=== PATIENT | female | born 1950 | race Caucasian/White ===

== ENCOUNTER 2020-10-05 08:29 | Outpatient (REF) | payer MEDICARE, SELFPAY ==
--- NOTE | 2020-10-05 13:26 | MHC.AU.P13 ---
Adult Audiological Evaluation Date of Visit: 10/05/20 Machinery Rigger Used: Not Applicable Reason for Appointment: Audiologic re-evaluation due to question of change in hearing ability. Is at high risk for increased hearing loss due to her history of Kidney Disease with transplant in 2008. Also needs new hearing aids as her current aids are over 10 years old. Medical History: Medical History: High Blood Pressure Medical History: Kidney disease with transplant in 2008 Bipolar Disorder Medication List: Not available for review today. Teetee reports no change since last tested in 2019. Hearing Instrument History- Right Ear: Community Health Consultant: Phonak Model: Smart III ARUN Serial Number: [id number] Battery Size: 312 Warranty: 2011 Dispensed By: [facility] Date of Fittin07/29/2010 Hearing Instrument History- Left Ear: Community Health Consultant: Phonak Model: Smart III ARUN Serial Number: [id number] Battery Size: 312 Warranty: 2011 Dispensed By: [facility] Date of Fittin07/29/2010 Otoscopy: Right Ear: Unremarkable Left Ear: Unremarkable Tympanometry: Right Ear: Normal Middle Ear System (Type A) Left Ear: Normal Middle Ear System (Type A) Hearing Evaluation: Transducer(s) Used: Insert Earphones Bone Conduction Method: Conventional Audiometry Stimuli Used: Pure Tones Right Ear: Description of Hearing: Mild dropping to moderately-severe sensorineural hearing loss. Left Ear: Description of Hearing: Mild dropping to moderately-severe sensorineural hearing loss. Thresholds at 500-2000 Hz are 10-15 dB poorer compared to the right ear. Speech Recognition Threshold (SRT): Method Used: Monitored Live Voice Stimuli Used: Spondee Words Right Ear: 35 dB HL Left Ear: 40 dB HL Word Discrimination: Method: Recorded Lists Word Lists Used: NU-6 Right Ear: 92% at 75 dB HL Left Ear: 88% at 80 dB HL Comparison: Compared to the most recent evaluation: Hearing is stable. Recommendations: Recommendations: Audiological re-evaluation in one year. Trial with amplification is recommended. Medical clearance from a physician is required before fitting. Hearing Aid Fitting will be scheduled when all materials arrive. See Hearing Aid Evaluation report for more information. Diagnosis: Primary Diagnosis: H90.3 Bilateral Sensorineural Hearing Loss Services Performed: Services Performed: Comprehensive Audiological Evaluation (CPT 41863) Tympanometry (CPT 51996) Signature: Provider: Karon Zaidi, [facility]
--- NOTE | 2020-10-05 13:41 | MHC.AU.P13 ---
Hearing Aid Evaluation- Binaural Date of Visit: 10/05/20 Operational Risk Manager Used: Not Applicable Description of Hearing: Mild sloping to moderately-severe sensorineural hearing loss with the left ear being 10-15 dB poorer than the right at 500-2000 Hz Summary: Patient feels she is not hearing well with the current aids. Her mother passed and her old Oticon Leroy SP 7 aids were fit with new earmolds on 10/29/2019. However, Teetee reports the Oticon aids have not worked well for her as they are uncomfortable and feed back. New binaural hearing aids are advised to improve her hearing ability. Hearing Instrument Selection: Right Ear: Hydraulics Teacher: Phonak Model: Audeo P 50-13T Battery Size: 13 Color: Beige Falafel Cart Cook: #2 medium Type of Mold: Phonak Skeleton Left Ear: Hydraulics Teacher: Phonak Model: Audeo P 50-13T Battery Size: 312 Color: Beige Falafel Cart Cook: #2 Type of Mold: Phonak Skeleton Medical clearance sent to PCP Will schedule HAF when all materials are received. Diagnosis Code(s): Primary Diagnosis: H90.3 Bilateral Sensorineural Hearing Loss Services Performed: Hearing Aid Evaluation and Earmold Impressions Signature: Provider: Karon Zaidi, [facility]
--- NOTE | 2020-10-05 13:46 | MHC.AU.MED ---
Medical Clearance for Hearing Instrumentation Date: 10/05/20 Patient Name: Teetee Katz Date of : 1950 Primary Care Provider: Referring Provider: Alexandru Laguna MD We have seen your patient on 10/05/20 and have determined that they are a candidate for amplification (See accompanying report). Specifically, they would benefit from: Hearing aid use in both ears There is a statute that addresses Medical Evaluation Requirements prior to fitting a patient with a hearing aid. According to [place] statute 265 CMR:6.03(1), (a) General. Except as provided in 265 CMR 6.03(1)(b), a photoengraving helper shall not sell a hearing aid unless the prospective user has presented to the photoengraving helper a written statement signed by a licensed physician that states that the patient's hearing loss has been medically evaluated and the patient may be considered a candidate for a hearing aid. The medical evaluation must have taken place within the preceding six months. Please note: Due to the [place] Statute referenced above, we cannot accept a signature other than that of a licensed physician. HAND CANDY DIPPER and PA signatures cannot be accepted. I am in agreement with the above recommendation. There is no medical contraindication for hearing instrumentation. Physician Signature Date Physician Name (Printed)
== END 2020-10-05 08:30 | disposition home or self-care (01) ==
LOC: HO.SH 08:29
PROVIDERS: Visit Provider Hospitalist
DX: H90.3 Sensorineural hearing loss, bilateral (principal)
CPT/HCPCS: 92557; 92567

== ENCOUNTER 2020-10-23 11:10 | Outpatient (REF) | payer SELFPAY | END 2020-10-23 11:11 | disposition home or self-care (01) | LOC: HO.HAP 11:10 | PROVIDERS: Visit Provider Hospitalist | DX: Z46.1 Encounter for fitting and adjustment of hearing aid (principal); H90.3 Sensorineural hearing loss, bilateral | CPT/HCPCS: V5261 ==

== ENCOUNTER 2020-11-03 09:28 | Outpatient (REF) | payer SELFPAY | END 2020-11-03 09:29 | disposition home or self-care (01) | LOC: HO.HAP 09:28 | PROVIDERS: Visit Provider Hospitalist | DX: Z13.89 Encounter for screening for other disorder (principal) ==

== ENCOUNTER 2021-03-31 09:49 | Outpatient (REF) | payer MEDICARE, SELFPAY | END 2021-03-31 09:50 | disposition home or self-care (01) | LOC: HO.LAB 09:49 | PROVIDERS: PCP Hospitalist; Visit Provider Internal Medicine | DX: Z20.822 Contact with and (suspected) exposure to COVID-19 (principal) | CPT/HCPCS: C9803; U0003; U0005 ==

== ENCOUNTER 2021-08-10 11:20 | Outpatient (REF) | payer SELFPAY ==
--- NOTE | 2021-08-10 11:40 | MHC.AU.P13 ---
Hearing Instrument Maintenance Date of Visit: 08/10/21 Right Ear: Teacher Resource: Phonak Model: Audeo P 50-13T Serial Number: [id number] Repair Warranty: 01/09/2024 Loss and Damage Warranty: 01/09/2024 Battery Size: 13 Color: Beige Shovel Mechanic: #2 medium Type of Mold: Phonak Skeleton [id number] warranty 02/08/2021 Type of Wax Guard: CeruStop Dispensed By: [facility] Date of Fittin07/29/2010 Left Ear: Teacher Resource: Phonak Model: Audei P 50-13T Serial Number: [id number] Repair Warranty: 01/09/2024 Loss and Damage Warranty: 01/09/2024 Battery Size: 13 Color: Beige Shovel Mechanic: #2 medium Type of Mold: Phonak Skeleton [id number] warranty 02/08/2021 Type of Wax Guard: CeruStop Dispensed By: [facility] Date of Fittin07/29/2010 Follow-Up Summary: Hearing aids brought in for cleaning. Hearing aids and slim tips cleaned and wax guards replaced - both amplifying clearly. Recommendations: Recommendations: Hearing instrument follow-up or maintenance as needed. Diagnosis Code(s): Primary Diagnosis: H90.3 Bilateral Sensorineural Hearing Loss Signature: Provider: LEXI Grimaldo-HIS
== END 2021-08-10 11:21 | disposition home or self-care (01) ==
LOC: HO.HAP 11:20
PROVIDERS: Visit Provider Hospitalist
DX: Z13.89 Encounter for screening for other disorder (principal)

== ENCOUNTER → 2021-10-05 14:32 | Outpatient (REF) | payer MEDICARE, SELFPAY ==
--- NOTE | 2021-10-05 14:46 | ECG_ITS ---
Test Reason : MED CHECK Blood Pressure : / mmHG Vent. Rate : 080 BPM Atrial Rate : 080 BPM P-R Int : 158 ms QRS Dur : 076 ms QT Int : 354 ms P-R-T Axes : 047 -57 066 degrees QTc Int : 408 ms Normal sinus rhythm Left axis deviation Abnormal ECG When compared with ECG of 18-JUN-2015 10:58, QRS axis Shifted left Referred By: Serafin Martines Electronically Signed By:MARTINA BILL MD
[2021-10-05 14:52] LABS: MANUAL DIFF FLAG NO
[2021-10-05 15:04] LABS: Basophils Percent Auto 0.8 % (0-2); Eosinophils Absolute Auto 0.2 X10*3/uL (0.0-0.4); Eosinophils Percent Auto 3.1 % (0-4); Hematocrit 28.4 % (37.0-47.0); Hemoglobin 9.3 g/dl (12.0-16.0); Imm Gran Abs Auto 0.03 X10*3/uL (0.00-0.03); Imm Gran Pct Auto 0.6 % (0.0-0.4); Lymphocytes Absolute Auto 0.5 X10*3/uL (1.2-4.9); Lymphocytes Percent Auto 11.3 % (20-40); Mean Corpuscular HGB Conc 32.7 g/dl (31.0-35.0); Mean Corpuscular Hemoglobin 30.8 pg (27.0-33.0); Mean Platelet Volume 9.8 fL (9.4-12.3); Monocytes Absolute Auto 0.5 X10*3/uL (0.1-1.2); Monocytes Percent Auto 10.9 % (2-11); Neutrophils Absolute Auto 3.5 x10*3/uL (2.0-8.3); Neutrophils Percent Auto 73.3 % (45-73); Platelet Count 150 X10*3/uL (160-400); Red Blood Count 3.02 X10*6/uL (4.20-5.50); Red Cell Distribution Width 13.9 % (11.0-16.0); White Blood Count 4.8 X10*3/uL (4.8-10.8)
[2021-10-05 15:11] LABS: Estimated Average Glucose 111 mg/dL; Hemoglobin A1c % 5.5 %
[2021-10-05 15:29] LABS: Alanine Aminotransferase 22 U/L (0-31); Albumin Level 3.6 g/dL (3.5-5.0); Alkaline Phosphatase 44 U/L (39-117); Anion Gap 12 (12-20); Aspartate Amino Transferase 17 U/L (5-31); Bilirubin Total 0.3 mg/dL (0.0-1.0); Blood Urea Nitrogen 43 mg/dL (9-16); Calcium 8.8 mg/dL (8.4-10.2); Carbon Dioxide 20 mmol/L (22-29); Chloride 110 mmol/L (96-108); Estimated Glomerular Filt Rate 29; Glucose Random 144 mg/dL (60-115); Potassium 5.6 mmol/L (3.3-5.1); Sodium 136 mmol/L (135-145); Total Protein 5.8 g/dL (6.5-8.0)
[2021-10-05 15:53] LABS: Thyroid Stimulating Hormone 1.27 uIU/mL (0.32-4.0)
== END ==
LOC: HO.CARD 14:32
PROVIDERS: Visit Provider Psychiatry & Neurology Psychiatry
DX: F31.2 Bipolar disorder, current episode manic severe with psychotic features (principal)
CPT/HCPCS: 36415; 80053; 83036; 84443; 85025; 93005

== ENCOUNTER 2021-10-20 15:47 | Inpatient (IN) | payer MEDICARE, SELFPAY ==
--- NOTE | ~2021-10-20 | US_ITS ---
EXAMINATION: ULTRASOUND OF RIGHT TRANSPLANT KIDNEY CLINICAL INFORMATION: Right transplant kidney. Polycystic renal disease. COMPARISON: CT scan of September 29, 2019 and MRI of September 30, 2019. Ultrasound of September 29, 2019. TECHNIQUE: Transplant kidney ultrasound. FINDINGS: Evaluation of transplant kidney within the right lower quadrant performed. The transplant kidney measures approximately 13.4 x 5.8 x 6.1 cm in size. There is again noted to be a midpole simple appearing cyst measuring 3.3 x 2.0 x 3.1 cm in size. No hydronephrosis. No calculi appreciated. Duplex Doppler evaluation was not performed. US/US renal RT IMPRESSION: Stable appearance of renal transplant kidney with 3.3 cm midpole simple appearing cyst.
--- NOTE | ~2021-10-20 | CT_ITS ---
EXAMINATION: CT HEAD WITHOUT CONTRAST CLINICAL INFORMATION: AMS COMPARISON: CT brain 09/29/2019 TECHNIQUE: Contiguous axial imaging was performed from the skull base to vertex without intravenous administration of contrast. This CT examination was performed using dose optimization techniques as appropriate, variously including the following: *Automated exposure control *Adjustment of mA and/or kV according to patient size (this includes techniques or standardized protocols for targeted exams where dose is matched to indication/reason for exam; i.e. extremities or head) *Use of iterative reconstruction technique DLP: 642 mGy-cm FINDINGS: There is no evidence of acute intracranial hemorrhage or territorial infarction. No abnormal mass effect or midline shift is seen. Chambers to white matter differentiation is well preserved. No extra-axial fluid collections are identified. The ventricles are normal in size. There is no abnormal attenuation within the brain parenchyma. The osseous structures and soft tissues are normal. The mastoid air cells and visualized portions of the paranasal sinuses are well aerated. CT/CT head/brain wo con IMPRESSION: No acute intracranial process seen. A change from 09/29/2019
--- NOTE | ~2021-10-20 | XR_ITS ---
EXAMINATION: XR CHEST CLINICAL INFORMATION: Acute mental status change. Shortness of breath. COMPARISON: None TECHNIQUE: Frontal view of the chest was obtained. FINDINGS: No significant abnormality is noted involving the heart, lungs, mediastinum, bony thorax or soft tissues. XR/XR chest 1V IMPRESSION: Unremarkable examination.
--- NOTE | ~2021-10-20 | US_ITS ---
EXAMINATION: US RENAL BIOPSY CLINICAL INFORMATION: Right pelvic transplanted kidney, evaluate for rejection. COMPARISON: Renal ultrasound 10/27/2021 TECHNIQUE: Following explaining ultrasound-guided right transplant biopsy procedure, benefits and risk, a written consent was obtained. Patient was placed supine on ultrasound stretcher and preliminary ultrasound imaging was obtained through the right pelvis and right transplant kidney was evaluated. An optimal site was selected for biopsy and marked on the skin. The marked area was cleaned and draped in the usual sterile manner with 2% chlorhexidine solution. 1% lidocaine was inserted at puncture site. Through a small skin incision, an 18-gauge short guide needle was advanced under sterile ultrasound guidance in the right transplanted kidney. A 4-pass coaxial biopsy was performed with an 18-gauge biopsy gun. Postprocedure imaging was performed through the right abdomen. Sterile dressing applied postprocedure. Patient tolerated the procedure extremely well. No conscious sedation was administered. FINDINGS: On preliminary ultrasound imaging, the right transplant kidney cortex appears homogeneous. There is slight echogenic medulla. Approximately 18-gauge 4 core biopsies were taken from the right transplanted kidney. US/US biopsy renal IMPRESSION: Successful ultrasound-guided 18-gauge core biopsy performed from the right transplant kidney in right lower pelvis.
--- NOTE | ~2021-10-20 | CT_ITS ---
EXAMINATION: CT HEAD WITHOUT CONTRAST CLINICAL INFORMATION: Altered mental status. COMPARISON: CT head dated from 10/20/2021. TECHNIQUE: Contiguous axial imaging was performed from the skull base to vertex without intravenous administration of contrast. This CT examination was performed using dose optimization techniques as appropriate, variously including the following: *Automated exposure control *Adjustment of mA and/or kV according to patient size (this includes techniques or standardized protocols for targeted exams where dose is matched to indication/reason for exam; i.e. extremities or head) *Use of iterative reconstruction technique DLP: 815 mGy-cm FINDINGS: There is no evidence of acute intracranial hemorrhage or edematous territorial infarction. There is no abnormal attenuation within the brain parenchyma. Chambers-white matter differentiation is preserved. The ventricles are normal in size and configuration. No evidence for obstructive hydrocephalus. No abnormal mass effect or midline shift. No extra-axial fluid collections. No acute soft tissue or osseous abnormalities. Mild mucosal thickening of the paranasal sinuses with trace bilateral mastoid effusions. CT/CT head/brain wo con IMPRESSION: No evidence of acute intracranial hemorrhage or edematous territorial infarction.
--- NOTE | 2021-10-20 15:52 | ECG_ITS ---
Test Reason : ALTERED MENTAL Blood Pressure : / mmHG Vent. Rate : 054 BPM Atrial Rate : 054 BPM P-R Int : 152 ms QRS Dur : 090 ms QT Int : 456 ms P-R-T Axes : 050 -53 056 degrees QTc Int : 432 ms Sinus bradycardia Left axis deviation Minimal voltage criteria for LVH, may be normal variant ( Raymond product ) Abnormal ECG When compared with ECG of 05-OCT-2021 14:51, Vent. rate has decreased BY 26 BPM Referred By: Georgi Ferrer Electronically Signed By:Fidencio Pearl
[2021-10-20 16:03] VITALS: BP 152/69; BP 183/81; PULSE 59; PULSE 68; RESP 18; TEMP 37.3; O2SAT 98; O2SAT 99
--- NOTE | 2021-10-20 16:31 | ED_ITS ---
HPI - Psych General Chief Complaint: Psychiatric Symptoms <NARGIS Morris Last Filed: 10/20/21 18:51> Stated Complaint: SEC 12 <NARGIS Morris Last Filed: 10/20/21 18:51> Time Seen by Provider: 10/20/21 15:51 <NARGIS Morris Last Filed: 10/20/21 18:51> Source: patient and EMS <NARGIS Morris Last Filed: 10/20/21 18:51> Mode of arrival: ambulatory <NARGIS Morris Last Filed: 10/20/21 18:51> Limitations: altered mental status <NARGIS Morris Last Filed: 10/20/21 18:51> History of Present Illness HPI Narrative: This is a 71-year-old female brought in by ambulance by EMS on a Section 12, patient was found walking the streets naked in [place]. She was found by police, [facility] on scene they sectioned patient. Patient is altered, not answering questions appropriately. Laughing. When I asked her why she is here she says here for eternity . I asked her who she lives with and she says me and my loan heart . When I asked her if anything had hurts she tells me no is something hurting you? . She appears well and in no acute distress <NARGIS Morris Last Filed: 10/20/21 18:51> Onset (ago): unknown <NARGIS Morris Last Filed: 10/20/21 18:51> Associated symptoms: denies other symptoms <NARGIS Morris Last Filed: 10/20/21 18:51> Treatments prior to arrival: placed on mental health hold <NARGIS Morris Last Filed: 10/20/21 18:51> Related Data Allergies/Adverse Reactions: Allergies Allergy/AdvReac Type Severity Reaction Status Date / Time gabapentin [From Neurontin] Allergy Unknown UNKNOWN Unverified 06/18/20 17:24 Sulfa (Sulfonamide Allergy Unknown UNKNOWN Unverified 06/18/20 17:24 Antibiotics) [SULFA (SULFONAMIDE ANTIBIOTICS)] trimethoprim [TRIMETHOPRIM] Allergy Unknown UNKNOWN Unverified 06/18/20 17:24 lithium [LITHIUM] AdvReac Severe KIDNEY Unverified 06/18/20 17:24 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 <NARGIS Morris - Last Filed: 10/20/21 18:51> Yes Unobtainable due to mental status <NARGIS Morris - Last Filed: 10/20/21 18:51> [facility] Past Medical History Attestation statement: The following information was validated with the patient. <NARGIS Morris - Last Filed: 10/20/21 18:51> Source: old records reviewed and nursing notes reviewed <NARGIS Morris - Last Filed: 10/20/21 18:51> Medical History: Medical History (Updated 10/20/21 @ 18:51 by NARGIS Morris) No known health problems <NARGIS Morris - Last Filed: 10/20/21 18:51> Social History Social History: Social History Patient Tobacco Use Status: Former Tobacco user Use of substances other than those prescribed or required for medical reasons: No Advance Directives: No Advance Directives Information Provided: No <NARGIS Morris - Last Filed: 10/20/21 18:51> Physical Exam Vital Signs: Vital Signs: Last Vital Signs Temp 98.2 F 10/21/21 01:41 Pulse 83 10/21/21 01:41 Resp 16 10/21/21 01:41 BP 159/69 H 10/21/21 01:41 Pulse Ox 97 10/21/21 01:41 BMI result Body Mass Index 20.0 VSS <NARGIS Morris - Last Filed: 10/20/21 18:51> Vital Signs: Last Vital Signs Temp 98.2 F 10/21/21 01:41 Pulse 83 10/21/21 01:41 Resp 16 10/21/21 01:41 BP 159/69 H 10/21/21 01:41 Pulse Ox 97 10/21/21 01:41 BMI result Body Mass Index 20.0 <NARGIS Wilkins - Last Filed: 10/21/21 01:51> Appearance: Alert.?Awake.? No acute distress.? Head: Normocephalic, atraumatic, no step-offs or deformities Eyes: Pupils equal, round and reactive to light.? ENT: Pharynx normal.? Neck: Normal inspection.? Neck supple.? CVS: Normal heart rate and rhythm.? Pulses normal.? Respiratory: No respiratory distress.? Breath sounds normal.? Abdomen: Soft and nontender.? Skin: Skin warm and dry.? Normal skin color.? Normal skin turgor.? Extremities: No lower extremity edema.? No calf ttp. 5/5 strength to bilateral upper and lower extremities Back: No midline tenderness, no C-spine tenderness, full range of motion, no CVA tenderness bilaterally Neuro: Patient oriented to person and place not year or situation. ? No motor deficit.? No sensory deficit. <NARGIS Morris - Last Filed: 10/20/21 18:51> Course Course Course Narrative: -2023-- patient's contact Veronica Livingston called back and provided further information. states patient has been in manic episode for the past few weeks, admits patient was calling her every morning at 7:00 a.m. to check in & had feeling of impending doom and was stocking up on imperishable items, to the point where they were unable to step into patient's apartment due to excess of supplies. Veronica reports patient stated she knew she was crazy. Veronica has not spoken to patient in 2 weeks as she thought she had her symptoms under control -2109-- LAURO improved after IVF. Patient placed in physician observation as needs more time to be an inpatient [facility] bed search -0151-- patient attempted to smother herself with pillow. Was stopped by sitter. P.o. Ativan ordered <NARGIS Wilkins - Last Filed: 10/21/21 01:51> Reevaluation(s) Reevaluation #1: Initial trop is noted to be elevated Dr. Yinka daniels, reviewed old EKG again, appears similar. Patient is not complaining of chest pain. ST elevations appear larger than before in the anterior leads. Will repeat an EKG in 3 hours. Slight anemia is noted, platelets are noted to be low, they have been low in the past on October 05, 2021. Sodium is slightly elevated, potassium 4.1, she is noted to have an LAURO, she was noted to have LAURO it on October 05, 2021 however it has worsened. Patient's Mag is noted to be 2.7. lipase wnl <NARGIS Morris Last Filed: 10/20/21 18:51> Time: 17:20 <NARGIS Morris Last Filed: 10/20/21 18:51> Reevaluation #2: TT Dr. Martines who is patients outpatient provider. Tells me she has a hx of manic psychosis. He also tells me when if medically cleared should go to [facility] if psych and not medical. He also tells me she has a hx of renal transplant, and tells me she is normally quite stable. He also tells me he is Available of anyone needs to reach out, he is going to let the care team know she is in house. She does not have a history of dementia that he knows of. But he reiterates that she can become manic. <NARGIS Morris Last Filed: 10/20/21 18:51> Time: 18:09 <NARGIS Morris Last Filed: 10/20/21 18:51> Reevaluation #3: Patient is now more calm, will hang fluids at this time. <NARGIS Morris Last Filed: 10/20/21 18:51> Time: 18:26 <NARGIS Morris Last Filed: 10/20/21 18:51> Additional Reevaluation(s): Sign out will be given to Alexsandra TAFOYA pending repeat trop, head CT. If LAURO doesnt <NARGIS Morris Last Filed: 10/20/21 18:51> MDM - Psych MDM Narrative Medical decision making narrative: 1630 71-year-old female a known medical history presents to the emergency department via EMS after being found walking around the streets naked and [place]. She was found by police, [facility] was called to the scene, they place patient on a Section 12 Upon physical examination patient is oriented to person and place not to situation or time. She appears well, no acute distress. Full range of motion to all extremities. Abdomen soft nontender nondistended. Regular rate and rhythm. Lungs clear. Plan at this time is to do a full workup including lab work, urine CT of the head. Will rule out infection, UTI, head bleed. Upon further chart review it appears as though patient is followed by Dr. Martines for bipolar disorder with manic episodes severe. It also appears as though patient has had multiple inpatient admissions with psych. Last 1 in our system is from September 21, 2019 where she came in with hallucinations. It looks like she has a diagnosis of bipolar disorder. She has also had presentations with psychosis. Back in September 14, 2014 it appears as though patient came in with altered mental status status post head injury <NARGIS Morris - Last Filed: 10/20/21 18:51> Medical Records Attestation: I reviewed the patient's medical records. <NARGIS Morris - Last Filed: 10/20/21 18:51> Lab Data Attestation: I reviewed the patient's lab results. <NARGIS Morris - Last Filed: 10/20/21 18:51> Result diagrams: : 10/20/21 16:30 10/20/21 20:38 <NARGIS Morris - Last Filed: 10/20/21 18:51> Labs: Lab Results 10/20/21 10/20/21 10/20/21 Range/Units 16:30 16:30 16:30 WBC 7.2 (4.8-10.8) X10*3/uL RBC 3.30 L (4.20-5.50) X10*6/uL Hgb 10.1 L (12.0-16.0) g/dl Hct 31.6 L (37.0-47.0) % MCV 95.8 (80.0-98.0) fL MCH 30.6 (27.0-33.0) pg MCHC 32.0 (31.0-35.0) g/dl RDW 14.0 (11.0-16.0) % Plt Count 157 L (160-400) X10*3/uL MPV 10.3 (9.4-12.3) fL Immature Gran % (Auto) 0.4 (0.0-0.4) % Neut % (Auto) 62.6 (45-73) % Lymph % (Auto) 13.7 L (20-40) % [place] % (Auto) 13.2 H (2-11) % Eos % (Auto) 9.7 H (0-4) % Baso % (Auto) 0.4 (0-2) % Lymph # (Auto) 1.0 L (1.2-4.9) X10*3/uL [place] # (Auto) 1.0 (0.1-1.2) X10*3/uL Eos # (Auto) 0.7 H (0.0-0.4) X10*3/uL Baso # (Auto) 0.0 (0.0-0.2) X10*3/uL Abs Immat Gran (auto) 0.03 (0.00-0.03) X10*3/uL Absolute Neuts (auto) 4.5 (2.0-8.3) x10*3/uL Absolute Nucleated RBC 0.000 (0.0-0.012) X10*3/uL Nucleated RBC % (auto) 0.0 (0.0-0.2) /100WBC Sodium 146 H (135-145) mmol/L Potassium 4.1 D (3.3-5.1) mmol/L Chloride 115 H (96-108) mmol/L Carbon Dioxide 21 L (22-29) mmol/L Anion Gap 14 (12-20) BUN 41 H (9-16) mg/dL Creatinine 2.17 H (0.5-1.4) mg/dL Estim Creat Clear Calc 20.1 Estimated GFR 22 Random Glucose 115 (60-115) mg/dL Calcium 8.7 (8.4-10.2) mg/dL Magnesium 2.7 H (1.6-2.6) mg/dL Total Bilirubin 0.5 (0.0-1.0) mg/dL AST 24 D (5-31) U/L ALT 27 (0-31) U/L Alkaline Phosphatase 41 (39-117) U/L Ammonia (13-55) umol/L Troponin I High Sens 20.7 H (<3.5-17.0) ng/L Total Protein 5.9 L (6.5-8.0) g/dL Albumin 3.5 (3.5-5.0) g/dL Lipase 35 (8-78) U/L Urine Color Urine Appearance Urine pH (5.0-8.0) Ur Specific [place] (1.005-1.025) Urine Protein (NEG-TRACE) MG/DL Urine Glucose (UA) (NEG) MG/DL Urine Ketones (NEG) MG/DL Urine Blood (NEG) Urine Nitrite (NEG) Ur Leukocyte Esterase (NEG) Urine RBC (0) /HPF Urine WBC (0-4) /HPF Ur Squamous Epith Cells /LPF Urine Bacteria /LPF Salicylates (15-30) mg/dL Urine Opiates Screen (Not Detect) Urine Fentanyl Screen (Not Detect) Acetaminophen (<30) mcg/mL Ur Barbiturates Screen (Not Detect) Ur Phencyclidine Scrn (Not Detect) Ur Amphetamines Screen (Not Detect) U Benzodiazepines Scrn (Not Detect) [place] (0.60-1.20) mmol/L Urine Cocaine Screen (Not Detect) U Marijuana (THC) Screen (Not Detect) COVID-19 ([place]OM[place]N) (Negative) COVID-19 Clin Com 10/20/21 10/20/21 10/20/21 Range/Units 16:30 17:18 17:18 WBC (4.8-10.8) X10*3/uL RBC (4.20-5.50) X10*6/uL Hgb (12.0-16.0) g/dl Hct (37.0-47.0) % MCV (80.0-98.0) fL MCH (27.0-33.0) pg MCHC (31.0-35.0) g/dl RDW (11.0-16.0) % Plt Count (160-400) X10*3/uL MPV (9.4-12.3) fL Immature Gran % (Auto) (0.0-0.4) % Neut % (Auto) (45-73) % Lymph % (Auto) (20-40) % [place] % (Auto) (2-11) % Eos % (Auto) (0-4) % Baso % (Auto) (0-2) % Lymph # (Auto) (1.2-4.9) X10*3/uL [place] # (Auto) (0.1-1.2) X10*3/uL Eos # (Auto) (0.0-0.4) X10*3/uL Baso # (Auto) (0.0-0.2) X10*3/uL Abs Immat Gran (auto) (0.00-0.03) X10*3/uL Absolute Neuts (auto) (2.0-8.3) x10*3/uL Absolute Nucleated RBC (0.0-0.012) X10*3/uL Nucleated RBC % (auto) (0.0-0.2) /100WBC Sodium (135-145) mmol/L Potassium (3.3-5.1) mmol/L Chloride (96-108) mmol/L Carbon Dioxide (22-29) mmol/L Anion Gap (12-20) BUN (9-16) mg/dL Creatinine (0.5-1.4) mg/dL Estim Creat Clear Calc Estimated GFR Random Glucose (60-115) mg/dL Calcium (8.4-10.2) mg/dL Magnesium (1.6-2.6) mg/dL Total Bilirubin (0.0-1.0) mg/dL AST (5-31) U/L ALT (0-31) U/L Alkaline Phosphatase (39-117) U/L Ammonia (13-55) umol/L Troponin I High Sens (<3.5-17.0) ng/L Total Protein (6.5-8.0) g/dL Albumin (3.5-5.0) g/dL Lipase (8-78) U/L Urine Color YELLOW Urine Appearance CLEAR Urine pH 6.0 (5.0-8.0) Ur Specific [place] 1.020 (1.005-1.025) Urine Protein 3+ H (NEG-TRACE) MG/DL Urine Glucose (UA) NEG (NEG) MG/DL Urine Ketones 15 (NEG) MG/DL Urine Blood TRACE (NEG) Urine Nitrite NEG (NEG) Ur Leukocyte Esterase NEG (NEG) Urine RBC 0-2 (0) /HPF Urine WBC 0-2 (0-4) /HPF Ur Squamous Epith Cells TRACE /LPF Urine Bacteria NONE /LPF Salicylates (15-30) mg/dL Urine Opiates Screen Not Detected (Not Detect) Urine Fentanyl Screen Not Detected (Not Detect) Acetaminophen (<30) mcg/mL Ur Barbiturates Screen Not Detected (Not Detect) Ur Phencyclidine Scrn Not Detected (Not Detect) Ur Amphetamines Screen Not Detected (Not Detect) U Benzodiazepines Scrn Not Detected (Not Detect) [place] (0.60-1.20) mmol/L Urine Cocaine Screen Not Detected (Not Detect) U Marijuana (THC) Screen Not Detected (Not Detect) COVID-19 ([facility]ALOM[place]N) Negative (Negative) COVID-19 Clin Com See Note 10/20/21 10/20/21 10/20/21 Range/Units 17:50 17:50 19:11 WBC (4.8-10.8) X10*3/uL RBC (4.20-5.50) X10*6/uL Hgb (12.0-16.0) g/dl Hct (37.0-47.0) % MCV (80.0-98.0) fL MCH (27.0-33.0) pg MCHC (31.0-35.0) g/dl RDW (11.0-16.0) % Plt Count (160-400) X10*3/uL MPV (9.4-12.3) fL Immature Gran % (Auto) (0.0-0.4) % Neut % (Auto) (45-73) % Lymph % (Auto) (20-40) % [place] % (Auto) (2-11) % Eos % (Auto) (0-4) % Baso % (Auto) (0-2) % Lymph # (Auto) (1.2-4.9) X10*3/uL [place] # (Auto) (0.1-1.2) X10*3/uL Eos # (Auto) (0.0-0.4) X10*3/uL Baso # (Auto) (0.0-0.2) X10*3/uL Abs Immat Gran (auto) (0.00-0.03) X10*3/uL Absolute Neuts (auto) (2.0-8.3) x10*3/uL Absolute Nucleated RBC (0.0-0.012) X10*3/uL Nucleated RBC % (auto) (0.0-0.2) /100WBC Sodium (135-145) mmol/L Potassium (3.3-5.1) mmol/L Chloride (96-108) mmol/L Carbon Dioxide (22-29) mmol/L Anion Gap (12-20) BUN (9-16) mg/dL Creatinine (0.5-1.4) mg/dL Estim Creat Clear Calc Estimated GFR Random Glucose (60-115) mg/dL Calcium (8.4-10.2) mg/dL Magnesium (1.6-2.6) mg/dL Total Bilirubin (0.0-1.0) mg/dL AST (5-31) U/L ALT (0-31) U/L Alkaline Phosphatase (39-117) U/L Ammonia (13-55) umol/L Troponin I High Sens 20.8 H (<3.5-17.0) ng/L Total Protein (6.5-8.0) g/dL Albumin (3.5-5.0) g/dL Lipase (8-78) U/L Urine Color Urine Appearance Urine pH (5.0-8.0) Ur Specific [place] (1.005-1.025) Urine Protein (NEG-TRACE) MG/DL Urine Glucose (UA) (NEG) MG/DL Urine Ketones (NEG) MG/DL Urine Blood (NEG) Urine Nitrite (NEG) Ur Leukocyte Esterase (NEG) Urine RBC (0) /HPF Urine WBC (0-4) /HPF Ur Squamous Epith Cells /LPF Urine Bacteria /LPF Salicylates < 5.0 L (15-30) mg/dL Urine Opiates Screen (Not Detect) Urine Fentanyl Screen (Not Detect) Acetaminophen < 1 (<30) mcg/mL Ur Barbiturates Screen (Not Detect) Ur Phencyclidine Scrn (Not Detect) Ur Amphetamines Screen (Not Detect) U Benzodiazepines Scrn (Not Detect) [place] < 0.10 L (0.60-1.20) mmol/L Urine Cocaine Screen (Not Detect) U Marijuana (THC) Screen (Not Detect) COVID-19 ([facility]OM[facility]N) (Negative) COVID-19 Clin Com 10/20/21 10/20/21 Range/Units 19:11 20:38 WBC (4.8-10.8) X10*3/uL RBC (4.20-5.50) X10*6/uL Hgb (12.0-16.0) g/dl Hct (37.0-47.0) % MCV (80.0-98.0) fL MCH (27.0-33.0) pg MCHC (31.0-35.0) g/dl RDW (11.0-16.0) % Plt Count (160-400) X10*3/uL MPV (9.4-12.3) fL Immature Gran % (Auto) (0.0-0.4) % Neut % (Auto) (45-73) % Lymph % (Auto) (20-40) % [place] % (Auto) (2-11) % Eos % (Auto) (0-4) % Baso % (Auto) (0-2) % Lymph # (Auto) (1.2-4.9) X10*3/uL [place] # (Auto) (0.1-1.2) X10*3/uL Eos # (Auto) (0.0-0.4) X10*3/uL Baso # (Auto) (0.0-0.2) X10*3/uL Abs Immat Gran (auto) (0.00-0.03) X10*3/uL Absolute Neuts (auto) (2.0-8.3) x10*3/uL Absolute Nucleated RBC (0.0-0.012) X10*3/uL Nucleated RBC % (auto) (0.0-0.2) /100WBC Sodium 146 H (135-145) mmol/L Potassium 4.2 (3.3-5.1) mmol/L Chloride 116 H (96-108) mmol/L Carbon Dioxide 20 L (22-29) mmol/L Anion Gap 14 (12-20) BUN 37 H (9-16) mg/dL Creatinine 1.81 H (0.5-1.4) mg/dL Estim Creat Clear Calc 24.1 Estimated GFR 27 Random Glucose 91 (60-115) mg/dL Calcium 8.1 L D (8.4-10.2) mg/dL Magnesium (1.6-2.6) mg/dL Total Bilirubin (0.0-1.0) mg/dL AST (5-31) U/L ALT (0-31) U/L Alkaline Phosphatase (39-117) U/L Ammonia 16 (13-55) umol/L Troponin I High Sens (<3.5-17.0) ng/L Total Protein (6.5-8.0) g/dL Albumin (3.5-5.0) g/dL Lipase (8-78) U/L Urine Color Urine Appearance Urine pH (5.0-8.0) Ur Specific [place] (1.005-1.025) Urine Protein (NEG-TRACE) MG/DL Urine Glucose (UA) (NEG) MG/DL Urine Ketones (NEG) MG/DL Urine Blood (NEG) Urine Nitrite (NEG) Ur Leukocyte Esterase (NEG) Urine RBC (0) /HPF Urine WBC (0-4) /HPF Ur Squamous Epith Cells /LPF Urine Bacteria /LPF Salicylates (15-30) mg/dL Urine Opiates Screen (Not Detect) Urine Fentanyl Screen (Not Detect) Acetaminophen (<30) mcg/mL Ur Barbiturates Screen (Not Detect) Ur Phencyclidine Scrn (Not Detect) Ur Amphetamines Screen (Not Detect) U Benzodiazepines Scrn (Not Detect) [place] (0.60-1.20) mmol/L Urine Cocaine Screen (Not Detect) U Marijuana (THC) Screen (Not Detect) COVID-19 ([facility]ALOM[facility]N) (Negative) COVID-19 Clin Com <NARGIS Morris - Last Filed: 10/20/21 18:51> Lab Results 10/20/21 10/20/21 10/20/21 Range/Units 16:30 16:30 16:30 WBC 7.2 (4.8-10.8) X10*3/uL RBC 3.30 L (4.20-5.50) X10*6/uL Hgb 10.1 L (12.0-16.0) g/dl Hct 31.6 L (37.0-47.0) % MCV 95.8 (80.0-98.0) fL MCH 30.6 (27.0-33.0) pg MCHC 32.0 (31.0-35.0) g/dl RDW 14.0 (11.0-16.0) % Plt Count 157 L (160-400) X10*3/uL MPV 10.3 (9.4-12.3) fL Immature Gran % (Auto) 0.4 (0.0-0.4) % Neut % (Auto) 62.6 (45-73) % Lymph % (Auto) 13.7 L (20-40) % [place] % (Auto) 13.2 H (2-11) % Eos % (Auto) 9.7 H (0-4) % Baso % (Auto) 0.4 (0-2) % Lymph # (Auto) 1.0 L (1.2-4.9) X10*3/uL [place] # (Auto) 1.0 (0.1-1.2) X10*3/uL Eos # (Auto) 0.7 H (0.0-0.4) X10*3/uL Baso # (Auto) 0.0 (0.0-0.2) X10*3/uL Abs Immat Gran (auto) 0.03 (0.00-0.03) X10*3/uL Absolute Neuts (auto) 4.5 (2.0-8.3) x10*3/uL Absolute Nucleated RBC 0.000 (0.0-0.012) X10*3/uL Nucleated RBC % (auto) 0.0 (0.0-0.2) /100WBC Sodium 146 H (135-145) mmol/L Potassium 4.1 D (3.3-5.1) mmol/L Chloride 115 H (96-108) mmol/L Carbon Dioxide 21 L (22-29) mmol/L Anion Gap 14 (12-20) BUN 41 H (9-16) mg/dL Creatinine 2.17 H (0.5-1.4) mg/dL Estim Creat Clear Calc 20.1 Estimated GFR 22 Random Glucose 115 (60-115) mg/dL Calcium 8.7 (8.4-10.2) mg/dL Magnesium 2.7 H (1.6-2.6) mg/dL Total Bilirubin 0.5 (0.0-1.0) mg/dL AST 24 D (5-31) U/L ALT 27 (0-31) U/L Alkaline Phosphatase 41 (39-117) U/L Ammonia (13-55) umol/L Troponin I High Sens 20.7 H (<3.5-17.0) ng/L Total Protein 5.9 L (6.5-8.0) g/dL Albumin 3.5 (3.5-5.0) g/dL Lipase 35 (8-78) U/L Urine Color Urine Appearance Urine pH (5.0-8.0) Ur Specific [place] (1.005-1.025) Urine Protein (NEG-TRACE) MG/DL Urine Glucose (UA) (NEG) MG/DL Urine Ketones (NEG) MG/DL Urine Blood (NEG) Urine Nitrite (NEG) Ur Leukocyte Esterase (NEG) Urine RBC (0) /HPF Urine WBC (0-4) /HPF Ur Squamous Epith Cells /LPF Urine Bacteria /LPF Salicylates (15-30) mg/dL Urine Opiates Screen (Not Detect) Urine Fentanyl Screen (Not Detect) Acetaminophen (<30) mcg/mL Ur Barbiturates Screen (Not Detect) Ur Phencyclidine Scrn (Not Detect) Ur Amphetamines Screen (Not Detect) U Benzodiazepines Scrn (Not Detect) [place] (0.60-1.20) mmol/L Urine Cocaine Screen (Not Detect) U Marijuana (THC) Screen (Not Detect) COVID-19 ([facility]OM[facility]N) (Negative) COVID-19 Clin Com 10/20/21 10/20/21 10/20/21 Range/Units 16:30 17:18 17:18 WBC (4.8-10.8) X10*3/uL RBC (4.20-5.50) X10*6/uL Hgb (12.0-16.0) g/dl Hct (37.0-47.0) % MCV (80.0-98.0) fL MCH (27.0-33.0) pg MCHC (31.0-35.0) g/dl RDW (11.0-16.0) % Plt Count (160-400) X10*3/uL MPV (9.4-12.3) fL Immature Gran % (Auto) (0.0-0.4) % Neut % (Auto) (45-73) % Lymph % (Auto) (20-40) % [place] % (Auto) (2-11) % Eos % (Auto) (0-4) % Baso % (Auto) (0-2) % Lymph # (Auto) (1.2-4.9) X10*3/uL [place] # (Auto) (0.1-1.2) X10*3/uL Eos # (Auto) (0.0-0.4) X10*3/uL Baso # (Auto) (0.0-0.2) X10*3/uL Abs Immat Gran (auto) (0.00-0.03) X10*3/uL Absolute Neuts (auto) (2.0-8.3) x10*3/uL Absolute Nucleated RBC (0.0-0.012) X10*3/uL Nucleated RBC % (auto) (0.0-0.2) /100WBC Sodium (135-145) mmol/L Potassium (3.3-5.1) mmol/L Chloride (96-108) mmol/L Carbon Dioxide (22-29) mmol/L Anion Gap (12-20) BUN (9-16) mg/dL Creatinine (0.5-1.4) mg/dL Estim Creat Clear Calc Estimated GFR Random Glucose (60-115) mg/dL Calcium (8.4-10.2) mg/dL Magnesium (1.6-2.6) mg/dL Total Bilirubin (0.0-1.0) mg/dL AST (5-31) U/L ALT (0-31) U/L Alkaline Phosphatase (39-117) U/L Ammonia (13-55) umol/L Troponin I High Sens (<3.5-17.0) ng/L Total Protein (6.5-8.0) g/dL Albumin (3.5-5.0) g/dL Lipase (8-78) U/L Urine Color YELLOW Urine Appearance CLEAR Urine pH 6.0 (5.0-8.0) Ur Specific [place] 1.020 (1.005-1.025) Urine Protein 3+ H (NEG-TRACE) MG/DL Urine Glucose (UA) NEG (NEG) MG/DL Urine Ketones 15 (NEG) MG/DL Urine Blood TRACE (NEG) Urine Nitrite NEG (NEG) Ur Leukocyte Esterase NEG (NEG) Urine RBC 0-2 (0) /HPF Urine WBC 0-2 (0-4) /HPF Ur Squamous Epith Cells TRACE /LPF Urine Bacteria NONE /LPF Salicylates (15-30) mg/dL Urine Opiates Screen Not Detected (Not Detect) Urine Fentanyl Screen Not Detected (Not Detect) Acetaminophen (<30) mcg/mL Ur Barbiturates Screen Not Detected (Not Detect) Ur Phencyclidine Scrn Not Detected (Not Detect) Ur Amphetamines Screen Not Detected (Not Detect) U Benzodiazepines Scrn Not Detected (Not Detect) [place] (0.60-1.20) mmol/L Urine Cocaine Screen Not Detected (Not Detect) U Marijuana (THC) Screen Not Detected (Not Detect) COVID-19 ([facility]ALOM[facility]N) Negative (Negative) COVID-19 Clin Com See Note 10/20/21 10/20/21 10/20/21 Range/Units 17:50 17:50 19:11 WBC (4.8-10.8) X10*3/uL RBC (4.20-5.50) X10*6/uL Hgb (12.0-16.0) g/dl Hct (37.0-47.0) % MCV (80.0-98.0) fL MCH (27.0-33.0) pg MCHC (31.0-35.0) g/dl RDW (11.0-16.0) % Plt Count (160-400) X10*3/uL MPV (9.4-12.3) fL Immature Gran % (Auto) (0.0-0.4) % Neut % (Auto) (45-73) % Lymph % (Auto) (20-40) % [place] % (Auto) (2-11) % Eos % (Auto) (0-4) % Baso % (Auto) (0-2) % Lymph # (Auto) (1.2-4.9) X10*3/uL [place] # (Auto) (0.1-1.2) X10*3/uL Eos # (Auto) (0.0-0.4) X10*3/uL Baso # (Auto) (0.0-0.2) X10*3/uL Abs Immat Gran (auto) (0.00-0.03) X10*3/uL Absolute Neuts (auto) (2.0-8.3) x10*3/uL Absolute Nucleated RBC (0.0-0.012) X10*3/uL Nucleated RBC % (auto) (0.0-0.2) /100WBC Sodium (135-145) mmol/L Potassium (3.3-5.1) mmol/L Chloride (96-108) mmol/L Carbon Dioxide (22-29) mmol/L Anion Gap (12-20) BUN (9-16) mg/dL Creatinine (0.5-1.4) mg/dL Estim Creat Clear Calc Estimated GFR Random Glucose (60-115) mg/dL Calcium (8.4-10.2) mg/dL Magnesium (1.6-2.6) mg/dL Total Bilirubin (0.0-1.0) mg/dL AST (5-31) U/L ALT (0-31) U/L Alkaline Phosphatase (39-117) U/L Ammonia (13-55) umol/L Troponin I High Sens 20.8 H (<3.5-17.0) ng/L Total Protein (6.5-8.0) g/dL Albumin (3.5-5.0) g/dL Lipase (8-78) U/L Urine Color Urine Appearance Urine pH (5.0-8.0) Ur Specific [place] (1.005-1.025) Urine Protein (NEG-TRACE) MG/DL Urine Glucose (UA) (NEG) MG/DL Urine Ketones (NEG) MG/DL Urine Blood (NEG) Urine Nitrite (NEG) Ur Leukocyte Esterase (NEG) Urine RBC (0) /HPF Urine WBC (0-4) /HPF Ur Squamous Epith Cells /LPF Urine Bacteria /LPF Salicylates < 5.0 L (15-30) mg/dL Urine Opiates Screen (Not Detect) Urine Fentanyl Screen (Not Detect) Acetaminophen < 1 (<30) mcg/mL Ur Barbiturates Screen (Not Detect) Ur Phencyclidine Scrn (Not Detect) Ur Amphetamines Screen (Not Detect) U Benzodiazepines Scrn (Not Detect) [place] < 0.10 L (0.60-1.20) mmol/L Urine Cocaine Screen (Not Detect) U Marijuana (THC) Screen (Not Detect) COVID-19 ([facility]ALOM[facility]N) (Negative) COVID-19 Clin Com 10/20/21 10/20/21 Range/Units 19:11 20:38 WBC (4.8-10.8) X10*3/uL RBC (4.20-5.50) X10*6/uL Hgb (12.0-16.0) g/dl Hct (37.0-47.0) % MCV (80.0-98.0) fL MCH (27.0-33.0) pg MCHC (31.0-35.0) g/dl RDW (11.0-16.0) % Plt Count (160-400) X10*3/uL MPV (9.4-12.3) fL Immature Gran % (Auto) (0.0-0.4) % Neut % (Auto) (45-73) % Lymph % (Auto) (20-40) % [place] % (Auto) (2-11) % Eos % (Auto) (0-4) % Baso % (Auto) (0-2) % Lymph # (Auto) (1.2-4.9) X10*3/uL [place] # (Auto) (0.1-1.2) X10*3/uL Eos # (Auto) (0.0-0.4) X10*3/uL Baso # (Auto) (0.0-0.2) X10*3/uL Abs Immat Gran (auto) (0.00-0.03) X10*3/uL Absolute Neuts (auto) (2.0-8.3) x10*3/uL Absolute Nucleated RBC (0.0-0.012) X10*3/uL Nucleated RBC % (auto) (0.0-0.2) /100WBC Sodium 146 H (135-145) mmol/L Potassium 4.2 (3.3-5.1) mmol/L Chloride 116 H (96-108) mmol/L Carbon Dioxide 20 L (22-29) mmol/L Anion Gap 14 (12-20) BUN 37 H (9-16) mg/dL Creatinine 1.81 H (0.5-1.4) mg/dL Estim Creat Clear Calc 24.1 Estimated GFR 27 Random Glucose 91 (60-115) mg/dL Calcium 8.1 L D (8.4-10.2) mg/dL Magnesium (1.6-2.6) mg/dL Total Bilirubin (0.0-1.0) mg/dL AST (5-31) U/L ALT (0-31) U/L Alkaline Phosphatase (39-117) U/L Ammonia 16 (13-55) umol/L Troponin I High Sens (<3.5-17.0) ng/L Total Protein (6.5-8.0) g/dL Albumin (3.5-5.0) g/dL Lipase (8-78) U/L Urine Color Urine Appearance Urine pH (5.0-8.0) Ur Specific [place] (1.005-1.025) Urine Protein (NEG-TRACE) MG/DL Urine Glucose (UA) (NEG) MG/DL Urine Ketones (NEG) MG/DL Urine Blood (NEG) Urine Nitrite (NEG) Ur Leukocyte Esterase (NEG) Urine RBC (0) /HPF Urine WBC (0-4) /HPF Ur Squamous Epith Cells /LPF Urine Bacteria /LPF Salicylates (15-30) mg/dL Urine Opiates Screen (Not Detect) Urine Fentanyl Screen (Not Detect) Acetaminophen (<30) mcg/mL Ur Barbiturates Screen (Not Detect) Ur Phencyclidine Scrn (Not Detect) Ur Amphetamines Screen (Not Detect) U Benzodiazepines Scrn (Not Detect) [place] (0.60-1.20) mmol/L Urine Cocaine Screen (Not Detect) U Marijuana (THC) Screen (Not Detect) COVID-19 (SALOMÓN) (Negative) COVID-19 Clin Com <NARGIS Wilkins - Last Filed: 10/21/21 01:51> ECG Data Attestation: I personally reviewed and interpreted this ECG as follows: <NARGIS Morris - Last Filed: 10/20/21 18:51> ECG interpretation date: 10/20/21 <NARGIS Morris - Last Filed: 10/20/21 18:51> ECG interpretation time: 16:15 <NARGIS Morris - Last Filed: 10/20/21 18:51> Prior ECG tracings: available for review <NARGIS Morris - Last Filed: 10/20/21 18:51> Interpretation: Ventricular rate of 54, MI normal, QRS normal, QT / QTC normal. EKG shows sinus bradycardia, left axis deviation, J-point elevation. She a point elevation increased since EKG from October 05, 2021. <NARGIS Morris - Last Filed: 10/20/21 18:51> Critical Care Time Critical Care Time Critical Care Time: No <NARGIS Morris Last Filed: 10/20/21 18:51> Discharge Plan Discharge Clinical Impression: Acute psychosis, LAURO (acute kidney injury) <NARGIS Morris Last Filed: 10/20/21 18:51> Patient Disposition: Still a Patient <NARGSI Morris Last Filed: 10/20/21 18:51>
[2021-10-20 16:35] LABS: MANUAL DIFF FLAG NO
[2021-10-20 16:37] LABS: Basophils Percent Auto 0.4 % (0-2); Eosinophils Absolute Auto 0.7 X10*3/uL (0.0-0.4); Eosinophils Percent Auto 9.7 % (0-4); Hematocrit 31.6 % (37.0-47.0); Hemoglobin 10.1 g/dl (12.0-16.0); Imm Gran Abs Auto 0.03 X10*3/uL (0.00-0.03); Imm Gran Pct Auto 0.4 % (0.0-0.4); Lymphocytes Percent Auto 13.7 % (20-40); Mean Corpuscular Hemoglobin 30.6 pg (27.0-33.0); Mean Corpuscular Volume 95.8 fL (80.0-98.0); Mean Platelet Volume 10.3 fL (9.4-12.3); Monocytes Percent Auto 13.2 % (2-11); Neutrophils Absolute Auto 4.5 x10*3/uL (2.0-8.3); Neutrophils Percent Auto 62.6 % (45-73); Platelet Count 157 X10*3/uL (160-400); White Blood Count 7.2 X10*3/uL (4.8-10.8)
[2021-10-20 16:49] LABS: COVID-19 Test Negative (Negative)
[2021-10-20 17:02] LABS: Troponin-I High Sensitivity 20.7 ng/L (<3.5-17.0)
[2021-10-20 17:10] LABS: Alanine Aminotransferase 27 U/L (0-31); Albumin Level 3.5 g/dL (3.5-5.0); Alkaline Phosphatase 41 U/L (39-117); Anion Gap 14 (12-20); Aspartate Amino Transferase 24 U/L (5-31); Bilirubin Total 0.5 mg/dL (0.0-1.0); Blood Urea Nitrogen 41 mg/dL (9-16); Calcium 8.7 mg/dL (8.4-10.2); Carbon Dioxide 21 mmol/L (22-29); Chloride 115 mmol/L (96-108); Creatinine Clr Calc Pharmacy 20.1; Estimated Glomerular Filt Rate 22; Glucose Random 115 mg/dL (60-115); Magnesium 2.7 mg/dL (1.6-2.6); Potassium 4.1 mmol/L (3.3-5.1); Sodium 146 mmol/L (135-145); Total Protein 5.9 g/dL (6.5-8.0)
[2021-10-20 17:28] LABS: Appearance Urine CLEAR; Color Urine YELLOW; Glucose Urine UA NEG (NEG); Leukocyte Esterase Urine NEG (NEG); Nitrite Urine NEG (NEG); UACC Culture Trigger NO; Urine Blood TRACE (NEG); Urine Ketones 15 MG/DL (NEG); Urine Protein 3+ MG/DL (NEG-TRACE)
--- NOTE | 2021-10-20 17:28 | PC.NURSE ---
PROVIDER JOHANNY AND RN SYD IS AWARE NOT GETTING OTHER LABS AT THIS KRISTIN PATIENT IS AGITATED .
[2021-10-20] MEDS: LORazepam 0.5 MG TABLET PO (17:42)
[2021-10-20 17:43] LABS: Amphetamine Screen Urine Not Detected (Not Detect); Barbiturates, Urine Not Detected (Not Detect); Benzodiazepines Screen Urine Not Detected (Not Detect); Cannabinoid Screen Urine Not Detected (Not Detect); Cocaine Screen Urine Not Detected (Not Detect); Fentanyl, urine Not Detected (Not Detect); Opiate Screen Urine Not Detected (Not Detect); Phencyclidine Screen Urine Not Detected (Not Detect)
--- NOTE | 2021-10-20 17:44 | PC.NURSE ---
PT GETTING SLIGHTLY IRRITATED, WONT KEEP HER CLOTHES ON AND KEEPS SAYING SHE WANTS TO LEAVE
[2021-10-20 17:46] LABS: RBC Urine 0-2 /HPF (0); Squamous Epithelial Cell Urine TRACE /LPF; WBC Urine 0-2 /HPF (0-4)
[2021-10-20 18:09] LABS: Lipase 35 U/L (8-78)
[2021-10-20 18:14] LABS: Lithium < 0.10 mmol/L (0.60-1.20)
[2021-10-20 18:15] LABS: Acetaminophen LAB < 1 mcg/mL (<30); Salicylate < 5.0 mg/dL (15-30)
[2021-10-20 19:13] VITALS: BP 179/70; PULSE 68; RESP 16; TEMP 36.9; O2SAT 99
[2021-10-20] MEDS: 0.9 % Sodium Chloride 1,000 ML 999 ML IV (19:18)
--- NOTE | 2021-10-20 19:21 | PC.NURSE ---
Assumed care of pt at 1900. Pt resting in bed, in NAD, IV fluids infusing. Karinaa EDT at bedside for 1:1 monitoring. Pt awake and alert, confused, states I don't know the language here , when asked by this RN to clarify stated please be quiet I'm trying to communicate.
[2021-10-20 19:28] LABS: Ammonia 16 umol/L (13-55)
[2021-10-20 19:36] LABS: Troponin-I High Sensitivity 20.8 ng/L (<3.5-17.0)
[2021-10-20 21:09] LABS: Anion Gap 14 (12-20); Blood Urea Nitrogen 37 mg/dL (9-16); Calcium 8.1 mg/dL (8.4-10.2); Carbon Dioxide 20 mmol/L (22-29); Chloride 116 mmol/L (96-108); Creatinine Clr Calc Pharmacy 24.1; Estimated Glomerular Filt Rate 27; Glucose Random 91 mg/dL (60-115); Potassium 4.2 mmol/L (3.3-5.1); Sodium 146 mmol/L (135-145)
[2021-10-20 22:00] VITALS: BP 153/79; PULSE 80; RESP 16; TEMP 36.7; O2SAT 97
--- NOTE | 2021-10-20 22:07 | PC.NURSE ---
patient ate 2 sandwiches ,and had 3 cups of water ,and a can of brook kimberley .
[2021-10-21 01:41] VITALS: BP 159/69; PULSE 83; RESP 16; TEMP 36.8; O2SAT 97
--- NOTE | 2021-10-21 01:42 | PC.NURSE ---
patient became agitated ,started to shake in bed ,then patient remove pillow from her head and placed over face and started to apply pressure to face with pillow, asked pt what are you doing, pillow removed from face, RN Blanca notified
--- NOTE | 2021-10-21 01:47 | PC.NURSE ---
PATIENT HAD LARGE BOWEL MOVEMENT AND LARGE VOID IN BEDSIDE COMMODE .
--- NOTE | 2021-10-21 01:48 | PC.NURSE ---
Per EDT Nerupa at bedside, pt placed pillow over own face. Pillow rapidly removed by Nerupa. Pt awake and alert, did not experience LOC. Provider notified. Pt appears restless at this time. Sitter remains at bedside
[2021-10-21] MEDS: LORazepam 0.5 MG TABLET PO (01:55)
[2021-10-21 03:40] VITALS: BP 142/68; PULSE 71; RESP 16; TEMP 36.3; O2SAT 97
[2021-10-21 07:01] VITALS: BP 168/79; PULSE 84; RESP 14; O2SAT 99
--- NOTE | 2021-10-21 07:59 | MHC.CARE ---
CARE Team spoke with [facility] operations supervisor chemical cleaning David- case was reviewed and disposition was changed to inpatient bedsearch based on Dr. Cedeño recommendations of inpatient psych and Pt does not have UTI.
[2021-10-21 08:40] LABS: COVID-19 Test Negative (Negative)
--- NOTE | 2021-10-21 09:14 | PC.NURSE ---
has been sleeping with sitter at bedside since this RN arrival at 7am.
--- NOTE | 2021-10-21 10:00 | ECG_ITS ---
Test Reason : repeat Blood Pressure : / mmHG Vent. Rate : 073 BPM Atrial Rate : 073 BPM P-R Int : 150 ms QRS Dur : 088 ms QT Int : 388 ms P-R-T Axes : 039 -50 056 degrees QTc Int : 427 ms Normal sinus rhythm Left axis deviation Minimal voltage criteria for LVH, may be normal variant ( [place] product ) Abnormal ECG When compared with ECG of 20-OCT-2021 16:15, No significant change was found Referred By: Laurel Kay Electronically Signed By:Fidencio Pearl
--- NOTE | 2021-10-21 10:07 | PC.NURSE ---
rn t rn with Teresa on . Pt to have a repeat EKG then admission.
[2021-10-21 11:20] VITALS: BP 163/82; PULSE 77; RESP 16; TEMP 37.5; O2SAT 99
[2021-10-21 13:03] VITALS: BP 162/77; PULSE 88; RESP 16; TEMP 36.4; O2SAT 99
--- NOTE | 2021-10-21 14:00 | PC.ADMIT ---
Pt admitted to unit from [facility] with a diagnosis of Bipolar Disorder with psychotic features on a conditional voluntary. PT arrived to unit after a bystander called 911 due to her walking down the street naked and appeared disoriented. PT reports that she has not taken medications in a long time stating that she does not need them anymore. PT states that a lot has been happening, all humanity came together in the world, I was and eternally damned. Humanity was against me and the emotion hadn't come in yet but was it all set up for me . She states that she was emotionally prepared but the terror never came and now she has to live with that forever. PT states that she has multiple medical conditions including osteoporosis, HTN, parathyroid and had a kidney transplant, stating that she no longer needs medications for her medical issues. PT states that being here is the best thing for me but that she will not take medications if they are offered. PT denies ETOH, drugs and cigarettes. PT states she has an apartment but that she cannot return there because humanity is waiting and she is no longer welcome. Pt is calm and cooperative, pleasant in conversation. 15 minute checks initiated for safety.
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
[2021-10-21 18:00] VITALS: BP 143/82; PULSE 81; RESP 17; TEMP 37.3; O2SAT 99
[2021-10-21] MEDS: traZODone HCL 50 MG TABLET PO (20:47)
[2021-10-21] MEDS: hydrOXYzine HCL 25 MG TABLET PO (20:47)
[2021-10-22] MEDS: traZODone HCL 50 MG TABLET PO (02:01)
[2021-10-22 08:24] VITALS: BP 138/94; PULSE 79; RESP 18; TEMP 36.4; O2SAT 100
[2021-10-22] MEDS: risperiDONE 1 MG TABLET PO ×2 (08:26→20:58)
--- NOTE | 2021-10-22 08:26 | P.PNPSI_ITS ---
Subjective Subjective Date of Service: 10/22/21 Reason For Visit: Psychosis, suicidal ideation Subjective Notes: 3 Day Interim History: the nursing staff reported that the patient had poor sleep last night. She has been wondering in the unit with inappropriate affect, stating that she is doing fine but she looks internally preoccupied and confused. On interview the patient denies having problems with sleep but she could not sleep last night she was having inappropriate affect. We will restart today Risperdal 1 mg p.o. b.i.d. and gather more collateral information Mental Status Exam Mental Status Exam Patient Appearance: Disheveled and Unkempt Patient Orientation: Person Level of Consciousness: Awake Patient Behavior: Guarded and Cooperative Mood Description: Cheerful Affect Description: Labile Ability to Follow Directions: Good Speech Pattern: Clear Delusions: Paranoid Ideation and Grandiose Thought Process: Illogical and Distracted Thought Content: positive for [place] and positive for Poverty of Content Judgement: Poor Diagnostics Vital Signs (24Hr): Vital Signs - 24 hr 10/21/21 11:20 10/21/21 13:03 10/21/21 18:00 Temperature 99.5 F 97.5 F 99.1 F Pulse Rate 77 88 81 Respiratory Rate 16 16 17 Blood Pressure 163/82 H 162/77 H 143/82 H Pulse Oximetry 99 99 99 10/22/21 08:24 Temperature 97.5 F Pulse Rate 79 Respiratory Rate 18 Blood Pressure 138/94 H Pulse Oximetry 100 BMI result Body Mass Index 20.0 Labs Results: 10/20/21 16:30 10/20/21 20:38 Labs: Laboratory Results - last 48 hr 10/20/21 10/20/21 10/20/21 16:30 16:30 16:30 WBC 7.2 RBC 3.30 L Hgb 10.1 L Hct 31.6 L MCV 95.8 MCH 30.6 MCHC 32.0 RDW 14.0 Plt Count 157 L MPV 10.3 Immature Gran % (Auto) 0.4 Neut % (Auto) 62.6 Lymph % (Auto) 13.7 L [place] % (Auto) 13.2 H Eos % (Auto) 9.7 H Baso % (Auto) 0.4 Lymph # (Auto) 1.0 L [place] # (Auto) 1.0 Eos # (Auto) 0.7 H Baso # (Auto) 0.0 Abs Immat Gran (auto) 0.03 Absolute Neuts (auto) 4.5 Absolute Nucleated RBC 0.000 Nucleated RBC % (auto) 0.0 Sodium 146 H Potassium 4.1 D Chloride 115 H Carbon Dioxide 21 L Anion Gap 14 BUN 41 H Creatinine 2.17 H Estim Creat Clear Calc 20.1 Estimated GFR 22 Random Glucose 115 Calcium 8.7 Magnesium 2.7 H Total Bilirubin 0.5 AST 24 D ALT 27 Alkaline Phosphatase 41 Ammonia Troponin I High Sens 20.7 H Total Protein 5.9 L Albumin 3.5 Lipase 35 Urine Color Urine Appearance Urine pH Ur Specific [place] Urine Protein Urine Glucose (UA) Urine Ketones Urine Blood Urine Nitrite Ur Leukocyte Esterase Urine RBC Urine WBC Ur Squamous Epith Cells Urine Bacteria Salicylates Urine Opiates Screen Urine Fentanyl Screen Acetaminophen Ur Barbiturates Screen Ur Phencyclidine Scrn Ur Amphetamines Screen U Benzodiazepines Scrn [place] Urine Cocaine Screen U Marijuana (THC) Screen COVID-19 ([facility]) COVID-Pathgather 10/20/21 10/20/21 10/20/21 16:30 17:18 17:18 WBC RBC Hgb Hct MCV MCH MCHC RDW Plt Count MPV Immature Gran % (Auto) Neut % (Auto) Lymph % (Auto) [place] % (Auto) Eos % (Auto) Baso % (Auto) Lymph # (Auto) [place] # (Auto) Eos # (Auto) Baso # (Auto) Abs Immat Gran (auto) Absolute Neuts (auto) Absolute Nucleated RBC Nucleated RBC % (auto) Sodium Potassium Chloride Carbon Dioxide Anion Gap BUN Creatinine Estim Creat Clear Calc Estimated GFR Random Glucose Calcium Magnesium Total Bilirubin AST ALT Alkaline Phosphatase Ammonia Troponin I High Sens Total Protein Albumin Lipase Urine Color YELLOW Urine Appearance CLEAR Urine pH 6.0 Ur Specific [place] 1.020 Urine Protein 3+ H Urine Glucose (UA) NEG Urine Ketones 15 Urine Blood TRACE Urine Nitrite NEG Ur Leukocyte Esterase NEG Urine RBC 0-2 Urine WBC 0-2 Ur Squamous Epith Cells TRACE Urine Bacteria NONE Salicylates Urine Opiates Screen Not Detected Urine Fentanyl Screen Not Detected Acetaminophen Ur Barbiturates Screen Not Detected Ur Phencyclidine Scrn Not Detected Ur Amphetamines Screen Not Detected U Benzodiazepines Scrn Not Detected [place] Urine Cocaine Screen Not Detected U Marijuana (THC) Screen Not Detected COVID-19 ([facility]) Negative COVID-Pathgather See Note 01/10/20/21 10/20/21 17:50 17:50 19:11 WBC RBC Hgb Hct MCV MCH MCHC RDW Plt Count MPV Immature Gran % (Auto) Neut % (Auto) Lymph % (Auto) [place] % (Auto) Eos % (Auto) Baso % (Auto) Lymph # (Auto) [place] # (Auto) Eos # (Auto) Baso # (Auto) Abs Immat Gran (auto) Absolute Neuts (auto) Absolute Nucleated RBC Nucleated RBC % (auto) Sodium Potassium Chloride Carbon Dioxide Anion Gap BUN Creatinine Estim Creat Clear Calc Estimated GFR Random Glucose Calcium Magnesium Total Bilirubin AST ALT Alkaline Phosphatase Ammonia Troponin I High Sens 20.8 H Total Protein Albumin Lipase Urine Color Urine Appearance Urine pH Ur Specific [place] Urine Protein Urine Glucose (UA) Urine Ketones Urine Blood Urine Nitrite Ur Leukocyte Esterase Urine RBC Urine WBC Ur Squamous Epith Cells Urine Bacteria Salicylates < 5.0 L Urine Opiates Screen Urine Fentanyl Screen Acetaminophen < 1 Ur Barbiturates Screen Ur Phencyclidine Scrn Ur Amphetamines Screen U Benzodiazepines Scrn [place] < 0.10 L Urine Cocaine Screen U Marijuana (THC) Screen COVID-19 ([facility]) COVID-19 [employer] Com 10/20/21 10/20/21 10/21/21 19:11 20:38 08:13 WBC RBC Hgb Hct MCV MCH MCHC RDW Plt Count MPV Immature Gran % (Auto) Neut % (Auto) Lymph % (Auto) [place] % (Auto) Eos % (Auto) Baso % (Auto) Lymph # (Auto) [place] # (Auto) Eos # (Auto) Baso # (Auto) Abs Immat Gran (auto) Absolute Neuts (auto) Absolute Nucleated RBC Nucleated RBC % (auto) Sodium 146 H Potassium 4.2 Chloride 116 H Carbon Dioxide 20 L Anion Gap 14 BUN 37 H Creatinine 1.81 H Estim Creat Clear Calc 24.1 Estimated GFR 27 Random Glucose 91 Calcium 8.1 L D Magnesium Total Bilirubin AST ALT Alkaline Phosphatase Ammonia 16 Troponin I High Sens Total Protein Albumin Lipase Urine Color Urine Appearance Urine pH Ur Specific [place] Urine Protein Urine Glucose (UA) Urine Ketones Urine Blood Urine Nitrite Ur Leukocyte Esterase Urine RBC Urine WBC Ur Squamous Epith Cells Urine Bacteria Salicylates Urine Opiates Screen Urine Fentanyl Screen Acetaminophen Ur Barbiturates Screen Ur Phencyclidine Scrn Ur Amphetamines Screen U Benzodiazepines Scrn [place] Urine Cocaine Screen U Marijuana (THC) Screen COVID-19 ([facility]) Negative COVID-19 Clin Com See Note Imaging Radiology Impressions: ITS Impressions Chest X-Ray 10/20/21 15:57 IMPRESSION: Unremarkable examination. Head CT 10/20/21 18:33 IMPRESSION: No acute intracranial process seen. A change from 09/29/2019 Medications Medications Current Medications Acetaminophen (Acetaminophen 325 Mg Tablet) 650 mg PO Q6H PRN PRN Reason: Headache/Pain Mild Scale (1-3) Al Hydroxide/Mg Hydroxide (Magnesium Hydrox/Alum Hydrox 30 Ml Oral.Susp) 30 ml PO Q6H PRN PRN Reason: Heartburn/Nausea Hydroxyzine HCl (Hydroxyzine Hcl 25 Mg Tablet) 25 mg PO BEDTIME PRN PRN Reason: Anxiety Last Admin: 10/21/21 20:47 Dose: 25 mg Documented by: Magnesium Hydroxide (Milk Of Magnesia 30 Ml Oral.Susp) 30 ml PO DAILY PRN PRN Reason: Constipation Risperidone (Risperidone 1 Mg Tablet) 1 mg PO BID MARCIA Last Admin: 10/22/21 08:26 Dose: 1 mg Documented by: Trazodone HCl (Trazodone Hcl 50 Mg Tablet) 50 mg PO BEDTIME PRN PRN Reason: Insomnia Last Admin: 10/22/21 02:01 Dose: 50 mg Documented by: Allergies Allergies Allergy/AdvReac Type Severity Reaction Status Date / Time gabapentin [From Neurontin] Allergy Unknown UNKNOWN Unverified 06/18/20 17:24 Sulfa (Sulfonamide Allergy Unknown UNKNOWN Unverified 06/18/20 17:24 Antibiotics) [SULFA (SULFONAMIDE ANTIBIOTICS)] trimethoprim [TRIMETHOPRIM] Allergy Unknown UNKNOWN Unverified 06/18/20 17:24 lithium [LITHIUM] AdvReac Severe KIDNEY Unverified 06/18/20 17:24 TRANSPLANT DUE TO LITHIUM TOXICITY Assessment & Plan Assessment & Plan (1) Schizoaffective disorder, bipolar type: Status: Acute Code(s): F25.0 - Schizoaffective disorder, bipolar type Assessment and Plan: the patient is an elderly female with a long history of schizoaffective disorder bipolar type, status post renal transplant and other medical ailments admitted into the facility after she was found in the street wandering naked and she came out with suicidal statements. It is unclear if she was fully compliant with her medication. Plan 1. Continue medications. 2. Gather collateral information. 3. Follow-up blood work. 4. Start Risperdal 1 mg p.o. b.i.d.. 5. . Lab work for Monday a.m. with basic metabolic panel, hemoglobin A1c and lipid panel. I spent minutes with the patient and/or on the patient floor today, greater than?50% of which was spent counseling/coordinating care. Reason for contiued inpatient stay Substantial Risk for: harm to self, inability to function, rapid decompensation and med/psych decompensation
--- NOTE | 2021-10-22 15:35 | MHC.CLN ---
NUTRITION CONSULT PATIENT WITH RENAL TRANSPLANT 2008 (YEAR STATED BY PATIENT). DIET=2 GRAM SODIUM AND APPROPRIATE. VISITED AT LUNCH AND ATE 100% OF MEAL. STILL HUNGRY AND ORDERED A SALAD AND FRUIT. APPEARS THIN, BUT NO SIGNS OF MALNUTRITION. FOLLOW WEEKLY.
[2021-10-22 20:45] VITALS: BP 164/69; PULSE 93; RESP 16; TEMP 36.6; O2SAT 100
[2021-10-23] MEDS: risperiDONE 1 MG TABLET PO ×2 (11:08→20:48)
--- NOTE | 2021-10-23 13:34 | PC.NURSE ---
At approximately 1000 this teletypewriter operator entered patients room and found patient lying on her back in bathroom with copious amounts of loose stool on patient, in Beto bottoms and on floor. Beto bottoms were down around patient ankles. It appeared as though patient lost her balance while trying to remove bottoms and fell. Patient appeared calm upon approach. When asked what happened she stated, I shit. Patient was able to move all extremities. Denied pain. No apparant injury to patient. This teletypewriter operator assisted patient tp upright position and escorted her to shower area to clean up. [facility] Sole Layer Olamide [place] assisted in escorting patient to shower and also in showering of patient. Patient was able to assist in cleaning herself. Following shower patient went directly to day area for lunch. Appetite was excellent. Patient ate 100% of lunch. Vital signs were taken - BP 151/63, Pulse 88 and O2 98%. Patient continued to deny pain and was observed walking with a steady gait. Nursing supervisor machine setter Bessie Xavier and Dr. Tristan Naik were notified of fall and incident report was filed.Patient will be monitored throughout the shift.
--- NOTE | 2021-10-23 15:31 | HO.PSYCHPN ---
Subjective Subjective Date of Service: 10/23/21 Reason For Visit: Psychosis, suicidal ideation Subjective Notes: Conditional Voluntary Medical Problems Affecting Mental Status: No Interim History: record reviewed. Discussed with Nursing. Was irritable last night. This morning had a mechanical fall appears to have tripped over clothing while toileting. Did require staff assistance to clean up after same. No evidence of injury. Mobilizing without difficulty. With repairer typewriter stated the repairer typewriter was trying to do her arm. Paranoid and guarded. Declined to further engage. Medication Compliance: Yes Side effects from medications: No Review of Systems Review of Systems Unremarkable Mental Status Exam Mental Status Exam Narrative: seen mobilizing in hallway without difficulty. Hospital clothing. Fair self-care. Very guarded and paranoid with repairer typewriter. No evidence of SI or HI. Diagnostics Vital Signs (24Hr): Vital Signs - 24 hr 10/22/21 20:45 Temperature 97.9 F Pulse Rate 93 Respiratory Rate 16 Blood Pressure 164/69 H Pulse Oximetry 100 BMI result Body Mass Index 20.0 Labs Results: 10/20/21 16:30 10/20/21 20:38 Imaging Radiology Impressions: ITS Impressions Chest X-Ray 10/20/21 15:57 IMPRESSION: Unremarkable examination. Head CT 10/20/21 18:33 IMPRESSION: No acute intracranial process seen. A change from 09/29/2019 Medications Medications Current Medications Acetaminophen (Acetaminophen 325 Mg Tablet) 650 mg PO Q6H PRN PRN Reason: Headache/Pain Mild Scale (1-3) Al Hydroxide/Mg Hydroxide (Magnesium Hydrox/Alum Hydrox 30 Ml Oral.Susp) 30 ml PO Q6H PRN PRN Reason: Heartburn/Nausea Hydroxyzine HCl (Hydroxyzine Hcl 25 Mg Tablet) 25 mg PO BEDTIME PRN PRN Reason: Anxiety Last Admin: 10/21/21 20:47 Dose: 25 mg Documented by: Magnesium Hydroxide (Milk Of Magnesia 30 Ml Oral.Susp) 30 ml PO DAILY PRN PRN Reason: Constipation Risperidone (Risperidone 1 Mg Tablet) 1 mg PO BID MARCIA Last Admin: 10/23/21 11:08 Dose: 1 mg Documented by: Trazodone HCl (Trazodone Hcl 50 Mg Tablet) 50 mg PO BEDTIME PRN PRN Reason: Insomnia Last Admin: 10/22/21 02:01 Dose: 50 mg Documented by: Allergies Allergies Allergy/AdvReac Type Severity Reaction Status Date / Time gabapentin [From Neurontin] Allergy Unknown UNKNOWN Verified 10/22/21 22:57 Sulfa (Sulfonamide Allergy Unknown UNKNOWN Verified 10/22/21 22:57 Antibiotics) [SULFA (SULFONAMIDE ANTIBIOTICS)] trimethoprim [TRIMETHOPRIM] Allergy Unknown UNKNOWN Verified 10/22/21 22:57 lithium [LITHIUM] AdvReac Severe KIDNEY Verified 10/22/21 22:57 TRANSPLANT DUE TO LITHIUM TOXICITY Assessment & Plan Assessment & Plan (1) Schizoaffective disorder, bipolar type: Status: Acute Code(s): F25.0 - Schizoaffective disorder, bipolar type Assessment and Plan: the patient is an elderly female with a long history of schizoaffective disorder bipolar type, status post renal transplant and other medical ailments admitted into the facility after she was found in the street wandering naked and she came out with suicidal statements. It is unclear if she was fully compliant with her medication. Plan 1. Continue medications. 2. Gather collateral information. 3. Follow-up blood work. 4. Start Risperdal 1 mg p.o. b.i.d.. 5. . Lab work for Monday a.m. with basic metabolic panel, hemoglobin A1c and lipid panel. 10/23/2021: No changes to primary team treatment plan. I spent minutes with the patient and/or on the patient floor today, greater than?50% of which was spent counseling/coordinating care. Reason for contiued inpatient stay Substantial Risk for: inability to function
[2021-10-23 20:45] VITALS: BP 150/64; PULSE 106; RESP 16; TEMP 36.8; O2SAT 97
[2021-10-23] MEDS: hydrOXYzine HCL 25 MG TABLET PO (22:15)
[2021-10-23] MEDS: traZODone HCL 50 MG TABLET PO (22:15)
[2021-10-24] MEDS: traZODone HCL 50 MG TABLET PO (01:07)
[2021-10-24 06:00] VITALS: BP 130/66; PULSE 91; TEMP 36.6; O2SAT 98
[2021-10-24] MEDS: risperiDONE 1 MG TABLET PO ×2 (08:30→20:15)
--- NOTE | 2021-10-24 11:04 | P.PNPSI_ITS ---
Subjective Subjective Date of Service: 10/24/21 Reason For Visit: Psychosis, suicidal ideation Interim History: did engage with advertising copywriter today. Was unable to explain why she felt uncomfortable talking with advertising copywriter yesterday. Was seen in day room and eating breakfast. Was noted to be illogical during interview. Was talking about Aureliano being the [employer] of the [employer] and her sister Elen who was to him. Reports that she was supposed to be Aureliano's and that oher sister put her into internal damnation. Reports that her sister is present on the unit and is invisible. Medication Compliance: Yes Side effects from medications: No Attending Groups: Intermittent Review of Systems Acute medical concerns: No Mental Status Exam Mental Status Exam Narrative: seen in day area. Pleasant. Eating breakfast. Illogical. Bizarre delusions. Denied depression SI or HI. Insight and judgment poor Diagnostics Vital Signs (24Hr): Vital Signs - 24 hr 10/23/21 20:45 10/24/21 06:00 Temperature 98.3 F 97.8 F Pulse Rate 106 H 91 Respiratory Rate 16 Blood Pressure 150/64 H 130/66 Pulse Oximetry 97 98 BMI result Body Mass Index 20.0 Labs Results: 10/20/21 16:30 10/20/21 20:38 Imaging Radiology Impressions: ITS Impressions Chest X-Ray 10/20/21 15:57 IMPRESSION: Unremarkable examination. Head CT 10/20/21 18:33 IMPRESSION: No acute intracranial process seen. A change from 09/29/2019 Medications Medications Current Medications Acetaminophen (Acetaminophen 325 Mg Tablet) 650 mg PO Q6H PRN PRN Reason: Headache/Pain Mild Scale (1-3) Al Hydroxide/Mg Hydroxide (Magnesium Hydrox/Alum Hydrox 30 Ml Oral.Susp) 30 ml PO Q6H PRN PRN Reason: Heartburn/Nausea Hydroxyzine HCl (Hydroxyzine Hcl 25 Mg Tablet) 25 mg PO BEDTIME PRN PRN Reason: Anxiety Last Admin: 10/23/21 22:15 Dose: 25 mg Documented by: Magnesium Hydroxide (Milk Of Magnesia 30 Ml Oral.Susp) 30 ml PO DAILY PRN PRN Reason: Constipation Risperidone (Risperidone 1 Mg Tablet) 1 mg PO BID MARCIA Last Admin: 10/24/21 08:30 Dose: 1 mg Documented by: Trazodone HCl (Trazodone Hcl 50 Mg Tablet) 50 mg PO BEDTIME PRN PRN Reason: Insomnia Last Admin: 10/24/21 01:07 Dose: 50 mg Documented by: Allergies Allergies Allergy/AdvReac Type Severity Reaction Status Date / Time gabapentin [From Neurontin] Allergy Unknown UNKNOWN Verified 10/22/21 22:57 Sulfa (Sulfonamide Allergy Unknown UNKNOWN Verified 10/22/21 22:57 Antibiotics) [SULFA (SULFONAMIDE ANTIBIOTICS)] trimethoprim [TRIMETHOPRIM] Allergy Unknown UNKNOWN Verified 10/22/21 22:57 lithium [LITHIUM] AdvReac Severe KIDNEY Verified 10/22/21 22:57 TRANSPLANT DUE TO LITHIUM TOXICITY Assessment & Plan Assessment & Plan (1) Schizoaffective disorder, bipolar type: Status: Acute Code(s): F25.0 - Schizoaffective disorder, bipolar type Assessment and Plan: the patient is an elderly female with a long history of schizoaffective disorder bipolar type, status post renal transplant and other medical ailments admitted into the facility after she was found in the street wandering naked and she came out with suicidal statements. It is unclear if she was fully compliant with her medication. Plan 1. Continue medications. 2. Gather collateral information. 3. Follow-up blood work. 4. Start Risperdal 1 mg p.o. b.i.d.. 5. . Lab work for Monday a.m. with basic metabolic panel, hemoglobin A1c and lipid panel. 10/24/2021: No changes to primary team treatment plan. I spent minutes with the patient and/or on the patient floor today, greater than?50% of which was spent counseling/coordinating care. Reason for contiued inpatient stay Substantial Risk for: inability to function
[2021-10-24 18:00] VITALS: BP 115/60; PULSE 109; RESP 17; TEMP 36.8; O2SAT 96
[2021-10-25 06:00] VITALS: BP 135/61; PULSE 82; RESP 17; TEMP 36.8; O2SAT 97
[2021-10-25 07:22] LABS: Estimated Average Glucose 105 mg/dL; Hemoglobin A1c % 5.3 %
[2021-10-25 07:23] LABS: Anion Gap 12 (12-20); Blood Urea Nitrogen 47 mg/dL (9-16); Calcium 9.6 mg/dL (8.4-10.2); Carbon Dioxide 25 mmol/L (22-29); Chloride 109 mmol/L (96-108); Cholesterol 154 mg/dL; Creatinine Clr Calc Pharmacy 19.6; Estimated Glomerular Filt Rate 22; Glucose Random 157 mg/dL (60-115); HDL Cholesterol 63 mg/dL; LDL Cholesterol Calculated 80 mg/dl; Potassium 4.2 mmol/L (3.3-5.1); Sodium 142 mmol/L (135-145); Triglycerides 57 mg/dL
[2021-10-25] MEDS: risperiDONE 1 MG TABLET PO ×2 (08:40→21:56)
--- NOTE | 2021-10-25 16:35 | P.PNPSI_ITS ---
Subjective Subjective Date of Service: 10/25/21 Reason For Visit: Psychosis, suicidal ideation Subjective Notes: Conditional Voluntary Guardianship: No Interim History: 71 yo female has been off medication hearing voices telling her she will be dammed fearful of another person Side effects from medications: No Review of Systems has not been taking medication for transplant thyroid or htn Mental Status Exam Mental Status Exam Patient Appearance: Disheveled Patient Orientation: Person and Place Level of Consciousness: Awake Patient Behavior: Anxious, Distractible, Confused and Good Eye Contact Affect Description: Constricted and Apprehensive Ability to Follow Directions: Fair Speech Pattern: Impoverished Hallucinations: Auditory Delusions: Being Controlled, Paranoid Ideation and Bizarre Thought Process: Distracted and Rumination Thought Content: positive for Disorganized and positive for Suicidal Ideation (denies self harm ) Judgement: Poor Judgement and Insight: Thoughts she is being down by demons was experiencing auditory hallucinations commanding her to do things denies self-harming thoughts Diagnostics Vital Signs (24Hr): Vital Signs - 24 hr 10/24/21 18:00 10/25/21 06:00 Temperature 98.2 F 98.2 F Pulse Rate 109 H 82 Respiratory Rate 17 17 Blood Pressure 115/60 135/61 Pulse Oximetry 96 97 BMI result Body Mass Index 20.0 Labs Results: 10/20/21 16:30 10/25/21 06:57 Labs: Laboratory Results - last 48 hr 10/25/21 10/25/21 06:57 06:57 Sodium 142 Potassium 4.2 Chloride 109 H Carbon Dioxide 25 Anion Gap 12 BUN 47 H Creatinine 2.22 H Estim Creat Clear Calc 19.6 Estimated GFR 22 Random Glucose 157 H Estimat Average Glucose 105 Hemoglobin A1c % 5.3 Calcium 9.6 D Triglycerides 57 Cholesterol 154 LDL Cholesterol, Calc 80 HDL Cholesterol 63 Imaging Radiology Impressions: ITS Impressions Chest X-Ray 10/20/21 15:57 IMPRESSION: Unremarkable examination. Head CT 10/20/21 18:33 IMPRESSION: No acute intracranial process seen. A change from 09/29/2019 Medications Medications Current Medications Acetaminophen (Acetaminophen 325 Mg Tablet) 650 mg PO Q6H PRN PRN Reason: Headache/Pain Mild Scale (1-3) Al Hydroxide/Mg Hydroxide (Magnesium Hydrox/Alum Hydrox 30 Ml Oral.Susp) 30 ml PO Q6H PRN PRN Reason: Heartburn/Nausea Hydroxyzine HCl (Hydroxyzine Hcl 25 Mg Tablet) 25 mg PO BEDTIME PRN PRN Reason: Anxiety Last Admin: 10/23/21 22:15 Dose: 25 mg Documented by: Lorazepam (Lorazepam 1 Mg Tablet) 1 mg PO BEDTIME MARCIA Lorazepam (Lorazepam 0.5 Mg Tablet) 0.5 mg PO Q6H PRN PRN Reason: anxiety/restlessness Magnesium Hydroxide (Milk Of Magnesia 30 Ml Oral.Susp) 30 ml PO DAILY PRN PRN Reason: Constipation Risperidone (Risperidone 1 Mg Tablet) 1 mg PO BID MARCIA Last Admin: 10/25/21 08:40 Dose: 1 mg Documented by: Trazodone HCl (Trazodone Hcl 50 Mg Tablet) 50 mg PO BEDTIME PRN PRN Reason: Insomnia Last Admin: 10/24/21 01:07 Dose: 50 mg Documented by: Allergies Allergies Allergy/AdvReac Type Severity Reaction Status Date / Time gabapentin [From Neurontin] Allergy Unknown UNKNOWN Verified 10/22/21 22:57 Sulfa (Sulfonamide Allergy Unknown UNKNOWN Verified 10/22/21 22:57 Antibiotics) [SULFA (SULFONAMIDE ANTIBIOTICS)] trimethoprim [TRIMETHOPRIM] Allergy Unknown UNKNOWN Verified 10/22/21 22:57 lithium [LITHIUM] AdvReac Severe KIDNEY Verified 10/22/21 22:57 TRANSPLANT DUE TO LITHIUM TOXICITY Assessment & Plan Assessment & Plan (1) Schizoaffective disorder, bipolar type: Status: Acute Code(s): F25.0 - Schizoaffective disorder, bipolar type Assessment and Plan: the patient is an elderly female with a long history of schiz oaffective disorder bipolar type, status post renal transplant and Hospital consultation consider renal consultation patient with elevated creatinine not at baseline recheck labs in morning Unclear how long patient has been off rejection medications levothyroxine prednisone losartan 50 mg inc risperadol 1.5 bid I spent minutes with the patient and/or on the patient floor today, greater than?50% of which was spent counseling/coordinating care. Reason for contiued inpatient stay Substantial Risk for: harm to self and med/psych decompensation
[2021-10-25 18:00] VITALS: BP 159/73; PULSE 102; TEMP 36.3; O2SAT 98
[2021-10-25] MEDS: LORazepam 1 MG TABLET PO (21:56)
--- NOTE | 2021-10-26 | ECG_ITS ---
Test Reason : unresponsive Blood Pressure : / mmHG Vent. Rate : 090 BPM Atrial Rate : 090 BPM P-R Int : 162 ms QRS Dur : 074 ms QT Int : 340 ms P-R-T Axes : 046 -49 057 degrees QTc Int : 415 ms Normal sinus rhythm Left axis deviation Abnormal ECG When compared with ECG of 25-OCT-2021 23:41, No significant change was found Referred By: Bret Shields Electronically Signed By:MARTINA BILL MD
[2021-10-26] MEDS: Levothyroxine Sodium 50 MCG TABLET PO (06:45)
[2021-10-26 07:00] VITALS: BP 140/65; PULSE 101; RESP 19; TEMP 36.5; O2SAT 98
--- NOTE | 2021-10-26 08:00 | ECG_ITS ---
Test Reason : CP Blood Pressure : / mmHG Vent. Rate : 085 BPM Atrial Rate : 085 BPM P-R Int : 168 ms QRS Dur : 068 ms QT Int : 352 ms P-R-T Axes : 051 -57 070 degrees QTc Int : 418 ms Normal sinus rhythm Left axis deviation Abnormal ECG When compared with ECG of 21-OCT-2021 10:09, No significant change was found Referred By: Serafin Martines Electronically Signed By:MARTINA BILL MD
[2021-10-26 08:09] LABS: Alanine Aminotransferase 22 U/L (0-31); Albumin Level 3.1 g/dL (3.5-5.0); Alkaline Phosphatase 43 U/L (39-117); Anion Gap 13 (12-20); Aspartate Amino Transferase 17 U/L (5-31); Bilirubin Total 0.3 mg/dL (0.0-1.0); Blood Urea Nitrogen 50 mg/dL (9-16); Calcium 9.3 mg/dL (8.4-10.2); Carbon Dioxide 22 mmol/L (22-29); Chloride 111 mmol/L (96-108); Creatinine Clr Calc Pharmacy 20.3; Estimated Glomerular Filt Rate 23; Glucose Fasting 102 mg/dL (60-99); Potassium 3.9 mmol/L (3.3-5.1); Sodium 142 mmol/L (135-145); Total Protein 5.5 g/dL (6.5-8.0)
[2021-10-26 08:33] LABS: Thyroid Stimulating Hormone 2.95 uIU/mL (0.32-4.0)
[2021-10-26] MEDS: risperiDONE 1 MG TABLET PO ×2 (08:39→22:05)
[2021-10-26 08:46] LABS: Estimated Average Glucose 105 mg/dL; Hemoglobin A1c % 5.3 %
--- NOTE | 2021-10-26 11:39 | PM.IMCN ---
History of Present Illness Data of Consult Service Date: 10/26/21 Primary Care Provider: Unknown Physician HPI Reason for consult: ECT clearance, history of renal transplant This is a 71 year old female with a PMH of Renal Transplant (? 2008), HTN, Hypothyroidism who is admitted to the inpatient psychiatric unit. Medical consultation requested for ECT clearance as well as worsening renal function. Patient is seen and examined in her room. She is some what vague in regards to her medical history. She reports that she is fine. When specially asked about her renal history, she does endorse that she was previously on dialysis and underwent a transplant in 2008 (donated by her sister). She reports that she has done well from that regards since. 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 In regards to a CAD history, she denies any. She denies any exertional chest pain or shortness of breath. PMH (obtained partially from prior records in the old EMR) Previously ESRD on HD, but s/p kidney transplant HTN Hypothyroidism Hypoparathyroidism Osteoporosis PSH Kidney transplant AV fisutla, subsequent reversal CCK Denies tobacco/etoh/illicit substance FH Lymphoma in father and multiple nieces/nephews with the same Review of Systems Review of Systems: negative except HPI [facility] Medical History No known health problems Social History Household Members: None Housing: Apartment Do you presently have visiting nurse or other home services: No Patient Tobacco Use Status: Former Tobacco user Use of substances other than those prescribed or required for medical reasons: No Currently Displaying Signs/Symptoms of Drug Intoxication Withdrawal: No Have you been hit, kicked, punched, or otherwise hurt by someone within the past year? If so, by whom?: No Do you feel safe in your current relationship?: No Current Relationship Is there a partner from a previous relationship who is making you feel unsafe now?: No Are you made to feel afraid or neglected: No Spiritual Healthcare Practices: n/a Mormonism Healthcare Practices: n/a Cultural Healthcare Practices: n/a Advance Directives: No Advance Directives Information Provided: No Do you have thoughts of harming others: None Do you have a plan to hurt others: No Plan Recently lost weight without trying: No Nutrition Risks: No Nutritional Risk Patient : No : No Poor oral hygiene: No service: No Sexual orientation: Straight/Heterosexual Meds Allergies Allergy/AdvReac Type Severity Reaction Status Date / Time gabapentin [From Neurontin] Allergy Unknown UNKNOWN Verified 10/22/21 22:57 Sulfa (Sulfonamide Allergy Unknown UNKNOWN Verified 10/22/21 22:57 Antibiotics) [SULFA (SULFONAMIDE ANTIBIOTICS)] trimethoprim [TRIMETHOPRIM] Allergy Unknown UNKNOWN Verified 10/22/21 22:57 lithium [LITHIUM] AdvReac Severe KIDNEY Verified 10/22/21 22:57 TRANSPLANT DUE TO LITHIUM TOXICITY Active Medications: Current Medications Acetaminophen (Acetaminophen 325 Mg Tablet) 650 mg PO Q6H PRN PRN Reason: Headache/Pain Mild Scale (1-3) Al Hydroxide/Mg Hydroxide (Magnesium Hydrox/Alum Hydrox 30 Ml Oral.Susp) 30 ml PO Q6H PRN PRN Reason: Heartburn/Nausea Hydroxyzine HCl (Hydroxyzine Hcl 25 Mg Tablet) 25 mg PO BEDTIME PRN PRN Reason: Anxiety Last Admin: 10/23/21 22:15 Dose: 25 mg Documented by: Levothyroxine Sodium (Levothyroxine Sodium 50 Mcg Tablet) 50 mcg PO DAILY@0600 [facility] Last Admin: 10/26/21 06:45 Dose: 50 mcg Documented by: Lorazepam (Lorazepam 1 Mg Tablet) 1 mg PO BEDTIME [facility] Last Admin: 10/25/21 21:56 Dose: 1 mg Documented by: Lorazepam (Lorazepam 0.5 Mg Tablet) 0.5 mg PO Q6H PRN PRN Reason: anxiety/restlessness Magnesium Hydroxide (Milk Of Magnesia 30 Ml Oral.Susp) 30 ml PO DAILY PRN PRN Reason: Constipation Risperidone (Risperidone 1 Mg Tablet) 1 mg PO BID [facility] Last Admin: 10/26/21 08:39 Dose: 1 mg Documented by: Trazodone HCl (Trazodone Hcl 50 Mg Tablet) 50 mg PO BEDTIME PRN PRN Reason: Insomnia Last Admin: 10/24/21 01:07 Dose: 50 mg Documented by: Home Medications Medication Instructions Recorded Confirmed Last Taken Type denosumab 60 mg/mL subcutaneous mg SUBCUT 10/25/21 09/10/21 History syringe (Prolia) 60mg/ml levothyroxine 100 mcg tablet 1 tab PO DAILY 10/25/21 10/25/21 Unknown History lorazepam 1 mg tablet 1 tab PO BEDTIME 10/25/21 10/25/21 Unknown History losartan 100 mg tablet 1 tab PO DAILY 10/25/21 10/25/21 Unknown History oxcarbazepine 150 mg tablet 1 tab PO BID 10/25/21 10/25/21 Unknown History prednisone 5 mg tablet 1 tab PO DAILY 10/25/21 10/25/21 Unknown History risperidone 0.5 mg tablet 1 tab PO BID 10/25/21 10/25/21 Unknown History Physical Exam Vital Signs and Narrative: Vital Signs: Last Vital Signs Temp 97.7 F 10/26/21 07:00 Pulse 101 H 10/26/21 07:00 Resp 19 10/26/21 07:00 BP 140/65 H 10/26/21 07:00 Pulse Ox 98 10/26/21 07:00 BMI result Body Mass Index 20.0 Const: Other: Constitutional - Awake and Alert, No apparent distress Eyes - PERRLA, EOMI Cardiovascular - S1S2, RRR, No edema Respiratory - Normal lung expansion, Normal respiratory effort, No respiratory distress, CTA bilaterally Gastrointestinal - NT / ND; +BS; No rebound or guarding - No CVA tenderness Extremities - no calf tenderness bilaterally, no swelling Musculoskeletal - Normal inspection, normal ROM Skin - Warm/Dry Neurological - Alert & oriented x3, No focal deficit; CN 2-12 in tact b/l Results Labs CBC and Chem 7: 10/20/21 16:30 10/26/21 07:18 Labs: Laboratory Results - last 24 hr 10/26/21 10/26/21 07:18 07:18 Anion Gap 13 Estim Creat Clear Calc 20.3 Estimated GFR 23 Fasting Glucose 102 H Estimat Average Glucose 105 Hemoglobin A1c % 5.3 Calcium 9.3 Magnesium 2.0 Total Bilirubin 0.3 AST 17 ALT 22 Alkaline Phosphatase 43 Total Protein 5.5 L Albumin 3.1 L TSH 2.95 Assessment and Plan (1) LAURO (acute kidney injury): Status: Acute This is a 71 yo F with a PMH of ESRD on HD previously, now s/p renal transplant, HTN, Osteoporosis, Hypothyrodism, Schizoaffective d/o - bipolar type who is admitted to the [facility] unit. Medical consultation requested for worsening renal function and ECT clerance. 1. Pre-operatively cardiovascular evaluation Patient denies any exertional angina symptoms. Her HS trop-I in the ED were mildly elevated and flat x 2. EKG shows left axis deviation. She denies any known CAD history. Will check an Echocardiogram to start with. If abnormal, will need formal Cardiology evaluation prior to ECT. 2. CKD, baseline stage unclear 2a. S/P Kidney transplant SCr around 2 since admission, slight upward trend Last SCr from 2019 in our system Please invovle Nephrology continue holding her losartan 3. Hypothyroid synthroid Will f/u after Echo to complete ECT pre-op risk eval.
--- NOTE | 2021-10-26 14:00 | CA_ITS ---
Transthoracic Echocardiogram Patient (Last, First, Middle): Teetee Katz D Gender: Female Date of : 1950 Age: 71 Procedure Date: 10/27/2021 Procedure Type: Transthoracic Echocardiogram Location: [facility] Height: 165.1 cm Weight: 54.43 kg BSA: 1.59 m2 Heart Rate: bpm BP: 140 / 65 mmHg Home Care Nurse: Referring MD: oBb Adam MD Basketball Coach: Chico Wheeler MD Symptoms: elevated trop-I, LVF/Left axis deviation on EKG, pre-op ECT Study Quality: Good ECG Rhythm: Sinus Conclusions: - 1. Hyperdynamic LV systolic function with mild LVH with LVEF of greater than 70% with impaired relaxation filling pattern 2. Normal cardiac valvular Doppler 3. Normal RV systolic pressure with mildly elevated right atrial pressures 4. Trivial to small pericardial effusion more prominent near the right-sided chambers Findings Left Ventricle Normal left ventricular cavity size. There is mildly increased left ventricular wall thickness. The left ventricular systolic function is hyperdynamic. The visually estimated ejection fraction is >70%. Spectral Doppler is indicative of an impaired relaxation filling pattern. E/E prime ratio is between 8 and 15 consistent with indeterminate filling pressures. Right Ventricle Normal right ventricular cavity size and systolic function. Atria The left atrium is normal in size. There is lipomatous hypertrophy of the interatrial septum. There is no evidence of interatrial shunt. The right atrium is normal in size. Aortic Valve The aortic valve was not well visualized. There is no aortic valve stenosis. There is no aortic valve regurgitation. Mitral Valve Normal mitral valve structure and function. There is trace mitral valve regurgitation. There is no mitral valve stenosis. Pulmonic Valve The pulmonic valve was not well visualized. Tricuspid Valve There is mild tricuspid valve regurgitation. Mildly elevated right atrial pressure. There is no evidence of pulmonary hypertension. Great Vessels All visible segments of the aorta are normal in size. The pulmonary artery was not well visualized. Venous The inferior vena cava is mildly dilated and collapses less than 50% with inspiration. Pericardium/Pleural There is a small loculated pericardial effusion overlying the right ventricle and right atrium. Prior Study Comparison No prior study available for comparison. Measurements 2D Linear Measurements IVSd: 1.26 0.6-0.9/0.6-1.0 cm LVIDd: 3.84 3.9-5.3/4.2-5.9 cm LVIDd Index: 2.42 2.4-3.2/2.2-3.1 cm/m2 LVIDs: 2.11 2.0-3.6 cm LVPWd: 1.29 0.7-1.1 cm Ao Root: 3.00 2.1-3.5 cm LA Diam: 3.00 2.7-3.8/3.0-4.0 cm LAIDs Index: 1.89 1.5-2.3 cm/m2 LV Mass: 212.47 67-162/88-224 g LV Mass Index: 133.63 43-95/49-115 g/m2 LVOT Diam: 1.90 3.0+(-)1.3 cm Mitral Valve MV Pk E: 0.82 MV PK A: 0.75 MV Decel Time: 170.00 E/A: 1.10 E'Lateral: 9.25 E'Medial: 7.51 E/E' Med: 11.00 E/E' Lat: 8.90 PHT: 50.00 MVA PHT: 4.40 Decel Glasscock: 4.84 Aortic Valve AoV Pk Chencho: 2.01 AoV Mn Chencho: 1.42 AoV VTI: 0.43 AoV Pk Grad: 16.00 Aov Mn Grad: 9.00 MEHUL Cont.VTI: 1.66 LVOT LVOT Pk Chencho: 1.20 LVOT Mn Chencho: 0.86 LVOT VTI: 0.25 LVOT Pk Grad: 6.00 LVOT Mn Grad: 3.00 LVOT Diam: 1.90 LVOT Area: 2.84 Diastolic Function MV Pk E: 0.82 MV Pk A: 0.75 E/A: 1.10 E'Medial: 7.51 E/E' Med: 11.00 E' Laterial: 9.25 E/E' Lat: 8.90 Tricuspid Valve TR Pk Chencho: 2.47 TR Pk Grad: 24.00 RA Press: 8.00 RVSP: 32.00 Great Vessels Aorta Ao Root-2D: 3.00 2.0-3.7 cm Pulmonary Valve PV Pk Chencho: 1.11 Peak PV Grad: 5.00 Updated in Other Vendor System with Status of Final Chico Wheeler MD electronically signed on 10/27/2021 6:18:09 PM with status of Final
[2021-10-26] MEDS: 0.9 % Sodium Chloride 1,000 ML 100 ML IVCONT (19:30)
[2021-10-26 19:45] VITALS: BP 144/65; PULSE 100; RESP 16; TEMP 37.2; O2SAT 100
[2021-10-26 19:45] LABS: Glucose, Whole Blood 119 mg/dL (60-115)
[2021-10-26 20:15] VITALS: BP 169/76; PULSE 98; RESP 16; O2SAT 99
--- NOTE | 2021-10-26 20:39 | CONS_ITS ---
DATE OF SERVICE: 10/26/2021 REASON FOR CONSULTATION: Asked to see patient to assist in evaluation management of patient's kidney function in the setting of being a kidney transplant patient, being admitted to the hospital on the with severe depression, is on the psychiatric floor. Her creatinine on admission was noted to be 1.8 and today is up to 2.15. The patient is unable to provide any information due to her psychiatric problems. She states she stopped taking her immunosuppressive drugs months ago and it is unclear if this is true or not. HISTORY OF PRESENT ILLNESS: In summary, she is a 71-year-old female status post kidney transplant in 2008 and records indicate that she was being seen by Dr. Donald in the Transplant Clinic and I have notes from back in August at that time, her creatinine was ranging anywhere from 1.5 to 1.8 and she was on a combination of tacrolimus 5 mg at night, 4 mg in the morning all, prednisone 5 mg once a day, which currently has been longstanding. Again, she states that she stopped taking her immunosuppressive drugs several months ago if not longer. Information was obtained from electronic medical record as patient is unable to provide much if any accurate information. PAST MEDICAL HISTORY: Hypothyroidism, end-stage renal disease, status post kidney transplant in 2008, and hypertension. There is mention made that her sister donated the kidney, so it be living related kidney transplant. There is a mention made of osteoporosis and hypoparathyroidism, and apparently was on hemodialysis in the past prior to her transplant. She has had a cholecystectomy and she had an AV fistula, there is a mention made that was reversed in the past and closed down. MEDICATIONS ON ADMISSION: As mentioned, it is unclear exactly what she has been taking. The home medications are listed as including denosumab injections every 6 months, Synthroid 100 mcg once a day, Ativan will start 200 mg once a day, Trileptal, prednisone 5 mg once a day, risperidone 0.5 mg twice a day, and Prograf 5 mg in the morning and 4 mg at night. Her current medications are noted in the NOV. ALLERGIES: SHE HAS MULTIPLE DRUG ALLERGIES LISTED. SOCIAL HISTORY: She is nonsmoker, nondrinker. No illicit drug use. REVIEW OF SYSTEMS: Unobtainable as patient is not reliable in presenting any information. PHYSICAL EXAMINATION: VITAL SIGNS: Blood pressure is 140/65, heart rate in the 70s. HEAD: Atraumatic and normocephalic. NECK: Mucous membranes moist. LUNGS: Breath sounds bilaterally. CARDIAC: Regular rate. ABDOMEN: Soft. EXTREMITIES: No edema. LABORATORY DATA: Labs from today showed sodium 142, potassium 3.9, chloride 111, bicarb 22, BUN 50, creatinine 2.15, calcium 9.3. Magnesium 2.0. Albumin 3.1. TSH 2.95. On admission, her creatinine was 1.81. Hemoglobin 10.1, hematocrit 31.6, white blood cell count 7.2, platelet count 157. Urine studies showed 3+ protein. Outpatient records show her serum creatinine has ranged in the 1.5 to 1.8 range. She has also had proteinuria in the past noted. IMPRESSION: 71-YEAR-OLD END-STAGE RENAL DISEASE PATIENT, STATUS POST LIVING-RELATED KIDNEY TRANSPLANT IN 2008, NOW ADMITTED WITH SEVERE DEPRESSION AND CURRENTLY OFF HER IMMUNOSUPPRESSIVE DRUGS FOR POSSIBLY UP TO SEVERAL MONTHS. 1. Acute kidney injury. Her renal function has worsened from her baseline creatinine 1.5 to 1.8, now 2.1. This is certainly concerning for possibility of acute rejection. This far out, 1 would not expect her to have antibody mediated rejection, but still is a possibility versus cell mediated acute rejection. Other possibilities for her acute kidney injury could be simply dehydration. Progressive loss of renal function from chronic transplant glomerulopathy some how would be a concern. 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 2. Stage 3 chronic kidney disease, baseline creatinine 1.5 to 1.8 in a patient who had a kidney transplant 13 years ago. Again, this is probably due to chronic rejection versus transplant glomerulopathy versus calcineurin inhibitor associated kidney injury versus hypertensive nephrosclerosis. I am need to track down outpatient records to see if she has had any biopsies done regarding the cause of her chronic kidney dysfunction in the transplant kidney. 3. Immunosuppressive regimen. She is supposed to be on a combination of Prograf and prednisone and we will restart these medications. 4. Hypertension. She had been on an ARB, which has been stopped and would continue to hold it now with the bump in creatinine. 5. Severe depression for which she is being admitted to the hospital. 6. Anemia. We will see if she has iron deficiency. She may be candidate for EPO in the future. SUGGESTIONS: At this time include restart her on a Prograf and prednisone. Urinalysis and spot urine studies for urine protein and creatinine. We will send donor specific antibody test, which if abnormal would raise concern for antibody mediated rejection. We will follow the kidney function closely and depending on her clinical course, she may need a kidney biopsy of her transplant kidney. Our hope is that we can avoid doing this given the stress and may add her ongoing management for depression. Again, as noted, her baseline creatinine was in the 1.5 to 1.8 range and so we can see that it comes back to that range, we can hold off doing a biopsy. We will follow patient closely with the team. MD ОЛЕГ Trimble/CARLENE / [id number]
[2021-10-26 20:41] LABS: VBG Base Excess -0.9 mmol/L; VBG HCO3 22 mmol/L (22-26); VBG pCO2 32 mmHg; VBG pH 7.45 (7.32-7.43); VBG pO2 99 mmHg
[2021-10-26 20:41] LABS: Venous Blood Gas Refer to POC result
[2021-10-26 20:43] LABS: Basophils Percent Auto 0.3 % (0-2); Eosinophils Absolute Auto 2.6 X10*3/uL (0.0-0.4); Eosinophils Percent Auto 26.3 % (0-4); Hemoglobin 8.8 g/dl (12.0-16.0); Imm Gran Abs Auto 0.05 X10*3/uL (0.00-0.03); Imm Gran Pct Auto 0.5 % (0.0-0.4); Lymphocytes Absolute Auto 1.9 X10*3/uL (1.2-4.9); Lymphocytes Percent Auto 18.7 % (20-40); MANUAL DIFF FLAG SCAN; Mean Corpuscular HGB Conc 32.6 g/dl (31.0-35.0); Mean Corpuscular Hemoglobin 30.6 pg (27.0-33.0); Mean Corpuscular Volume 93.8 fL (80.0-98.0); Mean Platelet Volume 10.9 fL (9.4-12.3); Monocytes Absolute Auto 1.3 X10*3/uL (0.1-1.2); Monocytes Percent Auto 12.9 % (2-11); Neutrophils Absolute Auto 4.1 x10*3/uL (2.0-8.3); Neutrophils Percent Auto 41.3 % (45-73); Platelet Count 156 X10*3/uL (160-400); Red Blood Count 2.88 X10*6/uL (4.20-5.50); SCAN SMEAR FLAG 1
[2021-10-26 20:57] LABS: Alanine Aminotransferase 23 U/L (0-31); Albumin Level 3.1 g/dL (3.5-5.0); Alkaline Phosphatase 43 U/L (39-117); Anion Gap 13 (12-20); Aspartate Amino Transferase 17 U/L (5-31); Bilirubin Total 0.3 mg/dL (0.0-1.0); Blood Urea Nitrogen 57 mg/dL (9-16); Calcium 9.6 mg/dL (8.4-10.2); Carbon Dioxide 23 mmol/L (22-29); Chloride 107 mmol/L (96-108); Estimated Glomerular Filt Rate 20; Glucose Random 119 mg/dL (60-115); Phosphorus 6.1 mg/dL (2.7-4.5); Potassium 4.4 mmol/L (3.3-5.1); Sodium 139 mmol/L (135-145); Total Protein 5.5 g/dL (6.5-8.0)
[2021-10-26 21:03] LABS: SLIDE REVIEW VERIFIED; Troponin-I High Sensitivity 11.4 ng/L (<3.5-17.0)
[2021-10-26 21:39] VITALS: BP 163/73; PULSE 85; RESP 16; TEMP 37.3; O2SAT 99
--- NOTE | 2021-10-26 22:00 | HO.PSYCHPN ---
Subjective Subjective Date of Service: 10/26/21 Reason For Visit: Psychosis, suicidal ideation Subjective Notes: Conditional Voluntary Healthcare Proxy: Yes (not activated ) Interim History: Patient is perplexed somewhat flat periods of mild expansiveness poor boundaries at times grandiose and at times illogical difficulty processing information at times for example stating her transplant kidney could come out she has her kidneys later seem to understand that her kidney functions were showing damage. She did state that she had stopped her anti rejection meds unclear exactly when Not aggressive denying self-harm agreeable to having intravenous fluids Medication Compliance: Yes Review of Systems Acute medical concerns: Yes Increasing creatinine Mental Status Exam Mental Status Exam Patient Appearance: Disheveled Patient Orientation: Person and Place Level of Consciousness: Awake Patient Behavior: Anxious, Distractible, Confused and Good Eye Contact Mood Description: Apprehensive Affect Description: Constricted and Apprehensive Ability to Follow Directions: Fair Speech Pattern: Impoverished and Delayed Hallucinations: Auditory Delusions: Being Controlled, Paranoid Ideation, Grandiose and Bizarre Thought Process: Distracted, Rumination and Evasive Thought Content: positive for Disorganized, negative for Suicidal Ideation (denies self harm ) or negative for Homicidal Ideation Abnormal Motor Activity Signs and Symptoms: Restlessness Judgement: Poor Judgement and Insight: Periods of bizarre grandiosity neurologic allergy then can take information regarding her medical condition s Diagnostics Vital Signs (24Hr): Vital Signs - 24 hr 10/26/21 07:00 10/26/21 21:39 Temperature 97.7 F 99.1 F Pulse Rate 101 H 85 Respiratory Rate 19 16 Blood Pressure 140/65 H 163/73 H Pulse Oximetry 98 99 BMI result Body Mass Index 20.0 Labs Results: 10/26/21 20:36 10/26/21 20:21 Labs: Laboratory Results - last 48 hr 10/25/21 10/25/21 10/26/21 06:57 06:57 07:18 WBC RBC Hgb Hct MCV MCH MCHC RDW Plt Count MPV Immature Gran % (Auto) Neut % (Auto) Lymph % (Auto) Dare % (Auto) Eos % (Auto) Baso % (Auto) Lymph # (Auto) [place]are # (Auto) Eos # (Auto) Baso # (Auto) Abs Immat Gran (auto) Absolute Neuts (auto) Absolute Nucleated RBC Nucleated RBC % (auto) Smear Tech's Comments VBG pH VBG pCO2 VBG pO2 VBG HCO3 VBG O2 Saturation VBG Base Excess Sodium 142 142 Potassium 4.2 3.9 Chloride 109 H 111 H Carbon Dioxide 25 22 Anion Gap 12 13 BUN 47 H 50 H Creatinine 2.22 H 2.15 H Estim Creat Clear Calc 19.6 20.3 Estimated GFR 22 23 POC Glucose Random Glucose 157 H Fasting Glucose 102 H Estimat Average Glucose 105 Hemoglobin A1c % 5.3 Lactic Acid Calcium 9.6 D 9.3 Phosphorus Magnesium 2.0 Total Bilirubin 0.3 AST 17 ALT 22 Alkaline Phosphatase 43 Total Creatine Kinase Troponin I High Sens Total Protein 5.5 L Albumin 3.1 L Triglycerides 57 Cholesterol 154 LDL Cholesterol, Calc 80 HDL Cholesterol 63 TSH 2.95 10/26/21 10/26/21 10/26/21 07:18 19:42 20:21 WBC RBC Hgb Hct MCV MCH MCHC RDW Plt Count MPV Immature Gran % (Auto) Neut % (Auto) Lymph % (Auto) [place]are % (Auto) Eos % (Auto) Baso % (Auto) Lymph # (Auto) [place]are # (Auto) Eos # (Auto) Baso # (Auto) Abs Immat Gran (auto) Absolute Neuts (auto) Absolute Nucleated RBC Nucleated RBC % (auto) Smear Tech's Comments VBG pH VBG pCO2 VBG pO2 VBG HCO3 VBG O2 Saturation VBG Base Excess Sodium 139 Potassium 4.4 Chloride 107 Carbon Dioxide 23 Anion Gap 13 BUN 57 H Creatinine 2.42 H Estim Creat Clear Calc 18.0 Estimated GFR 20 POC Glucose 119 H Random Glucose 119 H Fasting Glucose Estimat Average Glucose 105 Hemoglobin A1c % 5.3 Lactic Acid Calcium 9.6 Phosphorus 6.1 H Magnesium 2.0 Total Bilirubin 0.3 AST 17 ALT 23 Alkaline Phosphatase 43 Total Creatine Kinase 47 Troponin I High Sens Total Protein 5.5 L Albumin 3.1 L Triglycerides Cholesterol LDL Cholesterol, Calc HDL Cholesterol TSH 10/26/21 10/26/21 10/26/21 20:35 20:35 20:36 WBC 10.0 RBC 2.88 L Hgb 8.8 L Hct 27.0 L MCV 93.8 MCH 30.6 MCHC 32.6 RDW 14.0 Plt Count 156 L MPV 10.9 Immature Gran % (Auto) 0.5 H Neut % (Auto) 41.3 L Lymph % (Auto) 18.7 L Dare % (Auto) 12.9 H Eos % (Auto) 26.3 H Baso % (Auto) 0.3 Lymph # (Auto) 1.9 Dare # (Auto) 1.3 H Eos # (Auto) 2.6 H Baso # (Auto) 0.0 Abs Immat Gran (auto) 0.05 H Absolute Neuts (auto) 4.1 Absolute Nucleated RBC 0.000 Nucleated RBC % (auto) 0.0 Smear Tech's Comments VERIFIED VBG pH 7.45 H VBG pCO2 32 VBG pO2 99 VBG HCO3 22 VBG O2 Saturation 96.0 VBG Base Excess -0.9 Sodium Potassium Chloride Carbon Dioxide Anion Gap BUN Creatinine Estim Creat Clear Calc Estimated GFR POC Glucose Random Glucose Fasting Glucose Estimat Average Glucose Hemoglobin A1c % Lactic Acid 1.0 Calcium Phosphorus Magnesium Total Bilirubin AST ALT Alkaline Phosphatase Total Creatine Kinase Troponin I High Sens Total Protein Albumin Triglycerides Cholesterol LDL Cholesterol, Calc HDL Cholesterol TSH 10/26/21 20:36 WBC RBC Hgb Hct MCV MCH MCHC RDW Plt Count MPV Immature Gran % (Auto) Neut % (Auto) Lymph % (Auto) Dare % (Auto) Eos % (Auto) Baso % (Auto) Lymph # (Auto) Dare # (Auto) Eos # (Auto) Baso # (Auto) Abs Immat Gran (auto) Absolute Neuts (auto) Absolute Nucleated RBC Nucleated RBC % (auto) Smear Tech's Comments VBG pH VBG pCO2 VBG pO2 VBG HCO3 VBG O2 Saturation VBG Base Excess Sodium Potassium Chloride Carbon Dioxide Anion Gap BUN Creatinine Estim Creat Clear Calc Estimated GFR POC Glucose Random Glucose Fasting Glucose Estimat Average Glucose Hemoglobin A1c % Lactic Acid Calcium Phosphorus Magnesium Total Bilirubin AST ALT Alkaline Phosphatase Total Creatine Kinase Troponin I High Sens 11.4 Total Protein Albumin Triglycerides Cholesterol LDL Cholesterol, Calc HDL Cholesterol TSH Imaging Radiology Impressions: ITS Impressions Chest X-Ray 10/20/21 15:57 IMPRESSION: Unremarkable examination. Head CT 10/20/21 18:33 IMPRESSION: No acute intracranial process seen. A change from 09/29/[address] 10/26/21 21:21 IMPRESSION: No evidence of acute intracranial hemorrhage or edematous territorial infarction. Medications Medications Current Medications Acetaminophen (Acetaminophen 325 Mg Tablet) 650 mg PO Q6H PRN PRN Reason: Headache/Pain Mild Scale (1-3) Al Hydroxide/Mg Hydroxide (Magnesium Hydrox/Alum Hydrox 30 Ml Oral.Susp) 30 ml PO Q6H PRN PRN Reason: Heartburn/Nausea Hydroxyzine HCl (Hydroxyzine Hcl 25 Mg Tablet) 25 mg PO BEDTIME PRN PRN Reason: Anxiety Last Admin: 10/23/21 22:15 Dose: 25 mg Documented by: Sodium Chloride (Ns) 1,000 mls @ 100 mls/hr IVCONT .Q10H MARCIA Stop: 10/27/21 02:59 Levothyroxine Sodium (Levothyroxine Sodium 50 Mcg Tablet) 50 mcg PO DAILY@0600 [facility] Last Admin: 10/26/21 06:45 Dose: 50 mcg Documented by: Lorazepam (Lorazepam 1 Mg Tablet) 1 mg PO BEDTIME MARCIA Last Admin: 10/25/21 21:56 Dose: 1 mg Documented by: Lorazepam (Lorazepam 0.5 Mg Tablet) 0.5 mg PO Q6H PRN PRN Reason: anxiety/restlessness Magnesium Hydroxide (Milk Of Magnesia 30 Ml Oral.Susp) 30 ml PO DAILY PRN PRN Reason: Constipation Prednisone (Prednisone 5 Mg Tablet) 5 mg PO DAILY [facility] Risperidone (Risperidone 1 Mg Tablet) 1 mg PO BID [facility] Last Admin: 10/26/21 08:39 Dose: 1 mg Documented by: Tacrolimus (Tacrolimus 1 Mg Capsule) 5 mg PO DAILY@0800 [facility] Tacrolimus (Tacrolimus 1 Mg Capsule) 4 mg PO DAILY@1800 [facility] Trazodone HCl (Trazodone Hcl 50 Mg Tablet) 50 mg PO BEDTIME PRN PRN Reason: Insomnia Last Admin: 10/24/21 01:07 Dose: 50 mg Documented by: Allergies Allergies Allergy/AdvReac Type Severity Reaction Status Date / Time gabapentin [From Neurontin] Allergy Unknown UNKNOWN Verified 10/22/21 22:57 Sulfa (Sulfonamide Allergy Unknown UNKNOWN Verified 10/22/21 22:57 Antibiotics) [SULFA (SULFONAMIDE ANTIBIOTICS)] trimethoprim [TRIMETHOPRIM] Allergy Unknown UNKNOWN Verified 10/22/21 22:57 lithium [LITHIUM] AdvReac Severe KIDNEY Verified 10/22/21 22:57 TRANSPLANT DUE TO LITHIUM TOXICITY Assessment & Plan Assessment & Plan (1) LAURO (acute kidney injury): Status: Acute Code(s): N17.9 - Acute kidney failure, unspecified Assessment and Plan: iv fluids ck labs nephrology consult hospitalist Case reviewed extensively with both Nephrology Dr. Bucio and Dr. Adam discussed with patient her elevating creatinine and possible acute rejection may need biopsy sheryl e reviewed nursing staff tx team (2) Schizoaffective disorder, bipolar type: Status: Acute Code(s): F25.0 - Schizoaffective disorder, bipolar type Assessment and Plan: Increase Risperdal 1.5 b.i.d. Assessment and Plan: This is a 71 yo F with a PMH of ESRD on HD previously, now s/p renal transplant, HTN, Osteoporosis, Hypothyrodism, Schizoaffective d/o - bipolar type who is admitted to the [facility]. Medical consultation requested for worsening renal function and ECT clerance. 1. Pre-operatively cardiovascular evaluation Patient denies any exertional angina symptoms. Her HS trop-I in the ED were mildly elevated and flat x 2. EKG shows left axis deviation. She denies any known CAD history. Will check an Echocardiogram to start with. If abnormal, will need formal Cardiology evaluation prior to ECT. 2. CKD, baseline stage unclear 2a. S/P Kidney transplant SCr around 2 since admission, slight upward trend Last SCr from 2019 in our system Please invovle Nephrology continue holding her losartan 3. Hypothyroid synthroid Will f/u after Echo to complete ECT pre-op risk eval. I spent __45____ minutes with the patient and/or on the patient floor today, greater than?50% of which was spent counseling/coordinating care. Reason for contiued inpatient stay Substantial Risk for: harm to self and med/psych decompensation
[2021-10-26] MEDS: LORazepam 1 MG TABLET PO (22:04)
[2021-10-26] MEDS: Tacrolimus 1 MG CAPSULE 4 MG PO (22:17)
--- NOTE | 2021-10-26 23:36 | PC.NURSE ---
Addendum entered by Reuben Singer RN 10/27/21 00:05: stat poc 119 Original Note: 1945 upon checking on pt for iv start and medication administration,she is found to be unresponsive. her eyes are closed and remain closed even with loud verbal stimulation. briefly her shoulders were shaken and despite this maneuver she remains unresponsive. her extremities are flaccid and noxious stimulation evokes no withdrawal response. her pupils are 3mm and react briskly to light. resp effort is regular unlabored. no obvious distress. the following interventions are immediately performed 1. vital signs obtained 99/100/16/ 144/65 100% 2. iv access established 3. poc [address] meyer called and the previous information discussed plan 1. labs stat 2. 12 lead ecg stat 3. ct of head 4. insert dumont catheter if necessary 5. notify hospitalist dr brownlee of altered mental status.
--- NOTE | 2021-10-27 00:25 | PC.NURSE ---
2030 utilizing cardiac cath lab manager/life pack, pt transported to ct scan and back in a stable condition. when pt was transferred from bed to ct scan table, she emerged from unresponsive state. currently her eyes are open. she exhibits ocular tracking and focusing. she is speaking in full sentences and is pleasantly forgetful. she is moving all extremities purposefully. she has been incontinent of urine. dr meyer contacted and notified 1. improvement of neuro status/eyes open and tracking 2. speaking in full sentences 3. tao in a purposeful fashion. 4. ct of brain no acute findings 5. lab work reviewed 6. vital signs discussed.
[2021-10-27] MEDS: Levothyroxine Sodium 50 MCG TABLET PO (06:27)
[2021-10-27 06:53] LABS: Appearance Urine CLEAR; Color Urine YELLOW; Glucose Urine UA NEG (NEG); Leukocyte Esterase Urine NEG (NEG); Nitrite Urine NEG (NEG); Specific Gravity - Urine 1.015 (1.005-1.025); Urine Blood NEG (NEG); Urine Ketones NEG (NEG); Urine Protein 1+ MG/DL (NEG-TRACE)
[2021-10-27 07:13] LABS: Bacteria Urine TRACE /LPF; RBC Urine 0 /HPF (0); WBC Urine 0-2 /HPF (0-4)
[2021-10-27 07:14] LABS: Squamous Epithelial Cell Urine TRACE /LPF
--- NOTE | 2021-10-27 08:08 | P.PNPSI_ITS ---
Subjective Subjective Date of Service: 10/27/21 Reason For Visit: Psychosis, suicidal ideation Subjective Notes: Conditional Voluntary Guardianship: No Interim History: Pt had event last nite ? not responsive nl vs did wake up no physical complaints seen by hosp service and nephrology pt when seen perplexed internally preoccupied no physical complaints cooperative with medical testing Medication Compliance: Yes Attending Groups: No Review of Systems Acute medical concerns: Yes inc creatinine ? renal rej anemia Mental Status Exam Mental Status Exam Patient Appearance: Appropriate Patient Orientation: Person and Place Level of Consciousness: Awake Patient Behavior: Passive, Anxious, Distractible, Confused and Good Eye Contact Mood Description: Anxious, Apprehensive and Expansive Affect Description: Constricted, Blunted, Apprehensive and Expansive Ability to Follow Directions: Fair Speech Pattern: Impoverished and Delayed Memory Description: Episodic Impaired Hallucinations: Auditory Delusions: Being Controlled, Paranoid Ideation, Grandiose and Bizarre Thought Process: Distracted, Rumination and Evasive Thought Content: positive for Disorganized, negative for Suicidal Ideation (denies self harm ) or negative for Homicidal Ideation Abnormal Motor Activity Signs and Symptoms: Restlessness Judgement: Fair Diagnostics Vital Signs (24Hr): Vital Signs - 24 hr 10/26/21 19:45 10/26/21 20:15 10/26/21 21:39 Temperature 99 F 99.1 F Pulse Rate 100 98 85 Respiratory Rate 16 16 16 Blood Pressure 144/65 H 169/76 H 163/73 H Pulse Oximetry 100 99 99 BMI result [place] 4 Body Mass Index [place] 4 20.0 [place] 4 [place] 4 Labs Results: 10/26/21 20:36 10/27/21 08:20 Labs: Laboratory Results - last 48 hr 10/26/21 10/26/21 10/26/21 07:18 07:18 19:42 WBC RBC Hgb Hct MCV MCH MCHC RDW Plt Count MPV Immature Gran % (Auto) Neut % (Auto) Lymph % (Auto) [place] % (Auto) Eos % (Auto) Baso % (Auto) Lymph # (Auto) [place] # (Auto) Eos # (Auto) Baso # (Auto) Abs Immat Gran (auto) Absolute Neuts (auto) Absolute Nucleated RBC Nucleated RBC % (auto) Smear Tech's Comments VBG pH VBG pCO2 VBG pO2 VBG HCO3 VBG O2 Saturation VBG Base Excess Sodium 142 Potassium 3.9 Chloride 111 H Carbon Dioxide 22 Anion Gap 13 BUN 50 H Creatinine 2.15 H Estim Creat Clear Calc 20.3 Estimated GFR 23 POC Glucose 119 H Random Glucose Fasting Glucose 102 H Estimat Average Glucose 105 Hemoglobin A1c % 5.3 Lactic Acid Calcium 9.3 Phosphorus Magnesium 2.0 Total Bilirubin 0.3 AST 17 ALT 22 Alkaline Phosphatase 43 Total Creatine Kinase Troponin I High Sens Total Protein 5.5 L Albumin 3.1 L TSH 2.95 Urine Color Urine Appearance Urine pH Ur Specific [place] Urine Protein Urine Glucose (UA) Urine Ketones Urine Blood Urine Nitrite Ur Leukocyte Esterase Urine RBC Urine WBC Ur Squamous Epith Cells Urine Bacteria 10/26/21 10/26/21 10/26/21 20:21 20:35 20:35 WBC RBC Hgb Hct MCV MCH MCHC RDW Plt Count MPV Immature Gran % (Auto) Neut % (Auto) Lymph % (Auto) [place] % (Auto) Eos % (Auto) Baso % (Auto) Lymph # (Auto) [place] # (Auto) Eos # (Auto) Baso # (Auto) Abs Immat Gran (auto) Absolute Neuts (auto) Absolute Nucleated RBC Nucleated RBC % (auto) Smear Tech's Comments VBG pH 7.45 H VBG pCO2 32 VBG pO2 99 VBG HCO3 22 VBG O2 Saturation 96.0 VBG Base Excess -0.9 Sodium 139 Potassium 4.4 Chloride 107 Carbon Dioxide 23 Anion Gap 13 BUN 57 H Creatinine 2.42 H Estim Creat Clear Calc 18.0 Estimated GFR 20 POC Glucose Random Glucose 119 H Fasting Glucose Estimat Average Glucose Hemoglobin A1c % Lactic Acid 1.0 Calcium 9.6 Phosphorus 6.1 H Magnesium 2.0 Total Bilirubin 0.3 AST 17 ALT 23 Alkaline Phosphatase 43 Total Creatine Kinase 47 Troponin I High Sens Total Protein 5.5 L Albumin 3.1 L TSH Urine Color Urine Appearance Urine pH Ur Specific [place] Urine Protein Urine Glucose (UA) Urine Ketones Urine Blood Urine Nitrite Ur Leukocyte Esterase Urine RBC Urine WBC Ur Squamous Epith Cells Urine Bacteria 10/26/21 10/26/21 10/27/21 20:36 20:36 04:18 WBC 10.0 RBC 2.88 L Hgb 8.8 L Hct 27.0 L MCV 93.8 MCH 30.6 MCHC 32.6 RDW 14.0 Plt Count 156 L MPV 10.9 Immature Gran % (Auto) 0.5 H Neut % (Auto) 41.3 L Lymph % (Auto) 18.7 L [place] % (Auto) 12.9 H Eos % (Auto) 26.3 H Baso % (Auto) 0.3 Lymph # (Auto) 1.9 [place] # (Auto) 1.3 H Eos # (Auto) 2.6 H Baso # (Auto) 0.0 Abs Immat Gran (auto) 0.05 H Absolute Neuts (auto) 4.1 Absolute Nucleated RBC 0.000 Nucleated RBC % (auto) 0.0 Smear Tech's Comments VERIFIED VBG pH VBG pCO2 VBG pO2 VBG HCO3 VBG O2 Saturation VBG Base Excess Sodium Potassium Chloride Carbon Dioxide Anion Gap BUN Creatinine Estim Creat Clear Calc Estimated GFR POC Glucose Random Glucose Fasting Glucose Estimat Average Glucose Hemoglobin A1c % Lactic Acid Calcium Phosphorus Magnesium Total Bilirubin AST ALT Alkaline Phosphatase Total Creatine Kinase Troponin I High Sens 11.4 Total Protein Albumin TSH Urine Color YELLOW Urine Appearance CLEAR Urine pH 6.0 Ur Specific [place] 1.015 Urine Protein 1+ H Urine Glucose (UA) NEG Urine Ketones NEG Urine Blood NEG Urine Nitrite NEG Ur Leukocyte Esterase NEG Urine RBC 0 Urine WBC 0-2 Ur Squamous Epith Cells TRACE Urine Bacteria TRACE Imaging Radiology Impressions: ITS Impressions Chest X-Ray 10/20/21 15:57 IMPRESSION: Unremarkable examination. Head CT 10/20/21 18:33 IMPRESSION: No acute intracranial process seen. A change from 09/29/[address] 10/26/21 21:21 IMPRESSION: No evidence of acute intracranial hemorrhage or edematous territorial infarction. Medications Medications Current Medications Acetaminophen (Acetaminophen 325 Mg Tablet) 650 mg PO Q6H PRN PRN Reason: Headache/Pain Mild Scale (1-3) Al Hydroxide/Mg Hydroxide (Magnesium Hydrox/Alum Hydrox 30 Ml Oral.Susp) 30 ml PO Q6H PRN PRN Reason: Heartburn/Nausea Hydroxyzine HCl (Hydroxyzine Hcl 25 Mg Tablet) 25 mg PO BEDTIME PRN PRN Reason: Anxiety Last Admin: 10/23/21 22:15 Dose: 25 mg Documented by: Levothyroxine Sodium (Levothyroxine Sodium 50 Mcg Tablet) 50 mcg PO DAILY@0600 [facility] Last Admin: 10/27/21 06:27 Dose: 50 mcg Documented by: Lorazepam (Lorazepam 1 Mg Tablet) 1 mg PO BEDTIME [facility] Last Admin: 10/26/21 22:04 Dose: 1 mg Documented by: Lorazepam (Lorazepam 0.5 Mg Tablet) 0.5 mg PO Q6H PRN PRN Reason: anxiety/restlessness Magnesium Hydroxide (Milk Of Magnesia 30 Ml Oral.Susp) 30 ml PO DAILY PRN PRN Reason: Constipation Prednisone (Prednisone 5 Mg Tablet) 5 mg PO DAILY [facility] Risperidone (Risperidone 0.5 Mg Tablet) 1.5 mg PO BID [facility] Tacrolimus (Tacrolimus 1 Mg Capsule) 5 mg PO DAILY@0800 [facility] Tacrolimus (Tacrolimus 1 Mg Capsule) 4 mg PO DAILY@1800 [facility] Last Admin: 10/26/21 22:17 Dose: 4 mg Documented by: Trazodone HCl (Trazodone Hcl 50 Mg Tablet) 50 mg PO BEDTIME PRN PRN Reason: Insomnia Last Admin: 10/24/21 01:07 Dose: 50 mg Documented by: Allergies Allergies Allergy/AdvReac Type Severity Reaction Status Date / Time gabapentin [From Allergy Unknown UNKNOWN Verified 10/22/21 22:57 Neurontin] Sulfa (Sulfonamide Allergy Unknown UNKNOWN Verified 10/22/21 22:57 Antibiotics) [SULFA (SULFONAMIDE ANTIBIOTICS)] trimethoprim Allergy Unknown UNKNOWN Verified 10/22/21 22:57 [TRIMETHOPRIM] lithium [LITHIUM] AdvReac Severe KIDNEY Verified 10/22/21 22:57 TRANSPLANT DUE TO LITHIUM TOXICITY Assessment & Plan Assessment & Plan (1) LAURO (acute kidney injury): Status: Acute Code(s): N17.9 - Acute kidney failure, unspecified Assessment and Plan: iv fluids ck labs nephrology consult hospitalist steroid tx inc creat cont to monitro see nephrology note case reviewed dr peter and dr ramon (2) Schizoaffective disorder, bipolar type: Status: Acute Code(s): F25.0 - Schizoaffective disorder, bipolar type Assessment and Plan: Increase Risperdal 1.5 b.i.d. Plan This is a 71 yo F with a PMH of ESRD on HD previously, now s/p renal transplant, HTN, Osteoporosis, Hypothyrodism, Schizoaffective d/o - bipolar type who is admitted to the [facility] unit. Medical consultation requested for worsening renal function and ECT clerance. 1. Pre-operatively cardiovascular evaluation Patient denies any exertional angina symptoms. Her HS trop-I in the ED were mildly elevated and flat x 2. EKG shows left axis deviation. She denies any known CAD history. Will check an Echocardiogram to start with. If abnormal, will need formal Cardiology evaluation prior to ECT. cont risperadol . I spent minutes with the patient and/or on the patient floor today, greater than?50% of which was spent counseling/coordinating care. Reason for contiued inpatient stay Substantial Risk for: inability to function, rapid decompensation and med/psych decompensation
[2021-10-27 09:01] LABS: Anion Gap 14 (12-20); Blood Urea Nitrogen 49 mg/dL (9-16); Calcium 9.3 mg/dL (8.4-10.2); Carbon Dioxide 20 mmol/L (22-29); Chloride 111 mmol/L (96-108); Creatinine Clr Calc Pharmacy 20.1; Estimated Glomerular Filt Rate 22; Glucose Random 126 mg/dL (60-115); Potassium 3.9 mmol/L (3.3-5.1); Sodium 141 mmol/L (135-145)
[2021-10-27] MEDS: risperiDONE 0.5 MG TABLET 1.5 MG PO ×2 (09:31→21:50)
[2021-10-27] MEDS: Tacrolimus 1 MG CAPSULE 5 MG PO (09:31)
[2021-10-27] MEDS: predniSONE 5 MG TABLET PO (09:32)
[2021-10-27 10:00] VITALS: BP 125/59; PULSE 95; RESP 17; TEMP 36.7; O2SAT 98
[2021-10-27] MEDS: methylPREDNISolone Sod Succ 125 MG/2 ML VIAL IVPUSH (10:44)
--- NOTE | 2021-10-27 10:46 | P.PNIM_ITS ---
Subjective Subjective Date of Service: 10/27/21 Interval History: seen and examined this AM in her room talked to her about her kindey status to which she replied - The kidney is not Jadyn's anymore, its mine. Its in my body and it is fine, you dont have to worry about it overnight events reviewed Physical Exam Verdana 4l Vital Signs: Verdana 4d Verdana 4d Vital Signs: Verdana 4d Verdana 4Bd Last Vital Signs Verdana 4d Storage Battery Inspector And Tester New 4d Storage Battery Inspector And Tester New 4d Temp 99.1 F 10/26/21 21:39 Storage Battery Inspector And Tester New 4d Pulse 85 10/26/21 21:39 Storage Battery Inspector And Tester New 4d Resp 16 10/26/21 21:39 BP 163/73 H 10/26/21 21:39 Pulse Ox 99 10/26/21 21:39 BMI result Body Mass Index 20.0 Const: Other: General - no acute distress, appears comfortable Cardiovascular - regular rate and rhythm, S1-S2 Lungs - normal respiratory effort, clear to auscultation bilaterally, no wheezing Abdomen - soft, nontender, no rebound or guarding Extremities - no edema bilaterally Neuro - awake and alert, no focal deficits psych - poor insight Objective Data Active Medications Acetaminophen (Acetaminophen 325 Mg Tablet) 650 mg PO Q6H PRN PRN Reason: Headache/Pain Mild Scale (1-3) Al Hydroxide/Mg Hydroxide (Magnesium Hydrox/Alum Hydrox 30 Ml Oral.Susp) 30 ml PO Q6H PRN PRN Reason: Heartburn/Nausea Amlodipine Besylate (Amlodipine Besylate 5 Mg Tablet) 5 mg PO DAILY [facility]; Protocol Hydroxyzine HCl (Hydroxyzine Hcl 25 Mg Tablet) 25 mg PO BEDTIME PRN PRN Reason: Anxiety Last Admin: 10/23/21 22:15 Dose: 25 mg Documented by: CARMINA Levothyroxine Sodium (Levothyroxine Sodium 50 Mcg Tablet) 50 mcg PO DAILY@0600 [facility] Last Admin: 10/27/21 06:27 Dose: 50 mcg Documented by: CARMINA Lorazepam (Lorazepam 1 Mg Tablet) 1 mg PO BEDTIME [facility] Last Admin: 10/26/21 22:04 Dose: 1 mg Documented by: MARIA INES Lorazepam (Lorazepam 0.5 Mg Tablet) 0.5 mg PO Q6H PRN PRN Reason: anxiety/restlessness Magnesium Hydroxide (Milk Of Magnesia 30 Ml Oral.Susp) 30 ml PO DAILY PRN PRN Reason: Constipation Prednisone (Prednisone 5 Mg Tablet) 5 mg PO DAILY [facility] Last Admin: 10/27/21 09:32 Dose: 5 mg Documented by: BLANCA Risperidone (Risperidone 0.5 Mg Tablet) 1.5 mg PO BID [facility] Last Admin: 10/27/21 09:31 Dose: 1.5 mg Documented by: BLANCA Tacrolimus (Tacrolimus 1 Mg Capsule) 5 mg PO DAILY@0800 [facility] Last Admin: 10/27/21 09:31 Dose: 5 mg Documented by: BLANCA Tacrolimus (Tacrolimus 1 Mg Capsule) 4 mg PO DAILY@1800 [facility] Last Admin: 10/26/21 22:17 Dose: 4 mg Documented by: MARIA INES Trazodone HCl (Trazodone Hcl 50 Mg Tablet) 50 mg PO BEDTIME PRN PRN Reason: Insomnia Last Admin: 10/24/21 01:07 Dose: 50 mg Documented by: CARMINA Labs CBC & Chem 7: 10/26/21 20:36 10/27/21 08:20 Labs: Laboratory Results - last 24 hr 10/26/21 10/26/21 10/26/21 19:42 20:21 20:35 MCV MCH MCHC RDW Plt Count MPV Immature Gran % (Auto) Neut % (Auto) Lymph % (Auto) [place] % (Auto) Eos % (Auto) Baso % (Auto) Lymph # (Auto) [place] # (Auto) Eos # (Auto) Baso # (Auto) Abs Immat Gran (auto) Absolute Neuts (auto) Absolute Nucleated RBC Nucleated RBC % (auto) Smear Tech's Comments VBG pH VBG pCO2 VBG pO2 VBG HCO3 VBG O2 Saturation VBG Base Excess Anion Gap 13 Estim Creat Clear Calc 18.0 Estimated GFR 20 POC Glucose 119 H Random Glucose 119 H Lactic Acid 1.0 Calcium 9.6 Phosphorus 6.1 H Magnesium 2.0 Total Bilirubin 0.3 AST 17 ALT 23 Alkaline Phosphatase 43 Total Creatine Kinase 47 Troponin I High Sens Total Protein 5.5 L Albumin 3.1 L Urine Color Urine Appearance Urine pH Ur Specific [place] Urine Protein Urine Glucose (UA) Urine Ketones Urine Blood Urine Nitrite Ur Leukocyte Esterase Urine RBC Urine WBC Ur Squamous Epith Cells Urine Bacteria Ref Lab Test Result 10/26/21 10/26/21 10/26/21 20:35 20:36 20:36 MCV 93.8 MCH 30.6 MCHC 32.6 RDW 14.0 Plt Count 156 L MPV 10.9 Immature Gran % (Auto) 0.5 H Neut % (Auto) 41.3 L Lymph % (Auto) 18.7 L [place] % (Auto) 12.9 H Eos % (Auto) 26.3 H Baso % (Auto) 0.3 Lymph # (Auto) 1.9 [place] # (Auto) 1.3 H Eos # (Auto) 2.6 H Baso # (Auto) 0.0 Abs Immat Gran (auto) 0.05 H Absolute Neuts (auto) 4.1 Absolute Nucleated RBC 0.000 Nucleated RBC % (auto) 0.0 Smear Tech's Comments VERIFIED VBG pH 7.45 H VBG pCO2 32 VBG pO2 99 VBG HCO3 22 VBG O2 Saturation 96.0 VBG Base Excess -0.9 Anion Gap Estim Creat Clear Calc Estimated GFR POC Glucose Random Glucose Lactic Acid Calcium Phosphorus Magnesium Total Bilirubin AST ALT Alkaline Phosphatase Total Creatine Kinase Troponin I High Sens 11.4 Total Protein Albumin Urine Color Urine Appearance Urine pH Ur Specific [place] Urine Protein Urine Glucose (UA) Urine Ketones Urine Blood Urine Nitrite Ur Leukocyte Esterase Urine RBC Urine WBC Ur Squamous Epith Cells Urine Bacteria Ref Lab Test Result 10/27/21 10/27/21 10/27/21 04:18 08:20 Unknown MCV MCH MCHC RDW Plt Count MPV Immature Gran % (Auto) Neut % (Auto) Lymph % (Auto) [place] % (Auto) Eos % (Auto) Baso % (Auto) Lymph # (Auto) [place] # (Auto) Eos # (Auto) Baso # (Auto) Abs Immat Gran (auto) Absolute Neuts (auto) Absolute Nucleated RBC Nucleated RBC % (auto) Smear Tech's Comments VBG pH VBG pCO2 VBG pO2 VBG HCO3 VBG O2 Saturation VBG Base Excess Anion Gap 14 Estim Creat Clear Calc 20.1 Estimated GFR 22 POC Glucose Random Glucose 126 H Lactic Acid Calcium 9.3 Phosphorus Magnesium Total Bilirubin AST ALT Alkaline Phosphatase Total Creatine Kinase Troponin I High Sens Total Protein Albumin Urine Color YELLOW Urine Appearance CLEAR Urine pH 6.0 Ur Specific [place] 1.015 Urine Protein 1+ H Urine Glucose (UA) NEG Urine Ketones NEG Urine Blood NEG Urine Nitrite NEG Ur Leukocyte Esterase NEG Urine RBC 0 Urine WBC 0-2 Ur Squamous Epith Cells TRACE Urine Bacteria TRACE Ref Lab Test Result See Note Assessment and Plan (1) LAURO (acute kidney injury): Status: Acute Plan This is a 71 yo F with a PMH of ESRD on HD previously, now s/p renal transplant, HTN, Osteoporosis, Hypothyrodism, Schizoaffective d/o - bipolar type who is admitted to the [facility] unit. Medical consultation requested for worsening renal function and ECT clerance. 1. Suspected LAURO on CKD-3 (Based off collateral information obtained -- baseline SCr 1.5 - 1.8) 2a. S/P Kidney transplant Patient appears to have been on her anti-rejection meds Nephrology is on the case and this is being worked up (see their notes) IV solu-medrol 125mg x 1 per nephrology recs SCr slight improvement from her values yesterday evening 2. Period of unresponsiveness CT head neg, VBG without any retention question if his is more related to her psychiatric decompensation more than medical issues monitor for now 3. Hypothyroid synthroid 4. Pre-op ECT await echo for risk stratification Will follow up post-echo or sooner if medical issues arise Quality Stroke Does the patient have a stroke diagnosis?: No VTE Prior VTE?: No VTE Risk Level:: Medical - low (on the psych unit, ambulating) VTE Device Contraindication: Treatment Not Indicated (on the psych unit, ambulating) VTE Drug Contraindication: Treatment Not Indicated (on the psych unit, ambulating)
[2021-10-27] MEDS: amLODIPine Besylate 5 MG TABLET PO (10:59)
[2021-10-27 11:02] LABS: Cortisol Random 16.9 ug/dL
--- NOTE | 2021-10-27 12:14 | P.PNNP_ITS ---
Subjective Subjective Date of Service: 10/27/21 Interval history: Seen and examined, events noted Ihave drawn a blood sample for TRUGRAFT that I will have sentthru my office to specaity lab Physical Exam Verdana 4l Vital Signs: Verdana 4d Verdana 4d Vital Signs: Verdana 4d Verdana 4Bd Last Vital Signs Verdana 4d Line Service Technician New 4d Line Service Technician New 4d Temp 99.1 F 10/26/21 21:39 Line Service Technician New 4d Pulse 85 10/26/21 21:39 Line Service Technician New 4d Resp 16 10/26/21 21:39 BP 163/73 H 10/26/21 21:39 Pulse Ox 99 10/26/21 21:39 BMI result Body Mass Index 20.0 flat affect BS bilat RRR abd soft no edema Objective Data Labs CBC & Chem 7: 10/26/21 20:36 10/27/21 08:20 Labs: Laboratory Results - last 24 hr 10/26/21 10/26/21 10/26/21 19:42 20:21 20:35 WBC RBC Hgb Hct MCV MCH MCHC RDW Plt Count MPV Immature Gran % (Auto) Neut % (Auto) Lymph % (Auto) [place] % (Auto) Eos % (Auto) Baso % (Auto) Lymph # (Auto) [place] # (Auto) Eos # (Auto) Baso # (Auto) Abs Immat Gran (auto) Absolute Neuts (auto) Absolute Nucleated RBC Nucleated RBC % (auto) Smear Tech's Comments VBG pH VBG pCO2 VBG pO2 VBG HCO3 VBG O2 Saturation VBG Base Excess Sodium 139 Potassium 4.4 Chloride 107 Carbon Dioxide 23 Anion Gap 13 BUN 57 H Creatinine 2.42 H Estim Creat Clear Calc 18.0 Estimated GFR 20 POC Glucose 119 H Random Glucose 119 H Lactic Acid 1.0 Calcium 9.6 Phosphorus 6.1 H Magnesium 2.0 Total Bilirubin 0.3 AST 17 ALT 23 Alkaline Phosphatase 43 Total Creatine Kinase 47 Troponin I High Sens Total Protein 5.5 L Albumin 3.1 L Random Cortisol Urine Color Urine Appearance Urine pH Ur Specific [place] Urine Protein Urine Glucose (UA) Urine Ketones Urine Blood Urine Nitrite Ur Leukocyte Esterase Urine RBC Urine WBC Ur Squamous Epith Cells Urine Bacteria Ref Lab Test Result 10/26/21 10/26/21 10/26/21 20:35 20:36 20:36 WBC 10.0 RBC 2.88 L Hgb 8.8 L Hct 27.0 L MCV 93.8 MCH 30.6 MCHC 32.6 RDW 14.0 Plt Count 156 L MPV 10.9 Immature Gran % (Auto) 0.5 H Neut % (Auto) 41.3 L Lymph % (Auto) 18.7 L [place] % (Auto) 12.9 H Eos % (Auto) 26.3 H Baso % (Auto) 0.3 Lymph # (Auto) 1.9 [place] # (Auto) 1.3 H Eos # (Auto) 2.6 H Baso # (Auto) 0.0 Abs Immat Gran (auto) 0.05 H Absolute Neuts (auto) 4.1 Absolute Nucleated RBC 0.000 Nucleated RBC % (auto) 0.0 Smear Tech's Comments VERIFIED VBG pH 7.45 H VBG pCO2 32 VBG pO2 99 VBG HCO3 22 VBG O2 Saturation 96.0 VBG Base Excess -0.9 Sodium Potassium Chloride Carbon Dioxide Anion Gap BUN Creatinine Estim Creat Clear Calc Estimated GFR POC Glucose Random Glucose Lactic Acid Calcium Phosphorus Magnesium Total Bilirubin AST ALT Alkaline Phosphatase Total Creatine Kinase Troponin I High Sens 11.4 Total Protein Albumin Random Cortisol Urine Color Urine Appearance Urine pH Ur Specific [place] Urine Protein Urine Glucose (UA) Urine Ketones Urine Blood Urine Nitrite Ur Leukocyte Esterase Urine RBC Urine WBC Ur Squamous Epith Cells Urine Bacteria Ref Lab Test Result 10/27/21 10/27/21 10/27/21 04:18 08:20 08:20 WBC RBC Hgb Hct MCV MCH MCHC RDW Plt Count MPV Immature Gran % (Auto) Neut % (Auto) Lymph % (Auto) [place] % (Auto) Eos % (Auto) Baso % (Auto) Lymph # (Auto) [place] # (Auto) Eos # (Auto) Baso # (Auto) Abs Immat Gran (auto) Absolute Neuts (auto) Absolute Nucleated RBC Nucleated RBC % (auto) Smear Tech's Comments VBG pH VBG pCO2 VBG pO2 VBG HCO3 VBG O2 Saturation VBG Base Excess Sodium 141 Potassium 3.9 Chloride 111 H Carbon Dioxide 20 L Anion Gap 14 BUN 49 H Creatinine 2.17 H Estim Creat Clear Calc 20.1 Estimated GFR 22 POC Glucose Random Glucose 126 H Lactic Acid Calcium 9.3 Phosphorus Magnesium Total Bilirubin AST ALT Alkaline Phosphatase Total Creatine Kinase Troponin I High Sens Total Protein Albumin Random Cortisol 16.9 Urine Color YELLOW Urine Appearance CLEAR Urine pH 6.0 Ur Specific [place] 1.015 Urine Protein 1+ H Urine Glucose (UA) NEG Urine Ketones NEG Urine Blood NEG Urine Nitrite NEG Ur Leukocyte Esterase NEG Urine RBC 0 Urine WBC 0-2 Ur Squamous Epith Cells TRACE Urine Bacteria TRACE Ref Lab Test Result 10/27/21 Unknown WBC RBC Hgb Hct MCV MCH MCHC RDW Plt Count MPV Immature Gran % (Auto) Neut % (Auto) Lymph % (Auto) [place] % (Auto) Eos % (Auto) Baso % (Auto) Lymph # (Auto) [place] # (Auto) Eos # (Auto) Baso # (Auto) Abs Immat Gran (auto) Absolute Neuts (auto) Absolute Nucleated RBC Nucleated RBC % (auto) Smear Tech's Comments VBG pH VBG pCO2 VBG pO2 VBG HCO3 VBG O2 Saturation VBG Base Excess Sodium Potassium Chloride Carbon Dioxide Anion Gap BUN Creatinine Estim Creat Clear Calc Estimated GFR POC Glucose Random Glucose Lactic Acid Calcium Phosphorus Magnesium Total Bilirubin AST ALT Alkaline Phosphatase Total Creatine Kinase Troponin I High Sens Total Protein Albumin Random Cortisol Urine Color Urine Appearance Urine pH Ur Specific [place] Urine Protein Urine Glucose (UA) Urine Ketones Urine Blood Urine Nitrite Ur Leukocyte Esterase Urine RBC Urine WBC Ur Squamous Epith Cells Urine Bacteria Ref Lab Test Result See Note Procedures Date of Service Date of Service: 10/27/21 Assessment & Plan Assessment and plan (1) LAURO (acute kidney injury): Status: Acute Plan 1. LAURO: Scr2.1 is up fromherBSL1.5-1.8;definiteconcern for acute rejection ( more apt to be cell mediated vs AMR) so pulse with solumederol 125 today and r/s prograft TRUGRAFT sent --results likely not back until next week; hold off on biopsy oftransplant kidney for now but may need to consider 2. 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 ESRD s/p LRT 2008 4. IS: was on prograft 5/4 and pred 5mg; and target prograft levels 4-6; apparently stopped taking both but unclear fo how long last xplant visit 08/2021 Scr 1.7 and tacro level was 5.4 5. Anemia: need to r/o Fedef; may be candidate for epo 6. HTN:agree with cont patria pradovas 5 REC: solumederol 125x1 thisam,prograft5/4 and levelin am; pred 5; norvasc 5; add Festores to labs; hold on kidney Bx; send DSA ( donor specific antibodies--Matt from lab is trying to arrange); track renal func; avoid NToxins; U/S of transplant kidney TRUGRAFT bood sample sarahi and I will have sent to specialty lab will jerry cheng with team Time Spent With Patient Time: Total time spent is greater than 50% in coordination of care (as documented) at patient's floor/unit and/or counseling patient: Progress Note: Quality Stroke Does the patient have a stroke diagnosis?: No
[2021-10-27 12:52] LABS: Iron 78 mcg/dL (30-160); Percent Iron Saturation 40 % (15-50); Total Iron Binding Capacity 195 mcg/dL (228-428); Unsaturated Iron Binding 117 ug/dL
[2021-10-27 13:12] LABS: Ferritin 768 ng/mL (10-250)
[2021-10-27 13:30] LABS: Folate 12.9 ng/mL (> or = 4.0); Vitamin B12 687 pg/mL (200-900)
[2021-10-27] MEDS: Tacrolimus 1 MG CAPSULE 4 MG PO (17:38)
[2021-10-27 18:00] VITALS: BP 174/75; PULSE 89; RESP 16; TEMP 36.6; O2SAT 99
[2021-10-27] MEDS: LORazepam 1 MG TABLET PO (21:50)
[2021-10-28] MEDS: 0.9 % Sodium Chloride Flush 10 ML SYRINGE 5 ML IVFLUSH ×2 (01:57→09:28)
[2021-10-28] MEDS: LORazepam 0.5 MG TABLET PO (02:27)
[2021-10-28 06:00] VITALS: BP 164/72; PULSE 80; RESP 14; TEMP 36.7; O2SAT 99
[2021-10-28] MEDS: Levothyroxine Sodium 50 MCG TABLET PO (07:07)
[2021-10-28] MEDS: predniSONE 5 MG TABLET PO (09:23)
[2021-10-28] MEDS: risperiDONE 0.5 MG TABLET 1.5 MG PO ×2 (09:23→21:00)
[2021-10-28] MEDS: Tacrolimus 1 MG CAPSULE 5 MG PO (09:24)
[2021-10-28] MEDS: amLODIPine Besylate 5 MG TABLET PO (09:24)
[2021-10-28 09:51] LABS: Anion Gap 15 (12-20); Blood Urea Nitrogen 56 mg/dL (9-16); Calcium 9.7 mg/dL (8.4-10.2); Carbon Dioxide 21 mmol/L (22-29); Chloride 103 mmol/L (96-108); Creatinine Clr Calc Pharmacy 18.8; Estimated Glomerular Filt Rate 21; Glucose Random 269 mg/dL (60-115); Potassium 4.3 mmol/L (3.3-5.1); Sodium 135 mmol/L (135-145)
[2021-10-28 09:57] VITALS: BMI 19.0
--- NOTE | 2021-10-28 10:38 | P.PNNP_ITS ---
Subjective Subjective Date of Service: 10/28/21 Principal diagnosis: LAURO, CKD, Kidney Xplant patient Interval history: Seen and exmained, events noted Physical Exam Verdana 4l Vital Signs: Verdana 4d Verdana 4d Vital Signs: Verdana 4d Verdana 4Bd Last Vital Signs Verdana 4d International Marketing Coordinator New 4d International Marketing Coordinator New 4d Temp 97.9 F 10/27/21 18:00 International Marketing Coordinator New 4d Pulse 89 10/27/21 18:00 International Marketing Coordinator New 4d Resp 16 10/27/21 18:00 BP 174/75 H 10/27/21 18:00 Pulse Ox 99 10/27/21 18:00 BMI result Body Mass Index 19.0 Const: Other: General - no acute distress, appears comfortable Cardiovascular - regular rate and rhythm, S1-S2 Lungs - normal respiratory effort, clear to auscultation bilaterally, no whee zing Abdomen - soft, nontender, no rebound or guarding Extremities - no edema bilaterally Neuro - awake and alert, no focal deficits psych - poor insight Objective Data Labs CBC & Chem 7: 10/26/21 20:36 10/28/21 09:31 Labs: Laboratory Results - last 24 hr 10/27/21 10/27/21 10/27/21 08:20 08:20 08:20 Sodium Potassium Chloride Carbon Dioxide Anion Gap BUN Creatinine Estim Creat Clear Calc Estimated GFR Random Glucose Calcium Iron 78 TIBC 195 L % Saturation 40 Unsat Iron Binding 117 Ferritin 768 H Vitamin B12 687 Folate 12.9 Random Cortisol 16.9 10/28/21 09:31 Sodium 135 Potassium 4.3 Chloride 103 Carbon Dioxide 21 L Anion Gap 15 BUN 56 H Creatinine 2.32 H Estim Creat Clear Calc 18.8 Estimated GFR 21 Random Glucose 269 H Calcium 9.7 Iron TIBC % Saturation Unsat Iron Binding Ferritin Vitamin B12 Folate Random Cortisol Procedures Date of Service Date of Service: 10/28/21 Assessment & Plan Assessment and plan (1) LAURO (acute kidney injury): Status: Acute Plan 1. LAURO: Scr 2.3 is up from her BSL1.5-1.8;definite concern for acute rejection ( more apt to be cell mediated vs AMR) so pulse with solumederol 125 again today and tomoorow, cont prograft 5/4 u/s xplant kidney noted--no Obs TRUGRAFT sent --results likely not back until next week; hold off on biopsy off transplant kidney for now but may need to consider 2. 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 ESRD s/p LRT 2008 4. IS: was on prograft 5/4 and pred 5mg; and target prograft levels 4-6; apparently stopped taking both but unclear fo how long last xplant visit 08/2021 Scr 1.7 and tacro level was 5.4 5. Anemia: need to r/o Fe def; may be candidate for epo 6. HTN: agree with cont holding cozaar and start norvasc 5--incr to 10 if needed REC: solumederol 125x1 this am and again tomooriw am,cont prograft5/4 and cehck level in am; pred 5; norvasc 5; hold on kidney Bx; send DSA ( donor specific antibodies--Matt from lab is trying to arrange); track renal func; avoid NToxins TRUGRAFT bood sample sarahi and I sent to specialty lab ( Kaylee Dupree in our office will call me when result back) will jerry cheng with team Time Spent With Patient Time: Total time spent is greater than 50% in coordination of care (as documented) at patient's floor/unit and/or counseling patient: Time with patient: Greater than 35 minutes Progress Note: Quality Stroke Does the patient have a stroke diagnosis?: No
--- NOTE | 2021-10-28 17:51 | P.PNPSI_ITS ---
Subjective Subjective Date of Service: 10/28/21 Reason For Visit: Psychosis, suicidal ideation Subjective Notes: Conditional Voluntary Guardianship: No Interim History: Pt internally preoccupied manic grandiose difficulty taking in info regarding her condition remains internally preoccupied euphoric in subdued manner limited speech no si hi Review of Systems Acute medical concerns: Yes inc creat inc eosinophils Mental Status Exam Mental Status Exam Patient Appearance: Appropriate Patient Orientation: Person and Place Level of Consciousness: Awake Patient Behavior: Passive, Anxious, Distractible, Confused and Isolative Mood Description: Elated and Expansive Affect Description: Elated and Apprehensive Ability to Follow Directions: Fair Speech Pattern: Impoverished and Delayed Memory Description: Episodic Impaired Hallucinations: Auditory Delusions: Grandiose and Bizarre Thought Process: Distracted, Rumination and Evasive Thought Content: positive for Disorganized, negative for Suicidal Ideation (denies self harm ) or negative for Homicidal Ideation Abnormal Motor Activity Signs and Symptoms: Restlessness Judgement: Poor Diagnostics Vital Signs (24Hr): Vital Signs - 24 hr 10/27/21 18:00 10/28/21 06:00 Temperature 97.9 F 98.1 F Pulse Rate 89 80 Respiratory Rate 16 14 Blood Pressure 174/75 H 164/72 H Pulse Oximetry 99 99 BMI result Verdana 4 Body Mass Index Verdana 4 19.0 Verdana 4 Verdana 4 Labs Results: 10/26/21 20:36 10/28/21 09:31 Labs: Laboratory Results - last 48 hr 10/26/21 10/26/21 10/26/21 19:42 20:21 20:35 WBC RBC Hgb Hct MCV MCH MCHC RDW Plt Count MPV Immature Gran % (Auto) Neut % (Auto) Lymph % (Auto) Dale % (Auto) Eos % (Auto) Baso % (Auto) Lymph # (Auto) Dale # (Auto) Eos # (Auto) Baso # (Auto) Abs Immat Gran (auto) Absolute Neuts (auto) Absolute Nucleated RBC Nucleated RBC % (auto) Smear Tech's Comments VBG pH VBG pCO2 VBG pO2 VBG HCO3 VBG O2 Saturation VBG Base Excess Sodium 139 Potassium 4.4 Chloride 107 Carbon Dioxide 23 Anion Gap 13 BUN 57 H Creatinine 2.42 H Estim Creat Clear Calc 18.0 Estimated GFR 20 POC Glucose 119 H Random Glucose 119 H Lactic Acid 1.0 Calcium 9.6 Phosphorus 6.1 H Magnesium 2.0 Iron TIBC % Saturation Unsat Iron Binding Ferritin Total Bilirubin 0.3 AST 17 ALT 23 Alkaline Phosphatase 43 Total Creatine Kinase 47 Troponin I High Sens Total Protein 5.5 L Albumin 3.1 L Vitamin B12 Folate Random Cortisol Urine Color Urine Appearance Urine pH Ur Specific [place] Urine Protein Urine Glucose (UA) Urine Ketones Urine Blood Urine Nitrite Ur Leukocyte Esterase Urine RBC Urine WBC Ur Squamous Epith Cells Urine Bacteria Ref Lab Test Result 10/26/21 10/26/21 10/26/21 20:35 20:36 20:36 WBC 10.0 RBC 2.88 L Hgb 8.8 L Hct 27.0 L MCV 93.8 MCH 30.6 MCHC 32.6 RDW 14.0 Plt Count 156 L MPV 10.9 Immature Gran % (Auto) 0.5 H Neut % (Auto) 41.3 L Lymph % (Auto) 18.7 L Dale % (Auto) 12.9 H Eos % (Auto) 26.3 H Baso % (Auto) 0.3 Lymph # (Auto) 1.9 Dale # (Auto) 1.3 H Eos # (Auto) 2.6 H Baso # (Auto) 0.0 Abs Immat Gran (auto) 0.05 H Absolute Neuts (auto) 4.1 Absolute Nucleated RBC 0.000 Nucleated RBC % (auto) 0.0 Smear Tech's Comments VERIFIED VBG pH 7.45 H VBG pCO2 32 VBG pO2 99 VBG HCO3 22 VBG O2 Saturation 96.0 VBG Base Excess -0.9 Sodium Potassium Chloride Carbon Dioxide Anion Gap BUN Creatinine Estim Creat Clear Calc Estimated GFR POC Glucose Random Glucose Lactic Acid Calcium Phosphorus Magnesium Iron TIBC % Saturation Unsat Iron Binding Ferritin Total Bilirubin AST ALT Alkaline Phosphatase Total Creatine Kinase Troponin I High Sens 11.4 Total Protein Albumin Vitamin B12 Folate Random Cortisol Urine Color Urine Appearance Urine pH Ur Specific [place] Urine Protein Urine Glucose (UA) Urine Ketones Urine Blood Urine Nitrite Ur Leukocyte Esterase Urine RBC Urine WBC Ur Squamous Epith Cells Urine Bacteria Ref Lab Test Result 10/27/21 10/27/21 10/27/21 04:18 08:20 08:20 WBC RBC Hgb Hct MCV MCH MCHC RDW Plt Count MPV Immature Gran % (Auto) Neut % (Auto) Lymph % (Auto) Dale % (Auto) Eos % (Auto) Baso % (Auto) Lymph # (Auto) Dale # (Auto) Eos # (Auto) Baso # (Auto) Abs Immat Gran (auto) Absolute Neuts (auto) Absolute Nucleated RBC Nucleated RBC % (auto) Smear Tech's Comments VBG pH VBG pCO2 VBG pO2 VBG HCO3 VBG O2 Saturation VBG Base Excess Sodium 141 Potassium 3.9 Chloride 111 H Carbon Dioxide 20 L Anion Gap 14 BUN 49 H Creatinine 2.17 H Estim Creat Clear Calc 20.1 Estimated GFR 22 POC Glucose Random Glucose 126 H Lactic Acid Calcium 9.3 Phosphorus Magnesium Iron 78 TIBC 195 L % Saturation 40 Unsat Iron Binding 117 Ferritin 768 H Total Bilirubin AST ALT Alkaline Phosphatase Total Creatine Kinase Troponin I High Sens Total Protein Albumin Vitamin B12 Folate Random Cortisol 16.9 Urine Color YELLOW Urine Appearance CLEAR Urine pH 6.0 Ur Specific [place] 1.015 Urine Protein 1+ H Urine Glucose (UA) NEG Urine Ketones NEG Urine Blood NEG Urine Nitrite NEG Ur Leukocyte Esterase NEG Urine RBC 0 Urine WBC 0-2 Ur Squamous Epith Cells TRACE Urine Bacteria TRACE Ref Lab Test Result 10/27/21 10/27/21 10/28/21 08:20 Unknown 09:31 WBC RBC Hgb Hct MCV MCH MCHC RDW Plt Count MPV Immature Gran % (Auto) Neut % (Auto) Lymph % (Auto) Dale % (Auto) Eos % (Auto) Baso % (Auto) Lymph # (Auto) Dale # (Auto) Eos # (Auto) Baso # (Auto) Abs Immat Gran (auto) Absolute Neuts (auto) Absolute Nucleated RBC Nucleated RBC % (auto) Smear Tech's Comments VBG pH VBG pCO2 VBG pO2 VBG HCO3 VBG O2 Saturation VBG Base Excess Sodium 135 Potassium 4.3 Chloride 103 Carbon Dioxide 21 L Anion Gap 15 BUN 56 H Creatinine 2.32 H Estim Creat Clear Calc 18.8 Estimated GFR 21 POC Glucose Random Glucose 269 H Lactic Acid Calcium 9.7 Phosphorus Magnesium Iron TIBC % Saturation Unsat Iron Binding Ferritin Total Bilirubin AST ALT Alkaline Phosphatase Total Creatine Kinase Troponin I High Sens Total Protein Albumin Vitamin B12 687 Folate 12.9 Random Cortisol Urine Color Urine Appearance Urine pH Ur Specific [place] Urine Protein Urine Glucose (UA) Urine Ketones Urine Blood Urine Nitrite Ur Leukocyte Esterase Urine RBC Urine WBC Ur Squamous Epith Cells Urine Bacteria Ref Lab Test Result See Note Imaging Radiology Impressions: ITS Impressions Chest X-Ray 10/20/21 15:57 IMPRESSION: Unremarkable examination. Head CT 10/20/21 18:33 IMPRESSION: No acute intracranial process seen. A change from 09/29/[address] 10/26/21 21:21 IMPRESSION: No evidence of acute intracranial hemorrhage or edematous territorial infarction. Renal Ultrasound 10/27/21 15:51 IMPRESSION: Stable appearance of renal transplant kidney with 3.3 cm midpole simple appearing cyst. Medications Medications Current Medications Acetaminophen (Acetaminophen 325 Mg Tablet) 650 mg PO Q6H PRN PRN Reason: Headache/Pain Mild Scale (1-3) Al Hydroxide/Mg Hydroxide (Magnesium Hydrox/Alum Hydrox 30 Ml Oral.Susp) 30 ml PO Q6H PRN PRN Reason: Heartburn/Nausea Amlodipine Besylate (Amlodipine Besylate 5 Mg Tablet) 5 mg PO DAILY [facility]; Protocol Last Admin: 10/28/21 09:24 Dose: 5 mg Documented by: Hydroxyzine HCl (Hydroxyzine Hcl 25 Mg Tablet) 25 mg PO BEDTIME PRN PRN Reason: Anxiety Last Admin: 10/23/21 22:15 Dose: 25 mg Documented by: Levothyroxine Sodium (Levothyroxine Sodium 50 Mcg Tablet) 50 mcg PO DAILY@0600 [facility] Last Admin: 10/28/21 07:07 Dose: 50 mcg Documented by: Lorazepam (Lorazepam 1 Mg Tablet) 1 mg PO BEDTIME [facility] Last Admin: 10/27/21 21:50 Dose: 1 mg Documented by: Lorazepam (Lorazepam 0.5 Mg Tablet) 0.5 mg PO Q6H PRN PRN Reason: anxiety/restlessness Last Admin: 10/28/21 02:27 Dose: 0.5 mg Documented by: Magnesium Hydroxide (Milk Of Magnesia 30 Ml Oral.Susp) 30 ml PO DAILY PRN PRN Reason: Constipation Prednisone (Prednisone 5 Mg Tablet) 5 mg PO DAILY [facility] Last Admin: 10/28/21 09:23 Dose: 5 mg Documented by: Risperidone (Risperidone 0.5 Mg Tablet) 1.5 mg PO BID [facility] Last Admin: 10/28/21 09:23 Dose: 1.5 mg Documented by: Sodium Chloride (0.9 % Sodium Chloride Flush 10 Ml Syringe) 5 ml IVFLUSH QSHIFT [facility] Last Admin: 10/28/21 15:51 Dose: Not Given Documented by: Tacrolimus (Tacrolimus 1 Mg Capsule) 5 mg PO DAILY@0800 [facility] Last Admin: 10/28/21 09:24 Dose: 5 mg Documented by: Tacrolimus (Tacrolimus 1 Mg Capsule) 4 mg PO DAILY@1800 [facility] Last Admin: 10/27/21 17:38 Dose: 4 mg Documented by: Trazodone HCl (Trazodone Hcl 50 Mg Tablet) 50 mg PO BEDTIME PRN PRN Reason: Insomnia Last Admin: 10/24/21 01:07 Dose: 50 mg Documented by: Allergies Allergies Allergy/AdvReac Type Severity Reaction Status Date / Time gabapentin [From Allergy Unknown UNKNOWN Verified 10/22/21 22:57 Neurontin] Sulfa (Sulfonamide Allergy Unknown UNKNOWN Verified 10/22/21 22:57 Antibiotics) [SULFA (SULFONAMIDE ANTIBIOTICS)] trimethoprim Allergy Unknown UNKNOWN Verified 10/22/21 22:57 [TRIMETHOPRIM] lithium [LITHIUM] AdvReac Severe KIDNEY Verified 10/22/21 22:57 TRANSPLANT DUE TO LITHIUM TOXICITY Assessment & Plan Assessment & Plan (1) Schizoaffective disorder, bipolar type: Status: Acute Code(s): F25.0 - Schizoaffective disorder, bipolar type Assessment and Plan: cont risperadol having difficulty with insight not pressured but euphoric having difficulty taking in medical information and including need for continued psychiatric treatment. Disorganized grandiose but somehow she has been chosen becoming perfect does not need kidney. Continue to encourage treatment monitor for worsening of symptoms with steroids consider ECT Plan 1. LAURO: Scr 2.3 is up from her BSL1.5-1.8;definite concern for acute rejection ( more apt to be cell mediated vs AMR) so pulse with solumederol 125 again today and tomoorow, cont prograft 5/4 u/s xplant kidney noted--no Obs TRUGRAFT sent --results likely not back until next week; hold off on biopsy off transplant kidney for now but may need to consider 2. 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 ESRD s/p LRT 2008 4. IS: was on prograft 5/4 and pred 5mg; and target prograft levels 4-6; apparently stopped taking both but unclear fo how long last xplant visit 08/2021 Scr 1.7 and tacro level was 5.4 5. Anemia: need to r/o Fe def; may be candidate for epo 6. HTN: agree with cont holding cozaar and start norvasc 5--incr to 10 if needed REC: solumederol 125x1 this am and again tomooriw am,cont prograft5/4 and cehck level in am; pred 5; norvasc 5; hold on kidney Bx; send DSA ( donor specific antibodies--Matt from lab is trying to arrange); track renal func; avoid NToxins TRUGRAFT bood sample drwan and I sent to specialty lab ( Kaylee Dupree in our office will call me when result back) will jerry cheng with team I spent minutes with the patient and/or on the patient floor today, greater than?50% of which was spent counseling/coordinating care. Patient educated on: diagnosis, medication risk/benefits and medical condition Informed Consent: further education needed Reason for contiued inpatient stay Substantial Risk for: rapid decompensation and med/psych decompensation
[2021-10-28 19:07] VITALS: BP 142/65; PULSE 88; RESP 18; TEMP 36.3; O2SAT 99
[2021-10-28] MEDS: LORazepam 1 MG TABLET PO (19:57)
[2021-10-29] MEDS: hydrOXYzine HCL 25 MG TABLET PO (02:19)
[2021-10-29] MEDS: Levothyroxine Sodium 50 MCG TABLET PO (06:54)
[2021-10-29 07:06] LABS: MANUAL DIFF FLAG NO
[2021-10-29 07:16] LABS: Basophils Percent Auto 0.2 % (0-2); Eosinophils Absolute Auto 0.7 X10*3/uL (0.0-0.4); Hematocrit 28.6 % (37.0-47.0); Hemoglobin 9.4 g/dl (12.0-16.0); Imm Gran Abs Auto 0.07 X10*3/uL (0.00-0.03); Imm Gran Pct Auto 0.7 % (0.0-0.4); Lymphocytes Absolute Auto 2.2 X10*3/uL (1.2-4.9); Lymphocytes Percent Auto 22.9 % (20-40); Mean Corpuscular HGB Conc 32.9 g/dl (31.0-35.0); Mean Corpuscular Hemoglobin 30.3 pg (27.0-33.0); Mean Corpuscular Volume 92.3 fL (80.0-98.0); Mean Platelet Volume 10.7 fL (9.4-12.3); Monocytes Absolute Auto 1.1 X10*3/uL (0.1-1.2); Monocytes Percent Auto 11.3 % (2-11); Neutrophils Absolute Auto 5.5 x10*3/uL (2.0-8.3); Neutrophils Percent Auto 57.9 % (45-73); Platelet Count 194 X10*3/uL (160-400); Red Cell Distribution Width 13.8 % (11.0-16.0); White Blood Count 9.5 X10*3/uL (4.8-10.8)
[2021-10-29 08:00] VITALS: BP 125/60; PULSE 90; RESP 16; TEMP 36.5; O2SAT 99
[2021-10-29] MEDS: amLODIPine Besylate 5 MG TABLET PO (10:13)
[2021-10-29] MEDS: predniSONE 5 MG TABLET PO (10:14)
[2021-10-29] MEDS: risperiDONE 0.5 MG TABLET 1.5 MG PO (10:14)
[2021-10-29] MEDS: Tacrolimus 1 MG CAPSULE 5 MG PO (10:14)
[2021-10-29 10:17] LABS: Alanine Aminotransferase 26 U/L (0-31); Albumin Level 3.7 g/dL (3.5-5.0); Alkaline Phosphatase 53 U/L (39-117); Aspartate Amino Transferase 16 U/L (5-31); Bilirubin Direct < 0.2 mg/dL (0.0-0.5); Bilirubin Total 0.3 mg/dL (0.0-1.0); Total Protein 6.8 g/dL (6.5-8.0)
--- NOTE | 2021-10-29 13:39 | P.PNNP_ITS ---
Subjective Subjective Date of Service: 10/29/21 Principal diagnosis: LAURO, CKD, Kidney Xplant patient Interval history: Pt internally preoccupied manic grandiose difficulty taking in info regarding her condition remains internally preoccupied euphoric in subdued manner limited speech no si hi Physical Exam Verdana 4l Vital Signs: Verdana 4d Verdana 4d Vital Signs: Verdana 4d Verdana 4Bd Last Vital Signs Verdana 4d Inspector Subassemblies New 4d Inspector Subassemblies New 4d Temp 97.7 F 10/29/21 08:00 Inspector Subassemblies New 4d Pulse 90 10/29/21 08:00 Inspector Subassemblies New 4d Resp 16 10/29/21 08:00 BP 125/60 10/29/21 08:00 Pulse Ox 99 10/29/21 08:00 BMI result Body Mass Index 19.0 Const: Other: General - no acute distress, appears comfortable Cardiovascular - regular rate and rhythm, S1-S2 Lungs - normal respiratory effort, clear to auscultation bilaterally, no wheezing Abdomen - soft, nontender, no rebound or guarding Extremities - no edema bilaterally Neuro - awake and alert, no focal deficits psych - poor insight Objective Data Labs CBC & Chem 7: 10/29/21 06:54 10/28/21 09:31 Labs: Laboratory Results - last 24 hr 10/28/21 10/29/21 09:31 06:54 WBC 9.5 RBC 3.10 L Hgb 9.4 L Hct 28.6 L MCV 92.3 MCH 30.3 MCHC 32.9 RDW 13.8 Plt Count 194 MPV 10.7 Immature Gran % (Auto) 0.7 H Neut % (Auto) 57.9 Lymph % (Auto) 22.9 [place] % (Auto) 11.3 H Eos % (Auto) 7.0 H Baso % (Auto) 0.2 Lymph # (Auto) 2.2 [place] # (Auto) 1.1 Eos # (Auto) 0.7 H Baso # (Auto) 0.0 Abs Immat Gran (auto) 0.07 H Absolute Neuts (auto) 5.5 Absolute Nucleated RBC 0.000 Nucleated RBC % (auto) 0.0 Total Bilirubin 0.3 Direct Bilirubin < 0.2 AST 16 ALT 26 Alkaline Phosphatase 53 D Total Protein 6.8 D Albumin 3.7 Procedures Date of Service Date of Service: 10/29/21 Assessment & Plan Assessment and plan (1) Schizoaffective disorder, bipolar type: Status: Acute Assessment and Plan: cont risperadol having difficulty with insight not pressured but euphoric having difficulty taking in medical information and including need for continued psychiatric treatment. Disorganized grandiose but somehow she has been chosen becoming perfect does not need kidney. Continue to encourage treatment monitor for worsening of symptoms with steroids consider ECT Plan 1. LAURO: Scr 2.3 is up from her BSL1.5-1.8;definite concern for acute rejection ( more apt to be cell mediated vs AMR) so pulse with solumederol 125 again today and tomoorow, cont prograft 5/4 u/s xplant kidney noted--no Obs TRUGRAFT sent --results likely not back until next week; hold off on biopsy off transplant kidney for now but may need to consider 2. 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 ESRD s/p LRT 2008 4. IS: was on prograft 5/4 and pred 5mg; and target prograft levels 4-6; apparently stopped taking both but unclear fo how long last xplant visit 08/2021 Scr 1.7 and tacro level was 5.4 5. Anemia: need to r/o Fe def; may be candidate for epo 6. HTN: agree with cont holding cozaar and start norvasc 5--incr to 10 if n eeded REC: solumederol 125x1 this am and again tomorrow am,cont prograft5/4 and cehck level in am; pred 5; norvasc 5; hold on kidney Bx; send DSA ( donor specific antibodies--Matt from lab is trying to arrange); track renal func; avoid NToxins TRUGRAFT bood sample drawn and I sent to specialty lab ( Kaylee Dupree in our office will call me when result back) will jerry cheng with team Time Spent With Patient Time: Total time spent is greater than 50% in coordination of care (as documented) at patient's floor/unit and/or counseling patient: Progress Note: Quality Stroke Does the patient have a stroke diagnosis?: No
[2021-10-29] MEDS: LORazepam 1 MG TABLET PO (17:58)
[2021-10-29] MEDS: Tacrolimus 1 MG CAPSULE 4 MG PO (17:58)
[2021-10-29 18:00] VITALS: BP 90/50; PULSE 98; RESP 16; TEMP 36.4; O2SAT 97
[2021-10-29] MEDS: risperiDONE 2 MG TABLET PO (18:00)
--- NOTE | 2021-10-29 22:36 | P.PNPSI_ITS ---
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 harmed at other times that implies i will be saved denies physical complaints more cooperative with tx Medication Compliance: Intermittent Side effects from medications: Yes Mental Status Exam Mental Status Exam Patient Appearance: Appropriate Patient Orientation: Person, Place and Situation Level of Consciousness: Awake Patient Behavior: Cooperative Mood Description: Labile, Elated and Apprehensive Affect Description: Euphoric, Constricted and Apprehensive Patient Cognition Impaired: No Ability to Follow Directions: Good Speech Pattern: Clear Memory Description: Intact Hallucinations: Auditory Delusions: Paranoid Ideation and Grandiose Thought Content: positive for Incoherent Judgement: Fair Diagnostics Vital Signs (24Hr): Vital Signs - 24 hr 10/30/21 06:00 10/30/21 18:00 Temperature 98.4 F 97.2 F Pulse Rate 95 80 Respiratory Rate 16 Blood Pressure 144/65 H 142/64 H Pulse Oximetry 97 96 BMI result Verdana 4 Body Mass Index Verdana 4 19.0 Verdana 4 Verdana 4 Labs Results: 10/29/21 06:54 10/30/21 07:08 Labs: Laboratory Results - last 48 hr 10/28/21 10/29/21 10/29/21 09:31 06:54 06:54 WBC 9.5 RBC 3.10 L Hgb 9.4 L Hct 28.6 L MCV 92.3 MCH 30.3 MCHC 32.9 RDW 13.8 Plt Count 194 MPV 10.7 Immature Gran % (Auto) 0.7 H Neut % (Auto) 57.9 Lymph % (Auto) 22.9 [place] % (Auto) 11.3 H Eos % (Auto) 7.0 H Baso % (Auto) 0.2 Lymph # (Auto) 2.2 Morris # (Auto) 1.1 Eos # (Auto) 0.7 H Baso # (Auto) 0.0 Abs Immat Gran (auto) 0.07 H Absolute Neuts (auto) 5.5 Absolute Nucleated RBC 0.000 Nucleated RBC % (auto) 0.0 Sodium Potassium Chloride Carbon Dioxide Anion Gap BUN Creatinine Estim Creat Clear Calc Estimated GFR Random Glucose Calcium Total Bilirubin 0.3 Direct Bilirubin < 0.2 AST 16 ALT 26 Alkaline Phosphatase 53 D Total Protein 6.8 D Albumin 3.7 Tacrolimus 6.4 10/30/21 07:08 WBC RBC Hgb Hct MCV MCH MCHC RDW Plt Count MPV Immature Gran % (Auto) Neut % (Auto) Lymph % (Auto) [place] % (Auto) Eos % (Auto) Baso % (Auto) Lymph # (Auto) [place] # (Auto) Eos # (Auto) Baso # (Auto) Abs Immat Gran (auto) Absolute Neuts (auto) Absolute Nucleated RBC Nucleated RBC % (auto) Sodium 138 Potassium 4.3 Chloride 111 H Carbon Dioxide 19 L Anion Gap 12 BUN 69 H Creatinine 2.02 H Estim Creat Clear Calc 20.6 Estimated GFR 24 Random Glucose 90 Calcium 8.3 L D Total Bilirubin Direct Bilirubin AST ALT Alkaline Phosphatase Total Protein Albumin Tacrolimus Imaging Radiology Impressions: ITS Impressions Chest X-Ray 10/20/21 15:57 IMPRESSION: Unremarkable examination. Head CT 10/20/21 18:33 IMPRESSION: No acute intracranial process seen. A change from 09/29/[address] 10/26/21 21:21 IMPRESSION: No evidence of acute intracranial hemorrhage or edematous territorial infarction. Renal Ultrasound 10/27/21 15:51 IMPRESSION: Stable appearance of renal transplant kidney with 3.3 cm midpole simple appearing cyst. Medications Medications Current Medications Acetaminophen (Acetaminophen 325 Mg Tablet) 650 mg PO Q6H PRN PRN Reason: Headache/Pain Mild Scale (1-3) Al Hydroxide/Mg Hydroxide (Magnesium Hydrox/Alum Hydrox 30 Ml Oral.Susp) 30 ml PO Q6H PRN PRN Reason: Heartburn/Nausea Amlodipine Besylate (Amlodipine Besylate 5 Mg Tablet) 5 mg PO DAILY [facility]; Protocol Last Admin: 10/30/21 08:24 Dose: 5 mg Documented by: Hydroxyzine HCl (Hydroxyzine Hcl 25 Mg Tablet) 25 mg PO BEDTIME PRN PRN Reason: Anxiety Last Admin: 10/29/21 02:19 Dose: 25 mg Documented by: Levothyroxine Sodium (Levothyroxine Sodium 50 Mcg Tablet) 50 mcg PO DAILY@0600 [facility] Last Admin: 10/30/21 06:07 Dose: 50 mcg Documented by: Magnesium Hydroxide (Milk Of Magnesia 30 Ml Oral.Susp) 30 ml PO DAILY PRN PRN Reason: Constipation Prednisone (Prednisone 5 Mg Tablet) 5 mg PO DAILY [facility] Last Admin: 10/30/21 08:24 Dose: 5 mg Documented by: Risperidone (Risperidone 2 Mg Tablet) 2 mg PO BEDTIME [facility] Last Admin: 10/30/21 20:06 Dose: 2 mg Documented by: Risperidone (Risperidone 1 Mg Tablet) 1 mg PO DAILY [facility] Last Admin: 10/30/21 08:24 Dose: 1 mg Documented by: Sodium Chloride (0.9 % Sodium Chloride Flush 10 Ml Syringe) 5 ml IVFLUSH QSHIFT [facility] Last Admin: 10/30/21 17:26 Dose: Not Given Documented by: Tacrolimus (Tacrolimus 1 Mg Capsule) 5 mg PO DAILY@0800 [facility] Last Admin: 10/30/21 08:24 Dose: 5 mg Documented by: Tacrolimus (Tacrolimus 1 Mg Capsule) 4 mg PO DAILY@1800 [facility] Last Admin: 10/30/21 18:34 Dose: 4 mg Documented by: Trazodone HCl (Trazodone Hcl 50 Mg Tablet) 50 mg PO BEDTIME PRN PRN Reason: Insomnia Last Admin: 10/24/21 01:07 Dose: 50 mg Documented by: Allergies Allergies Allergy/AdvReac Type Severity Reaction Status Date / Time gabapentin [From Allergy Unknown UNKNOWN Verified 10/22/21 22:57 Neurontin] Sulfa (Sulfonamide Allergy Unknown UNKNOWN Verified 10/22/21 22:57 Antibiotics) [SULFA (SULFONAMIDE ANTIBIOTICS)] trimethoprim Allergy Unknown UNKNOWN Verified 10/22/21 22:57 [TRIMETHOPRIM] lithium [LITHIUM] AdvReac Severe KIDNEY Verified 10/22/21 22:57 TRANSPLANT DUE TO LITHIUM TOXICITY Assessment & Plan Assessment & Plan (1) Schizoaffective disorder, bipolar type: Status: Acute Code(s): F25.0 - Schizoaffective disorder, bipolar type Assessment and Plan: cont risperadol having difficulty with insight not pressured but euphoric having difficulty taking in medical information and including need for continued psychiatric treatment. Disorganized grandiose but somehow she has been chosen becoming perfect does not need kidney. Continue to encourage treatment monitor for worsening of symptoms with steroids consider ECT shift more risp to bedtime Plan 1. LAURO: Scr 2.3 is up from her BSL1.5-1.8;definite concern for acute rejection ( more apt to be cell mediated vs AMR) so pulse with solumederol 125 again today and tomoorow, cont prograft 5/4 u/s xplant kidney noted--no Obs TRUGRAFT sent --results likely not back until next week; hold off on biopsy off transplant kidney for now but may need to consider 2. 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 ESRD s/p LRT 2008 4. IS: was on prograft 5/4 and pred 5mg; and target prograft levels 4-6; apparently stopped taking both but unclear fo how long last xplant visit 08/2021 Scr 1.7 and tacro level was 5.4 5. Anemia: need to r/o Fe def; may be candidate for epo 6. HTN: agree with cont holding cozaar and start norvasc 5--incr to 10 if needed REC: solumederol 125x1 this am and again tomorrow am,cont prograft5/4 and cehck level in am; pred 5; norvasc 5; hold on kidney Bx; send DSA ( donor specific antibodies--Matt from lab is trying to arrange); track renal func; avoid NToxins TRUGRAFT bood sample drawn and I sent to specialty lab ( Kaylee Dupree in our office will call me when result back) will jerry cheng with team creat improved tacro therapeutic level I spent minutes with the patient and/or on the patient floor today, greater than?50% of which was spent counseling/coordinating care. Reason for contiued inpatient stay Substantial Risk for: inability to function, rapid decompensation and med/psych decompensation
[2021-10-30 06:00] VITALS: BP 144/65; PULSE 95; TEMP 36.9; O2SAT 97
[2021-10-30] MEDS: Levothyroxine Sodium 50 MCG TABLET PO (06:07)
[2021-10-30 07:51] LABS: Anion Gap 12 (12-20); Blood Urea Nitrogen 69 mg/dL (9-16); Calcium 8.3 mg/dL (8.4-10.2); Carbon Dioxide 19 mmol/L (22-29); Chloride 111 mmol/L (96-108); Creatinine Clr Calc Pharmacy 20.6; Estimated Glomerular Filt Rate 24; Glucose Random 90 mg/dL (60-115); Potassium 4.3 mmol/L (3.3-5.1); Sodium 138 mmol/L (135-145)
[2021-10-30] MEDS: predniSONE 5 MG TABLET PO (08:24)
[2021-10-30] MEDS: amLODIPine Besylate 5 MG TABLET PO (08:24)
[2021-10-30] MEDS: Tacrolimus 1 MG CAPSULE 5 MG PO (08:24)
[2021-10-30] MEDS: risperiDONE 1 MG TABLET PO (08:24)
[2021-10-30 09:22] LABS: Tacrolimus Prograf 6.4 mcg/L
--- NOTE | 2021-10-30 09:38 | P.PNPSI_ITS ---
Subjective Subjective Date of Service: 10/30/21 Reason For Visit: Psychosis, suicidal ideation Subjective Notes: Conditional Voluntary Interim History: The nursing staff reported that the patient remains paranoid and psychotic but easily redirectable. Sometimes she tries to refused her medication but she take used with encouragement. On interview the patient denies new symptoms but she was still psychotic and slightly manic. Recently, her Risperdal was titrated up to 3 mg a day starting today Mental Status Exam Mental Status Exam Patient Appearance: Appropriate Patient Orientation: Person Level of Consciousness: Awake Patient Behavior: Cooperative Mood Description: Labile Affect Description: Constricted Patient Cognition Impaired: No Ability to Follow Directions: Good Speech Pattern: Clear Memory Description: Intact Hallucinations: Auditory Delusions: Paranoid Ideation and Grandiose Thought Content: positive for Incoherent Judgement: Fair Diagnostics Vital Signs (24Hr): Vital Signs - 24 hr 10/29/21 18:00 10/30/21 06:00 Temperature 97.6 F 98.4 F Pulse Rate 98 95 Respiratory Rate 16 Blood Pressure 90/50 L 144/65 H Pulse Oximetry 97 97 BMI result Verdana 4 Body Mass Index Verdana 4 19.0 Verdana 4 Verdana 4 Labs Results: 10/29/21 06:54 10/30/21 07:08 Labs: Laboratory Results - last 48 hr 10/28/21 10/29/21 10/29/21 09:31 06:54 06:54 WBC 9.5 RBC 3.10 L Hgb 9.4 L Hct 28.6 L MCV 92.3 MCH 30.3 MCHC 32.9 RDW 13.8 Plt Count 194 MPV 10.7 Immature Gran % (Auto) 0.7 H Neut % (Auto) 57.9 Lymph % (Auto) 22.9 [place] % (Auto) 11.3 H Eos % (Auto) 7.0 H Baso % (Auto) 0.2 Lymph # (Auto) 2.2 [place] # (Auto) 1.1 Eos # (Auto) 0.7 H Baso # (Auto) 0.0 Abs Immat Gran (auto) 0.07 H Absolute Neuts (auto) 5.5 Absolute Nucleated RBC 0.000 Nucleated RBC % (auto) 0.0 Sodium 135 Potassium 4.3 Chloride 103 Carbon Dioxide 21 L Anion Gap 15 BUN 56 H Creatinine 2.32 H Estim Creat Clear Calc 18.8 Estimated GFR 21 Random Glucose 269 H Calcium 9.7 Total Bilirubin 0.3 Direct Bilirubin < 0.2 AST 16 ALT 26 Alkaline Phosphatase 53 D Total Protein 6.8 D Albumin 3.7 Tacrolimus 6.4 10/30/21 07:08 WBC RBC Hgb Hct MCV MCH MCHC RDW Plt Count MPV Immature Gran % (Auto) Neut % (Auto) Lymph % (Auto) [place] % (Auto) Eos % (Auto) Baso % (Auto) Lymph # (Auto) [place] # (Auto) Eos # (Auto) Baso # (Auto) Abs Immat Gran (auto) Absolute Neuts (auto) Absolute Nucleated RBC Nucleated RBC % (auto) Sodium 138 Potassium 4.3 Chloride 111 H Carbon Dioxide 19 L Anion Gap 12 BUN 69 H Creatinine 2.02 H Estim Creat Clear Calc 20.6 Estimated GFR 24 Random Glucose 90 Calcium 8.3 L D Total Bilirubin Direct Bilirubin AST ALT Alkaline Phosphatase Total Protein Albumin Tacrolimus Imaging Radiology Impressions: ITS Impressions Chest X-Ray 10/20/21 15:57 IMPRESSION: Unremarkable examination. Head CT 10/20/21 18:33 IMPRESSION: No acute intracranial process seen. A change from 09/29/[address] 10/26/21 21:21 IMPRESSION: No evidence of acute intracranial hemorrhage or edematous territorial infarction. Renal Ultrasound 10/27/21 15:51 IMPRESSION: Stable appearance of renal transplant kidney with 3.3 cm midpole simple appearing cyst. Medications Medications Current Medications Acetaminophen (Acetaminophen 325 Mg Tablet) 650 mg PO Q6H PRN PRN Reason: Headache/Pain Mild Scale (1-3) Al Hydroxide/Mg Hydroxide (Magnesium Hydrox/Alum Hydrox 30 Ml Oral.Susp) 30 ml PO Q6H PRN PRN Reason: Heartburn/Nausea Amlodipine Besylate (Amlodipine Besylate 5 Mg Tablet) 5 mg PO DAILY [facility]; Protocol Last Admin: 10/30/21 08:24 Dose: 5 mg Documented by: Hydroxyzine HCl (Hydroxyzine Hcl 25 Mg Tablet) 25 mg PO BEDTIME PRN PRN Reason: Anxiety Last Admin: 10/29/21 02:19 Dose: 25 mg Documented by: Levothyroxine Sodium (Levothyroxine Sodium 50 Mcg Tablet) 50 mcg PO DAILY@0600 [facility] Last Admin: 10/30/21 06:07 Dose: 50 mcg Documented by: Lorazepam (Lorazepam 1 Mg Tablet) 1 mg PO BEDTIME [facility] Last Admin: 10/29/21 17:58 Dose: 1 mg Documented by: Lorazepam (Lorazepam 0.5 Mg Tablet) 0.5 mg PO Q6H PRN PRN Reason: anxiety/restlessness Last Admin: 10/28/21 02:27 Dose: 0.5 mg Documented by: Magnesium Hydroxide (Milk Of Magnesia 30 Ml Oral.Susp) 30 ml PO DAILY PRN PRN Reason: Constipation Prednisone (Prednisone 5 Mg Tablet) 5 mg PO DAILY [facility] Last Admin: 10/30/21 08:24 Dose: 5 mg Documented by: Risperidone (Risperidone 2 Mg Tablet) 2 mg PO BEDTIME [facility] Last Admin: 10/29/21 18:00 Dose: 2 mg Documented by: Risperidone (Risperidone 1 Mg Tablet) 1 mg PO DAILY [facility] Last Admin: 10/30/21 08:24 Dose: 1 mg Documented by: Sodium Chloride (0.9 % Sodium Chloride Flush 10 Ml Syringe) 5 ml IVFLUSH QSHIFT [facility] Last Admin: 10/30/21 09:21 Dose: Not Given Documented by: Tacrolimus (Tacrolimus 1 Mg Capsule) 5 mg PO DAILY@0800 [facility] Last Admin: 10/30/21 08:24 Dose: 5 mg Documented by: Tacrolimus (Tacrolimus 1 Mg Capsule) 4 mg PO DAILY@1800 [facility] Last Admin: 10/29/21 17:58 Dose: 4 mg Documented by: Trazodone HCl (Trazodone Hcl 50 Mg Tablet) 50 mg PO BEDTIME PRN PRN Reason: Insomnia Last Admin: 10/24/21 01:07 Dose: 50 mg Documented by: Allergies Allergies Allergy/AdvReac Type Severity Reaction Status Date / Time gabapentin [From Allergy Unknown UNKNOWN Verified 10/22/21 22:57 Neurontin] Sulfa (Sulfonamide Allergy Unknown UNKNOWN Verified 10/22/21 22:57 Antibiotics) [SULFA (SULFONAMIDE ANTIBIOTICS)] trimethoprim Allergy Unknown UNKNOWN Verified 10/22/21 22:57 [TRIMETHOPRIM] lithium [LITHIUM] AdvReac Severe KIDNEY Verified 10/22/21 22:57 TRANSPLANT DUE TO LITHIUM TOXICITY Assessment & Plan Assessment & Plan (1) Schizoaffective disorder, bipolar type: Status: Acute Code(s): F25.0 - Schizoaffective disorder, bipolar type Assessment and Plan: cont risperadol having difficulty with insight not pressured but euphoric having difficulty taking in medical information and including need for continued psychiatric treatment. Disorganized grandiose but somehow she has been chosen becoming perfect does not need kidney. Continue to encourage treatment monitor for worsening of symptoms with steroids consider ECT Plan 1. LAURO: Scr 2.3 is up from her BSL1.5-1.8;definite concern for acute rejection ( more apt to be cell mediated vs AMR) so pulse with solumederol 125 again today and tomoorow, cont prograft 5/4 u/s xplant kidney noted--no Obs TRUGRAFT sent --results likely not back until next week; hold off on biopsy off transplant kidney for now but may need to consider 2. 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 ESRD s/p LRT 2008 4. IS: was on prograft 5/4 and pred 5mg; and target prograft levels 4-6; a pparently stopped taking both but unclear fo how long last xplant visit 08/2021 Scr 1.7 and tacro level was 5.4 5. Anemia: need to r/o Fe def; may be candidate for epo 6. HTN: agree with cont holding cozaar and start norvasc 5--incr to 10 if needed REC: solumederol 125x1 this am and again tomorrow am,cont prograft5/4 and cehck level in am; pred 5; norvasc 5; hold on kidney Bx; send DSA ( donor specific antibodies--Matt from lab is trying to arrange); track renal func; avoid NToxins TRUGRAFT bood sample drawn and I sent to specialty lab ( Kaylee Dupree in our office will call me when result back) will jerry cheng with team I spent minutes with the patient and/or on the patient floor today, greater than?50% of which was spent counseling/coordinating care. Reason for contiued inpatient stay Substantial Risk for: inability to function, rapid decompensation and med/psych decompensation
--- NOTE | 2021-10-30 13:03 | P.PNNP_ITS ---
Subjective Subjective Date of Service: 10/30/21 Principal diagnosis: LAURO, CKD, Kidney Xplant patient Interval history: The nursing staff reported that the patient remains paranoid and psychotic but easily redirectable. Sometimes she tries to refused her medication but she take used with encouragement. On interview the patient denies new symptoms but she was still psychotic and slightly manic. Recently, her Risperdal was titrated up to 3 mg a day starting today Physical Exam Verdana 4l Vital Signs: Verdana 4d Verdana 4d Vital Signs: Verdana 4d Verdana 4Bd Last Vital Signs Verdana 4d Coremaker Bench New 4d Coremaker Bench New 4d Temp 98.4 F 10/30/21 06:00 Coremaker Bench New 4d Pulse 95 10/30/21 06:00 Coremaker Bench New 4d Resp 16 10/29/21 18:00 BP 144/65 H 10/30/21 06:00 Pulse Ox 97 10/30/21 06:00 BMI result Body Mass Index 19.0 Const: Other: General - no acute distress, appears comfortable Cardiovascular - regular rate and rhythm, S1-S2 Lungs - normal respiratory effort, clear to auscultation bilaterally, no wheezing Abdomen - soft, nontender, no rebound or guarding Extremities - no edema bilaterally Neuro - awake and alert, no focal deficits psych - poor insight Objective Data Labs CBC & Chem 7: 10/29/21 06:54 10/30/21 07:08 Labs: Laboratory Results - last 24 hr 10/29/21 10/30/21 06:54 07:08 Sodium 138 Potassium 4.3 Chloride 111 H Carbon Dioxide 19 L Anion Gap 12 BUN 69 H Creatinine 2.02 H Estim Creat Clear Calc 20.6 Estimated GFR 24 Random Glucose 90 Calcium 8.3 L D Tacrolimus 6.4 Procedures Date of Service Date of Service: 10/30/21 Assessment & Plan Assessment and plan (1) Schizoaffective disorder, bipolar type: Status: Acute Assessment and Plan: cont risperadol having difficulty with insight not pressured but euphoric having difficulty taking in medical information and including need for continued psychiatric treatment. Disorganized grandiose but somehow she has been chosen becoming perfect does not need kidney. Continue to encourage treatment monitor for worsening of symptoms with steroids consider ECT Plan 1. LAURO: Scr 2.3 is up from her BSL1.5-1.8;definite concern for acute rejection ( more apt to be cell mediated vs AMR) so pulse with solumederol 125 again today and tomoorow, cont prograft 5/4 u/s xplant kidney noted--no Obs TRUGRAFT sent --results likely not back until next week; hold off on biopsy off transplant kidney for now but may need to consider 2. 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 ESRD s/p LRT 2008 4. IS: was on prograft 5/4 and pred 5mg; and target prograft levels 4-6; apparently stopped taking both but unclear fo how long last xplant visit 08/2021 Scr 1.7 and tacro level was 5.4 5. Anemia: need to r/o Fe def; may be candidate for epo 6. HTN: agree with cont holding cozaar and start norvasc 5--incr to 10 if needed REC: solumederol 125x1 this am and again tomorrow am,cont prograft5/4 and cehck level in am; pred 5; norvasc 5; hold on kidney Bx; send DSA ( donor specific antibodies--Matt from lab is trying to arrange); track renal func; avoid NToxins TRUGRAFT bood sample drawn and I sent to specialty lab ( Kaylee Dupree in our office will call me when result back) will jerry cheng with team creat improved tacro therapeutic level Time Spent With Patient Time: Total time spent is greater than 50% in coordination of care (as documented) at patient's floor/unit and/or counseling patient: Progress Note: Quality Stroke Does the patient have a stroke diagnosis?: No
[2021-10-30 18:00] VITALS: BP 142/64; PULSE 80; RESP 16; TEMP 36.2; O2SAT 96
[2021-10-30] MEDS: Tacrolimus 1 MG CAPSULE 4 MG PO (18:34)
[2021-10-30] MEDS: risperiDONE 2 MG TABLET PO (20:06)
[2021-10-30] MEDS: LORazepam 1 MG TABLET PO (20:06)
[2021-10-31] VITALS (8 sets, daily range): BP systolic 149–185; BP diastolic 65–78; PULSE 18–128; RESP 16–18; TEMP 36.6–38; O2SAT 96–100
[2021-10-31] MEDS: Levothyroxine Sodium 50 MCG TABLET PO (06:07)
[2021-10-31] MEDS: Tacrolimus 1 MG CAPSULE 5 MG PO (08:12)
[2021-10-31] MEDS: amLODIPine Besylate 5 MG TABLET PO (08:13)
[2021-10-31] MEDS: risperiDONE 1 MG TABLET PO (08:13)
[2021-10-31] MEDS: predniSONE 5 MG TABLET PO (08:13)
--- NOTE | 2021-10-31 08:55 | P.PNPSI_ITS ---
Subjective Subjective Date of Service: 10/31/21 Reason For Visit: Psychosis, suicidal ideation Subjective Notes: Conditional Voluntary Interim History: The nursing staff reported that she initially refused bloodwork at AM but later she allowed it after a lot of encouragement. She was sleepy in the afternoon. On interview, she was pleasant, confused and cooperative. Mental Status Exam Mental Status Exam Patient Appearance: Appropriate Patient Orientation: Person Level of Consciousness: Awake Patient Behavior: Passive and Suspicious Mood Description: Constricted Affect Description: Constricted Ability to Follow Directions: Fair Speech Pattern: Clear Hallucinations: None Delusions: Paranoid Ideation and Grandiose Thought Process: Evasive Thought Content: positive for Circumstantial and positive for Poverty of Content Judgement: Fair Diagnostics Vital Signs (24Hr): Vital Signs - 24 hr 10/30/21 18:00 Temperature 97.2 F Pulse Rate 80 Respiratory Rate 16 Blood Pressure 142/64 H Pulse Oximetry 96 BMI result Verdana 4 Body Mass Index Verdana 4 19.0 Verdana 4 Verdana 4 Labs Results: 10/29/21 06:54 10/30/21 07:08 Labs: Laboratory Results - last 48 hr 10/28/21 10/29/21 10/30/21 09:31 06:54 07:08 Sodium 138 Potassium 4.3 Chloride 111 H Carbon Dioxide 19 L Anion Gap 12 BUN 69 H Creatinine 2.02 H Estim Creat Clear Calc 20.6 Estimated GFR 24 Random Glucose 90 Calcium 8.3 L D Total Bilirubin 0.3 Direct Bilirubin < 0.2 AST 16 ALT 26 Alkaline Phosphatase 53 D Total Protein 6.8 D Albumin 3.7 Tacrolimus 6.4 Imaging Radiology Impressions: ITS Impressions Chest X-Ray 10/20/21 15:57 IMPRESSION: Unremarkable examination. Head CT 10/20/21 18:33 IMPRESSION: No acute intracranial process seen. A change from 09/29/[address] 10/26/21 21:21 IMPRESSION: No evidence of acute intracranial hemorrhage or edematous territorial infarction. Renal Ultrasound 10/27/21 15:51 IMPRESSION: Stable appearance of renal transplant kidney with 3.3 cm midpole simple appearing cyst. Medications Medications Current Medications Acetaminophen (Acetaminophen 325 Mg Tablet) 650 mg PO Q6H PRN PRN Reason: Headache/Pain Mild Scale (1-3) Al Hydroxide/Mg Hydroxide (Magnesium Hydrox/Alum Hydrox 30 Ml Oral.Susp) 30 ml PO Q6H PRN PRN Reason: Heartburn/Nausea Amlodipine Besylate (Amlodipine Besylate 5 Mg Tablet) 5 mg PO DAILY [facility]; Protocol Last Admin: 10/31/21 08:13 Dose: 5 mg Documented by: Hydroxyzine HCl (Hydroxyzine Hcl 25 Mg Tablet) 25 mg PO BEDTIME PRN PRN Reason: Anxiety Last Admin: 10/29/21 02:19 Dose: 25 mg Documented by: Levothyroxine Sodium (Levothyroxine Sodium 50 Mcg Tablet) 50 mcg PO DAILY@0600 [facility] Last Admin: 10/31/21 06:07 Dose: 50 mcg Documented by: Magnesium Hydroxide (Milk Of Magnesia 30 Ml Oral.Susp) 30 ml PO DAILY PRN PRN Reason: Constipation Prednisone (Prednisone 5 Mg Tablet) 5 mg PO DAILY [facility] Last Admin: 10/31/21 08:13 Dose: 5 mg Documented by: Risperidone (Risperidone 2 Mg Tablet) 2 mg PO BEDTIME [facility] Last Admin: 10/30/21 20:06 Dose: 2 mg Documented by: Risperidone (Risperidone 1 Mg Tablet) 1 mg PO DAILY [facility] Last Admin: 10/31/21 08:13 Dose: 1 mg Documented by: Sodium Chloride (0.9 % Sodium Chloride Flush 10 Ml Syringe) 5 ml IVFLUSH QSHIFT [facility] Last Admin: 10/31/21 08:16 Dose: Not Given Documented by: Tacrolimus (Tacrolimus 1 Mg Capsule) 5 mg PO DAILY@0800 [facility] Last Admin: 10/31/21 08:12 Dose: 5 mg Documented by: Tacrolimus (Tacrolimus 1 Mg Capsule) 4 mg PO DAILY@1800 [facility] Last Admin: 10/30/21 18:34 Dose: 4 mg Documented by: Trazodone HCl (Trazodone Hcl 50 Mg Tablet) 50 mg PO BEDTIME PRN PRN Reason: Insomnia Last Admin: 10/24/21 01:07 Dose: 50 mg Documented by: Allergies Allergies Allergy/AdvReac Type Severity Reaction Status Date / Time gabapentin [From Allergy Unknown UNKNOWN Verified 10/22/21 22:57 Neurontin] Sulfa (Sulfonamide Allergy Unknown UNKNOWN Verified 10/22/21 22:57 Antibiotics) [SULFA (SULFONAMIDE ANTIBIOTICS)] trimethoprim Allergy Unknown UNKNOWN Verified 10/22/21 22:57 [TRIMETHOPRIM] lithium [LITHIUM] AdvReac Severe KIDNEY Verified 10/22/21 22:57 TRANSPLANT DUE TO LITHIUM TOXICITY Assessment & Plan Assessment & Plan (1) Schizoaffective disorder, bipolar type: Status: Acute Code(s): F25.0 - Schizoaffective disorder, bipolar type Assessment and Plan: cont risperadol having difficulty with insight not pressured but euphoric ledesma ving difficulty taking in medical information and including need for continued psychiatric treatment. Disorganized grandiose but somehow she has been chosen becoming perfect does not need kidney. Continue to encourage treatment monitor for worsening of symptoms with steroids consider ECT shift more risp to bedtime Plan 1. LAURO: Scr 2.3 is up from her BSL1.5-1.8;definite concern for acute rejection ( more apt to be cell mediated vs AMR) so pulse with solumederol 125 again today and tomoorow, cont prograft 5/4 u/s xplant kidney noted--no Obs TRUGRAFT sent --results likely not back until next week; hold off on biopsy off transplant kidney for now but may need to consider 2. 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 ESRD s/p LRT 2008 4. IS: was on prograft 5/4 and pred 5mg; and target prograft levels 4-6; apparently stopped taking both but unclear fo how long last xplant visit 08/2021 Scr 1.7 and tacro level was 5.4 5. Anemia: need to r/o Fe def; may be candidate for epo 6. HTN: agree with cont holding cozaar and start norvasc 5--incr to 10 if needed REC: solumederol 125x1 this am and again tomorrow am,cont prograft5/4 and cehck level in am; pred 5; norvasc 5; hold on kidney Bx; send DSA ( donor specific antibodies--Matt from lab is trying to arrange); track renal func; avoid NToxins TRUGRAFT bood sample drawn and I sent to specialty lab ( Kaylee Dupree in our office will call me when result back) will jerry cheng with team creat improved tacro therapeutic level I spent minutes with the patient and/or on the patient floor today, greater than?50% of which was spent counseling/coordinating care. Reason for contiued inpatient stay Substantial Risk for: inability to function, rapid decompensation and med/psych decompensation
--- NOTE | 2021-10-31 08:56 | P.PNNP_ITS ---
Subjective Subjective Date of Service: 10/31/21 Principal diagnosis: LAURO, CKD, Kidney Xplant patient Interval history: Pt with gross grandiose delusions euphoric in quiet way has yarsanism preoccupation not fully explained at times fearful this investment underwriter harmed at other times that implies i will be saved denies physical complaints more cooperative with tx Physical Exam Verdana 4l Vital Signs: Verdana 4d Verdana 4d Vital Signs: Verdana 4d Verdana 4Bd Last Vital Signs Verdana 4d Trench Digger Helper New 4d Trench Digger Helper New 4d Temp 97.2 F 10/30/21 18:00 Trench Digger Helper New 4d Pulse 80 10/30/21 18:00 Trench Digger Helper New 4d Resp 16 10/30/21 18:00 BP 142/64 H 10/30/21 18:00 Pulse Ox 96 10/30/21 18:00 BMI result Body Mass Index 19.0 Const: Other: General - no acute distress, appears comfortable Cardiovascular - regular rate and rhythm, S1-S2 Lungs - normal respiratory effort, clear to auscultation bilaterally, no wheezing Abdomen - soft, nontender, no rebound or guarding Extremities - no edema bilaterally Neuro - awake and alert, no focal deficits psych - poor insight Objective Data Labs CBC & Chem 7: 10/29/21 06:54 10/30/21 07:08 Labs: Laboratory Results - last 24 hr 10/29/21 06:54 Tacrolimus 6.4 Procedures Date of Service Date of Service: 10/31/21 Assessment & Plan Assessment and plan (1) Schizoaffective disorder, bipolar type: Status: Acute Assessment and Plan: cont risperadol having difficulty with insight not pressured but euphoric having difficulty taking in medical information and including need for continued psychiatric treatment. Disorganized grandiose but somehow she has been chosen becoming perfect does not need kidney. Continue to encourage treatment monitor for worsening of symptoms with steroids consider ECT Plan 1. LAURO: Scr 2.3 is up from her BSL1.5-1.8;definite concern for acute rejection ( more apt to be cell mediated vs AMR) so pulse with solumederol 125 again today and tomoorow, cont prograft 5/4 u/s xplant kidney noted--no Obs TRUGRAFT sent --results likely not back until next week; hold off on biopsy off transplant kidney for now but may need to consider 2. 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 ESRD s/p LRT 2008 4. IS: was on prograft 5/4 and pred 5mg; and target prograft levels 4-6; apparently stopped taking both but unclear fo how long last xplant visit 08/2021 Scr 1.7 and tacro level was 5.4 5. Anemia: need to r/o Fe def; may be candidate for epo 6. HTN: agree with cont holding cozaar and start norvasc 5--incr to 10 if needed REC: solumederol 125x1 this am and again tomorrow am,cont prograft5/4 and cehck level in am; pred 5; norvasc 5; hold on kidney Bx; send DSA ( donor specific antibodies--Matt from lab is trying to arrange); track renal func; avoid NToxins TRUGRAFT bood sample drawn and I sent to specialty lab ( Kaylee Dupree in our office will call me when result back) will jerry cheng with team creat improved tacro therapeutic level Time Spent With Patient Time: Total time spent is greater than 50% in coordination of care (as documented) at patient's floor/unit and/or counseling patient: Progress Note: Quality Stroke Does the patient have a stroke diagnosis?: No
--- NOTE | 2021-10-31 18:16 | PC.NURSE ---
[facility]HA reported the pt was not waking up, assessed pt and found her to be lying on her left side in bed, respirations at 18, not waking up to painful stimuli-sternal rub. purchasing and claims supervisor was notifed and he called an SIGNAL WIRER. Vital signs performed often and reported in worklist. Pt temp was between 100.2 and 100.4. Pulse was found to be high from 118-125 bpm. Please see worklist for full sets of vitals. Pt did open her eyes for a small amount of time (5-10 seconds) when SIGNAL WIRER was in the room. SIGNAL WIRER advised to give the pt tylenol and test for COVID. COVID test completed, awaiting results. Tylenol supp ordered, waiting for med from pharmacy. Pt abruptly woke up around 1814, walked out into the common area, refused to put on a mask and sat and watched TV for about 10 minutes. Pt refused oral fever television repairer and scheduled meds at this time, pt yelled Just leave me alone, get away from me . Pt then abruptly stood up walked back to her room and slammed the door. When opening the door to the pt's room to check on her, the pt yelled, I'm fine, shut the door . Pt currently lying in bed, eyes open, self dialoguing.
[2021-10-31 18:23] LABS: COVID-19 Test Negative (Negative); IDNOW Serial# 9DD0AD1C
[2021-10-31] MEDS: risperiDONE 2 MG TABLET PO (19:45)
--- NOTE | 2021-11-01 | EEG_ITS ---
This is a 16-channel EEG with an EKG lead. The patient is awake during the tracing. Background EEG rhythm is 7 hertz, 5 to 70 microvolt posteriorly, lower amplitude fast anteriorly. Photic stimulation did not produce any significant abnormality. Hyperventilation is not performed. No definite sharp wave spikes or paroxysmal tendency noted. No asymmetry noted. Cardiac lead did not reveal any significant abnormality. The patient occasionally transitioned into drowsiness. IMPRESSION: Mild generalized slowing with no evidence of seizure disorder. If seizure disorder is strongly suspected, an ambulatory 48-hour EEG can be arranged as an outpatient. MD KENZIE Pierson/CARLENE / [id number]
[2021-11-01] MEDS: Levothyroxine Sodium 50 MCG TABLET PO (05:26)
[2021-11-01 06:00] VITALS: BP 158/72; PULSE 94; RESP 15; TEMP 36.3; O2SAT 98
[2021-11-01 06:32] LABS: Tacrolimus Prograf 6.9 mcg/L
[2021-11-01 06:32] LABS: Tacrolimus Prograf 6.2 mcg/L
[2021-11-01] MEDS: amLODIPine Besylate 5 MG TABLET PO (08:06)
[2021-11-01] MEDS: risperiDONE 1 MG TABLET PO (08:06)
[2021-11-01] MEDS: Tacrolimus 1 MG CAPSULE 5 MG PO (08:06)
[2021-11-01] MEDS: predniSONE 5 MG TABLET PO (08:06)
[2021-11-01 11:07] LABS: Creatinine Urine 39.23 mg/dL
--- NOTE | 2021-11-01 16:22 | P.CNNE_ITS ---
History of Present Illness Data of Consult Service Date: 11/01/21 Primary Care Provider: Unknown Physician HPI Reason for consult: Unresponsiveness 71 years old woman with underlying history of renal transplant admitted on psych floor apparently with psychotic symptoms. While on the floor she was noted to have episodes when she would become unresponsive while white loads were stable. She said that she was just dozing off. Apparently for few seconds to minutes she was unresponsive. No convulsion was noted. No obvious arrhythmia was noted. [facility] Past Medical History Medical History No known health problems Social History Social History Household Members: None Housing: Apartment Do you presently have visiting nurse or other home services: No Patient Tobacco Use Status: Former Tobacco user Use of substances other than those prescribed or required for medical reasons: No Currently Displaying Signs/Symptoms of Drug Intoxication Withdrawal: No Have you been hit, kicked, punched, or otherwise hurt by someone within the past year? If so, by whom?: No Do you feel safe in your current relationship?: No Current Relationship Is there a partner from a previous relationship who is making you feel unsafe now?: No Are you made to feel afraid or neglected: No Spiritual Healthcare Practices: n/a Faith Healthcare Practices: n/a Cultural Healthcare Practices: n/a Advance Directives: No Advance Directives Information Provided: No Do you have thoughts of harming others: None Do you have a plan to hurt others: No Plan Recently lost weight without trying: No Nutrition Risks: No Nutritional Risk Patient : No : No Poor oral hygiene: No service: No Sexual orientation: Straight/Heterosexual Meds Allergies Allergy/AdvReac Type Severity Reaction Status Date / Time gabapentin [From Allergy Unknown UNKNOWN Verified 10/22/21 22:57 Neurontin] Sulfa (Sulfonamide Allergy Unknown UNKNOWN Verified 10/22/21 22:57 Antibiotics) [SULFA (SULFONAMIDE ANTIBIOTICS)] trimethoprim Allergy Unknown UNKNOWN Verified 10/22/21 22:57 [TRIMETHOPRIM] lithium [LITHIUM] AdvReac Severe KIDNEY Verified 10/22/21 22:57 TRANSPLANT DUE TO LITHIUM TOXICITY Active Medications: Current Medications Acetaminophen (Acetaminophen 325 Mg Tablet) 650 mg PO Q6H PRN PRN Reason: Headache/Pain Mild Scale (1-3) Acetaminophen (Acetaminophen Supp 325 Mg Supp.Rect) 325 mg MS Q6H PRN PRN Reason: Fever Al Hydroxide/Mg Hydroxide (Magnesium Hydrox/Alum Hydrox 30 Ml Oral.Susp) 30 ml PO Q6H PRN PRN Reason: Heartburn/Nausea Amlodipine Besylate (Amlodipine Besylate 5 Mg Tablet) 5 mg PO DAILY [facility]; Protocol Last Admin: 11/01/21 08:06 Dose: 5 mg Documented by: Hydroxyzine HCl (Hydroxyzine Hcl 25 Mg Tablet) 25 mg PO BEDTIME PRN PRN Reason: Anxiety Last Admin: 10/29/21 02:19 Dose: 25 mg Documented by: Levothyroxine Sodium (Levothyroxine Sodium 50 Mcg Tablet) 50 mcg PO DAILY@0600 [facility] Last Admin: 11/01/21 05:26 Dose: 50 mcg Documented by: Magnesium Hydroxide (Milk Of Magnesia 30 Ml Oral.Susp) 30 ml PO DAILY PRN PRN Reason: Constipation Prednisone (Prednisone 5 Mg Tablet) 5 mg PO DAILY [facility] Last Admin: 11/01/21 08:06 Dose: 5 mg Documented by: Risperidone (Risperidone 2 Mg Tablet) 2 mg PO BEDTIME [facility] Last Admin: 10/31/21 19:45 Dose: 2 mg Documented by: Risperidone (Risperidone 1 Mg Tablet) 1 mg PO DAILY [facility] Last Admin: 11/01/21 08:06 Dose: 1 mg Documented by: Sodium Chloride (0.9 % Sodium Chloride Flush 10 Ml Syringe) 5 ml IVFLUSH QSHIFT [facility] Last Admin: 11/01/21 15:37 Dose: Not Given Documented by: Tacrolimus (Tacrolimus 1 Mg Capsule) 5 mg PO DAILY@0800 [facility] Last Admin: 11/01/21 08:06 Dose: 5 mg Documented by: Tacrolimus (Tacrolimus 1 Mg Capsule) 4 mg PO DAILY@1800 [facility] Last Admin: 10/31/21 18:09 Dose: Not Given Documented by: Trazodone HCl (Trazodone Hcl 50 Mg Tablet) 50 mg PO BEDTIME PRN PRN Reason: Insomnia Last Admin: 10/24/21 01:07 Dose: 50 mg Documented by: Home Medications Medication Instructions Recorded Confirmed Last Taken Type denosumab 60 60 mg SUBCUT Q6M 10/25/21 11/01/21 09/10/21 History mg/mL subcutaneous syringe (Prolia) 60mg/ml levothyroxine 100 1 tab PO DAILY 10/25/21 10/25/21 Unknown History mcg tablet lorazepam 1 mg 1 tab PO BEDTIME 10/25/21 10/25/21 Unknown History tablet losartan 100 mg 1 tab PO DAILY 10/25/21 10/25/21 Unknown History tablet oxcarbazepine 150 1 tab PO BID 10/25/21 10/25/21 Unknown History mg tablet prednisone 5 mg 1 tab PO DAILY 10/25/21 10/25/21 Unknown History tablet risperidone 0.5 1 tab PO BID 10/25/21 10/25/21 Unknown History mg tablet Physical Exam Verdana 4l Vital Signs: Verdana 4d Verdana 4d Vital Signs: Verdana 4d Verdana 4Bd Last Vital Signs Verdana 4d Child Welfare Assistant New 4d Child Welfare Assistant New 4d Temp 97.3 F 11/01/21 06:00 Child Welfare Assistant New 4d Pulse 94 11/01/21 06:00 Child Welfare Assistant New 4d Resp 15 11/01/21 06:00 BP 158/72 H 11/01/21 06:00 Pulse Ox 98 11/01/21 06:00 BMI result Body Mass Index 19.0 Neuro: Other: Alert and awake with normal spontaneity of speech fluency comprehension and affect. She knew where she was. She was following commands. Face was symmetrical. Visual tang are full. Pupils were round reactive. There was no obvious focal weakness. Deep tendon reflexes were trace to absent with flexor plantars. Results Labs CBC & Chem 7: 10/29/21 06:54 10/30/21 07:08 Labs: Noncontrast head CT did not reveal any significant abnormality Assessment and Plan (1) Episodes of decreased attentiveness: Status: Acute 71 years old woman with possible seizure disorder though there is no significant pathology in her head CT. I would recommend a routine EEG to rule out any epileptic tendency. Procedures Date of Service Date of Service: 11/01/21
--- NOTE | 2021-11-01 18:01 | P.PNPSI_ITS ---
Subjective Subjective Date of Service: 09/27/21 Reason For Visit: Psychosis, suicidal ideation Subjective Notes: Conditional Voluntary Healthcare Proxy: No Guardianship: No Medical Problems Affecting Mental Status: Yes Interim History: pt had another episode of vacancy breathing nl vital sx yet not arousable rapid response called t 100.3 afebrile today covid neg pt with periods of lethargy other periods aj affect periods of being pleasant euphoric eating better Medication Compliance: Intermittent Side effects from medications: Yes Mental Status Exam Mental Status Exam Patient Appearance: Appropriate Patient Orientation: Person Level of Consciousness: Awake Patient Behavior: Passive and Suspicious Mood Description: Constricted Affect Description: Euphoric, Labile and Flat Ability to Follow Directions: Fair Speech Pattern: Clear Memory Description: Episodic Impaired Hallucinations: None Delusions: Paranoid Ideation and Grandiose Thought Process: Distracted and Evasive Thought Content: positive for Circumstantial and positive for Poverty of Content Judgement: Fair Diagnostics Vital Signs (24Hr): Vital Signs - 24 hr 10/31/21 19:40 11/01/21 06:00 Temperature 97.8 F 97.3 F Pulse Rate 98 94 Respiratory Rate 18 15 Blood Pressure 174/77 H 158/72 H Pulse Oximetry 99 98 BMI result Verdana 4 Body Mass Index Verdana 4 19.0 Verdana 4 Verdana 4 Labs Results: 10/29/21 06:54 10/30/21 07:08 Labs: Laboratory Results - last 48 hr 10/30/21 10/31/21 10/31/21 07:08 07:24 17:55 Urine Creatinine Tacrolimus 6.9 6.2 COVID-19 (SALOMÓN) Negative COVID-19 Clin Com See Note 11/01/21 10:45 Urine Creatinine 39.23 Tacrolimus COVID-19 (SALOMÓN) COVID-19 Clin Com Imaging Radiology Impressions: ITS Impressions Chest X-Ray 10/20/21 15:57 IMPRESSION: Unremarkable examination. Head CT 10/20/21 18:33 IMPRESSION: No acute intracranial process seen. A change from 09/29/[address] 10/26/21 21:21 IMPRESSION: No evidence of acute intracranial hemorrhage or edematous territorial infarction. Renal Ultrasound 10/27/21 15:51 IMPRESSION: Stable appearance of renal transplant kidney with 3.3 cm midpole simple appearing cyst. Medications Medications Current Medications Acetaminophen (Acetaminophen 325 Mg Tablet) 650 mg PO Q6H PRN PRN Reason: Headache/Pain Mild Scale (1-3) Acetaminophen (Acetaminophen Supp 325 Mg Supp.Rect) 325 mg AR Q6H PRN PRN Reason: Fever Al Hydroxide/Mg Hydroxide (Magnesium Hydrox/Alum Hydrox 30 Ml Oral.Susp) 30 ml PO Q6H PRN PRN Reason: Heartburn/Nausea Amlodipine Besylate (Amlodipine Besylate 5 Mg Tablet) 5 mg PO DAILY [facility]; Protocol Last Admin: 11/01/21 08:06 Dose: 5 mg Documented by: Hydroxyzine HCl (Hydroxyzine Hcl 25 Mg Tablet) 25 mg PO BEDTIME PRN PRN Reason: Anxiety Last Admin: 10/29/21 02:19 Dose: 25 mg Documented by: Levothyroxine Sodium (Levothyroxine Sodium 50 Mcg Tablet) 50 mcg PO DAILY@0600 [facility] Last Admin: 11/01/21 05:26 Dose: 50 mcg Documented by: Magnesium Hydroxide (Milk Of Magnesia 30 Ml Oral.Susp) 30 ml PO DAILY PRN PRN Reason: Constipation Prednisone (Prednisone 5 Mg Tablet) 5 mg PO DAILY [facility] Last Admin: 11/01/21 08:06 Dose: 5 mg Documented by: Risperidone (Risperidone 2 Mg Tablet) 2 mg PO BEDTIME [facility] Last Admin: 10/31/21 19:45 Dose: 2 mg Documented by: Risperidone (Risperidone 1 Mg Tablet) 1 mg PO DAILY [facility] Last Admin: 11/01/21 08:06 Dose: 1 mg Documented by: Sodium Chloride (0.9 % Sodium Chloride Flush 10 Ml Syringe) 5 ml IVFLUSH QSHIFT [facility] Last Admin: 11/01/21 15:37 Dose: Not Given Documented by: Tacrolimus (Tacrolimus 1 Mg Capsule) 5 mg PO DAILY@0800 [facility] Last Admin: 11/01/21 08:06 Dose: 5 mg Documented by: Tacrolimus (Tacrolimus 1 Mg Capsule) 4 mg PO DAILY@1800 [facility] Last Admin: 11/01/21 17:32 Dose: Not Given Documented by: Trazodone HCl (Trazodone Hcl 50 Mg Tablet) 50 mg PO BEDTIME PRN PRN Reason: Insomnia Last Admin: 10/24/21 01:07 Dose: 50 mg Documented by: Allergies Allergies Allergy/AdvReac Type Severity Reaction Status Date / Time gabapentin [From Allergy Unknown UNKNOWN Verified 10/22/21 22:57 Neurontin] Sulfa (Sulfonamide Allergy Unknown UNKNOWN Verified 10/22/21 22:57 Antibiotics) [SULFA (SULFONAMIDE ANTIBIOTICS)] trimethoprim Allergy Unknown UNKNOWN Verified 10/22/21 22:57 [TRIMETHOPRIM] lithium [LITHIUM] AdvReac Severe KIDNEY Verified 10/22/21 22:57 TRANSPLANT DUE TO LITHIUM TOXICITY Assessment & Plan Assessment & Plan (1) Episodes of decreased attentiveness: Status: Acute Code(s): R68.89 - Other general symptoms and signs Assessment and Plan: 71 years old woman with possible seizure disorder though there is no significant pathology in her head CT. I would recommend a routine EEG to rule out any epileptic tendency. (2) Schizoaffective disorder, bipolar type: Status: Acute Code(s): F25.0 - Schizoaffective disorder, bipolar type (3) Chronic kidney disease (CKD): Status: Acute Code(s): N18.9 - Chronic kidney disease, unspecified Plan schizoaffective disorder Continue Risperdal some improvement noted unclear if patient's episode of unresponsiveness at all related to psychosis . Inattentiveness /unresponsiveness with normal vital signs call placed to Dr. Adam hospitalist and neuro consult EEG ordered chronic kidney disease labs and Tegretol I miss level reviewed labs for the morning pending level of protein that can measure possibility of rejection I spent minutes with the patient and/or on the patient floor today, greater than?50% of which was spent counseling/coordinating care. Patient educated on: medical condition Reason for contiued inpatient stay Substantial Risk for: med/psych decompensation
[2021-11-01 18:54] LABS: Total Protein Urine Random 96 mg/dL (<12)
[2021-11-01 19:30] VITALS: BP 134/61; PULSE 95; RESP 16; TEMP 36.8; O2SAT 98
[2021-11-01] MEDS: risperiDONE 2 MG TABLET PO (19:35)
[2021-11-01] MEDS: Tacrolimus 1 MG CAPSULE 4 MG PO (19:36)
[2021-11-02] MEDS: hydrOXYzine HCL 25 MG TABLET PO (01:25)
[2021-11-02] MEDS: Levothyroxine Sodium 50 MCG TABLET PO (05:20)
[2021-11-02 07:14] LABS: Baso%MD 0.3 %; Eos%MD 16.7 %; Hematocrit 25.3 % (37.0-47.0); Hemoglobin 8.1 g/dl (12.0-16.0); IG%MD 0.3 %; Lymph%MD 28.3 %; Mean Corpuscular Hemoglobin 30.1 pg (27.0-33.0); Mean Corpuscular Volume 94.1 fL (80.0-98.0); Mean Platelet Volume 9.7 fL (9.4-12.3); Mono%MD 13.1 %; Neut%MD 41.3 %; Platelet Count 187 X10*3/uL (160-400); Red Blood Count 2.69 X10*6/uL (4.20-5.50); Red Cell Distribution Width 14.1 % (11.0-16.0); White Blood Count 7.5 X10*3/uL (4.8-10.8)
[2021-11-02 07:30] LABS: Anion Gap 9 (12-20); Blood Urea Nitrogen 50 mg/dL (9-16); Calcium 7.6 mg/dL (8.4-10.2); Carbon Dioxide 20 mmol/L (22-29); Chloride 113 mmol/L (96-108); Creatinine Clr Calc Pharmacy 25.5; Estimated Glomerular Filt Rate 31; Glucose Random 156 mg/dL (60-115); Potassium 4.2 mmol/L (3.3-5.1); Sodium 138 mmol/L (135-145)
[2021-11-02 07:45] VITALS: BP 122/60; PULSE 84; TEMP 36.3; O2SAT 98
[2021-11-02] MEDS: risperiDONE 1 MG TABLET PO (08:30)
[2021-11-02] MEDS: amLODIPine Besylate 5 MG TABLET PO (08:30)
[2021-11-02] MEDS: Tacrolimus 1 MG CAPSULE 5 MG PO (08:30)
[2021-11-02] MEDS: predniSONE 5 MG TABLET PO (08:30)
[2021-11-02 08:31] LABS: Eosinophils Absolute Manual 1.1 X10*3/uL (0.0-0.4); Eosinophils Percent Manual 15 % (0-4); Lymphocytes Absolute Manual 1.6 X10*3/uL (1.2-4.9); Lymphocytes Percent Manual 21 % (20-40); Monocytes Absolute Manual 0.6 X10*3/uL (0.1-1.2); Monocytes Percent Manual 8 % (2-11); Neutrophils Percent Manual 56 % (45-73)
[2021-11-02 08:32] LABS: Acanthocytes 1+ (0-2) /OIF; Ovalocytes 1+ (5-14) /OIF; RBC Morphology NOTED
[2021-11-02 08:33] LABS: Platelet Estimate NORMAL (NORMAL); Platelet Morphology Comment NORMAL
[2021-11-02 09:20] LABS: Band Neutrophils Percent 0 % (3-5); Neutrophils Absolute Manual 4.2 X10*3/uL (2.0-8.3)
--- NOTE | 2021-11-02 09:38 | P.PNNP_ITS ---
Subjective Subjective Date of Service: 11/02/21 Principal diagnosis: LAURO, CKD, Kidney Xplant patient Interval history: Seen AM. All recent data reviewed Physical Exam Verdana 4l Vital Signs: Verdana 4d Verdana 4d Vital Signs: Verdana 4d Verdana 4Bd Last Vital Signs Verdana 4d Coal Hauler Operator New 4d Coal Hauler Operator New 4d Temp 98.2 F 11/01/21 19:30 Coal Hauler Operator New 4d Pulse 95 11/01/21 19:30 Coal Hauler Operator New 4d Resp 16 11/01/21 19:30 BP 134/61 11/01/21 19:30 Pulse Ox 98 11/01/21 19:30 BMI result Body Mass Index 19.0 Const: General: comfortable Neck: Neck: Yes supple Resp: Auscultation: diminished lung sounds Cardio: Rate: regular rate GI: Palpation (GI): Soft to palpation Neuro: General: moves all extremities Objective Data Labs CBC & Chem 7: 11/02/21 07:00 11/02/21 07:00 Labs: Laboratory Results - last 24 hr 11/01/21 11/01/21 11/02/21 10:45 10:45 07:00 WBC RBC Hgb Hct MCV MCH MCHC RDW Plt Count MPV Absolute Nucleated RBC Nucleated RBC % (auto) Neutrophils % (Manual) Band Neutrophils % Lymphocytes % (Manual) Monocytes % (Manual) Eosinophils % (Manual) Abs Neuts (Manual) Lymphocytes # (Manual) Monocytes # (Manual) Eosinophils # (Manual) Platelet Estimate Plt Morphology Comment RBC Morphology Ovalocytes Acanthocytes (Spur) Sodium 138 Potassium 4.2 Chloride 113 H Carbon Dioxide 20 L Anion Gap 9 L BUN 50 H Creatinine 1.63 H Estim Creat Clear Calc 25.5 Estimated GFR 31 Random Glucose 156 H Calcium 7.6 L D U Random Total Protein 96 H Urine Creatinine 39.23 11/02/21 07:00 WBC 7.5 RBC 2.69 L Hgb 8.1 L Hct 25.3 L MCV 94.1 MCH 30.1 MCHC 32.0 RDW 14.1 Plt Count 187 MPV 9.7 Absolute Nucleated RBC 0.000 Nucleated RBC % (auto) 0.0 Neutrophils % (Manual) 56 Band Neutrophils % 0 L Lymphocytes % (Manual) 21 Monocytes % (Manual) 8 Eosinophils % (Manual) 15 H Abs Neuts (Manual) 4.2 Lymphocytes # (Manual) 1.6 Monocytes # (Manual) 0.6 Eosinophils # (Manual) 1.1 H Platelet Estimate NORMAL Plt Morphology Comment NORMAL RBC Morphology NOTED Ovalocytes 1+ (5-14) Acanthocytes (Spur) 1+ (0-2) Sodium Potassium Chloride Carbon Dioxide Anion Gap BUN Creatinine Estim Creat Clear Calc Estimated GFR Random Glucose Calcium U Random Total Protein Urine Creatinine Procedures Date of Service Date of Service: 11/02/21 Assessment & Plan Assessment and plan (1) LAURO (acute kidney injury): Status: Acute Plan S/P renal transplant Has CKD 3 at baseline in her allograft Developed LAURO due to medication non compliance Was treated with Methyl Prednisone Serum creatinine has settled to baseline No change in immunosuppression No indication for transplant renal biopsy Repeat renal functions and tacrolimus levels Monday Time Spent With Patient Time: Total time spent is greater than 50% in coordination of care (as documented) at patient's floor/unit and/or counseling patient: Progress Note: Quality Stroke Does the patient have a stroke diagnosis?: No
[2021-11-02 10:32] LABS: Tacrolimus Prograf 5.5 mcg/L
--- NOTE | 2021-11-02 12:27 | P.PNPSI_ITS ---
Subjective Subjective Date of Service: 11/02/21 Reason For Visit: Psychosis, suicidal ideation Subjective Notes: Conditional Voluntary Healthcare Proxy: No Guardianship: No Medical Problems Affecting Mental Status: Yes Interim History: Patient seen chart reviewed case discussed with staff. Case also reviewed with patient's sister who had donated kidney for her years ago patient talking about love in God euphoric preoccupied with grandiose delusions not aggressive no insight has been accepting medication Medication Compliance: Yes Side effects from medications: Yes Review of Systems Medical Review of Systems: unchanged Mental Status Exam Mental Status Exam Patient Appearance: Appropriate Patient Orientation: Person Level of Consciousness: Awake Patient Behavior: Passive and Suspicious Mood Description: Constricted Affect Description: Euphoric, Labile and Flat Ability to Follow Directions: Fair Speech Pattern: Clear Memory Description: Episodic Impaired Hallucinations: None Delusions: Grandiose Thought Process: Distracted and Evasive Thought Content: positive for Circumstantial and positive for Poverty of Content Judgement: Fair Diagnostics Vital Signs (24Hr): Vital Signs - 24 hr 11/01/21 19:30 11/02/21 07:45 Temperature 98.2 F 97.4 F Pulse Rate 95 84 Respiratory Rate 16 Blood Pressure 134/61 122/60 Pulse Oximetry 98 98 BMI result Verdana 4 Body Mass Index Verdana 4 19.0 Verdana 4 Verdana 4 Labs Results: 11/02/21 07:00 11/02/21 07:00 Labs: Laboratory Results - last 48 hr 10/30/21 10/31/21 10/31/21 07:08 07:24 17:55 WBC RBC Hgb Hct MCV MCH MCHC RDW Plt Count MPV Absolute Nucleated RBC Nucleated RBC % (auto) Neutrophils % (Manual) Band Neutrophils % Lymphocytes % (Manual) Monocytes % (Manual) Eosinophils % (Manual) Abs Neuts (Manual) Lymphocytes # (Manual) Monocytes # (Manual) Eosinophils # (Manual) Platelet Estimate Plt Morphology Comment RBC Morphology Ovalocytes Acanthocytes (Spur) Sodium Potassium Chloride Carbon Dioxide Anion Gap BUN Creatinine Estim Creat Clear Calc Estimated GFR Random Glucose Calcium U Random Total Protein Urine Creatinine Tacrolimus 6.9 6.2 COVID-19 ([facility]) Negative COVID-19 Clin Com See Note 11/01/21 11/01/21 11/01/21 05:38 10:45 10:45 WBC RBC Hgb Hct MCV MCH MCHC RDW Plt Count MPV Absolute Nucleated RBC Nucleated RBC % (auto) Neutrophils % (Manual) Band Neutrophils % Lymphocytes % (Manual) Monocytes % (Manual) Eosinophils % (Manual) Abs Neuts (Manual) Lymphocytes # (Manual) Monocytes # (Manual) Eosinophils # (Manual) Platelet Estimate Plt Morphology Comment RBC Morphology Ovalocytes Acanthocytes (Spur) Sodium Potassium Chloride Carbon Dioxide Anion Gap BUN Creatinine Estim Creat Clear Calc Estimated GFR Random Glucose Calcium U Random Total Protein 96 H Urine Creatinine 39.23 Tacrolimus 5.5 COVID-19 ([facility]N) COVID-19 [employer] 11/02/21 11/02/21 07:00 07:00 WBC 7.5 RBC 2.69 L Hgb 8.1 L Hct 25.3 L MCV 94.1 MCH 30.1 MCHC 32.0 RDW 14.1 Plt Count 187 MPV 9.7 Absolute Nucleated RBC 0.000 Nucleated RBC % (auto) 0.0 Neutrophils % (Manual) 56 Band Neutrophils % 0 L Lymphocytes % (Manual) 21 Monocytes % (Manual) 8 Eosinophils % (Manual) 15 H Abs Neuts (Manual) 4.2 Lymphocytes # (Manual) 1.6 Monocytes # (Manual) 0.6 Eosinophils # (Manual) 1.1 H Platelet Estimate NORMAL Plt Morphology Comment NORMAL RBC Morphology NOTED Ovalocytes 1+ (5-14) Acanthocytes (Spur) 1+ (0-2) Sodium 138 Potassium 4.2 Chloride 113 H Carbon Dioxide 20 L Anion Gap 9 L BUN 50 H Creatinine 1.63 H Estim Creat Clear Calc 25.5 Estimated GFR 31 Random Glucose 156 H Calcium 7.6 L D U Random Total Protein Urine Creatinine Tacrolimus COVID-19 ([facility]OM[facility]N) COVID-19 Clin Com Imaging Radiology Impressions: ITS Impressions Chest X-Ray 10/20/21 15:57 IMPRESSION: Unremarkable examination. Head CT 10/20/21 18:33 IMPRESSION: No acute intracranial process seen. A change from 09/29/[address] 10/26/21 21:21 IMPRESSION: No evidence of acute intracranial hemorrhage or edematous territorial infarction. Renal Ultrasound 10/27/21 15:51 IMPRESSION: Stable appearance of renal transplant kidney with 3.3 cm midpole simple appearing cyst. Medications Medications Current Medications Acetaminophen (Acetaminophen 325 Mg Tablet) 650 mg PO Q6H PRN PRN Reason: Headache/Pain Mild Scale (1-3) Acetaminophen (Acetaminophen Supp 325 Mg Supp.Rect) 325 mg AL Q6H PRN PRN Reason: Fever Al Hydroxide/Mg Hydroxide (Magnesium Hydrox/Alum Hydrox 30 Ml Oral.Susp) 30 ml PO Q6H PRN PRN Reason: Heartburn/Nausea Amlodipine Besylate (Amlodipine Besylate 5 Mg Tablet) 5 mg PO DAILY [facility]; Protocol Last Admin: 11/02/21 08:30 Dose: 5 mg Documented by: Hydroxyzine HCl (Hydroxyzine Hcl 25 Mg Tablet) 25 mg PO BEDTIME PRN PRN Reason: Anxiety Last Admin: 11/02/21 01:25 Dose: 25 mg Documented by: Levothyroxine Sodium (Levothyroxine Sodium 50 Mcg Tablet) 50 mcg PO DAILY@0600 [facility] Last Admin: 11/02/21 05:20 Dose: 50 mcg Documented by: Magnesium Hydroxide (Milk Of Magnesia 30 Ml Oral.Susp) 30 ml PO DAILY PRN PRN Reason: Constipation Prednisone (Prednisone 5 Mg Tablet) 5 mg PO DAILY [facility] Last Admin: 11/02/21 08:30 Dose: 5 mg Documented by: Risperidone (Risperidone 2 Mg Tablet) 2 mg PO BEDTIME [facility] Last Admin: 11/01/21 19:35 Dose: 2 mg Documented by: Risperidone (Risperidone 1 Mg Tablet) 1 mg PO DAILY [facility] Last Admin: 11/02/21 08:30 Dose: 1 mg Documented by: Sodium Chloride (0.9 % Sodium Chloride Flush 10 Ml Syringe) 5 ml IVFLUSH QSHIFT [facility] Last Admin: 11/02/21 11:39 Dose: Not Given Documented by: Tacrolimus (Tacrolimus 1 Mg Capsule) 5 mg PO DAILY@0800 [facility] Last Admin: 11/02/21 08:30 Dose: 5 mg Documented by: Tacrolimus (Tacrolimus 1 Mg Capsule) 4 mg PO DAILY@1800 [facility] Last Admin: 11/01/21 19:36 Dose: 4 mg Documented by: Trazodone HCl (Trazodone Hcl 50 Mg Tablet) 50 mg PO BEDTIME PRN PRN Reason: Insomnia Last Admin: 10/24/21 01:07 Dose: 50 mg Documented by: Allergies Allergies Allergy/AdvReac Type Severity Reaction Status Date / Time gabapentin [From Allergy Unknown UNKNOWN Verified 10/22/21 22:57 Neurontin] Sulfa (Sulfonamide Allergy Unknown UNKNOWN Verified 10/22/21 22:57 Antibiotics) [SULFA (SULFONAMIDE ANTIBIOTICS)] trimethoprim Allergy Unknown UNKNOWN Verified 10/22/21 22:57 [TRIMETHOPRIM] lithium [LITHIUM] AdvReac Severe KIDNEY Verified 10/22/21 22:57 TRANSPLANT DUE TO LITHIUM TOXICITY Assessment & Plan Assessment & Plan (1) LAURO (acute kidney injury): Status: Acute Code(s): N17.9 - Acute kidney failure, unspecified (2) Schizoaffective disorder, bipolar type: Status: Acute Code(s): F25.0 - Schizoaffective disorder, bipolar type Assessment and Plan: increase risperdol 2 mg bid secondary to wilmar consider ect (3) Chronic kidney disease (CKD): Status: Acute Code(s): N18.9 - Chronic kidney disease, unspecified (4) Episodes of decreased attentiveness: Status: Acute Code(s): R68.89 - Other general symptoms and signs Plan S/P renal transplant Has CKD 3 at baseline in her allograft Developed LAURO due to medication non compliance Was treated with Methyl Prednisone Serum creatinine has settled to baseline No change in immunosuppression No indication for transplant renal biopsy Repeat renal functions and tacrolimus I spent minutes with the patient and/or on the patient floor today, greater than?50% of which was spent counseling/coordinating care. Reason for contiued inpatient stay Substantial Risk for: rapid decompensation and med/psych decompensation
--- NOTE | 2021-11-02 16:46 | P.PNIM_ITS ---
Subjective Subjective Date of Service: 11/02/21 Interval History: Seen this AM with renal doctor. She is in the [facility] area and peacefully watching the television. She denies any urinary complaints. In regards to the events that transpired 2 evenings ago, she reports that she was just sleeping. She denies any chest pain or shortness of breath. Physical Exam Verdana 4l Vital Signs: Verdana 4d Verdana 4d Vital Signs: Verdana 4d Verdana 4Bd Last Vital Signs Verdana 4d Party Planner New 4d Party Planner New 4d Temp 97.4 F 11/02/21 07:45 Party Planner New 4d Pulse 84 11/02/21 07:45 Party Planner New 4d Resp 16 11/01/21 19:30 BP 122/60 11/02/21 07:45 Pulse Ox 98 11/02/21 07:45 BMI result Body Mass Index 19.0 Const: Other: General - no acute distress, appears comfortable Cardiovascular - regular rate and rhythm, S1-S2 Lungs - normal respiratory effort, clear to auscultation bilaterally, no wheezing Abdomen - soft, nontender, no rebound or guarding Extremities - no edema bilaterally Neuro - awake and alert, no focal deficits Psych -- poor insight Objective Data Active Medications Acetaminophen (Acetaminophen 325 Mg Tablet) 650 mg PO Q6H PRN PRN Reason: Headache/Pain Mild Scale (1-3) Acetaminophen (Acetaminophen Supp 325 Mg Supp.Rect) 325 mg [place] Q6H PRN PRN Reason: Fever Al Hydroxide/Mg Hydroxide (Magnesium Hydrox/Alum Hydrox 30 Ml Oral.Susp) 30 ml PO Q6H PRN PRN Reason: Heartburn/Nausea Amlodipine Besylate (Amlodipine Besylate 5 Mg Tablet) 5 mg PO DAILY [facility]; Protocol Last Admin: 11/02/21 08:30 Dose: 5 mg Documented by: LOBITO Hydroxyzine HCl (Hydroxyzine Hcl 25 Mg Tablet) 25 mg PO BEDTIME PRN PRN Reason: Anxiety Last Admin: 11/02/21 01:25 Dose: 25 mg Documented by: CARMINA Levothyroxine Sodium (Levothyroxine Sodium 50 Mcg Tablet) 50 mcg PO DAILY@0600 [facility] Last Admin: 11/02/21 05:20 Dose: 50 mcg Documented by: CARMINA Magnesium Hydroxide (Milk Of Magnesia 30 Ml Oral.Susp) 30 ml PO DAILY PRN PRN Reason: Constipation Prednisone (Prednisone 5 Mg Tablet) 5 mg PO DAILY [facility] Last Admin: 11/02/21 08:30 Dose: 5 mg Documented by: LOBITO Risperidone (Risperidone 2 Mg Tablet) 2 mg PO BEDTIME [facility] Last Admin: 11/01/21 19:35 Dose: 2 mg Documented by: CARMINA Risperidone (Risperidone 1 Mg Tablet) 1 mg PO DAILY [facility] Last Admin: 11/02/21 08:30 Dose: 1 mg Documented by: LOBITO Sodium Chloride (0.9 % Sodium Chloride Flush 10 Ml Syringe) 5 ml IVFLUSH QSHIFT [facility] Last Admin: 11/02/21 15:41 Dose: Not Given Documented by: KEVIN Non-Admin Reason: No Access Tacrolimus (Tacrolimus 1 Mg Capsule) 5 mg PO DAILY@0800 [facility] Last Admin: 11/02/21 08:30 Dose: 5 mg Documented by: LOBITO Tacrolimus (Tacrolimus 1 Mg Capsule) 4 mg PO DAILY@1800 [facility] Last Admin: 11/01/21 19:36 Dose: 4 mg Documented by: CARMINA Comments: Pt. refused earlier but is agreeable to taking now. Trazodone HCl (Trazodone Hcl 50 Mg Tablet) 50 mg PO BEDTIME PRN PRN Reason: Insomnia Last Admin: 10/24/21 01:07 Dose: 50 mg Documented by: CARMINA Labs CBC & Chem 7: 11/02/21 07:00 11/02/21 07:00 Labs: Laboratory Results - last 24 hr 11/01/21 11/01/21 11/02/21 05:38 10:45 07:00 MCV MCH MCHC RDW Plt Count MPV Absolute Nucleated RBC Nucleated RBC % (auto) Neutrophils % (Manual) Band Neutrophils % Lymphocytes % (Manual) Monocytes % (Manual) Eosinophils % (Manual) Abs Neuts (Manual) Lymphocytes # (Manual) Monocytes # (Manual) Eosinophils # (Manual) Platelet Estimate Plt Morphology Comment RBC Morphology Ovalocytes Acanthocytes (Spur) Anion Gap 9 L Estim Creat Clear Calc 25.5 Estimated GFR 31 Random Glucose 156 H Calcium 7.6 L D U Random Total Protein 96 H Tacrolimus 5.5 11/02/21 07:00 MCV 94.1 MCH 30.1 MCHC 32.0 RDW 14.1 Plt Count 187 MPV 9.7 Absolute Nucleated RBC 0.000 Nucleated RBC % (auto) 0.0 Neutrophils % (Manual) 56 Band Neutrophils % 0 L Lymphocytes % (Manual) 21 Monocytes % (Manual) 8 Eosinophils % (Manual) 15 H Abs Neuts (Manual) 4.2 Lymphocytes # (Manual) 1.6 Monocytes # (Manual) 0.6 Eosinophils # (Manual) 1.1 H Platelet Estimate NORMAL Plt Morphology Comment NORMAL RBC Morphology NOTED Ovalocytes 1+ (5-14) Acanthocytes (Spur) 1+ (0-2) Anion Gap Estim Creat Clear Calc Estimated GFR Random Glucose Calcium U Random Total Protein Tacrolimus Assessment and Plan (1) LAURO (acute kidney injury): Status: Acute Plan This is a 71 yo F with a PMH of ESRD on HD previously, now s/p renal transplant, HTN, Osteoporosis, Hypothyrodism, Schizoaffective d/o - bipolar type who is admitted to the [facility] unit. Medical consultation requested for worsening renal function and ECT clerance. 1. Suspected LAURO on CKD-3 (Based off collateral information obtained -- baseline SCr 1.5 - 1.8) 2a. S/P Kidney transplant SCr has improved; received 2 dose of IV solu-medrol SCr about at baseline continue her anti-rejection meds see nephrology notes re: repeat renal function 2. Period of unresponsiveness unclear the cause of this vitals stable throughout the day otherwise Neurology consult has been requested by the primary team -- EEG 3. Hypothyroid synthroid 4. Pre-op ECT Echo showing hyperdynamic LV function, likely HFpEF. EKG with left axis deviation, unchanged from prior HS trop-I flax 2; suspected elevated due to LAURO during admission In regards to risk for ECT -- from a cardiopulmonary perspective, likely low risk for ECT. However, given her periods of unresponsiveness, would ensure neurologically stable and clear prior to proceeding. Will sign off at this time. Please re-consult if any questions / issues arise. Quality Stroke Does the patient have a stroke diagnosis?: No VTE Prior VTE?: No VTE Risk Level:: Medical - low (on the psych unit, ambulating) VTE Device Contraindication: Treatment Not Indicated (on the psych unit, ambulating) VTE Drug Contraindication: Treatment Not Indicated (on the psych unit, ambulating)
[2021-11-02] MEDS: Tacrolimus 1 MG CAPSULE 4 MG PO (17:07)
[2021-11-02 18:00] VITALS: BP 151/67; PULSE 96; RESP 16; TEMP 37.2; O2SAT 96
[2021-11-02] MEDS: risperiDONE 2 MG TABLET PO (20:57)
[2021-11-03 04:17] LABS: Tacrolimus Prograf 9.2 mcg/L
[2021-11-03] MEDS: Levothyroxine Sodium 50 MCG TABLET PO (05:44)
[2021-11-03 07:30] VITALS: BP 149/70; PULSE 90; RESP 16; TEMP 36.6; O2SAT 98
[2021-11-03] MEDS: amLODIPine Besylate 5 MG TABLET PO (08:44)
[2021-11-03] MEDS: predniSONE 5 MG TABLET PO (08:44)
[2021-11-03] MEDS: Tacrolimus 1 MG CAPSULE 5 MG PO (08:44)
[2021-11-03] MEDS: risperiDONE 1 MG TABLET PO (08:44)
[2021-11-03] MEDS: Tacrolimus 1 MG CAPSULE 4 MG PO (17:00)
[2021-11-03 19:58] VITALS: BP 142/64; PULSE 94; RESP 16; TEMP 37; O2SAT 98
--- NOTE | 2021-11-03 22:35 | HO.PSYCHPN ---
Subjective Subjective Date of Service: 11/03/21 Reason For Visit: Psychosis, suicidal ideation Subjective Notes: Conditional Voluntary Healthcare Proxy: No Guardianship: No Interim History: Patient has alternated between depressed and periods of euphoria. Becomes withdrawn somewhat despondent when realizes she is not just leaving an can stop all of her medication and that she is not becoming 1 with God Some periods of withdrawal and despair Medication Compliance: Intermittent Side effects from medications: Yes Attending Groups: No Review of Systems Renal difficulties appear to be stabilizing Medical Review of Systems: unchanged Mental Status Exam Mental Status Exam Patient Appearance: Appropriate Patient Orientation: Person, Place and Situation (No she is in the hospital) Level of Consciousness: Awake Patient Behavior: Passive, Suspicious, Resistive to Care and Avoidant Mood Description: Constricted Affect Description: Euphoric, Labile and Flat Ability to Follow Directions: Fair Speech Pattern: Clear Memory Description: Episodic Impaired Hallucinations: None Delusions: Grandiose Thought Process: Distracted and Evasive Thought Content: positive for Circumstantial, positive for Poverty of Content, negative for Suicidal Ideation or negative for Homicidal Ideation Depressive Symptoms: Increased Anxiety and Increased Irritability Judgement: Fair Judgement and Insight: Grandiose periods of euphoria when confronted by the reality of her situation and illness became overwhelmed irritable despairing Diagnostics Vital Signs (24Hr): Vital Signs - 24 hr 11/03/21 07:30 11/03/21 19:58 Temperature 97.9 F 98.6 F Pulse Rate 90 94 Respiratory Rate 16 16 Blood Pressure 149/70 H 142/64 H Pulse Oximetry 98 98 BMI result Body Mass Index 19.0 Labs Results: 11/02/21 07:00 11/02/21 07:00 Labs: Laboratory Results - last 48 hr 11/01/21 11/02/21 11/02/21 05:38 07:00 07:00 WBC 7.5 RBC 2.69 L Hgb 8.1 L Hct 25.3 L MCV 94.1 MCH 30.1 MCHC 32.0 RDW 14.1 Plt Count 187 MPV 9.7 Absolute Nucleated RBC 0.000 Nucleated RBC % (auto) 0.0 Neutrophils % (Manual) 56 Band Neutrophils % 0 L Lymphocytes % (Manual) 21 Monocytes % (Manual) 8 Eosinophils % (Manual) 15 H Abs Neuts (Manual) 4.2 Lymphocytes # (Manual) 1.6 Monocytes # (Manual) 0.6 Eosinophils # (Manual) 1.1 H Platelet Estimate NORMAL Plt Morphology Comment NORMAL RBC Morphology NOTED Ovalocytes 1+ (5-14) Acanthocytes (Spur) 1+ (0-2) Sodium 138 Potassium 4.2 Chloride 113 H Carbon Dioxide 20 L Anion Gap 9 L BUN 50 H Creatinine 1.63 H Estim Creat Clear Calc 25.5 Estimated GFR 31 Random Glucose 156 H Calcium 7.6 L D Tacrolimus 5.5 11/02/21 15:02 WBC RBC Hgb Hct MCV MCH MCHC RDW Plt Count MPV Absolute Nucleated RBC Nucleated RBC % (auto) Neutrophils % (Manual) Band Neutrophils % Lymphocytes % (Manual) Monocytes % (Manual) Eosinophils % (Manual) Abs Neuts (Manual) Lymphocytes # (Manual) Monocytes # (Manual) Eosinophils # (Manual) Platelet Estimate Plt Morphology Comment RBC Morphology Ovalocytes Acanthocytes (Spur) Sodium Potassium Chloride Carbon Dioxide Anion Gap BUN Creatinine Estim Creat Clear Calc Estimated GFR Random Glucose Calcium Tacrolimus 9.2 Imaging Radiology Impressions: ITS Impressions Chest X-Ray 10/20/21 15:57 IMPRESSION: Unremarkable examination. Head CT 10/20/21 18:33 IMPRESSION: No acute intracranial process seen. A change from 09/29/[address] 10/26/21 21:21 IMPRESSION: No evidence of acute intracranial hemorrhage or edematous territorial infarction. Renal Ultrasound 10/27/21 15:51 IMPRESSION: Stable appearance of renal transplant kidney with 3.3 cm midpole simple appearing cyst. Medications Medications Current Medications Acetaminophen (Acetaminophen 325 Mg Tablet) 650 mg PO Q6H PRN PRN Reason: Headache/Pain Mild Scale (1-3) Acetaminophen (Acetaminophen Supp 325 Mg Supp.Rect) 325 mg [place] Q6H PRN PRN Reason: Fever Al Hydroxide/Mg Hydroxide (Magnesium Hydrox/Alum Hydrox 30 Ml Oral.Susp) 30 ml PO Q6H PRN PRN Reason: Heartburn/Nausea Amlodipine Besylate (Amlodipine Besylate 5 Mg Tablet) 5 mg PO DAILY [facility]; Protocol Last Admin: 11/03/21 08:44 Dose: 5 mg Documented by: Hydroxyzine HCl (Hydroxyzine Hcl 25 Mg Tablet) 25 mg PO BEDTIME PRN PRN Reason: Anxiety Last Admin: 11/02/21 01:25 Dose: 25 mg Documented by: Levothyroxine Sodium (Levothyroxine Sodium 50 Mcg Tablet) 50 mcg PO DAILY@0600 [facility] Last Admin: 11/03/21 05:44 Dose: 50 mcg Documented by: Magnesium Hydroxide (Milk Of Magnesia 30 Ml Oral.Susp) 30 ml PO DAILY PRN PRN Reason: Constipation Prednisone (Prednisone 5 Mg Tablet) 5 mg PO DAILY [facility] Last Admin: 11/03/21 08:44 Dose: 5 mg Documented by: Risperidone (Risperidone 1 Mg Tablet) 1 mg PO DAILY [facility] Last Admin: 11/03/21 08:44 Dose: 1 mg Documented by: Risperidone (Risperidone 3 Mg Tablet) 3 mg PO BEDTIME [facility] Last Admin: 11/03/21 21:14 Dose: Not Given Documented by: Tacrolimus (Tacrolimus 1 Mg Capsule) 5 mg PO DAILY@0800 [facility] Last Admin: 11/03/21 08:44 Dose: 5 mg Documented by: Tacrolimus (Tacrolimus 1 Mg Capsule) 4 mg PO DAILY@1800 [facility] Last Admin: 11/03/21 17:00 Dose: 4 mg Documented by: Trazodone HCl (Trazodone Hcl 50 Mg Tablet) 50 mg PO BEDTIME PRN PRN Reason: Insomnia Last Admin: 10/24/21 01:07 Dose: 50 mg Documented by: Allergies Allergies Allergy/AdvReac Type Severity Reaction Status Date / Time gabapentin [From Neurontin] Allergy Unknown UNKNOWN Verified 10/22/21 22:57 Sulfa (Sulfonamide Allergy Unknown UNKNOWN Verified 10/22/21 22:57 Antibiotics) [SULFA (SULFONAMIDE ANTIBIOTICS)] trimethoprim [TRIMETHOPRIM] Allergy Unknown UNKNOWN Verified 10/22/21 22:57 lithium [LITHIUM] AdvReac Severe KIDNEY Verified 10/22/21 22:57 TRANSPLANT DUE TO LITHIUM TOXICITY Assessment & Plan Assessment & Plan (1) Schizoaffective disorder, bipolar type: Status: Acute Code(s): F25.0 - Schizoaffective disorder, bipolar type Assessment and Plan: Increase Risperdal to 4 mg daily Monitor response patient continues psychotic cycling from euphoria to periods of depression will try and discuss option of ECT (2) Chronic kidney disease (CKD): Status: Acute Code(s): N18.9 - Chronic kidney disease, unspecified Assessment and Plan: Nephrology continues to help monitor continue anti-rejection medication monitor response (3) Episodes of decreased attentiveness: Status: Acute Code(s): R68.89 - Other general symptoms and signs Assessment and Plan: No recent episode over the past 24 48 hours Plan see above try and regroup tx alliance pt normally insightfult regarding condition I spent ___30___ minutes with the patient and/or on the patient floor today, greater than?50% of which was spent counseling/coordinating care. Patient educated on: diagnosis and medical condition Informed Consent: further education needed Reason for contiued inpatient stay Substantial Risk for: harm to self and rapid decompensation
[2021-11-04 07:45] VITALS: BP 134/60; PULSE 93; RESP 16; TEMP 37.5; O2SAT 98
[2021-11-04] MEDS: amLODIPine Besylate 5 MG TABLET PO (07:55)
[2021-11-04] MEDS: risperiDONE 1 MG TABLET PO (07:55)
[2021-11-04] MEDS: Tacrolimus 1 MG CAPSULE 5 MG PO (07:56)
[2021-11-04] MEDS: Levothyroxine Sodium 50 MCG TABLET PO (07:56)
[2021-11-04] MEDS: predniSONE 5 MG TABLET PO (07:56)
--- NOTE | 2021-11-04 11:20 | P.PNNP_ITS ---
Subjective Subjective Date of Service: 11/04/21 Principal diagnosis: LAURO, CKD, Kidney Xplant patient Interval history: All recent data reviewed Physical Exam Verdana 4l Vital Signs: Verdana 4d Verdana 4d Vital Signs: Verdana 4d Verdana 4Bd Last Vital Signs Verdana 4d Synchro Assembler New 4d Synchro Assembler New 4d Temp 99.5 F 11/04/21 07:45 Synchro Assembler New 4d Pulse 93 11/04/21 07:45 Synchro Assembler New 4d Resp 16 11/04/21 07:45 BP 134/60 11/04/21 07:45 Pulse Ox 98 11/04/21 07:45 BMI result Body Mass Index 19.0 Const: General: no acute distress Neck: Neck: Yes supple Resp: Auscultation: diminished lung sounds Cardio: Rate: regular rate GI: Palpation (GI): Soft to palpation Neuro: General: moves all extremities Objective Data Labs CBC & Chem 7: 11/02/21 07:00 11/02/21 07:00 Procedures Date of Service Date of Service: 11/04/21 Assessment & Plan Assessment and plan (1) LAURO (acute kidney injury): Status: Acute Assessment and Plan: S/P renal transplant Has CKD 3 at baseline in her allograft Developed LAURO due to medication non compliance Was treated with Methyl Prednisone Serum creatinine had settled to baseline No change in immunosuppression No indication for transplant renal biopsy now Repeat renal functions and tacrolimus levels Monday Time Spent With Patient Time: Total time spent is greater than 50% in coordination of care (as documented) at patient's floor/unit and/or counseling patient: Progress Note: Quality Stroke Does the patient have a stroke diagnosis?: No
[2021-11-04 14:22] VITALS: BMI 20.1
[2021-11-04 20:03] VITALS: BP 142/61; PULSE 99; RESP 16; TEMP 37.3; O2SAT 98
--- NOTE | 2021-11-04 21:38 | P.PNPSI_ITS ---
Subjective Subjective Date of Service: 11/04/21 Reason For Visit: Psychosis, suicidal ideation Subjective Notes: Knott Warning and Conditional Voluntary Healthcare Proxy: No Guardianship: No Medication Compliance: Intermittent Side effects from medications: Yes (sedation) Mental Status Exam Mental Status Exam Patient Appearance: Appropriate Patient Orientation: Person, Place and Situation (No she is in the hospital) Level of Consciousness: Awake Patient Behavior: Passive, Suspicious and Isolative Mood Description: Constricted and Expansive Affect Description: Euphoric, Labile and Flat Ability to Follow Directions: Fair Speech Pattern: Clear Memory Description: Episodic Impaired Hallucinations: None Delusions: Grandiose Thought Process: Distracted and Evasive Thought Content: positive for Circumstantial, positive for Poverty of Content, negative for Suicidal Ideation or negative for Homicidal Ideation Depressive Symptoms: Increased Anxiety and Increased Irritability Judgement: Fair Judgement and Insight: Grandiose periods of euphoria when confronted by the reality of her situation and illness became overwhelmed irritable despairing Diagnostics Vital Signs (24Hr): Vital Signs - 24 hr 11/04/21 07:45 11/04/21 20:03 Temperature 99.5 F 99.1 F Pulse Rate 93 99 Respiratory Rate 16 16 Blood Pressure 134/60 142/61 H Pulse Oximetry 98 98 BMI result Verdana 4 Body Mass Index Verdana 4 20.1 Verdana 4 Verdana 4 Labs Results: 11/02/21 07:00 11/02/21 07:00 Labs: Laboratory Results - last 48 hr 11/02/21 15:02 Tacrolimus 9.2 Imaging Radiology Impressions: ITS Impressions Chest X-Ray 10/20/21 15:57 IMPRESSION: Unremarkable examination. Head CT 10/20/21 18:33 IMPRESSION: No acute intracranial process seen. A change from 09/29/[address] 10/26/21 21:21 IMPRESSION: No evidence of acute intracranial hemorrhage or edematous territorial infarction. Renal Ultrasound 10/27/21 15:51 IMPRESSION: Stable appearance of renal transplant kidney with 3.3 cm midpole simple appearing cyst. Medications Medications Current Medications Acetaminophen (Acetaminophen 325 Mg Tablet) 650 mg PO Q6H PRN PRN Reason: Headache/Pain Mild Scale (1-3) Acetaminophen (Acetaminophen Supp 325 Mg Supp.Rect) 325 mg [place] Q6H PRN PRN Reason: Fever Al Hydroxide/Mg Hydroxide (Magnesium Hydrox/Alum Hydrox 30 Ml Oral.Susp) 30 ml PO Q6H PRN PRN Reason: Heartburn/Nausea Amlodipine Besylate (Amlodipine Besylate 5 Mg Tablet) 5 mg PO DAILY [facility]; Protocol Last Admin: 11/04/21 07:55 Dose: 5 mg Documented by: Hydroxyzine HCl (Hydroxyzine Hcl 25 Mg Tablet) 25 mg PO BEDTIME PRN PRN Reason: Anxiety Last Admin: 11/02/21 01:25 Dose: 25 mg Documented by: Levothyroxine Sodium (Levothyroxine Sodium 50 Mcg Tablet) 50 mcg PO DAILY@0600 [facility] Last Admin: 11/04/21 07:56 Dose: 50 mcg Documented by: Magnesium Hydroxide (Milk Of Magnesia 30 Ml Oral.Susp) 30 ml PO DAILY PRN PRN Reason: Constipation Prednisone (Prednisone 5 Mg Tablet) 5 mg PO DAILY [facility] Last Admin: 11/04/21 07:56 Dose: 5 mg Documented by: Risperidone (Risperidone 1 Mg Tablet) 1 mg PO DAILY [facility] Last Admin: 11/04/21 07:55 Dose: 1 mg Documented by: Risperidone (Risperidone 3 Mg Tablet) 3 mg PO BEDTIME [facility] Last Admin: 11/04/21 19:45 Dose: Not Given Documented by: Tacrolimus (Tacrolimus 1 Mg Capsule) 5 mg PO DAILY@0800 [facility] Last Admin: 11/04/21 07:56 Dose: 5 mg Documented by: Tacrolimus (Tacrolimus 1 Mg Capsule) 4 mg PO DAILY@1800 [facility] Last Admin: 11/04/21 18:14 Dose: Not Given Documented by: Trazodone HCl (Trazodone Hcl 50 Mg Tablet) 50 mg PO BEDTIME PRN PRN Reason: Insomnia Last Admin: 10/24/21 01:07 Dose: 50 mg Documented by: Allergies Allergies Allergy/AdvReac Type Severity Reaction Status Date / Time gabapentin [From Allergy Unknown UNKNOWN Verified 10/22/21 22:57 Neurontin] Sulfa (Sulfonamide Allergy Unknown UNKNOWN Verified 10/22/21 22:57 Antibiotics) [SULFA (SULFONAMIDE ANTIBIOTICS)] trimethoprim Allergy Unknown UNKNOWN Verified 10/22/21 22:57 [TRIMETHOPRIM] lithium [LITHIUM] AdvReac Severe KIDNEY Verified 10/22/21 22:57 TRANSPLANT DUE TO LITHIUM TOXICITY Assessment & Plan Assessment & Plan (1) Schizoaffective disorder, bipolar type: Status: Acute Code(s): F25.0 - Schizoaffective disorder, bipolar type Assessment and Plan: The patient is euphoric expansive thinking she is god and does not need medication stating she wants to leave I am god refusing meds intermittantly (2) Chronic kidney disease (CKD): Status: Acute Code(s): N18.9 - Chronic kidney disease, unspecified (3) LAURO (acute kidney injury): Status: Acute Code(s): N17.9 - Acute kidney failure, unspecified Assessment and Plan: cont per nephrology Plan pt at danger of severe mdical consequences if refusing medical tx has put in 3 day evaluate for arrington retension tx plan I spent minutes with the patient and/or on the patient floor today, greater than?50% of which was spent counseling/coordinating care. Reason for contiued inpatient stay Substantial Risk for: inability to function, rapid decompensation and med/psych decompensation
[2021-11-05 06:00] VITALS: BP 134/54; PULSE 96; RESP 17; TEMP 36.7; O2SAT 99
[2021-11-05] MEDS: Tacrolimus 1 MG CAPSULE 5 MG PO (09:10)
[2021-11-05] MEDS: predniSONE 5 MG TABLET PO (09:10)
[2021-11-05] MEDS: risperiDONE 1 MG TABLET PO (09:11)
[2021-11-05] MEDS: amLODIPine Besylate 5 MG TABLET PO (09:11)
[2021-11-05] MEDS: Levothyroxine Sodium 50 MCG TABLET PO (09:11)
[2021-11-05] MEDS: Tacrolimus 1 MG CAPSULE 4 MG PO (17:05)
[2021-11-05 20:10] VITALS: BP 172/65; PULSE 112; RESP 18; TEMP 36.7; O2SAT 94
[2021-11-05] MEDS: risperiDONE 3 MG TABLET PO (20:46)
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
[2021-11-06] MEDS: hydrOXYzine HCL 25 MG TABLET PO ×2 (03:57→22:45)
[2021-11-06 06:00] VITALS: BP 167/71; PULSE 89; RESP 18; TEMP 37; O2SAT 98
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
[2021-11-06] MEDS: Tacrolimus 1 MG CAPSULE 5 MG PO (09:16)
[2021-11-06] MEDS: risperiDONE 1 MG TABLET PO (09:18)
[2021-11-06] MEDS: predniSONE 5 MG TABLET PO (09:18)
[2021-11-06] MEDS: amLODIPine Besylate 5 MG TABLET PO (09:18)
[2021-11-06 10:12] LABS: Tacrolimus Prograf 7.2 mcg/L
[2021-11-06 20:15] VITALS: BP 168/76; PULSE 86; RESP 17; TEMP 37.1; O2SAT 99
[2021-11-06] MEDS: risperiDONE 3 MG TABLET PO (21:32)
[2021-11-06] MEDS: traZODone HCL 50 MG TABLET PO (22:44)
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
[2021-11-07 06:00] VITALS: BP 157/71; PULSE 84; TEMP 36.6; O2SAT 98
[2021-11-07] MEDS: Levothyroxine Sodium 50 MCG TABLET PO (06:25)
[2021-11-07] MEDS: risperiDONE 1 MG TABLET PO (08:28)
[2021-11-07] MEDS: Tacrolimus 1 MG CAPSULE 5 MG PO (08:28)
[2021-11-07] MEDS: amLODIPine Besylate 5 MG TABLET PO (08:29)
[2021-11-07] MEDS: predniSONE 5 MG TABLET PO (08:29)
[2021-11-07] MEDS: Tacrolimus 1 MG CAPSULE 4 MG PO (17:53)
[2021-11-07] MEDS: risperiDONE 3 MG TABLET PO (19:53)
[2021-11-07 19:55] VITALS: BP 155/70; PULSE 93; RESP 16; TEMP 36.6; O2SAT 98
[2021-11-08] MEDS: Levothyroxine Sodium 50 MCG TABLET PO (04:47)
--- NOTE | 2021-11-08 05:45 | PC.NURSE ---
Teetee has been up most of the night asking for snacks and pacing the halls angry swearing at staff Go fuck yourself , Fuck you , get the fuck out of my room . Patient currently watching birds on TV but often gets up to pace hallway.
[2021-11-08 07:34] LABS: Anion Gap 12 (12-20); Blood Urea Nitrogen 38 mg/dL (9-16); Calcium 7.9 mg/dL (8.4-10.2); Carbon Dioxide 19 mmol/L (22-29); Chloride 113 mmol/L (96-108); Creatinine Clr Calc Pharmacy 28.1; Estimated Glomerular Filt Rate 32; Glucose Random 108 mg/dL (60-115); Iron 51 mcg/dL (30-160); Percent Iron Saturation 21 % (15-50); Potassium 4.4 mmol/L (3.3-5.1); Sodium 140 mmol/L (135-145); Total Iron Binding Capacity 245 mcg/dL (228-428); Unsaturated Iron Binding 194 ug/dL
[2021-11-08 07:50] VITALS: BP 134/63; PULSE 87; RESP 17; TEMP 36.8; O2SAT 97
[2021-11-08 07:54] LABS: Vitamin D 25-OH Total 22.4 ng/mL (>30)
[2021-11-08] MEDS: Tacrolimus 1 MG CAPSULE 5 MG PO (08:11)
[2021-11-08] MEDS: predniSONE 5 MG TABLET PO (08:12)
[2021-11-08] MEDS: amLODIPine Besylate 5 MG TABLET PO (08:12)
[2021-11-08] MEDS: risperiDONE 1 MG TABLET PO (08:12)
[2021-11-08 18:00] VITALS: BP 144/65; PULSE 87; RESP 18; TEMP 36.7; O2SAT 97
[2021-11-08] MEDS: Tacrolimus 1 MG CAPSULE 4 MG PO (18:06)
[2021-11-08] MEDS: risperiDONE 3 MG TABLET PO (20:39)
--- NOTE | 2021-11-08 21:17 | P.PNPSI_ITS ---
Subjective Subjective Date of Service: 11/08/21 Reason For Visit: Psychosis, suicidal ideation Subjective Notes: [place] Warning and Conditional Voluntary Healthcare Proxy: No Guardianship: No Medical Problems Affecting Mental Status: Yes Interim History: Patient intermittently showing insight with less grandiosity understand that she has had a renal transplant understanding she has been dealing with bipolar disorder for many years at other times remains in some degree of denial mostly accepting medication she did except 1 dose of Procrit Medication Compliance: Intermittent Side effects from medications: No Attending Groups: Intermittent Review of Systems Acute medical concerns: Yes kidney disease anemia Medical Review of Systems: unchanged Mental Status Exam Mental Status Exam Patient Appearance: Appropriate Patient Orientation: Person and Place Level of Consciousness: Awake Patient Behavior: Passive and Isolative Mood Description: Constricted and Apprehensive Affect Description: Flat and Apprehensive Patient Cognition Impaired: No Ability to Follow Directions: Fair Speech Pattern: Clear and Impoverished Memory Description: Episodic Impaired Delusions: Grandiose Thought Process: Distracted Thought Content: positive for Evasive, negative for Suicidal Ideation or negative for Homicidal Ideation Depressive Symptoms: Difficulty Concentrating Judgement: Fair Diagnostics Vital Signs (24Hr): Vital Signs - 24 hr 11/08/21 07:50 11/08/21 18:00 Temperature 98.3 F 98.1 F Pulse Rate 87 87 Respiratory Rate 17 18 Blood Pressure 134/63 144/65 H Pulse Oximetry 97 97 BMI result Body Mass Index 20.1 Labs Results: 11/02/21 07:00 11/08/21 06:37 Labs: Laboratory Results - last 48 hr 11/08/21 06:37 Sodium 140 Potassium 4.4 Chloride 113 H Carbon Dioxide 19 L Anion Gap 12 BUN 38 H Creatinine 1.57 H Estim Creat Clear Calc 28.1 Estimated GFR 32 Random Glucose 108 Calcium 7.9 L Iron 51 TIBC 245 % Saturation 21 Unsat Iron Binding 194 25-OH Vitamin D Total 22.4 Imaging Radiology Impressions: ITS Impressions Chest X-Ray 10/20/21 15:57 IMPRESSION: Unremarkable examination. Head CT 10/20/21 18:33 IMPRESSION: No acute intracranial process seen. A change from 09/29/[address] 10/26/21 21:21 IMPRESSION: No evidence of acute intracranial hemorrhage or edematous territorial infarction. Renal Ultrasound 10/27/21 15:51 IMPRESSION: Stable appearance of renal transplant kidney with 3.3 cm midpole simple appearing cyst. Medications Medications Current Medications Acetaminophen (Acetaminophen 325 Mg Tablet) 650 mg PO Q6H PRN PRN Reason: Headache/Pain Mild Scale (1-3) Acetaminophen (Acetaminophen Supp 325 Mg Supp.Rect) 325 mg [place] Q6H PRN PRN Reason: Fever Al Hydroxide/Mg Hydroxide (Magnesium Hydrox/Alum Hydrox 30 Ml Oral.Susp) 30 ml PO Q6H PRN PRN Reason: Heartburn/Nausea Amlodipine Besylate (Amlodipine Besylate 5 Mg Tablet) 5 mg PO DAILY [facility]; Protocol Last Admin: 11/08/21 08:12 Dose: 5 mg Documented by: Hydroxyzine HCl (Hydroxyzine Hcl 25 Mg Tablet) 25 mg PO BEDTIME PRN PRN Reason: Anxiety Last Admin: 11/06/21 22:45 Dose: 25 mg Documented by: Levothyroxine Sodium (Levothyroxine Sodium 50 Mcg Tablet) 50 mcg PO DAILY@0600 [facility] Last Admin: 11/08/21 04:47 Dose: 50 mcg Documented by: Magnesium Hydroxide (Milk Of Magnesia 30 Ml Oral.Susp) 30 ml PO DAILY PRN PRN Reason: Constipation Prednisone (Prednisone 5 Mg Tablet) 5 mg PO DAILY [facility] Last Admin: 11/08/21 08:12 Dose: 5 mg Documented by: Risperidone (Risperidone 1 Mg Tablet) 1 mg PO DAILY [facility] Last Admin: 11/08/21 08:12 Dose: 1 mg Documented by: Risperidone (Risperidone 3 Mg Tablet) 3 mg PO BEDTIME [facility] Last Admin: 11/08/21 20:39 Dose: 3 mg Documented by: Tacrolimus (Tacrolimus 1 Mg Capsule) 5 mg PO DAILY@0800 [facility] Last Admin: 11/08/21 08:11 Dose: 5 mg Documented by: Tacrolimus (Tacrolimus 1 Mg Capsule) 4 mg PO DAILY@1800 [facility] Last Admin: 11/08/21 18:06 Dose: 4 mg Documented by: Trazodone HCl (Trazodone Hcl 50 Mg Tablet) 50 mg PO BEDTIME PRN PRN Reason: Insomnia Last Admin: 11/06/21 22:44 Dose: 50 mg Documented by: Allergies Allergies Allergy/AdvReac Type Severity Reaction Status Date / Time gabapentin [From Neurontin] Allergy Unknown UNKNOWN Verified 10/22/21 22:57 Sulfa (Sulfonamide Allergy Unknown UNKNOWN Verified 10/22/21 22:57 Antibiotics) [SULFA (SULFONAMIDE ANTIBIOTICS)] trimethoprim [TRIMETHOPRIM] Allergy Unknown UNKNOWN Verified 10/22/21 22:57 lithium [LITHIUM] AdvReac Severe KIDNEY Verified 10/22/21 22:57 TRANSPLANT DUE TO LITHIUM TOXICITY Assessment & Plan Assessment & Plan (1) Schizoaffective disorder, bipolar type: Status: Acute Code(s): F25.0 - Schizoaffective disorder, bipolar type (2) Chronic kidney disease (CKD): Status: Acute Code(s): N18.9 - Chronic kidney disease, unspecified Assessment and Plan: Continue anti-rejection medication creatinine has lowered toward prior normal continue Nephrology periotic follow-up See response to Procrit (3) LAURO (acute kidney injury): Status: Acute Code(s): N17.9 - Acute kidney failure, unspecified Plan Or psychosis prior bipolar disorder continue Risperdal 4 mg daily monitor for movement disorder patient had been worried about tardive dyskinesia Consider ECT have tried to review with patient I spent minutes with the patient and/or on the patient floor today, greater than?50% of which was spent counseling/coordinating care. Reason for contiued inpatient stay Substantial Risk for: inability to function, rapid decompensation and med/psych decompensation
[2021-11-08] MEDS: hydrOXYzine HCL 25 MG TABLET PO (23:08)
[2021-11-08] MEDS: traZODone HCL 50 MG TABLET PO (23:08)
[2021-11-09] MEDS: traZODone HCL 50 MG TABLET PO (00:12)
[2021-11-09] MEDS: Levothyroxine Sodium 50 MCG TABLET PO (06:27)
[2021-11-09 06:32] LABS: Tacrolimus Prograf 3.9 mcg/L
[2021-11-09 07:30] VITALS: BP 143/66; PULSE 90; RESP 16; TEMP 36.7; O2SAT 99
[2021-11-09] MEDS: amLODIPine Besylate 5 MG TABLET PO (08:04)
[2021-11-09] MEDS: Tacrolimus 1 MG CAPSULE 5 MG PO (08:04)
[2021-11-09] MEDS: risperiDONE 1 MG TABLET PO (08:04)
[2021-11-09] MEDS: predniSONE 5 MG TABLET PO (08:04)
--- NOTE | 2021-11-09 16:46 | HO.PSYCHPN ---
Subjective Subjective Date of Service: 11/09/21 Reason For Visit: Psychosis, suicidal ideation Subjective Notes: Conditional Voluntary Interim History: The nursing staff reported the patient slept 7 hours. She was seen watching TV and pacing in the hallway. On interview, the patient asked to go with the staff out of the unit and pace because she feels bored here. She stated that her body is undestructable and nothing will happen to her. Apparently, a few days ago she had a negative interaction and she was very agitated. Still psychotic, with no safety awareness Mental Status Exam Mental Status Exam Patient Appearance: Well Grooomed Patient Orientation: Person Level of Consciousness: Awake Patient Behavior: Guarded, Passive and Suspicious Mood Description: Withdrawn Affect Description: Flat Patient Cognition Impaired: Yes Ability to Follow Directions: Fair Speech Pattern: Clear Delusions: Paranoid Ideation and Grandiose Thought Process: Illogical Thought Content: positive for Circumstantial, positive for Poverty of Content and positive for Preoccupation Judgement: Poor Diagnostics Vital Signs (24Hr): Vital Signs - 24 hr 11/08/21 18:00 11/09/21 07:30 Temperature 98.1 F 98.0 F Pulse Rate 87 90 Respiratory Rate 18 16 Blood Pressure 144/65 H 143/66 H Pulse Oximetry 97 99 BMI result Body Mass Index 20.1 Labs Results: 11/02/21 07:00 11/08/21 06:37 Labs: Laboratory Results - last 48 hr 11/08/21 11/08/21 06:37 06:37 Sodium 140 Potassium 4.4 Chloride 113 H Carbon Dioxide 19 L Anion Gap 12 BUN 38 H Creatinine 1.57 H Estim Creat Clear Calc 28.1 Estimated GFR 32 Random Glucose 108 Calcium 7.9 L Iron 51 TIBC 245 % Saturation 21 Unsat Iron Binding 194 25-OH Vitamin D Total 22.4 Tacrolimus 3.9 L Imaging Radiology Impressions: ITS Impressions Chest X-Ray 10/20/21 15:57 IMPRESSION: Unremarkable examination. Head CT 10/20/21 18:33 IMPRESSION: No acute intracranial process seen. A change from 09/29/[address] 10/26/21 21:21 IMPRESSION: No evidence of acute intracranial hemorrhage or edematous territorial infarction. Renal Ultrasound 10/27/21 15:51 IMPRESSION: Stable appearance of renal transplant kidney with 3.3 cm midpole simple appearing cyst. Medications Medications Current Medications Acetaminophen (Acetaminophen 325 Mg Tablet) 650 mg PO Q6H PRN PRN Reason: Headache/Pain Mild Scale (1-3) Acetaminophen (Acetaminophen Supp 325 Mg Supp.Rect) 325 mg [place] Q6H PRN PRN Reason: Fever Al Hydroxide/Mg Hydroxide (Magnesium Hydrox/Alum Hydrox 30 Ml Oral.Susp) 30 ml PO Q6H PRN PRN Reason: Heartburn/Nausea Amlodipine Besylate (Amlodipine Besylate 5 Mg Tablet) 5 mg PO DAILY [facility]; Protocol Last Admin: 11/09/21 08:04 Dose: 5 mg Documented by: Hydroxyzine HCl (Hydroxyzine Hcl 25 Mg Tablet) 25 mg PO BEDTIME PRN PRN Reason: Anxiety Last Admin: 11/08/21 23:08 Dose: 25 mg Documented by: Levothyroxine Sodium (Levothyroxine Sodium 50 Mcg Tablet) 50 mcg PO DAILY@0600 [facility] Last Admin: 11/09/21 06:27 Dose: 50 mcg Documented by: Magnesium Hydroxide (Milk Of Magnesia 30 Ml Oral.Susp) 30 ml PO DAILY PRN PRN Reason: Constipation Prednisone (Prednisone 5 Mg Tablet) 5 mg PO DAILY [facility] Last Admin: 11/09/21 08:04 Dose: 5 mg Documented by: Risperidone (Risperidone 1 Mg Tablet) 1 mg PO DAILY [facility] Last Admin: 11/09/21 08:04 Dose: 1 mg Documented by: Risperidone (Risperidone 3 Mg Tablet) 3 mg PO BEDTIME [facility] Last Admin: 11/08/21 20:39 Dose: 3 mg Documented by: Tacrolimus (Tacrolimus 1 Mg Capsule) 5 mg PO DAILY@0800 [facility] Last Admin: 11/09/21 08:04 Dose: 5 mg Documented by: Tacrolimus (Tacrolimus 1 Mg Capsule) 4 mg PO DAILY@1800 [facility] Last Admin: 11/08/21 18:06 Dose: 4 mg Documented by: Trazodone HCl (Trazodone Hcl 50 Mg Tablet) 50 mg PO BEDTIME PRN PRN Reason: Insomnia Last Admin: 11/09/21 00:12 Dose: 50 mg Documented by: Allergies Allergies Allergy/AdvReac Type Severity Reaction Status Date / Time gabapentin [From Neurontin] Allergy Unknown UNKNOWN Verified 10/22/21 22:57 Sulfa (Sulfonamide Allergy Unknown UNKNOWN Verified 10/22/21 22:57 Antibiotics) [SULFA (SULFONAMIDE ANTIBIOTICS)] trimethoprim [TRIMETHOPRIM] Allergy Unknown UNKNOWN Verified 10/22/21 22:57 lithium [LITHIUM] AdvReac Severe KIDNEY Verified 10/22/21 22:57 TRANSPLANT DUE TO LITHIUM TOXICITY Assessment & Plan Assessment & Plan (1) Schizoaffective disorder, bipolar type: Status: Acute Code(s): F25.0 - Schizoaffective disorder, bipolar type (2) Chronic kidney disease (CKD): Status: Acute Code(s): N18.9 - Chronic kidney disease, unspecified Assessment and Plan: Continue anti-rejection medication creatinine has lowered toward prior normal continue Nephrology periotic follow-up See response to [facility] (3) LAURO (acute kidney injury): Status: Acute Code(s): N17.9 - Acute kidney failure, unspecified Plan Or psychosis prior bipolar disorder continue Risperdal 4 mg daily monitor for movement disorder patient had been worried about tardive dyskinesia Plan 1. Increase Risperdal up to 5 mg a day, 1 mg at 9 a.m. and 4 mg at HS I spent minutes with the patient and/or on the patient floor today, greater than?50% of which was spent counseling/coordinating care. Reason for contiued inpatient stay Substantial Risk for: inability to function, rapid decompensation and med/psych decompensation
[2021-11-09] MEDS: Tacrolimus 1 MG CAPSULE 4 MG PO (17:07)
[2021-11-09 20:00] VITALS: BP 144/70; PULSE 101; RESP 19; TEMP 36.3; O2SAT 97
[2021-11-09] MEDS: risperiDONE 2 MG TABLET 4 MG PO (20:02)
[2021-11-10] MEDS: Levothyroxine Sodium 50 MCG TABLET PO (06:55)
[2021-11-10 07:50] VITALS: BP 149/70; PULSE 92; RESP 20; TEMP 36.6; O2SAT 99
[2021-11-10] MEDS: amLODIPine Besylate 5 MG TABLET PO (08:53)
[2021-11-10] MEDS: risperiDONE 1 MG TABLET PO (08:53)
[2021-11-10] MEDS: predniSONE 5 MG TABLET PO (08:53)
[2021-11-10] MEDS: Tacrolimus 1 MG CAPSULE 5 MG PO (08:53)
--- NOTE | 2021-11-10 13:11 | P.PNPSI_ITS ---
Subjective Subjective Date of Service: 11/10/21 Reason For Visit: Psychosis, suicidal ideation Subjective Notes: Conditional Voluntary Interim History: The nursing staff reported that the patient has being seen talking with Shar again. She is pacing the hallways and she stated that she needed to go out and take a airplane to [facility] a wart and enjoying life. She is still very disorganized and psychotic. On interview, the patient denies new symptoms she is pleasant and cooperative but grossly psychotic Mental Status Exam Mental Status Exam Patient Appearance: Inappropriate Patient Orientation: Person Level of Consciousness: Awake Patient Behavior: Guarded and Suspicious Mood Description: Elated Affect Description: Labile Ability to Follow Directions: Fair Speech Pattern: Appropriate Hallucinations: Auditory and Visual Delusions: Paranoid Ideation and Grandiose Thought Process: Illogical and Distracted Thought Content: positive for Loose Associations Judgement: Poor Diagnostics Vital Signs (24Hr): Vital Signs - 24 hr 11/09/21 20:00 11/10/21 07:50 Temperature 97.4 F 97.8 F Pulse Rate 101 H 92 Respiratory Rate 19 20 Blood Pressure 144/70 H 149/70 H Pulse Oximetry 97 99 BMI result Body Mass Index 20.1 Labs Results: 11/02/21 07:00 11/08/21 06:37 Labs: Laboratory Results - last 48 hr 11/08/21 06:37 Tacrolimus 3.9 L Imaging Radiology Impressions: ITS Impressions Chest X-Ray 10/20/21 15:57 IMPRESSION: Unremarkable examination. Head CT 10/20/21 18:33 IMPRESSION: No acute intracranial process seen. A change from 09/29/[address] 10/26/21 21:21 IMPRESSION: No evidence of acute intracranial hemorrhage or edematous territorial infarction. Renal Ultrasound 10/27/21 15:51 IMPRESSION: Stable appearance of renal transplant kidney with 3.3 cm midpole simple appearing cyst. Medications Medications Current Medications Acetaminophen (Acetaminophen 325 Mg Tablet) 650 mg PO Q6H PRN PRN Reason: Headache/Pain Mild Scale (1-3) Acetaminophen (Acetaminophen Supp 325 Mg Supp.Rect) 325 mg [place] Q6H PRN PRN Reason: Fever Al Hydroxide/Mg Hydroxide (Magnesium Hydrox/Alum Hydrox 30 Ml Oral.Susp) 30 ml PO Q6H PRN PRN Reason: Heartburn/Nausea Amlodipine Besylate (Amlodipine Besylate 5 Mg Tablet) 5 mg PO DAILY [facility]; Protocol Last Admin: 11/10/21 08:53 Dose: 5 mg Documented by: Hydroxyzine HCl (Hydroxyzine Hcl 25 Mg Tablet) 25 mg PO BEDTIME PRN PRN Reason: Anxiety Last Admin: 11/08/21 23:08 Dose: 25 mg Documented by: Levothyroxine Sodium (Levothyroxine Sodium 50 Mcg Tablet) 50 mcg PO DAILY@0600 [facility] Last Admin: 11/10/21 06:55 Dose: 50 mcg Documented by: Magnesium Hydroxide (Milk Of Magnesia 30 Ml Oral.Susp) 30 ml PO DAILY PRN PRN Reason: Constipation Prednisone (Prednisone 5 Mg Tablet) 5 mg PO DAILY [facility] Last Admin: 11/10/21 08:53 Dose: 5 mg Documented by: Risperidone (Risperidone 2 Mg Tablet) 4 mg PO BEDTIME [facility] Last Admin: 11/09/21 20:02 Dose: 4 mg Documented by: Risperidone (Risperidone 2 Mg Tablet) 2 mg PO DAILY [facility] Tacrolimus (Tacrolimus 1 Mg Capsule) 5 mg PO DAILY@0800 [facility] Last Admin: 11/10/21 08:53 Dose: 5 mg Documented by: Tacrolimus (Tacrolimus 1 Mg Capsule) 4 mg PO DAILY@1800 [facility] Last Admin: 11/09/21 17:07 Dose: 4 mg Documented by: Trazodone HCl (Trazodone Hcl 50 Mg Tablet) 50 mg PO BEDTIME PRN PRN Reason: Insomnia Last Admin: 11/09/21 00:12 Dose: 50 mg Documented by: Allergies Allergies Allergy/AdvReac Type Severity Reaction Status Date / Time gabapentin [From Neurontin] Allergy Unknown UNKNOWN Verified 10/22/21 22:57 Sulfa (Sulfonamide Allergy Unknown UNKNOWN Verified 10/22/21 22:57 Antibiotics) [SULFA (SULFONAMIDE ANTIBIOTICS)] trimethoprim [TRIMETHOPRIM] Allergy Unknown UNKNOWN Verified 10/22/21 22:57 lithium [LITHIUM] AdvReac Severe KIDNEY Verified 10/22/21 22:57 TRANSPLANT DUE TO LITHIUM TOXICITY Assessment & Plan Assessment & Plan (1) Schizoaffective disorder, bipolar type: Status: Acute Code(s): F25.0 - Schizoaffective disorder, bipolar type (2) Chronic kidney disease (CKD): Status: Acute Code(s): N18.9 - Chronic kidney disease, unspecified Assessment and Plan: Continue anti-rejection medication creatinine has lowered toward prior normal continue Nephrology periotic follow-up See response to [place] (3) LAURO (acute kidney injury): Status: Acute Code(s): N17.9 - Acute kidney failure, unspecified Plan Or psychosis prior bipolar disorder continue Risperdal 4 mg daily monitor for movement disorder patient had been worried about tardive dyskinesia Plan 1. Increase Risperdal up to 6 mg a day, 2 mg at 9 a.m. and 4 mg at HS. 2. Basic metabolic panel for tomorrow I spent minutes with the patient and/or on the patient floor today, greater than?50% of which was spent counseling/coordinating care. Reason for contiued inpatient stay Substantial Risk for: inability to function, rapid decompensation and med/psych decompensation
[2021-11-10 14:51] LABS: PTHI 1870 pg/mL (14-64)
[2021-11-10] MEDS: Tacrolimus 1 MG CAPSULE 4 MG PO (16:59)
[2021-11-10 20:08] VITALS: BP 150/66; PULSE 96; RESP 16; TEMP 36.6; O2SAT 97
[2021-11-10] MEDS: risperiDONE 2 MG TABLET 4 MG PO (20:10)
[2021-11-11] MEDS: Levothyroxine Sodium 50 MCG TABLET PO (04:45)
[2021-11-11 05:47] VITALS: BMI 20.7
[2021-11-11 06:00] VITALS: BP 170/79; PULSE 86; RESP 16; TEMP 37.1; O2SAT 98
[2021-11-11] MEDS: amLODIPine Besylate 5 MG TABLET PO (08:32)
[2021-11-11] MEDS: predniSONE 5 MG TABLET PO (08:32)
[2021-11-11] MEDS: Tacrolimus 1 MG CAPSULE 5 MG PO (08:32)
[2021-11-11] MEDS: risperiDONE 2 MG TABLET PO (08:32)
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
[2021-11-11] MEDS: Tacrolimus 1 MG CAPSULE 4 MG PO (18:02)
[2021-11-11 20:23] VITALS: BP 147/66; PULSE 93; RESP 16; TEMP 36.6; O2SAT 98
[2021-11-11] MEDS: risperiDONE 2 MG TABLET 4 MG PO (20:26)
[2021-11-11] MEDS: traZODone HCL 50 MG TABLET PO (20:27)
[2021-11-12] MEDS: hydrOXYzine HCL 25 MG TABLET PO ×2 (00:59→20:27)
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
[2021-11-12 06:00] VITALS: BP 141/75; PULSE 85; TEMP 37.3; O2SAT 99
[2021-11-12] MEDS: Levothyroxine Sodium 50 MCG TABLET PO (06:15)
[2021-11-12 09:17] LABS: Basophils Percent Auto 0.4 % (0-2); Eosinophils Absolute Auto 1.1 X10*3/uL (0.0-0.4); Hemoglobin 9.1 g/dl (12.0-16.0); Imm Gran Abs Auto 0.03 X10*3/uL (0.00-0.03); Imm Gran Pct Auto 0.4 % (0.0-0.4); Lymphocytes Absolute Auto 0.8 X10*3/uL (1.2-4.9); Lymphocytes Percent Auto 11.5 % (20-40); MANUAL DIFF FLAG NO; Mean Corpuscular HGB Conc 31.4 g/dl (31.0-35.0); Mean Corpuscular Hemoglobin 30.3 pg (27.0-33.0); Mean Corpuscular Volume 96.7 fL (80.0-98.0); Mean Platelet Volume 9.1 fL (9.4-12.3); Monocytes Percent Auto 14.3 % (2-11); Neutrophils Absolute Auto 4.2 x10*3/uL (2.0-8.3); Neutrophils Percent Auto 58.4 % (45-73); Platelet Count 208 X10*3/uL (160-400); Red Cell Distribution Width 16.6 % (11.0-16.0); White Blood Count 7.1 X10*3/uL (4.8-10.8)
--- NOTE | 2021-11-12 09:33 | PM.PNNEP ---
Subjective Subjective Date of Service: 11/11/21 Principal diagnosis: LAURO, CKD, Kidney Xplant patient Interval history: Chart reviewed TRUgraf tresult raises question of acute rejection and Iwill try to schedule [place] by [place] [facility] [place] Vital Signs: Vital Signs: Last Vital Signs Temp 97.9 F 11/11/21 20:23 Pulse 93 11/11/21 20:23 Resp 16 11/11/21 20:23 BP 147/66 H 11/11/21 20:23 Pulse Ox 98 11/11/21 20:23 BMI result Body Mass Index 20.7 Const: Other: General - no acute distress, appears comfortable Cardiovascular - regular rate and rhythm, S1-S2 Lungs - normal respiratory effort, clear to auscultation bilaterally, no wheezing Abdomen - soft, nontender, no rebound or guarding Extremities - no edema bilaterally Neuro - awake and alert, no focal deficits psych - poor insight Objective Data Labs CBC & Chem 7: 11/12/21 08:49 11/08/21 06:37 Labs: Laboratory Results - last 24 hr 11/12/21 08:49 WBC 7.1 RBC 3.00 L Hgb 9.1 L Hct 29.0 L MCV 96.7 MCH 30.3 MCHC 31.4 RDW 16.6 H Plt Count 208 MPV 9.1 L Immature Gran % (Auto) 0.4 Neut % (Auto) 58.4 Lymph % (Auto) 11.5 L [place] % (Auto) 14.3 H Eos % (Auto) 15.0 H Baso % (Auto) 0.4 Lymph # (Auto) 0.8 L [place] # (Auto) 1.0 Eos # (Auto) 1.1 H Baso # (Auto) 0.0 Abs Immat Gran (auto) 0.03 Absolute Neuts (auto) 4.2 Absolute Nucleated RBC 0.000 Nucleated RBC % (auto) 0.0 Procedures Date of Service Date of Service: 11/11/21 Assessment & Plan Assessment and plan (1) LAURO (acute kidney injury): Status: Acute Plan 1. LAURO: peak Scr 2.3 is up from her BSL1.5-1.8; s/pmini steroid pulse 125 x 3 days and IVF and SCr decr to BSL TRUGRAFT rsult cameback raising question of rejection and ideally needs kidney Bx 2. 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 ESRD s/p LRT 2008 4. IS: was on prograft 5/4 and pred 5mg; and target prograft levels 4-6; apparently stopped taking both but unclear fo how long last xplant visit 08/2021 Scr 1.7 last tacro level was 3.9 so incr dose 5/5 5. Anemia: need to r/o Fe def; may be candidate for epo 6. HTN: agree with cont holding cozaar and start norvasc 5--incr to 10 if needed REC: repeat renal labs and tacrolevel; schedule Bx of xplant kidney with IR ( I LM with IR and they are goingto try and do it 11/12 or 11/15 Dr Salvador my partners is on thru Monday will jerry cheng with team Time Spent With Patient Time: Total time spent is greater than 50% in coordination of care (as documented) at patient's floor/unit and/or counseling patient: Progress Note: Quality Stroke Does the patient have a stroke diagnosis?: No
[2021-11-12 09:42] LABS: Anion Gap 12 (12-20); Blood Urea Nitrogen 49 mg/dL (9-16); Calcium 8.9 mg/dL (8.4-10.2); Carbon Dioxide 20 mmol/L (22-29); Chloride 110 mmol/L (96-108); Cholesterol 172 mg/dL; Creatinine Clr Calc Pharmacy 26.3; Estimated Glomerular Filt Rate 29; Glucose Random 73 mg/dL (60-115); HDL Cholesterol 95 mg/dL; LDL Cholesterol Calculated 61 mg/dl; Potassium 5.1 mmol/L (3.3-5.1); Sodium 137 mmol/L (135-145); Triglycerides 84 mg/dL
[2021-11-12 11:18] LABS: Estimated Average Glucose 100 mg/dL; Hemoglobin A1c % 5.1 %
--- NOTE | 2021-11-12 14:10 | P.PNPSI_ITS ---
Subjective Subjective Date of Service: 11/12/21 Reason For Visit: S/P RENAL TRANSPLANT, RIGHT POLYCYSTIC RENAL DZ Subjective Notes: Conditional Voluntary Interim History: The nursing staff reported the patient was very distressed yesterday. Crying stating that she will never leave this place. She disclosed the elusive statements that she is not an indolent more that she has and the pride and she was baking the staff to kill her and stop her suffering. On interview today, she was on her bed resting she looked a little better less distressed but still anxious and internally preoccupied. Mental Status Exam Mental Status Exam Patient Appearance: Well Grooomed Patient Orientation: Person Level of Consciousness: Awake Patient Behavior: Cooperative Mood Description: Depressed Affect Description: Constricted Patient Cognition Impaired: Yes Ability to Follow Directions: Good Speech Pattern: Clear Delusions: Paranoid Ideation and Grandiose Perceptual Disturbances: Hallucinations Thought Process: Illogical and Distracted Thought Content: positive for Circumstantial Judgement: Poor Diagnostics Vital Signs (24Hr): Vital Signs - 24 hr 11/11/21 20:23 11/12/21 06:00 Temperature 97.9 F 99.1 F Pulse Rate 93 85 Respiratory Rate 16 Blood Pressure 147/66 H 141/75 H Pulse Oximetry 98 99 BMI result Body Mass Index 20.7 Labs Results: 11/12/21 08:49 11/12/21 08:49 Labs: Laboratory Results - last 48 hr 11/08/21 11/12/21 11/12/21 06:37 08:49 08:49 WBC 7.1 RBC 3.00 L Hgb 9.1 L Hct 29.0 L MCV 96.7 MCH 30.3 MCHC 31.4 RDW 16.6 H Plt Count 208 MPV 9.1 L Immature Gran % (Auto) 0.4 Neut % (Auto) 58.4 Lymph % (Auto) 11.5 L [place] % (Auto) 14.3 H Eos % (Auto) 15.0 H Baso % (Auto) 0.4 Lymph # (Auto) 0.8 L [place] # (Auto) 1.0 Eos # (Auto) 1.1 H Baso # (Auto) 0.0 Abs Immat Gran (auto) 0.03 Absolute Neuts (auto) 4.2 Absolute Nucleated RBC 0.000 Nucleated RBC % (auto) 0.0 Sodium 137 Potassium 5.1 Chloride 110 H Carbon Dioxide 20 L Anion Gap 12 BUN 49 H Creatinine 1.73 H Estim Creat Clear Calc 26.3 Estimated GFR 29 Random Glucose 73 Estimat Average Glucose Hemoglobin A1c % Calcium 8.9 D Triglycerides 84 Cholesterol 172 LDL Cholesterol, Calc 61 HDL Cholesterol 95 D PTH Intact 1870 H Calcium (PTH Intact) 8.0 L 11/12/21 08:49 WBC RBC Hgb Hct MCV MCH MCHC RDW Plt Count MPV Immature Gran % (Auto) Neut % (Auto) Lymph % (Auto) [place] % (Auto) Eos % (Auto) Baso % (Auto) Lymph # (Auto) [place] # (Auto) Eos # (Auto) Baso # (Auto) Abs Immat Gran (auto) Absolute Neuts (auto) Absolute Nucleated RBC Nucleated RBC % (auto) Sodium Potassium Chloride Carbon Dioxide Anion Gap BUN Creatinine Estim Creat Clear Calc Estimated GFR Random Glucose Estimat Average Glucose 100 Hemoglobin A1c % 5.1 Calcium Triglycerides Cholesterol LDL Cholesterol, Calc HDL Cholesterol PTH Intact Calcium (PTH Intact) Imaging Radiology Impressions: ITS Impressions Chest X-Ray 10/20/21 15:57 IMPRESSION: Unremarkable examination. Head CT 10/20/21 18:33 IMPRESSION: No acute intracranial process seen. A change from 09/29/[address] 10/26/21 21:21 IMPRESSION: No evidence of acute intracranial hemorrhage or edematous territorial infarction. Renal Ultrasound 10/27/21 15:51 IMPRESSION: Stable appearance of renal transplant kidney with 3.3 cm midpole simple appearing cyst. Medications Medications Current Medications Acetaminophen (Acetaminophen 325 Mg Tablet) 650 mg PO Q6H PRN PRN Reason: Headache/Pain Mild Scale (1-3) Acetaminophen (Acetaminophen Supp 325 Mg Supp.Rect) 325 mg [place] Q6H PRN PRN Reason: Fever Al Hydroxide/Mg Hydroxide (Magnesium Hydrox/Alum Hydrox 30 Ml Oral.Susp) 30 ml PO Q6H PRN PRN Reason: Heartburn/Nausea Amlodipine Besylate (Amlodipine Besylate 5 Mg Tablet) 5 mg PO DAILY [facility]; Protocol Last Admin: 11/12/21 11:13 Dose: Not Given Documented by: Hydroxyzine HCl (Hydroxyzine Hcl 25 Mg Tablet) 25 mg PO BEDTIME PRN PRN Reason: Anxiety Last Admin: 11/12/21 00:59 Dose: 25 mg Documented by: Levothyroxine Sodium (Levothyroxine Sodium 50 Mcg Tablet) 50 mcg PO DAILY@0600 [facility] Last Admin: 11/12/21 06:15 Dose: 50 mcg Documented by: Magnesium Hydroxide (Milk Of Magnesia 30 Ml Oral.Susp) 30 ml PO DAILY PRN PRN Reason: Constipation Prednisone (Prednisone 5 Mg Tablet) 5 mg PO DAILY [facility] Last Admin: 11/12/21 11:13 Dose: Not Given Documented by: Risperidone (Risperidone 2 Mg Tablet) 4 mg PO BEDTIME [facility] Last Admin: 11/11/21 20:26 Dose: 4 mg Documented by: Risperidone (Risperidone 2 Mg Tablet) 2 mg PO DAILY [facility] Last Admin: 11/12/21 11:13 Dose: Not Given Documented by: Tacrolimus (Tacrolimus 1 Mg Capsule) 5 mg PO DAILY@0800 [facility] Last Admin: 11/12/21 11:13 Dose: Not Given Documented by: Tacrolimus (Tacrolimus 1 Mg Capsule) 5 mg PO DAILY@1800 [facility] Trazodone HCl (Trazodone Hcl 50 Mg Tablet) 50 mg PO BEDTIME PRN PRN Reason: Insomnia Last Admin: 11/11/21 20:27 Dose: 50 mg Documented by: Allergies Allergies Allergy/AdvReac Type Severity Reaction Status Date / Time gabapentin [From Neurontin] Allergy Unknown UNKNOWN Verified 10/22/21 22:57 Sulfa (Sulfonamide Allergy Unknown UNKNOWN Verified 10/22/21 22:57 Antibiotics) [SULFA (SULFONAMIDE ANTIBIOTICS)] trimethoprim [TRIMETHOPRIM] Allergy Unknown UNKNOWN Verified 10/22/21 22:57 lithium [LITHIUM] AdvReac Severe KIDNEY Verified 10/22/21 22:57 TRANSPLANT DUE TO LITHIUM TOXICITY Assessment & Plan Assessment & Plan (1) LAURO (acute kidney injury): Status: Acute Code(s): N17.9 - Acute kidney failure, unspecified Plan Elderly female with a long history of bipolar disorder admitted for exacerbation of psychosis, exacerbation of her kidney function due to noncompliance with medical and psychiatric medications. On admission she was grossly psychotic but she was restarted on Risperdal titrated slowly up to 6 mg since yesterday. Plan 1. Continue Risperdal at 6 mg a day. The patient still elusive and psychotic but less distress than yesterday. 2. Follow with Nephrology. Basic metabolic panel showed the trending of l owering his urea and creatinine but still slightly higher. I spent minutes with the patient and/or on the patient floor today, greater than?50% of which was spent counseling/coordinating care. Reason for contiued inpatient stay Substantial Risk for: inability to function, rapid decompensation and med/psych decompensation
[2021-11-12] MEDS: Tacrolimus 1 MG CAPSULE 5 MG PO (17:29)
[2021-11-12 19:18] LABS: Creatinine Clr Calc Pharmacy 25.4; Estimated Glomerular Filt Rate 28
[2021-11-12 20:16] VITALS: BP 147/66; PULSE 96; RESP 17; TEMP 37.4; O2SAT 99
[2021-11-12] MEDS: risperiDONE 2 MG TABLET 4 MG PO (20:26)
[2021-11-13 05:02] LABS: Tacrolimus Prograf 4.9 mcg/L
[2021-11-13] MEDS: Levothyroxine Sodium 50 MCG TABLET PO (05:36)
[2021-11-13 08:00] VITALS: BP 186/79; PULSE 76; RESP 14; TEMP 36.4; O2SAT 98
[2021-11-13] MEDS: risperiDONE 2 MG TABLET PO (08:35)
[2021-11-13] MEDS: amLODIPine Besylate 5 MG TABLET PO (08:35)
[2021-11-13] MEDS: predniSONE 5 MG TABLET PO (08:35)
[2021-11-13] MEDS: Tacrolimus 1 MG CAPSULE 5 MG PO ×2 (08:35→17:30)
[2021-11-13 09:08] VITALS: BP 186/79; PULSE 76; RESP 14; TEMP 36.4; O2SAT 98
[2021-11-13 10:30] VITALS: BP 134/59; PULSE 91; RESP 16
[2021-11-13 11:58] LABS: Calcium 8.2 mg/dL (8.4-10.2)
[2021-11-13 12:01] LABS: Anion Gap 12 (12-20); Blood Urea Nitrogen 40 mg/dL (9-16); Carbon Dioxide 20 mmol/L (22-29); Chloride 110 mmol/L (96-108); Creatinine Clr Calc Pharmacy 29.3; Estimated Glomerular Filt Rate 33; Glucose Random 111 mg/dL (60-115); Magnesium 1.7 mg/dL (1.6-2.6); Phosphorus 4.2 mg/dL (2.7-4.5); Potassium 4.9 mmol/L (3.3-5.1); Sodium 137 mmol/L (135-145)
[2021-11-13] MEDS: Ergocalciferol (Vitamin D2) 1,250 MCG CAPSULE 1250 MCG PO (13:08)
--- NOTE | 2021-11-13 15:11 | HO.PSYCHPN ---
Subjective Subjective Date of Service: 11/13/21 Reason For Visit: S/P RENAL TRANSPLANT, RIGHT POLYCYSTIC RENAL DZ Interim History: Patient seen. Discussed with staff. She had some abnortmalities in her labs. Her PTH was elevated. She reports she feels better. She denies feeling depressed. She has no SI. She has not mentioned suicidal statements to the staff. She doesn't appear like she is hallucinating. DW nephrology Medication Compliance: Yes Review of Systems Review of Systems Yes Unobtainable due to mental status Mental Status Exam Mental Status Exam Patient Appearance: Well Grooomed Patient Orientation: Person Level of Consciousness: Awake Patient Behavior: Cooperative Mood Description: Depressed Affect Description: Constricted Patient Cognition Impaired: Yes Ability to Follow Directions: Good Speech Pattern: Clear Memory Description: Episodic Impaired Hallucinations: None Judgement: Fair Diagnostics Vital Signs (24Hr): Vital Signs - 24 hr 11/12/21 20:16 11/13/21 08:00 11/13/21 09:08 Temperature 99.4 F 97.6 F 97.6 F Pulse Rate 96 76 76 Respiratory Rate 17 14 14 Blood Pressure 147/66 H 186/79 H 186/79 H Pulse Oximetry 99 98 98 11/13/21 10:30 Temperature Pulse Rate 91 Respiratory Rate 16 Blood Pressure 134/59 L Pulse Oximetry BMI result Body Mass Index 20.7 Labs Results: 11/12/21 08:49 11/13/21 11:22 Labs: Laboratory Results - last 48 hr 11/12/21 11/12/21 11/12/21 08:49 08:49 08:49 WBC 7.1 RBC 3.00 L Hgb 9.1 L Hct 29.0 L MCV 96.7 MCH 30.3 MCHC 31.4 RDW 16.6 H Plt Count 208 MPV 9.1 L Immature Gran % (Auto) 0.4 Neut % (Auto) 58.4 Lymph % (Auto) 11.5 L [place] % (Auto) 14.3 H Eos % (Auto) 15.0 H Baso % (Auto) 0.4 Lymph # (Auto) 0.8 L [place] # (Auto) 1.0 Eos # (Auto) 1.1 H Baso # (Auto) 0.0 Abs Immat Gran (auto) 0.03 Absolute Neuts (auto) 4.2 Absolute Nucleated RBC 0.000 Nucleated RBC % (auto) 0.0 Sodium 137 Potassium 5.1 Chloride 110 H Carbon Dioxide 20 L Anion Gap 12 BUN 49 H Creatinine 1.73 H Estim Creat Clear Calc 26.3 Estimated GFR 29 Random Glucose 73 Estimat Average Glucose Hemoglobin A1c % Calcium 8.9 D Phosphorus Magnesium Triglycerides 84 Cholesterol 172 LDL Cholesterol, Calc 61 HDL Cholesterol 95 D Tacrolimus 4.9 L 11/12/21 11/12/21 11/13/21 08:49 18:56 11:22 WBC RBC Hgb Hct MCV MCH MCHC RDW Plt Count MPV Immature Gran % (Auto) Neut % (Auto) Lymph % (Auto) [place] % (Auto) Eos % (Auto) Baso % (Auto) Lymph # (Auto) [place] # (Auto) Eos # (Auto) Baso # (Auto) Abs Immat Gran (auto) Absolute Neuts (auto) Absolute Nucleated RBC Nucleated RBC % (auto) Sodium 137 Potassium 4.9 Chloride 110 H Carbon Dioxide 20 L Anion Gap 12 BUN 40 H Creatinine 1.79 H 1.55 H Estim Creat Clear Calc 25.4 29.3 Estimated GFR 28 33 Random Glucose 111 Estimat Average Glucose 100 Hemoglobin A1c % 5.1 Calcium 8.0 L D Phosphorus 4.2 Magnesium 1.7 Triglycerides Cholesterol LDL Cholesterol, Calc HDL Cholesterol Tacrolimus 11/13/21 11:22 WBC RBC Hgb Hct MCV MCH MCHC RDW Plt Count MPV Immature Gran % (Auto) Neut % (Auto) Lymph % (Auto) [place] % (Auto) Eos % (Auto) Baso % (Auto) Lymph # (Auto) [place] # (Auto) Eos # (Auto) Baso # (Auto) Abs Immat Gran (auto) Absolute Neuts (auto) Absolute Nucleated RBC Nucleated RBC % (auto) Sodium Potassium Chloride Carbon Dioxide Anion Gap BUN Creatinine Estim Creat Clear Calc Estimated GFR Random Glucose Estimat Average Glucose Hemoglobin A1c % Calcium 8.2 L Phosphorus Magnesium Triglycerides Cholesterol LDL Cholesterol, Calc HDL Cholesterol Tacrolimus Imaging Radiology Impressions: ITS Impressions Chest X-Ray 10/20/21 15:57 IMPRESSION: Unremarkable examination. Head CT 10/20/21 18:33 IMPRESSION: No acute intracranial process seen. A change from 09/29/[address] 10/26/21 21:21 IMPRESSION: No evidence of acute intracranial hemorrhage or edematous territorial infarction. Renal Ultrasound 10/27/21 15:51 IMPRESSION: Stable appearance of renal transplant kidney with 3.3 cm midpole simple appearing cyst. Medications Medications Current Medications Acetaminophen (Acetaminophen 325 Mg Tablet) 650 mg PO Q6H PRN PRN Reason: Headache/Pain Mild Scale (1-3) Acetaminophen (Acetaminophen Supp 325 Mg Supp.Rect) 325 mg [place] Q6H PRN PRN Reason: Fever Al Hydroxide/Mg Hydroxide (Magnesium Hydrox/Alum Hydrox 30 Ml Oral.Susp) 30 ml PO Q6H PRN PRN Reason: Heartburn/Nausea Amlodipine Besylate (Amlodipine Besylate 5 Mg Tablet) 5 mg PO DAILY [facility]; Protocol Last Admin: 11/13/21 08:35 Dose: 5 mg Documented by: Calcitriol (Calcitriol 0.25 Mcg Capsule) 0.25 mcg PO DAILY [facility] Cinacalcet (Cinacalcet Hcl 30 Mg Tablet) 30 mg PO DAILY [facility] Hydroxyzine HCl (Hydroxyzine Hcl 25 Mg Tablet) 25 mg PO BEDTIME PRN PRN Reason: Anxiety Last Admin: 11/12/21 20:27 Dose: 25 mg Documented by: Levothyroxine Sodium (Levothyroxine Sodium 50 Mcg Tablet) 50 mcg PO DAILY@0600 [facility] Last Admin: 11/13/21 05:36 Dose: 50 mcg Documented by: Magnesium Hydroxide (Milk Of Magnesia 30 Ml Oral.Susp) 30 ml PO DAILY PRN PRN Reason: Constipation Prednisone (Prednisone 5 Mg Tablet) 5 mg PO DAILY [facility] Last Admin: 11/13/21 08:35 Dose: 5 mg Documented by: Risperidone (Risperidone 2 Mg Tablet) 4 mg PO BEDTIME [facility] Last Admin: 11/12/21 20:26 Dose: 4 mg Documented by: Risperidone (Risperidone 2 Mg Tablet) 2 mg PO DAILY [facility] Last Admin: 11/13/21 08:35 Dose: 2 mg Documented by: Tacrolimus (Tacrolimus 1 Mg Capsule) 5 mg PO DAILY@0800 [facility] Last Admin: 11/13/21 08:35 Dose: 5 mg Documented by: Tacrolimus (Tacrolimus 1 Mg Capsule) 5 mg PO DAILY@1800 [facility] Last Admin: 11/13/21 17:30 Dose: 5 mg Documented by: Trazodone HCl (Trazodone Hcl 50 Mg Tablet) 50 mg PO BEDTIME PRN PRN Reason: Insomnia Last Admin: 11/11/21 20:27 Dose: 50 mg Documented by: Allergies Allergies Allergy/AdvReac Type Severity Reaction Status Date / Time gabapentin [From Neurontin] Allergy Unknown UNKNOWN Verified 10/22/21 22:57 Sulfa (Sulfonamide Allergy Unknown UNKNOWN Verified 10/22/21 22:57 Antibiotics) [SULFA (SULFONAMIDE ANTIBIOTICS)] trimethoprim [TRIMETHOPRIM] Allergy Unknown UNKNOWN Verified 10/22/21 22:57 lithium [LITHIUM] AdvReac Severe KIDNEY Verified 10/22/21 22:57 TRANSPLANT DUE TO LITHIUM TOXICITY Assessment & Plan Assessment & Plan (1) LAURO (acute kidney injury): Status: Acute Code(s): N17.9 - Acute kidney failure, unspecified Plan Elderly female with a long history of bipolar disorder admitted for exacerbation of psychosis, exacerbation of her kidney function due to noncompliance with medical and psychiatric medications. On admission she was grossly psychotic but she was restarted on Risperdal titrated slowly up to 6 mg. Plan 1. Continue Risperdal at 6 mg a day. The patient still elusive and psychotic but less distress than yesterday. 2. Follow with Nephrology. Asked for advice re high PTH. I spent minutes with the patient and/or on the patient floor today, greater than?50% of which was spent counseling/coordinating care. Patient educated on: diagnosis and medical condition Reason for contiued inpatient stay Substantial Risk for: harm to self, inability to function, rapid decompensation and med/psych decompensation
[2021-11-13 18:00] VITALS: BP 159/69; PULSE 78; RESP 18; TEMP 35.8; O2SAT 98
[2021-11-13] MEDS: risperiDONE 2 MG TABLET 4 MG PO (20:14)
[2021-11-14] MEDS: Levothyroxine Sodium 50 MCG TABLET PO (05:10)
[2021-11-14 06:00] VITALS: BP 139/63; PULSE 86; RESP 16; TEMP 37.2; O2SAT 97
[2021-11-14] MEDS: predniSONE 5 MG TABLET PO (08:46)
[2021-11-14] MEDS: risperiDONE 2 MG TABLET PO (08:46)
[2021-11-14] MEDS: calcitrioL 0.25 MCG CAPSULE PO (08:46)
[2021-11-14] MEDS: Tacrolimus 1 MG CAPSULE 5 MG PO ×2 (08:46→17:50)
[2021-11-14] MEDS: Cinacalcet HCl 30 MG TABLET PO (08:46)
[2021-11-14] MEDS: amLODIPine Besylate 5 MG TABLET PO (10:16)
--- NOTE | 2021-11-14 17:39 | HO.PSYCHPN ---
Subjective Subjective Date of Service: 11/14/21 Reason For Visit: S/P RENAL TRANSPLANT, RIGHT POLYCYSTIC RENAL DZ Interim History: Patient seen. Discussed with staff. patient's mood and irritability and paranoia vary. She can have pleasant times and later become irritable. She resists medications and needs coaxing to take them. Says the risperidone is giving her tardive dyskinesia. No objective signs of orofacial movements or tongue movements on exam. She denies feeling depressed. She has no SI. She has not mentioned suicidal statements to the staff. She doesn't appear like she is hallucinating. Review of Systems Review of Systems Yes Unobtainable due to mental status Mental Status Exam Mental Status Exam Patient Appearance: Well Grooomed Patient Orientation: Person Level of Consciousness: Awake Patient Behavior: Cooperative Mood Description: Depressed Affect Description: Constricted Patient Cognition Impaired: Yes Ability to Follow Directions: Good Speech Pattern: Clear Memory Description: Episodic Impaired Diagnostics Vital Signs (24Hr): Vital Signs - 24 hr 11/13/21 18:00 11/14/21 06:00 Temperature 96.5 F L 98.9 F Pulse Rate 78 86 Respiratory Rate 18 16 Blood Pressure 159/69 H 139/63 Pulse Oximetry 98 97 BMI result Body Mass Index 20.7 Labs Results: 11/12/21 08:49 11/13/21 11:22 Labs: Laboratory Results - last 48 hr 11/12/21 11/12/21 11/13/21 08:49 18:56 11:22 Sodium 137 Potassium 4.9 Chloride 110 H Carbon Dioxide 20 L Anion Gap 12 BUN 40 H Creatinine 1.79 H 1.55 H Estim Creat Clear Calc 25.4 29.3 Estimated GFR 28 33 Random Glucose 111 Calcium 8.0 L D Phosphorus 4.2 Magnesium 1.7 Tacrolimus 4.9 L 11/13/21 11:22 Sodium Potassium Chloride Carbon Dioxide Anion Gap BUN Creatinine Estim Creat Clear Calc Estimated GFR Random Glucose Calcium 8.2 L Phosphorus Magnesium Tacrolimus Imaging Radiology Impressions: ITS Impressions Chest X-Ray 10/20/21 15:57 IMPRESSION: Unremarkable examination. Head CT 10/20/21 18:33 IMPRESSION: No acute intracranial process seen. A change from 09/29/[address] 10/26/21 21:21 IMPRESSION: No evidence of acute intracranial hemorrhage or edematous territorial infarction. Renal Ultrasound 10/27/21 15:51 IMPRESSION: Stable appearance of renal transplant kidney with 3.3 cm midpole simple appearing cyst. Medications Medications Current Medications Acetaminophen (Acetaminophen 325 Mg Tablet) 650 mg PO Q6H PRN PRN Reason: Headache/Pain Mild Scale (1-3) Acetaminophen (Acetaminophen Supp 325 Mg Supp.Rect) 325 mg [place] Q6H PRN PRN Reason: Fever Al Hydroxide/Mg Hydroxide (Magnesium Hydrox/Alum Hydrox 30 Ml Oral.Susp) 30 ml PO Q6H PRN PRN Reason: Heartburn/Nausea Amlodipine Besylate (Amlodipine Besylate 5 Mg Tablet) 5 mg PO DAILY [facility]; Protocol Last Admin: 11/14/21 10:16 Dose: 5 mg Documented by: Calcitriol (Calcitriol 0.25 Mcg Capsule) 0.25 mcg PO DAILY [facility] Last Admin: 11/14/21 08:46 Dose: 0.25 mcg Documented by: Cinacalcet (Cinacalcet Hcl 30 Mg Tablet) 30 mg PO DAILY [facility] Last Admin: 11/14/21 08:46 Dose: 30 mg Documented by: Hydroxyzine HCl (Hydroxyzine Hcl 25 Mg Tablet) 25 mg PO BEDTIME PRN PRN Reason: Anxiety Last Admin: 11/12/21 20:27 Dose: 25 mg Documented by: Levothyroxine Sodium (Levothyroxine Sodium 50 Mcg Tablet) 50 mcg PO DAILY@0600 [facility] Last Admin: 11/14/21 05:10 Dose: 50 mcg Documented by: Magnesium Hydroxide (Milk Of Magnesia 30 Ml Oral.Susp) 30 ml PO DAILY PRN PRN Reason: Constipation Prednisone (Prednisone 5 Mg Tablet) 5 mg PO DAILY [facility] Last Admin: 11/14/21 08:46 Dose: 5 mg Documented by: Risperidone (Risperidone 2 Mg Tablet) 4 mg PO BEDTIME [facility] Last Admin: 11/13/21 20:14 Dose: 4 mg Documented by: Risperidone (Risperidone 2 Mg Tablet) 2 mg PO DAILY [facility] Last Admin: 11/14/21 08:46 Dose: 2 mg Documented by: Tacrolimus (Tacrolimus 1 Mg Capsule) 5 mg PO DAILY@0800 [facility] Last Admin: 11/14/21 08:46 Dose: 5 mg Documented by: Tacrolimus (Tacrolimus 1 Mg Capsule) 5 mg PO DAILY@1800 [facility] Last Admin: 11/13/21 17:30 Dose: 5 mg Documented by: Trazodone HCl (Trazodone Hcl 50 Mg Tablet) 50 mg PO BEDTIME PRN PRN Reason: Insomnia Last Admin: 11/11/21 20:27 Dose: 50 mg Documented by: Allergies Allergies Allergy/AdvReac Type Severity Reaction Status Date / Time gabapentin [From Neurontin] Allergy Unknown UNKNOWN Verified 10/22/21 22:57 Sulfa (Sulfonamide Allergy Unknown UNKNOWN Verified 10/22/21 22:57 Antibiotics) [SULFA (SULFONAMIDE ANTIBIOTICS)] trimethoprim [TRIMETHOPRIM] Allergy Unknown UNKNOWN Verified 10/22/21 22:57 lithium [LITHIUM] AdvReac Severe KIDNEY Verified 10/22/21 22:57 TRANSPLANT DUE TO LITHIUM TOXICITY Assessment & Plan Assessment & Plan (1) LAURO (acute kidney injury): Status: Acute Code(s): N17.9 - Acute kidney failure, unspecified Plan Elderly female with a long history of bipolar disorder admitted for exacerbation of psychosis, exacerbation of her kidney function due to noncompliance with medical and psychiatric medications. On admission she was grossly psychotic but she was restarted on Risperdal titrated slowly up to 6 mg. Plan 1. Continue Risperdal at 6 mg a day. The patient still elusive and psychotic but less distress than yesterday. 2. Follow with Nephrology. Asked for advice re high PTH. I spent minutes with the patient and/or on the patient floor today, greater than?50% of which was spent counseling/coordinating care. Reason for contiued inpatient stay Substantial Risk for: inability to function and rapid decompensation
[2021-11-14] MEDS: risperiDONE 2 MG TABLET 4 MG PO (20:06)
[2021-11-14 20:09] VITALS: BP 165/72; PULSE 90; RESP 18; TEMP 37; O2SAT 97
[2021-11-15 06:00] VITALS: BP 147/67; PULSE 80; RESP 15; TEMP 36.4; O2SAT 97
[2021-11-15] MEDS: Levothyroxine Sodium 50 MCG TABLET PO (06:21)
[2021-11-15 08:02] LABS: INTERNATIONAL NORM RATIO 0.9 (0.9-1.1); Prothrombin Time 10.6 SEC (9.9-13.0)
[2021-11-15] MEDS: Cinacalcet HCl 30 MG TABLET PO (08:51)
[2021-11-15] MEDS: calcitrioL 0.25 MCG CAPSULE PO (08:51)
[2021-11-15] MEDS: Tacrolimus 1 MG CAPSULE 5 MG PO ×2 (08:51→17:20)
[2021-11-15] MEDS: predniSONE 5 MG TABLET PO (08:51)
[2021-11-15] MEDS: amLODIPine Besylate 5 MG TABLET PO (08:52)
[2021-11-15] MEDS: risperiDONE 2 MG TABLET PO (08:52)
--- NOTE | 2021-11-15 13:29 | P.PNPSI_ITS ---
Subjective Subjective Date of Service: 11/15/21 Reason For Visit: S/P RENAL TRANSPLANT, RIGHT POLYCYSTIC RENAL DZ Subjective Notes: Conditional Voluntary Healthcare Proxy: No Guardianship: No Interim History: PT passive withdrawn smiling varies between reality based interaction vs feeling she is becoming a demon or god like Pt did know she had transplanted kidney that there had raymundo a change in her kudney fx pt was able to take in info for why renal bipsy was suggested because of potential rejection and need to adjust rejection medication and she was hoping to xtend the life of the kidney transplant has been calm not agitted Medication Compliance: Intermittent Side effects from medications: Yes Attending Groups: Intermittent Review of Systems Acute medical concerns: Yes potential kidney rejection case reviewed dr peter Medical Review of Systems: unchanged Mental Status Exam Mental Status Exam Patient Appearance: Well Grooomed Patient Orientation: Person Level of Consciousness: Awake Patient Behavior: Cooperative Mood Description: Depressed and Flat Affect Description: Constricted Patient Cognition Impaired: Yes Ability to Follow Directions: Good Speech Pattern: Clear Memory Description: Episodic Impaired Delusions: Grandiose and Bizarre (becoming a demon) Thought Process: Rumination Thought Content: positive for Circumstantial, positive for Poverty of Content, negative for Suicidal Ideation or negative for Homicidal Ideation Depressive Symptoms: Increased Anxiety Judgement and Insight: improving Diagnostics Vital Signs (24Hr): Vital Signs - 24 hr 11/14/21 20:09 11/15/21 06:00 Temperature 98.6 F 97.6 F Pulse Rate 90 80 Respiratory Rate 18 15 Blood Pressure 165/72 H 147/67 H Pulse Oximetry 97 97 BMI result Body Mass Index 20.7 Labs Results: 11/12/21 08:49 11/13/21 11:22 Labs: Laboratory Results - last 48 hr 11/15/21 07:31 PT 10.6 INR 0.9 Imaging Radiology Impressions: ITS Impressions Chest X-Ray 10/20/21 15:57 IMPRESSION: Unremarkable examination. Head CT 10/20/21 18:33 IMPRESSION: No acute intracranial process seen. A change from 09/29/[address] 10/26/21 21:21 IMPRESSION: No evidence of acute intracranial hemorrhage or edematous territorial infarction. Renal Ultrasound 10/27/21 15:51 IMPRESSION: Stable appearance of renal transplant kidney with 3.3 cm midpole simple appearing cyst. Medications Medications Current Medications Acetaminophen (Acetaminophen 325 Mg Tablet) 650 mg PO Q6H PRN PRN Reason: Headache/Pain Mild Scale (1-3) Acetaminophen (Acetaminophen Supp 325 Mg Supp.Rect) 325 mg [place] Q6H PRN PRN Reason: Fever Al Hydroxide/Mg Hydroxide (Magnesium Hydrox/Alum Hydrox 30 Ml Oral.Susp) 30 ml PO Q6H PRN PRN Reason: Heartburn/Nausea Amlodipine Besylate (Amlodipine Besylate 5 Mg Tablet) 5 mg PO DAILY [facility]; Protocol Last Admin: 11/15/21 08:52 Dose: 5 mg Documented by: Calcitriol (Calcitriol 0.25 Mcg Capsule) 0.25 mcg PO DAILY [facility] Last Admin: 11/15/21 08:51 Dose: 0.25 mcg Documented by: Cinacalcet (Cinacalcet Hcl 30 Mg Tablet) 30 mg PO DAILY [facility] Last Admin: 11/15/21 08:51 Dose: 30 mg Documented by: Hydroxyzine HCl (Hydroxyzine Hcl 25 Mg Tablet) 25 mg PO BEDTIME PRN PRN Reason: Anxiety Last Admin: 11/12/21 20:27 Dose: 25 mg Documented by: Levothyroxine Sodium (Levothyroxine Sodium 50 Mcg Tablet) 50 mcg PO DAILY@0600 [facility] Last Admin: 11/15/21 06:21 Dose: 50 mcg Documented by: Magnesium Hydroxide (Milk Of Magnesia 30 Ml Oral.Susp) 30 ml PO DAILY PRN PRN Reason: Constipation Prednisone (Prednisone 5 Mg Tablet) 5 mg PO DAILY [facility] Last Admin: 11/15/21 08:51 Dose: 5 mg Documented by: Risperidone (Risperidone 2 Mg Tablet) 4 mg PO BEDTIME [facility] Last Admin: 11/14/21 20:06 Dose: 4 mg Documented by: Risperidone (Risperidone 2 Mg Tablet) 2 mg PO DAILY [facility] Last Admin: 11/15/21 08:52 Dose: 2 mg Documented by: Tacrolimus (Tacrolimus 1 Mg Capsule) 5 mg PO DAILY@0800 [facility] Last Admin: 11/15/21 08:51 Dose: 5 mg Documented by: Tacrolimus (Tacrolimus 1 Mg Capsule) 5 mg PO DAILY@1800 [facility] Last Admin: 11/14/21 17:50 Dose: 5 mg Documented by: Trazodone HCl (Trazodone Hcl 50 Mg Tablet) 50 mg PO BEDTIME PRN PRN Reason: Insomnia Last Admin: 11/11/21 20:27 Dose: 50 mg Documented by: Allergies Allergies Allergy/AdvReac Type Severity Reaction Status Date / Time gabapentin [From Neurontin] Allergy Unknown UNKNOWN Verified 10/22/21 22:57 Sulfa (Sulfonamide Allergy Unknown UNKNOWN Verified 10/22/21 22:57 Antibiotics) [SULFA (SULFONAMIDE ANTIBIOTICS)] trimethoprim [TRIMETHOPRIM] Allergy Unknown UNKNOWN Verified 10/22/21 22:57 lithium [LITHIUM] AdvReac Severe KIDNEY Verified 10/22/21 22:57 TRANSPLANT DUE TO LITHIUM TOXICITY Assessment & Plan Assessment & Plan (1) LAURO (acute kidney injury): Status: Acute Code(s): N17.9 - Acute kidney failure, unspecified Assessment and Plan: see interval hx pt scheduled for kidney biopsy npo after midnite reviewed dr tylor peter previously Plan Elderly female with a long history of bipolar disorder admitted for exacerbation of psychosis, exacerbation of her kidney function due to noncompliance with medical and psychiatric medications. On admission she was grossly psychotic but she was restarted on Risperdal titrated slowly up to 6 mg. Plan 11/15/21 . Continue Risperdal at 6 mg a day. some ability to separate delusional material eating some inc socialization mostly isolated I spent ___35___ minutes with the patient and/or on the patient floor today, greater than?50% of which was spent counseling/coordinating care. Reason for contiued inpatient stay Substantial Risk for: med/psych decompensation
[2021-11-15 18:00] VITALS: BP 159/72; PULSE 87; TEMP 36.8; O2SAT 97
[2021-11-15] MEDS: risperiDONE 2 MG TABLET 4 MG PO (20:25)
[2021-11-16] MEDS: Levothyroxine Sodium 50 MCG TABLET PO (06:45)
[2021-11-16 07:35] VITALS: BP 149/65; PULSE 77; RESP 18; TEMP 36.8; O2SAT 97
[2021-11-16] MEDS: calcitrioL 0.25 MCG CAPSULE PO (07:57)
[2021-11-16] MEDS: Cinacalcet HCl 30 MG TABLET PO (07:57)
[2021-11-16] MEDS: risperiDONE 2 MG TABLET PO (07:57)
[2021-11-16] MEDS: predniSONE 5 MG TABLET PO (07:58)
[2021-11-16] MEDS: Tacrolimus 1 MG CAPSULE 5 MG PO ×2 (07:58→17:01)
[2021-11-16] MEDS: amLODIPine Besylate 5 MG TABLET PO (07:58)
[2021-11-16 12:07] LABS: Calcium (PTHI) 7.9 mg/dL (8.6-10.4); PTHI 486 pg/mL (14-64)
[2021-11-16] MEDS: hydrOXYzine HCL 25 MG TABLET PO (19:52)
[2021-11-16] MEDS: risperiDONE 2 MG TABLET 4 MG PO (19:52)
--- NOTE | 2021-11-16 20:09 | P.PNPSI_ITS ---
Subjective Subjective Date of Service: 11/16/21 Reason For Visit: S/P RENAL TRANSPLANT, RIGHT POLYCYSTIC RENAL DZ Subjective Notes: Conditional Voluntary Healthcare Proxy: No Guardianship: No Interim History: The patient was able to participate in kidney biopsy today no complaints of pain or excessive bleeding mood somewhat flat dysphoric was able to reality focused on the need for the biopsy patient otherwise preoccupied with delusional material related to being mortal or some kind of restorationism being Medication Compliance: Yes Side effects from medications: No Review of Systems Acute medical concerns: Yes Renal biopsy Mental Status Exam Mental Status Exam Patient Appearance: Well Grooomed Patient Orientation: Person Level of Consciousness: Awake Patient Behavior: Cooperative Mood Description: Depressed and Flat Affect Description: Constricted Patient Cognition Impaired: Yes Ability to Follow Directions: Good Speech Pattern: Clear Memory Description: Episodic Impaired Delusions: Grandiose and Bizarre (becoming a demon being immortal) Thought Process: Rumination Thought Content: positive for Circumstantial, positive for Poverty of Content, negative for Suicidal Ideation or negative for Homicidal Ideation Depressive Symptoms: Increased Anxiety Judgement: Fair Judgement and Insight: improving Diagnostics Vital Signs (24Hr): Vital Signs - 24 hr 11/16/21 07:35 Temperature 98.3 F Pulse Rate 77 Respiratory Rate 18 Blood Pressure 149/65 H Pulse Oximetry 97 BMI result Body Mass Index 20.7 Labs Results: 11/12/21 08:49 11/13/21 11:22 Labs: Laboratory Results - last 48 hr 11/15/21 11/15/21 07:31 07:31 PT 10.6 INR 0.9 PTH Intact 486 H Calcium (PTH Intact) 7.9 L Imaging Radiology Impressions: ITS Impressions Chest X-Ray 10/20/21 15:57 IMPRESSION: Unremarkable examination. Head CT 10/20/21 18:33 IMPRESSION: No acute intracranial process seen. A change from 09/29/[address] 10/26/21 21:21 IMPRESSION: No evidence of acute intracranial hemorrhage or edematous territorial infarction. Renal Ultrasound 10/27/21 15:51 IMPRESSION: Stable appearance of renal transplant kidney with 3.3 cm midpole simple appearing cyst. Renal Biopsy Ultrasound 11/16/21 11:17 IMPRESSION: Successful ultrasound-guided 18-gauge core biopsy performed from the right transplant kidney in right lower pelvis. Medications Medications Current Medications Acetaminophen (Acetaminophen 325 Mg Tablet) 650 mg PO Q6H PRN PRN Reason: Headache/Pain Mild Scale (1-3) Acetaminophen (Acetaminophen Supp 325 Mg Supp.Rect) 325 mg [place] Q6H PRN PRN Reason: Fever Al Hydroxide/Mg Hydroxide (Magnesium Hydrox/Alum Hydrox 30 Ml Oral.Susp) 30 ml PO Q6H PRN PRN Reason: Heartburn/Nausea Amlodipine Besylate (Amlodipine Besylate 5 Mg Tablet) 5 mg PO DAILY [facility]; Protocol Last Admin: 11/16/21 07:58 Dose: 5 mg Documented by: Calcitriol (Calcitriol 0.25 Mcg Capsule) 0.25 mcg PO DAILY [facility] Last Admin: 11/16/21 07:57 Dose: 0.25 mcg Documented by: Cinacalcet (Cinacalcet Hcl 30 Mg Tablet) 30 mg PO DAILY [facility] Last Admin: 11/16/21 07:57 Dose: 30 mg Documented by: Hydroxyzine HCl (Hydroxyzine Hcl 25 Mg Tablet) 25 mg PO BEDTIME PRN PRN Reason: Anxiety Last Admin: 11/16/21 19:52 Dose: 25 mg Documented by: Levothyroxine Sodium (Levothyroxine Sodium 50 Mcg Tablet) 50 mcg PO DAILY@0600 [facility] Last Admin: 11/16/21 06:45 Dose: 50 mcg Documented by: Magnesium Hydroxide (Milk Of Magnesia 30 Ml Oral.Susp) 30 ml PO DAILY PRN PRN Reason: Constipation Prednisone (Prednisone 5 Mg Tablet) 5 mg PO DAILY [facility] Last Admin: 11/16/21 07:58 Dose: 5 mg Documented by: Risperidone (Risperidone 2 Mg Tablet) 4 mg PO BEDTIME [facility] Last Admin: 11/16/21 19:52 Dose: 4 mg Documented by: Risperidone (Risperidone 2 Mg Tablet) 2 mg PO DAILY [facility] Last Admin: 11/16/21 07:57 Dose: 2 mg Documented by: Tacrolimus (Tacrolimus 1 Mg Capsule) 5 mg PO DAILY@0800 [facility] Last Admin: 11/16/21 07:58 Dose: 5 mg Documented by: Tacrolimus (Tacrolimus 1 Mg Capsule) 5 mg PO DAILY@1800 [facility] Last Admin: 11/16/21 17:01 Dose: 5 mg Documented by: Trazodone HCl (Trazodone Hcl 50 Mg Tablet) 50 mg PO BEDTIME PRN PRN Reason: Insomnia Last Admin: 11/11/21 20:27 Dose: 50 mg Documented by: Allergies Allergies Allergy/AdvReac Type Severity Reaction Status Date / Time gabapentin [From Neurontin] Allergy Unknown UNKNOWN Verified 11/16/21 08:58 Sulfa (Sulfonamide Allergy Unknown UNKNOWN Verified 11/16/21 08:58 Antibiotics) [SULFA (SULFONAMIDE ANTIBIOTICS)] trimethoprim [TRIMETHOPRIM] Allergy Unknown UNKNOWN Verified 11/16/21 08:58 lithium [LITHIUM] AdvReac Severe KIDNEY Verified 11/16/21 08:58 TRANSPLANT DUE TO LITHIUM TOXICITY Assessment & Plan Assessment & Plan (1) LAURO (acute kidney injury): Status: Acute Code(s): N17.9 - Acute kidney failure, unspecified Assessment and Plan: see interval hx pt scheduled for kidney biopsy npo after midnite reviewed dr tylor peter previously Plan Elderly female with a long history of bipolar disorder admitted for exacerbation of psychosis, exacerbation of her kidney function due to noncompliance with medical and psychiatric medications. On admission she was grossly psychotic but she was restarted on Risperdal titrated slowly up to 6 mg. Plan 11/15/21 . Continue Risperdal at 6 mg a day. some ability to separate delusional material eating some inc socialization mostly isolated 11/16/21 Renal biopsy done cont risperadol but remains delusional being immortal but depressed I spent ___30__ minutes with the patient and/or on the patient floor today, greater than?50% of which was spent counseling/coordinating care. Reason for contiued inpatient stay Substantial Risk for: inability to function, rapid decompensation and med/psych decompensation
[2021-11-16 20:15] VITALS: BP 136/63; PULSE 85; RESP 17; TEMP 36.8; O2SAT 97
[2021-11-17] MEDS: Levothyroxine Sodium 50 MCG TABLET PO (06:51)
[2021-11-17 07:26] LABS: Calcium, Ionized 4.5 mg/dL (4.8-5.6)
[2021-11-17 07:35] VITALS: BP 161/74; PULSE 84; RESP 18; TEMP 36.4; O2SAT 96
[2021-11-17] MEDS: Cinacalcet HCl 30 MG TABLET PO (08:10)
[2021-11-17] MEDS: amLODIPine Besylate 5 MG TABLET PO (08:11)
[2021-11-17] MEDS: risperiDONE 2 MG TABLET PO (08:11)
[2021-11-17] MEDS: Tacrolimus 1 MG CAPSULE 5 MG PO ×2 (08:11→17:58)
[2021-11-17] MEDS: predniSONE 5 MG TABLET PO (08:11)
[2021-11-17] MEDS: calcitrioL 0.25 MCG CAPSULE PO (08:11)
[2021-11-17 11:30] VITALS: BP 154/67; PULSE 82; RESP 18; O2SAT 98
[2021-11-17 12:42] LABS: OBS Int Ctl Valid YES; OBS1 NEGATIVE (NEGATIVE)
[2021-11-17 18:00] VITALS: BP 161/70; PULSE 85; RESP 20; TEMP 36.7; O2SAT 97
[2021-11-17] MEDS: risperiDONE 2 MG TABLET 4 MG PO (20:51)
--- NOTE | 2021-11-17 21:27 | P.PNPSI_ITS ---
Subjective Subjective Date of Service: 11/17/21 Reason For Visit: S/P RENAL TRANSPLANT, RIGHT POLYCYSTIC RENAL DZ Subjective Notes: Conditional Voluntary Healthcare Proxy: No Guardianship: No Interim History: Patient seen in psychiatric follow-up. Patient is withdrawn and depressed she is preoccupied that she has been damned and somehow her sister's part of it. Her body is been taken she has a new 1. There is some retention of some reality orientation regarding her transplant kidney and fear of ultimately having to go back on dialysis. Mental Status Exam Mental Status Exam Patient Appearance: Fatigued Patient Orientation: Person Level of Consciousness: Awake Patient Behavior: Cooperative Mood Description: Depressed and Flat Affect Description: Constricted Patient Cognition Impaired: Yes Ability to Follow Directions: Good Speech Pattern: Clear Memory Description: Episodic Impaired Delusions: Grandiose and Bizarre (becoming a demon being immortal) Thought Process: Rumination Thought Content: positive for Circumstantial, positive for Poverty of Content, positive for Preoccupation, negative for Suicidal Ideation or negative for Homicidal Ideation Depressive Symptoms: Increased Anxiety, Sleeping More Than Usual and Hopelessness Judgement: Fair Judgement and Insight: improving Diagnostics Vital Signs (24Hr): Vital Signs - 24 hr 11/17/21 07:35 11/17/21 11:30 Temperature 97.5 F Pulse Rate 84 82 Respiratory Rate 18 18 Blood Pressure 161/74 H 154/67 H Pulse Oximetry 96 98 BMI result Body Mass Index 20.7 Labs Results: 11/12/21 08:49 11/13/21 11:22 Labs: Laboratory Results - last 48 hr 11/13/21 11/15/21 11/17/21 11:22 07:31 Unknown Ionized Calcium 4.5 L PTH Intact 486 H Calcium (PTH Intact) 7.9 L Stool Occult Blood NEGATIVE Imaging Radiology Impressions: ITS Impressions Chest X-Ray 10/20/21 15:57 IMPRESSION: Unremarkable examination. Head CT 10/20/21 18:33 IMPRESSION: No acute intracranial process seen. A change from 09/29/[address] 10/26/21 21:21 IMPRESSION: No evidence of acute intracranial hemorrhage or edematous territorial infarction. Renal Ultrasound 10/27/21 15:51 IMPRESSION: Stable appearance of renal transplant kidney with 3.3 cm midpole simple appearing cyst. Renal Biopsy Ultrasound 11/16/21 11:17 IMPRESSION: Successful ultrasound-guided 18-gauge core biopsy performed from the right transplant kidney in right lower pelvis. Medications Medications Current Medications Acetaminophen (Acetaminophen 325 Mg Tablet) 650 mg PO Q6H PRN PRN Reason: Headache/Pain Mild Scale (1-3) Acetaminophen (Acetaminophen Supp 325 Mg Supp.Rect) 325 mg [place] Q6H PRN PRN Reason: Fever Al Hydroxide/Mg Hydroxide (Magnesium Hydrox/Alum Hydrox 30 Ml Oral.Susp) 30 ml PO Q6H PRN PRN Reason: Heartburn/Nausea Amlodipine Besylate (Amlodipine Besylate 5 Mg Tablet) 5 mg PO DAILY [facility]; Protocol Last Admin: 11/17/21 08:11 Dose: 5 mg Documented by: Calcitriol (Calcitriol 0.25 Mcg Capsule) 0.25 mcg PO DAILY [facility] Last Admin: 11/17/21 08:11 Dose: 0.25 mcg Documented by: Cinacalcet (Cinacalcet Hcl 30 Mg Tablet) 30 mg PO DAILY [facility] Last Admin: 11/17/21 08:10 Dose: 30 mg Documented by: Hydroxyzine HCl (Hydroxyzine Hcl 25 Mg Tablet) 25 mg PO BEDTIME PRN PRN Reason: Anxiety Last Admin: 11/16/21 19:52 Dose: 25 mg Documented by: Levothyroxine Sodium (Levothyroxine Sodium 50 Mcg Tablet) 50 mcg PO DAILY@0600 [facility] Last Admin: 11/17/21 06:51 Dose: 50 mcg Documented by: Magnesium Hydroxide (Milk Of Magnesia 30 Ml Oral.Susp) 30 ml PO DAILY PRN PRN Reason: Constipation Prednisone (Prednisone 5 Mg Tablet) 5 mg PO DAILY [facility] Last Admin: 11/17/21 08:11 Dose: 5 mg Documented by: Risperidone (Risperidone 2 Mg Tablet) 4 mg PO BEDTIME [facility] Last Admin: 11/17/21 20:51 Dose: 4 mg Documented by: Risperidone (Risperidone 2 Mg Tablet) 2 mg PO DAILY [facility] Last Admin: 11/17/21 08:11 Dose: 2 mg Documented by: Tacrolimus (Tacrolimus 1 Mg Capsule) 5 mg PO DAILY@0800 [facility] Last Admin: 11/17/21 08:11 Dose: 5 mg Documented by: Tacrolimus (Tacrolimus 1 Mg Capsule) 5 mg PO DAILY@1800 [facility] Last Admin: 11/17/21 17:58 Dose: 5 mg Documented by: Trazodone HCl (Trazodone Hcl 50 Mg Tablet) 50 mg PO BEDTIME PRN PRN Reason: Insomnia Last Admin: 11/11/21 20:27 Dose: 50 mg Documented by: Allergies Allergies Allergy/AdvReac Type Severity Reaction Status Date / Time gabapentin [From Neurontin] Allergy Unknown UNKNOWN Verified 11/16/21 08:58 Sulfa (Sulfonamide Allergy Unknown UNKNOWN Verified 11/16/21 08:58 Antibiotics) [SULFA (SULFONAMIDE ANTIBIOTICS)] trimethoprim [TRIMETHOPRIM] Allergy Unknown UNKNOWN Verified 11/16/21 08:58 lithium [LITHIUM] AdvReac Severe KIDNEY Verified 11/16/21 08:58 TRANSPLANT DUE TO LITHIUM TOXICITY Assessment & Plan Assessment & Plan (1) LAURO (acute kidney injury): Status: Acute Code(s): N17.9 - Acute kidney failure, unspecified Assessment and Plan: see interval hx pt scheduled for kidney biopsy npo after midnite reviewed dr tylor peter previously Plan Elderly female with a long history of bipolar disorder admitted for exacerbation of psychosis, exacerbation of her kidney function due to nonco mpliance with medical and psychiatric medications. On admission she was grossly psychotic but she was restarted on Risperdal titrated slowly up to 6 mg. Plan 11/15/21 . Continue Risperdal at 6 mg a day. some ability to separate delusional material eating some inc socialization mostly isolated 11/16/21 Renal biopsy done cont risperadol but remains delusional being immortal but depressed 11/17/2021 Patient remains withdrawn depressed and floridly psychotic. I have started discussion regarding ECT which she responded well to in the past under similar circumstances. Have also discussed with her the possibility of clozapine however patient is 71 years old she has failed trials of olanzapine in the past I spent _30 minutes with the patient and/or on the patient floor today, greater than?50% of which was spent counseling/coordinating care. Reason for contiued inpatient stay Substantial Risk for: inability to function, rapid decompensation and med/psych decompensation
[2021-11-18] MEDS: Levothyroxine Sodium 50 MCG TABLET PO (06:00)
[2021-11-18 07:27] LABS: Blood Urea Nitrogen 50 mg/dL (9-16); Creatinine Clr Calc Pharmacy 23.2; Estimated Glomerular Filt Rate 25
[2021-11-18 08:00] VITALS: BP 147/71; PULSE 85; RESP 18; TEMP 36.9; O2SAT 98
[2021-11-18] MEDS: amLODIPine Besylate 5 MG TABLET PO (08:30)
[2021-11-18] MEDS: risperiDONE 2 MG TABLET PO (08:30)
[2021-11-18] MEDS: Tacrolimus 1 MG CAPSULE 5 MG PO ×2 (08:30→18:09)
[2021-11-18] MEDS: calcitrioL 0.25 MCG CAPSULE PO (08:30)
[2021-11-18] MEDS: predniSONE 5 MG TABLET PO (08:30)
[2021-11-18 09:42] VITALS: BMI 20.7
[2021-11-18] MEDS: Cinacalcet HCl 30 MG TABLET PO (10:20)
--- NOTE | 2021-11-18 11:24 | HO.PSYCHPN ---
Subjective Subjective Date of Service: 11/18/21 Reason For Visit: S/P RENAL TRANSPLANT, RIGHT POLYCYSTIC RENAL DZ Subjective Notes: Conditional Voluntary Healthcare Proxy: No Guardianship: No Interim History: This is home all while the patient is psychotically preoccupied the patient is mood is intermittently euphoric or depressed. She remains preoccupied that sisters edema in her body has been changed her home watching she has been out of her room more Medication Compliance: Yes Mental Status Exam Mental Status Exam Patient Appearance: Fatigued Patient Orientation: Person Level of Consciousness: Awake Patient Behavior: Cooperative Mood Description: Depressed and Flat Affect Description: Constricted Patient Cognition Impaired: Yes Ability to Follow Directions: Good Speech Pattern: Clear Memory Description: Episodic Impaired Delusions: Grandiose and Bizarre (becoming a demon being immortal) Thought Process: Rumination Thought Content: positive for Circumstantial, positive for Poverty of Content, positive for Preoccupation, negative for Suicidal Ideation or negative for Homicidal Ideation Depressive Symptoms: Increased Anxiety, Sleeping More Than Usual and Hopelessness Judgement: Fair Judgement and Insight: improving Diagnostics Vital Signs (24Hr): Vital Signs - 24 hr 11/17/21 11:30 11/17/21 18:00 11/18/21 08:00 Temperature 98.1 F 98.4 F Pulse Rate 82 85 85 Respiratory Rate 18 20 18 Blood Pressure 154/67 H 161/70 H 147/71 H Pulse Oximetry 98 97 98 BMI result Body Mass Index 20.7 Labs Results: 11/12/21 08:49 11/18/21 06:55 Labs: Laboratory Results - last 48 hr 11/13/21 11/15/21 11/17/21 11:22 07:31 Unknown BUN Creatinine Estim Creat Clear Calc Estimated GFR Ionized Calcium 4.5 L PTH Intact 486 H Calcium (PTH Intact) 7.9 L Stool Occult Blood NEGATIVE 11/18/21 06:55 BUN 50 H Creatinine 1.96 H Estim Creat Clear Calc 23.2 Estimated GFR 25 Ionized Calcium PTH Intact Calcium (PTH Intact) Stool Occult Blood Imaging Radiology Impressions: ITS Impressions Chest X-Ray 10/20/21 15:57 IMPRESSION: Unremarkable examination. Head CT 10/20/21 18:33 IMPRESSION: No acute intracranial process seen. A change from 09/29/[address] 10/26/21 21:21 IMPRESSION: No evidence of acute intracranial hemorrhage or edematous territorial infarction. Renal Ultrasound 10/27/21 15:51 IMPRESSION: Stable appearance of renal transplant kidney with 3.3 cm midpole simple appearing cyst. Renal Biopsy Ultrasound 11/16/21 11:17 IMPRESSION: Successful ultrasound-guided 18-gauge core biopsy performed from the right transplant kidney in right lower pelvis. Medications Medications Current Medications Acetaminophen (Acetaminophen 325 Mg Tablet) 650 mg PO Q6H PRN PRN Reason: Headache/Pain Mild Scale (1-3) Acetaminophen (Acetaminophen Supp 325 Mg Supp.Rect) 325 mg [place] Q6H PRN PRN Reason: Fever Al Hydroxide/Mg Hydroxide (Magnesium Hydrox/Alum Hydrox 30 Ml Oral.Susp) 30 ml PO Q6H PRN PRN Reason: Heartburn/Nausea Amlodipine Besylate (Amlodipine Besylate 5 Mg Tablet) 5 mg PO DAILY [facility]; Protocol Last Admin: 11/18/21 08:30 Dose: 5 mg Documented by: Calcitriol (Calcitriol 0.25 Mcg Capsule) 0.25 mcg PO DAILY [facility] Last Admin: 11/18/21 08:30 Dose: 0.25 mcg Documented by: Cinacalcet (Cinacalcet Hcl 30 Mg Tablet) 30 mg PO DAILY [facility] Last Admin: 11/17/21 08:10 Dose: 30 mg Documented by: Hydroxyzine HCl (Hydroxyzine Hcl 25 Mg Tablet) 25 mg PO BEDTIME PRN PRN Reason: Anxiety Last Admin: 11/16/21 19:52 Dose: 25 mg Documented by: Levothyroxine Sodium (Levothyroxine Sodium 50 Mcg Tablet) 50 mcg PO DAILY@0600 [facility] Last Admin: 11/18/21 06:00 Dose: 50 mcg Documented by: Magnesium Hydroxide (Milk Of Magnesia 30 Ml Oral.Susp) 30 ml PO DAILY PRN PRN Reason: Constipation Prednisone (Prednisone 5 Mg Tablet) 5 mg PO DAILY [facility] Last Admin: 11/18/21 08:30 Dose: 5 mg Documented by: Risperidone (Risperidone 2 Mg Tablet) 4 mg PO BEDTIME [facility] Last Admin: 11/17/21 20:51 Dose: 4 mg Documented by: Risperidone (Risperidone 2 Mg Tablet) 2 mg PO DAILY [facility] Last Admin: 11/18/21 08:30 Dose: 2 mg Documented by: Tacrolimus (Tacrolimus 1 Mg Capsule) 5 mg PO DAILY@0800 [facility] Last Admin: 11/18/21 08:30 Dose: 5 mg Documented by: Tacrolimus (Tacrolimus 1 Mg Capsule) 5 mg PO DAILY@1800 [facility] Last Admin: 11/17/21 17:58 Dose: 5 mg Documented by: Trazodone HCl (Trazodone Hcl 50 Mg Tablet) 50 mg PO BEDTIME PRN PRN Reason: Insomnia Last Admin: 11/11/21 20:27 Dose: 50 mg Documented by: Allergies Allergies Allergy/AdvReac Type Severity Reaction Status Date / Time gabapentin [From Neurontin] Allergy Unknown UNKNOWN Verified 11/16/21 08:58 Sulfa (Sulfonamide Allergy Unknown UNKNOWN Verified 11/16/21 08:58 Antibiotics) [SULFA (SULFONAMIDE ANTIBIOTICS)] trimethoprim [TRIMETHOPRIM] Allergy Unknown UNKNOWN Verified 11/16/21 08:58 lithium [LITHIUM] AdvReac Severe KIDNEY Verified 11/16/21 08:58 TRANSPLANT DUE TO LITHIUM TOXICITY Assessment & Plan Assessment & Plan (1) LAURO (acute kidney injury): Status: Acute Code(s): N17.9 - Acute kidney failure, unspecified Assessment and Plan: see interval hx pt scheduled for kidney biopsy npo after midnite reviewed dr tylor peter previously Plan Elderly female with a long history of bipolar disorder admitted for exacerbation of psychosis, exacerbation of her kidney function due to noncompliance with medical and psychiatric medications. On admission she was grossly psychotic but she was restarted on Risperdal titrated slowly up to 6 mg. Plan 11/15/21 . Continue Risperdal at 6 mg a day. some ability to separate delusional material eating some inc socialization mostly isolated 11/16/21 Renal biopsy done cont risperadol but remains delusional being immortal but depressed 11/17/2021 Patient remains withdrawn depressed and floridly psychotic. I have started discussion regarding ECT which she responded well to in the past under similar circumstances. Have also discussed with her the possibility of clozapine however patient is 71 years old she has failed trials of olanzapine in the past 11/18/21 cont plan of care biopsy results pending I spent minutes with the patient and/or on the patient floor today, greater than?50% of which was spent counseling/coordinating care. Reason for contiued inpatient stay Substantial Risk for: rapid decompensation and med/psych decompensation
--- NOTE | 2021-11-18 15:38 | PM.PNNEP ---
Subjective Subjective Date of Service: 01/24/22 Principal diagnosis: LAURO, CKD, Kidney Xplant patient Interval history: Events noted Physical Exam Vital Signs: Vital Signs: Last Vital Signs Temp 98.4 F 11/18/21 08:00 Pulse 85 11/18/21 08:00 Resp 18 11/18/21 08:00 BP 147/71 H 11/18/21 08:00 Pulse Ox 98 11/18/21 08:00 BMI result Body Mass Index 20.7 Objective Data Labs CBC & Chem 7: 11/24/21 06:37 12/06/21 07:23 Labs: Laboratory Results - last 24 hr 11/18/21 06:55 BUN 50 H Creatinine 1.96 H Estim Creat Clear Calc 23.2 Estimated GFR 25 Procedures Date of Service Date of Service: 11/18/21 Assessment & Plan Assessment and plan (1) LAURO (acute kidney injury): Status: Resolved Plan 1. LAURO: peak Scr 2.3 is up from her BSL1.5-1.8; s/pmini steroid pulse 125 x 3 days and IVF and SCr decr to BSL Cr bumped up to 1.9 from 1.5 2. 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 ESRD s/p LRT 2008 4. IS: was on prograft 5/4 and pred 5mg; and target prograft levels 4-6; apparently stopped taking both but unclear fo how long last xplant visit 08/2021 Scr 1.7 Repeat levels ordered and pending 5. Anemia: need to r/o Fe def; may be candidate for epo 6. HTN: agree with cont holding cozaar and start norvasc 5--incr to 10 if needed Plan Follow [place] level Await biopsy results Keep I >O Time Spent With Patient Time: Total time spent is greater than 50% in coordination of care (as documented) at patient's floor/unit and/or counseling patient: Progress Note: Quality Stroke Does the patient have a stroke diagnosis?: No
[2021-11-18 19:51] VITALS: BP 133/63; PULSE 89; RESP 16; TEMP 36.9; O2SAT 97
[2021-11-19 06:00] VITALS: BP 175/7; PULSE 88; RESP 16; TEMP 36.8
[2021-11-19] MEDS: Levothyroxine Sodium 50 MCG TABLET PO (06:22)
[2021-11-19] MEDS: Tacrolimus 1 MG CAPSULE 5 MG PO ×2 (08:30→17:12)
[2021-11-19] MEDS: predniSONE 5 MG TABLET PO (08:31)
[2021-11-19] MEDS: amLODIPine Besylate 5 MG TABLET PO (08:31)
[2021-11-19] MEDS: calcitrioL 0.25 MCG CAPSULE PO (08:31)
[2021-11-19] MEDS: Cinacalcet HCl 30 MG TABLET PO (08:31)
[2021-11-19] MEDS: risperiDONE 2 MG TABLET PO (08:31)
--- NOTE | 2021-11-19 08:33 | P.PNPSI_ITS ---
Subjective Subjective Date of Service: 11/19/21 Reason For Visit: S/P RENAL TRANSPLANT, RIGHT POLYCYSTIC RENAL DZ Subjective Notes: Conditional Voluntary Healthcare Proxy: No Guardianship: No Interim History: The patient is seen in psychiatric follow-up. When seen she was tearful sad crying about her pride home being destroyed could not really explain what she meant later asking but the results of her biopsy she had been seen by Nephrology earlier she has had intermittent refusal of medication Medication Compliance: Intermittent Mental Status Exam Mental Status Exam Patient Appearance: Fatigued Patient Orientation: Person Level of Consciousness: Awake Patient Behavior: Cooperative Mood Description: Depressed and Flat Affect Description: Constricted Patient Cognition Impaired: Yes Ability to Follow Directions: Good Speech Pattern: Clear Memory Description: Episodic Impaired Delusions: Grandiose and Bizarre (becoming a demon being immortal) Thought Process: Rumination Thought Content: positive for Circumstantial, positive for Poverty of Content, positive for Preoccupation, negative for Suicidal Ideation or negative for Homicidal Ideation Depressive Symptoms: Increased Anxiety, Sleeping More Than Usual and Hopelessness Judgement: Fair Judgement and Insight: improving Diagnostics Vital Signs (24Hr): Vital Signs - 24 hr 11/18/21 19:51 Temperature 98.5 F Pulse Rate 89 Respiratory Rate 16 Blood Pressure 133/63 Pulse Oximetry 97 BMI result Body Mass Index 20.7 Labs Results: 11/12/21 08:49 11/18/21 06:55 Labs: Laboratory Results - last 48 hr 11/17/21 11/18/21 Unknown 06:55 BUN 50 H Creatinine 1.96 H Estim Creat Clear Calc 23.2 Estimated GFR 25 Stool Occult Blood NEGATIVE Imaging Radiology Impressions: ITS Impressions Chest X-Ray 10/20/21 15:57 IMPRESSION: Unremarkable examination. Head CT 10/20/21 18:33 IMPRESSION: No acute intracranial process seen. A change from 09/29/[address] 10/26/21 21:21 IMPRESSION: No evidence of acute intracranial hemorrhage or edematous territorial infarction. Renal Ultrasound 10/27/21 15:51 IMPRESSION: Stable appearance of renal transplant kidney with 3.3 cm midpole simple appearing cyst. Renal Biopsy Ultrasound 11/16/21 11:17 IMPRESSION: Successful ultrasound-guided 18-gauge core biopsy performed from the right transplant kidney in right lower pelvis. Medications Medications Current Medications Acetaminophen (Acetaminophen 325 Mg Tablet) 650 mg PO Q6H PRN PRN Reason: Headache/Pain Mild Scale (1-3) Acetaminophen (Acetaminophen Supp 325 Mg Supp.Rect) 325 mg [place] Q6H PRN PRN Reason: Fever Al Hydroxide/Mg Hydroxide (Magnesium Hydrox/Alum Hydrox 30 Ml Oral.Susp) 30 ml PO Q6H PRN PRN Reason: Heartburn/Nausea Amlodipine Besylate (Amlodipine Besylate 5 Mg Tablet) 5 mg PO DAILY [facility]; Protocol Last Admin: 11/18/21 08:30 Dose: 5 mg Documented by: Calcitriol (Calcitriol 0.25 Mcg Capsule) 0.25 mcg PO DAILY [facility] Last Admin: 11/18/21 08:30 Dose: 0.25 mcg Documented by: Cinacalcet (Cinacalcet Hcl 30 Mg Tablet) 30 mg PO DAILY [facility] Last Admin: 11/18/21 10:20 Dose: 30 mg Documented by: Hydroxyzine HCl (Hydroxyzine Hcl 25 Mg Tablet) 25 mg PO BEDTIME PRN PRN Reason: Anxiety Last Admin: 11/16/21 19:52 Dose: 25 mg Documented by: Levothyroxine Sodium (Levothyroxine Sodium 50 Mcg Tablet) 50 mcg PO DAILY@0600 [facility] Last Admin: 11/19/21 06:22 Dose: 50 mcg Documented by: Magnesium Hydroxide (Milk Of Magnesia 30 Ml Oral.Susp) 30 ml PO DAILY PRN PRN Reason: Constipation Prednisone (Prednisone 5 Mg Tablet) 5 mg PO DAILY [facility] Last Admin: 11/18/21 08:30 Dose: 5 mg Documented by: Risperidone (Risperidone 2 Mg Tablet) 4 mg PO BEDTIME [facility] Last Admin: 11/18/21 19:54 Dose: Not Given Documented by: Risperidone (Risperidone 2 Mg Tablet) 2 mg PO DAILY [facility] Last Admin: 11/18/21 08:30 Dose: 2 mg Documented by: Tacrolimus (Tacrolimus 1 Mg Capsule) 5 mg PO DAILY@0800 [facility] Last Admin: 11/18/21 08:30 Dose: 5 mg Documented by: Tacrolimus (Tacrolimus 1 Mg Capsule) 5 mg PO DAILY@1800 [facility] Last Admin: 11/18/21 18:09 Dose: 5 mg Documented by: Trazodone HCl (Trazodone Hcl 50 Mg Tablet) 50 mg PO BEDTIME PRN PRN Reason: Insomnia Last Admin: 11/11/21 20:27 Dose: 50 mg Documented by: Allergies Allergies Allergy/AdvReac Type Severity Reaction Status Date / Time gabapentin [From Neurontin] Allergy Unknown UNKNOWN Verified 11/16/21 08:58 Sulfa (Sulfonamide Allergy Unknown UNKNOWN Verified 11/16/21 08:58 Antibiotics) [SULFA (SULFONAMIDE ANTIBIOTICS)] trimethoprim [TRIMETHOPRIM] Allergy Unknown UNKNOWN Verified 11/16/21 08:58 lithium [LITHIUM] AdvReac Severe KIDNEY Verified 11/16/21 08:58 TRANSPLANT DUE TO LITHIUM TOXICITY Assessment & Plan Assessment & Plan (1) LAURO (acute kidney injury): Status: Acute Code(s): N17.9 - Acute kidney failure, unspecified Assessment and Plan: see interval hx pt scheduled for kidney biopsy npo after midnite reviewed dr tylor peter previously Plan Elderly female with a long history of bipolar disorder admitted for exacerbation of psychosis, exacerbation of her kidney function due to noncompliance with medical and psychiatric medications. On admission she was grossly psychotic but she was restarted on Risperdal titrated slowly up to 6 mg. Plan 11/15/21 . Continue Risperdal at 6 mg a day. some ability to separate delusional material eating some inc socialization mostly isolated 11/16/21 Renal biopsy done cont risperadol but remains delusional being immortal but depressed 11/17/2021 Patient remains withdrawn depressed and floridly psychotic. I have started discussion regarding ECT which she responded well to in the past under similar circumstances. Have also discussed with her the possibility of clozapine however patient is 71 years old she has failed trials of olanzapine in the past 11/18/21 cont plan of care biopsy results pending 11/19/2021 Patient seen in psychiatric follow-up. Renal biopsy results reviewed case reviewed with Nephrology appears to be more chronic rejection according to Dr. RIVERA bell acute. Unfortunately patient intermittently refusing medication continues with bizarre delusional material interfering with her understanding of her condition at times. Feels like she has been given body grandiose thoughts mixed with mood instability and periods where she feels like sister is Del. Has failed 30 mg trial of olanzapine in the past will strongly urged patient to con vessel ordinary seaman ECT clozapine will be another option but she has responded well to ECT in the past I spent minutes with the patient and/or on the patient floor today, greater than?50% of which was spent counseling/coordinating care. Reason for contiued inpatient stay Substantial Risk for: harm to self, rapid decompensation and med/psych decompensation
[2021-11-19 10:12] LABS: Tacrolimus Prograf 7.4 mcg/L
--- NOTE | 2021-11-19 14:19 | PM.PNNEP ---
Subjective Subjective Date of Service: 11/19/21 Principal diagnosis: LAURO, CKD, Kidney Xplant patient Interval history: seen and examined no complaints Physical Exam Vital Signs: Vital Signs: Last Vital Signs Temp 98.2 F 11/19/21 06:00 Pulse 88 11/19/21 06:00 Resp 16 11/19/21 06:00 BP 175/7 H 11/19/21 06:00 Pulse Ox 97 11/18/21 19:51 BMI result Body Mass Index 20.7 Const: General: no acute distress HENMT: Head: Yes normocephalic and Yes atraumatic Neck: Neck: Yes supple Resp: Auscultation: clear to auscultation bilaterally Cardio: Heart sounds: S1 normal heart sound present and S2 normal heart sound present GI: Palpation (GI): Soft to palpation and nontender Extrem: General: No edema Objective Data Labs CBC & Chem 7: 11/12/21 08:49 11/18/21 06:55 Labs: Laboratory Results - last 24 hr 11/18/21 06:55 Tacrolimus 7.4 Procedures Date of Service Date of Service: 11/19/21 Assessment & Plan Assessment and plan (1) LAURO (acute kidney injury): Status: Acute (2) HTN (hypertension): Status: Acute (3) Living-donor kidney transplant recipient: Status: Acute (4) CKD (chronic kidney disease) stage 3, GFR 30-59 ml/min: Status: Acute Plan Scr overall better marginally above baseline allograft biopsy 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
--- NOTE | 2021-11-19 14:40 | PC.NURSE ---
Pt. declining Prograf with AM meds, stating, But I'm growing little baby kidneys and it's going to hurt them. Pt. assured that she did not have the ability to regenerate kidneys, and it was important to protect the transplanted kidne. She had an angry outburst and screamed, Alright I'll take them then! and accepted medications.
[2021-11-19] MEDS: risperiDONE 2 MG TABLET 4 MG PO (19:45)
[2021-11-19 21:16] VITALS: BP 167/74; PULSE 79; RESP 16; TEMP 37.3; O2SAT 98
[2021-11-20] MEDS: traZODone HCL 50 MG TABLET PO (01:07)
[2021-11-20] MEDS: Levothyroxine Sodium 50 MCG TABLET PO (05:52)
[2021-11-20 06:00] VITALS: BP 158/72; PULSE 82; TEMP 36.7; O2SAT 97
--- NOTE | 2021-11-20 11:37 | P.PNPSI_ITS ---
Subjective Subjective Date of Service: 11/20/21 Reason For Visit: S/P RENAL TRANSPLANT, RIGHT POLYCYSTIC RENAL DZ Interim History: pt found sleeping in her bed, easily rousable to voice. pleasant, cooperative. concerned about TD, which is not appreciated by MD, although she is noted to have slightly slurred speech. MD encourages her to continue with her current regimen for the time being. she has no other questions or complaints. per staff, delusional that sisters are living inside of her. recent Bx of kidney out of concern she is rejecting xplant. med-compliant. no pain complaints. Mental Status Exam Mental Status Exam Narrative: appropriately dressed and groomed. cooperative. no PMA/PMR. no involuntary movements. speech nml in rate, amount, loudness, tone latency. slight dysarthria. thoughts linear and logical. affect full range, normo-intense, non-labile. no SI/HI/AVH expressed. Diagnostics Vital Signs (24Hr): Vital Signs - 24 hr 11/19/21 21:16 11/20/21 06:00 Temperature 99.1 F 98.1 F Pulse Rate 79 82 Respiratory Rate 16 Blood Pressure 167/74 H 158/72 H Pulse Oximetry 98 97 BMI result Body Mass Index 20.7 Labs Results: 11/12/21 08:49 11/18/21 06:55 Labs: Laboratory Results - last 48 hr 11/18/21 06:55 Tacrolimus 7.4 Imaging Radiology Impressions: ITS Impressions Chest X-Ray 10/20/21 15:57 IMPRESSION: Unremarkable examination. Head CT 10/20/21 18:33 IMPRESSION: No acute intracranial process seen. A change from 09/29/[address] 10/26/21 21:21 IMPRESSION: No evidence of acute intracranial hemorrhage or edematous territorial infarction. Renal Ultrasound 10/27/21 15:51 IMPRESSION: Stable appearance of renal transplant kidney with 3.3 cm midpole simple appearing cyst. Renal Biopsy Ultrasound 11/16/21 11:17 IMPRESSION: Successful ultrasound-guided 18-gauge core biopsy performed from the right transplant kidney in right lower pelvis. Medications Medications Current Medications Acetaminophen (Acetaminophen 325 Mg Tablet) 650 mg PO Q6H PRN PRN Reason: Headache/Pain Mild Scale (1-3) Acetaminophen (Acetaminophen Supp 325 Mg Supp.Rect) 325 mg [place] Q6H PRN PRN Reason: Fever Al Hydroxide/Mg Hydroxide (Magnesium Hydrox/Alum Hydrox 30 Ml Oral.Susp) 30 ml PO Q6H PRN PRN Reason: Heartburn/Nausea Amlodipine Besylate (Amlodipine Besylate 5 Mg Tablet) 5 mg PO DAILY [facility]; Protocol Last Admin: 11/20/21 11:02 Dose: Not Given Documented by: Calcitriol (Calcitriol 0.25 Mcg Capsule) 0.25 mcg PO DAILY [facility] Last Admin: 11/20/21 11:02 Dose: Not Given Documented by: Cinacalcet (Cinacalcet Hcl 30 Mg Tablet) 30 mg PO DAILY [facility] Last Admin: 11/20/21 11:03 Dose: Not Given Documented by: Hydroxyzine HCl (Hydroxyzine Hcl 25 Mg Tablet) 25 mg PO BEDTIME PRN PRN Reason: Anxiety Last Admin: 11/16/21 19:52 Dose: 25 mg Documented by: Levothyroxine Sodium (Levothyroxine Sodium 50 Mcg Tablet) 50 mcg PO DAILY@0600 [facility] Last Admin: 11/20/21 05:52 Dose: 50 mcg Documented by: Magnesium Hydroxide (Milk Of Magnesia 30 Ml Oral.Susp) 30 ml PO DAILY PRN PRN Reason: Constipation Prednisone (Prednisone 5 Mg Tablet) 5 mg PO DAILY [facility] Last Admin: 11/20/21 11:03 Dose: Not Given Documented by: Risperidone (Risperidone 2 Mg Tablet) 4 mg PO BEDTIME [facility] Last Admin: 11/19/21 19:45 Dose: 4 mg Documented by: Risperidone (Risperidone 2 Mg Tablet) 2 mg PO DAILY [facility] Last Admin: 11/20/21 11:03 Dose: Not Given Documented by: Tacrolimus (Tacrolimus 1 Mg Capsule) 5 mg PO DAILY@0800 [facility] Last Admin: 11/20/21 11:02 Dose: Not Given Documented by: Tacrolimus (Tacrolimus 1 Mg Capsule) 5 mg PO DAILY@1800 [facility] Last Admin: 11/19/21 17:12 Dose: 5 mg Documented by: Trazodone HCl (Trazodone Hcl 50 Mg Tablet) 50 mg PO BEDTIME PRN PRN Reason: Insomnia Last Admin: 11/20/21 01:07 Dose: 50 mg Documented by: Allergies Allergies Allergy/AdvReac Type Severity Reaction Status Date / Time gabapentin [From Neurontin] Allergy Unknown UNKNOWN Verified 11/16/21 08:58 Sulfa (Sulfonamide Allergy Unknown UNKNOWN Verified 11/16/21 08:58 Antibiotics) [SULFA (SULFONAMIDE ANTIBIOTICS)] trimethoprim [TRIMETHOPRIM] Allergy Unknown UNKNOWN Verified 11/16/21 08:58 lithium [LITHIUM] AdvReac Severe KIDNEY Verified 11/16/21 08:58 TRANSPLANT DUE TO LITHIUM TOXICITY Assessment & Plan Assessment & Plan (1) LAURO (acute kidney injury): Status: Acute Code(s): N17.9 - Acute kidney failure, unspecified (2) HTN (hypertension): Status: Acute Code(s): I10 - Essential (primary) hypertension (3) Living-donor kidney transplant recipient: Status: Acute Code(s): Z94.0 - Kidney transplant status (4) CKD (chronic kidney disease) stage 3, GFR 30-59 ml/min: Status: Acute Code(s): N18.30 - Chronic kidney disease, stage 3 unspecified Plan Scr overall better marginally above baseline allograft biopsy 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 I spent minutes with the patient and/or on the patient floor today, greater than?50% of which was spent counseling/coordinating care. Reason for contiued inpatient stay Substantial Risk for: inability to function and rapid decompensation
--- NOTE | 2021-11-20 13:10 | PM.PNNEP ---
Subjective Subjective Date of Service: 11/20/21 Principal diagnosis: LAURO, CKD, Kidney Xplant patient Interval history: seen and examined no complaints Physical Exam Vital Signs: Vital Signs: Last Vital Signs Temp 98.1 F 11/20/21 06:00 Pulse 82 11/20/21 06:00 Resp 16 11/19/21 21:16 BP 158/72 H 11/20/21 06:00 Pulse Ox 97 11/20/21 06:00 BMI result Body Mass Index 20.7 Const: General: no acute distress HENMT: Head: Yes normocephalic and Yes atraumatic Neck: Neck: Yes supple Resp: Auscultation: clear to auscultation bilaterally Cardio: Heart sounds: S1 normal heart sound present and S2 normal heart sound present GI: Palpation (GI): Soft to palpation and nontender Extrem: General: No edema Objective Data Labs CBC & Chem 7: 11/12/21 08:49 11/18/21 06:55 Procedures Date of Service Date of Service: 11/20/21 Assessment & Plan Assessment and plan (1) LAURO (acute kidney injury): Status: Acute (2) HTN (hypertension): Status: Acute (3) Living-donor kidney transplant recipient: Status: Acute (4) CKD (chronic kidney disease) stage 3, GFR 30-59 ml/min: Status: Acute Plan s/p IV pulse steroids earlier this month marginally above baseline allograft biopsy 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
[2021-11-20 18:00] VITALS: BP 141/65; PULSE 93; RESP 16; TEMP 37.2; O2SAT 97
[2021-11-20] MEDS: risperiDONE 2 MG TABLET 4 MG PO (21:13)
[2021-11-20] MEDS: Tacrolimus 1 MG CAPSULE 5 MG PO (21:18)
[2021-11-21] MEDS: Levothyroxine Sodium 50 MCG TABLET PO (05:55)
[2021-11-21 06:00] VITALS: BP 172/80; PULSE 75; TEMP 37.1; O2SAT 98
[2021-11-21] MEDS: calcitrioL 0.25 MCG CAPSULE PO (07:50)
[2021-11-21] MEDS: risperiDONE 2 MG TABLET PO (07:50)
[2021-11-21] MEDS: amLODIPine Besylate 5 MG TABLET PO (07:50)
[2021-11-21] MEDS: predniSONE 5 MG TABLET PO (07:50)
[2021-11-21] MEDS: Cinacalcet HCl 30 MG TABLET PO (07:50)
[2021-11-21] MEDS: Tacrolimus 1 MG CAPSULE 5 MG PO ×2 (07:51→17:17)
--- NOTE | 2021-11-21 11:03 | P.PNPSI_ITS ---
Subjective Subjective Date of Service: 11/21/21 Reason For Visit: S/P RENAL TRANSPLANT, RIGHT POLYCYSTIC RENAL DZ Interim History: c/o some tongue contact with her dentition, concerned it is TD, feeling her speech is being affected. MD does not appreciate speech changes today. pt states she used to be on 0.5 mg daily and now she is on 6 mg daily (does not identify the medication of which she is speaking). MD suggests medication will be left as it is until primary team returns on monday and can discuss the matter with her, absent any emergency. pt expresses understanding. she reports she has no questions or complaints otherwise. per staff, taking medications, taking fresh air breaks, slept well overnight. showered this morning. Mental Status Exam Mental Status Exam Narrative: appropriately dressed and groomed. cooperative. no PMA/PMR. no involuntary movements. speech nml in rate, amount, loudness, tone latency. no dysarthria appreciated today. thoughts linear and logical. affect constricted, normo- intense, non-labile. no SI/HI/AVH expressed. Diagnostics Vital Signs (24Hr): Vital Signs - 24 hr 11/20/21 18:00 Temperature 98.9 F Pulse Rate 93 Respiratory Rate 16 Blood Pressure 141/65 H Pulse Oximetry 97 BMI result Body Mass Index 20.7 Labs Results: 11/12/21 08:49 11/18/21 06:55 Imaging Radiology Impressions: ITS Impressions Chest X-Ray 10/20/21 15:57 IMPRESSION: Unremarkable examination. Head CT 10/20/21 18:33 IMPRESSION: No acute intracranial process seen. A change from 09/29/[address] 10/26/21 21:21 IMPRESSION: No evidence of acute intracranial hemorrhage or edematous territorial infarction. Renal Ultrasound 10/27/21 15:51 IMPRESSION: Stable appearance of renal transplant kidney with 3.3 cm midpole simple appearing cyst. Renal Biopsy Ultrasound 11/16/21 11:17 IMPRESSION: Successful ultrasound-guided 18-gauge core biopsy performed from the right transplant kidney in right lower pelvis. Medications Medications Current Medications Acetaminophen (Acetaminophen 325 Mg Tablet) 650 mg PO Q6H PRN PRN Reason: Headache/Pain Mild Scale (1-3) Acetaminophen (Acetaminophen Supp 325 Mg Supp.Rect) 325 mg AR Q6H PRN PRN Reason: Fever Al Hydroxide/Mg Hydroxide (Magnesium Hydrox/Alum Hydrox 30 Ml Oral.Susp) 30 ml PO Q6H PRN PRN Reason: Heartburn/Nausea Amlodipine Besylate (Amlodipine Besylate 5 Mg Tablet) 5 mg PO DAILY [facility]; Protocol Last Admin: 11/21/21 07:50 Dose: 5 mg Documented by: Calcitriol (Calcitriol 0.25 Mcg Capsule) 0.25 mcg PO DAILY [facility] Last Admin: 11/21/21 07:50 Dose: 0.25 mcg Documented by: Cinacalcet (Cinacalcet Hcl 30 Mg Tablet) 30 mg PO DAILY [facility] Last Admin: 11/21/21 07:50 Dose: 30 mg Documented by: Hydroxyzine HCl (Hydroxyzine Hcl 25 Mg Tablet) 25 mg PO BEDTIME PRN PRN Reason: Anxiety Last Admin: 11/16/21 19:52 Dose: 25 mg Documented by: Levothyroxine Sodium (Levothyroxine Sodium 50 Mcg Tablet) 50 mcg PO DAILY@0600 [facility] Last Admin: 11/21/21 05:55 Dose: 50 mcg Documented by: Magnesium Hydroxide (Milk Of Magnesia 30 Ml Oral.Susp) 30 ml PO DAILY PRN PRN Reason: Constipation Prednisone (Prednisone 5 Mg Tablet) 5 mg PO DAILY [facility] Last Admin: 11/21/21 07:50 Dose: 5 mg Documented by: Risperidone (Risperidone 2 Mg Tablet) 4 mg PO BEDTIME [facility] Last Admin: 11/20/21 21:13 Dose: 4 mg Documented by: Risperidone (Risperidone 2 Mg Tablet) 2 mg PO DAILY [facility] Last Admin: 11/21/21 07:50 Dose: 2 mg Documented by: Tacrolimus (Tacrolimus 1 Mg Capsule) 5 mg PO DAILY@0800 [facility] Last Admin: 11/21/21 07:51 Dose: 5 mg Documented by: Tacrolimus (Tacrolimus 1 Mg Capsule) 5 mg PO DAILY@1800 [facility] Last Admin: 11/21/21 07:49 Dose: Not Given Documented by: Trazodone HCl (Trazodone Hcl 50 Mg Tablet) 50 mg PO BEDTIME PRN PRN Reason: Insomnia Last Admin: 11/20/21 01:07 Dose: 50 mg Documented by: Allergies Allergies Allergy/AdvReac Type Severity Reaction Status Date / Time gabapentin [From Neurontin] Allergy Unknown UNKNOWN Verified 11/16/21 08:58 Sulfa (Sulfonamide Allergy Unknown UNKNOWN Verified 11/16/21 08:58 Antibiotics) [SULFA (SULFONAMIDE ANTIBIOTICS)] trimethoprim [TRIMETHOPRIM] Allergy Unknown UNKNOWN Verified 11/16/21 08:58 lithium [LITHIUM] AdvReac Severe KIDNEY Verified 11/16/21 08:58 TRANSPLANT DUE TO LITHIUM TOXICITY Assessment & Plan Assessment & Plan (1) LAURO (acute kidney injury): Status: Acute Code(s): N17.9 - Acute kidney failure, unspecified Assessment and Plan: see interval hx pt scheduled for kidney biopsy npo after midnite reviewed dr tylor peter previously (2) Schizoaffective disorder, bipolar type: Status: Acute Code(s): F25.0 - Schizoaffective disorder, bipolar type Plan Elderly female with a long history of bipolar disorder admitted for exacerbation of psychosis, exacerbation of her kidney function due to noncompliance with medical and psychiatric medications. On admission she was grossly psychotic but she was restarted on Risperdal titrated slowly up to 6 mg. Plan 11/15/21 . Continue Risperdal at 6 mg a day. some ability to separate delusional material eating some inc socialization mostly isolated 11/16/21 Renal biopsy done cont risperadol but remains delusional being immortal but depressed 11/17/2021 Patient remains withdrawn depressed and floridly psychotic. I have started discussion regarding ECT which she responded well to in the past under similar circumstances. Have also discussed with her the possibility of clozapine however patient is 71 years old she has failed trials of olanzapine in the past 11/18/21 cont plan of care biopsy results pending 11/19/2021 Patient seen in psychiatric follow-up. Renal biopsy results reviewed case revie wed with Nephrology appears to be more chronic rejection according to Dr. RIVERA shah. Unfortunately patient intermittently refusing medication continues with bizarre delusional material interfering with her understanding of her condition at times. Feels like she has been given body grandiose thoughts mixed with mood instability and periods where she feels like sister is Del. Has failed 30 mg trial of olanzapine in the past will strongly urged patient to consider ECT clozapine will be another option but she has responded well to ECT in the past 11/21: no clear pscyhosis noted. concerned about TD the past two days, some dysarthria yesterday. will continue present regimen for now. I spent minutes with the patient and/or on the patient floor today, grea ter than?50% of which was spent counseling/coordinating care. Reason for contiued inpatient stay Substantial Risk for: inability to function and rapid decompensation
[2021-11-21 18:00] VITALS: BP 159/71; PULSE 79; RESP 16; TEMP 36.8; O2SAT 98
[2021-11-21] MEDS: risperiDONE 2 MG TABLET 4 MG PO (19:58)
[2021-11-22] MEDS: Levothyroxine Sodium 50 MCG TABLET PO (04:39)
[2021-11-22 08:50] VITALS: BP 147/68; PULSE 72; RESP 17; TEMP 36.4; O2SAT 98
[2021-11-22] MEDS: calcitrioL 0.25 MCG CAPSULE PO (09:51)
[2021-11-22] MEDS: amLODIPine Besylate 5 MG TABLET PO ×2 (09:51→16:39)
[2021-11-22] MEDS: Tacrolimus 1 MG CAPSULE 5 MG PO ×2 (09:51→16:41)
[2021-11-22] MEDS: predniSONE 5 MG TABLET PO (09:53)
[2021-11-22] MEDS: Cinacalcet HCl 30 MG TABLET PO (09:53)
[2021-11-22] MEDS: risperiDONE 2 MG TABLET PO ×2 (09:54→20:16)
--- NOTE | 2021-11-22 10:40 | PM.PNNEP ---
Subjective Subjective Date of Service: 11/22/21 Principal diagnosis: LAURO, CKD, Kidney Xplant patient Interval history: seen and examined denies SOB, CP. N/V/D Physical Exam Vital Signs: Vital Signs: Last Vital Signs Temp 97.6 F 11/22/21 08:50 Pulse 72 11/22/21 08:50 Resp 17 11/22/21 08:50 BP 147/68 H 11/22/21 08:50 Pulse Ox 98 11/22/21 08:50 BMI result Body Mass Index 20.7 Const: General: no acute distress HENMT: Head: Yes normocephalic and Yes atraumatic Neck: Neck: Yes supple Resp: Auscultation: clear to auscultation bilaterally Cardio: Heart sounds: S1 normal heart sound present and S2 normal heart sound present GI: Palpation (GI): Soft to palpation and nontender Extrem: General: No edema Objective Data Labs CBC & Chem 7: 11/12/21 08:49 11/18/21 06:55 Procedures Date of Service Date of Service: 11/22/21 Assessment & Plan Assessment and plan (1) LAURO (acute kidney injury): Status: Acute (2) HTN (hypertension): Status: Acute (3) Living-donor kidney transplant recipient: Status: Acute (4) CKD (chronic kidney disease) stage 3, GFR 30-59 ml/min: Status: Acute Plan s/p IV pulse steroids earlier this month marginally above baseline allograft biopsy 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
--- NOTE | 2021-11-22 15:55 | MHC.CLN ---
F/U PATIENT HAD BEEN NPO 11/16 FOR RENAL BIOPSY. DIET=2 GRAM SODIUM. STAFF REPORTS THAT PATIENT IS EATING WELL.
--- NOTE | 2021-11-22 19:45 | P.PNPSI_ITS ---
Subjective Subjective Date of Service: 11/22/21 Reason For Visit: S/P RENAL TRANSPLANT, RIGHT POLYCYSTIC RENAL DZ Interim History: pt c/o biting her tongue/cheek due to TD and states she will not take evening dose of risperidone. informs pt he will reduce dose from 4 mg to 2 mg for he r and encourages her to take the lower dose and discuss further with attending betsy tomorrow. she states she will not take the 2 mg at bedtime, either. per staff, med compliant, snacking at night. no issues. Mental Status Exam Mental Status Exam Narrative: appropriately dressed and groomed. cooperative. no PMA/PMR. no involuntary movements. speech nml in rate, amount, loudness, tone latency. no dysarthria appreciated today. thoughts linear and logical. affect constricted, normo- intense, non-labile. no SI/HI/AVH expressed. Diagnostics Vital Signs (24Hr): Vital Signs - 24 hr 11/22/21 08:50 Temperature 97.6 F Pulse Rate 72 Respiratory Rate 17 Blood Pressure 147/68 H Pulse Oximetry 98 BMI result Body Mass Index 20.7 Labs Results: 11/12/21 08:49 11/18/21 06:55 Imaging Radiology Impressions: ITS Impressions Chest X-Ray 10/20/21 15:57 IMPRESSION: Unremarkable examination. Head CT 10/20/21 18:33 IMPRESSION: No acute intracranial process seen. A change from 09/29/[address] 10/26/21 21:21 IMPRESSION: No evidence of acute intracranial hemorrhage or edematous territorial infarction. Renal Ultrasound 10/27/21 15:51 IMPRESSION: Stable appearance of renal transplant kidney with 3.3 cm midpole simple appearing cyst. Renal Biopsy Ultrasound 11/16/21 11:17 IMPRESSION: Successful ultrasound-guided 18-gauge core biopsy performed from the right transplant kidney in right lower pelvis. Medications Medications Current Medications Acetaminophen (Acetaminophen 325 Mg Tablet) 650 mg PO Q6H PRN PRN Reason: Headache/Pain Mild Scale (1-3) Acetaminophen (Acetaminophen Supp 325 Mg Supp.Rect) 325 mg ID Q6H PRN PRN Reason: Fever Al Hydroxide/Mg Hydroxide (Magnesium Hydrox/Alum Hydrox 30 Ml Oral.Susp) 30 ml PO Q6H PRN PRN Reason: Heartburn/Nausea Amlodipine Besylate (Amlodipine Besylate 10 Mg Tablet) 10 mg PO DAILY [facility]; Protocol Calcitriol (Calcitriol 0.25 Mcg Capsule) 0.25 mcg PO DAILY [facility] Last Admin: 11/22/21 09:51 Dose: 0.25 mcg Documented by: Cinacalcet (Cinacalcet Hcl 30 Mg Tablet) 30 mg PO DAILY [facility] Last Admin: 11/22/21 09:53 Dose: 30 mg Documented by: Hydroxyzine HCl (Hydroxyzine Hcl 25 Mg Tablet) 25 mg PO BEDTIME PRN PRN Reason: Anxiety Last Admin: 11/16/21 19:52 Dose: 25 mg Documented by: Levothyroxine Sodium (Levothyroxine Sodium 50 Mcg Tablet) 50 mcg PO DAILY@0600 [facility] Last Admin: 11/22/21 04:39 Dose: 50 mcg Documented by: Magnesium Hydroxide (Milk Of Magnesia 30 Ml Oral.Susp) 30 ml PO DAILY PRN PRN Reason: Constipation Prednisone (Prednisone 5 Mg Tablet) 5 mg PO DAILY [facility] Last Admin: 11/22/21 09:53 Dose: 5 mg Documented by: Risperidone (Risperidone 2 Mg Tablet) 2 mg PO DAILY [facility] Last Admin: 11/22/21 09:54 Dose: 2 mg Documented by: Risperidone (Risperidone 2 Mg Tablet) 2 mg PO BEDTIME [facility] Tacrolimus (Tacrolimus 1 Mg Capsule) 5 mg PO DAILY@0800 [facility] Last Admin: 11/22/21 09:51 Dose: 5 mg Documented by: Tacrolimus (Tacrolimus 1 Mg Capsule) 5 mg PO DAILY@1800 [facility] Last Admin: 11/22/21 16:41 Dose: 5 mg Documented by: Trazodone HCl (Trazodone Hcl 50 Mg Tablet) 50 mg PO BEDTIME PRN PRN Reason: Insomnia Last Admin: 11/20/21 01:07 Dose: 50 mg Documented by: Allergies Allergies Allergy/AdvReac Type Severity Reaction Status Date / Time gabapentin [From Neurontin] Allergy Unknown UNKNOWN Verified 11/16/21 08:58 Sulfa (Sulfonamide Allergy Unknown UNKNOWN Verified 11/16/21 08:58 Antibiotics) [SULFA (SULFONAMIDE ANTIBIOTICS)] trimethoprim [TRIMETHOPRIM] Allergy Unknown UNKNOWN Verified 11/16/21 08:58 lithium [LITHIUM] AdvReac Severe KIDNEY Verified 11/16/21 08:58 TRANSPLANT DUE TO LITHIUM TOXICITY Assessment & Plan Assessment & Plan (1) Schizoaffective disorder, bipolar type: Status: Acute Code(s): F25.0 - Schizoaffective disorder, bipolar type (2) LAURO (acute kidney injury): Status: Acute Code(s): N17.9 - Acute kidney failure, unspecified (3) HTN (hypertension): Status: Acute Code(s): I10 - Essential (primary) hypertension (4) Living-donor kidney transplant recipient: Status: Acute Code(s): Z94.0 - Kidney transplant status (5) CKD (chronic kidney disease) stage 3, GFR 30-59 ml/min: Status: Acute Code(s): N18.30 - Chronic kidney disease, stage 3 unspecified Plan Elderly female with a long history of bipolar disorder admitted for exacerbation of psychosis, exacerbation of her kidney function due to noncompliance with medical and psychiatric medications.? On admission she was grossly psychotic but she was restarted on Risperdal titrated slowly up to 6 mg.? Plan 11/15/21 .? Continue Risperdal at 6 mg a day. some ability to separate delusional material eating some inc socialization mostly isolated ? 11/16/21 Renal biopsy done cont risperadol but remains delusional being immortal but depressed 11/17/2021 Patient remains withdrawn depressed and floridly psychotic.? I have started discussion regarding ECT which she responded well to in the past under similar circumstances.? Have also discussed with her the possibility of clozapine however patient is 71 years old she has failed trials of olanzapine in the past? 11/18/21 cont plan of care biopsy results pending 11/19/2021 Patient seen in psychiatric follow-up.? Renal biopsy results reviewed case reviewed with Nephrology appears to be more chronic rejection according to Dr. RIVERA bell acute.? Unfortunately patient intermittently refusing medication continues with bizarre delusional material interfering with her understanding of her condition at times.? Feels like she has been given body grandiose thoughts mixed with mood instability and periods where she feels like sister is Del.? Has failed 30 mg trial of olanzapine in the past will strongly urged patient to consider ECT clozapine will be another option but she has responded well to ECT in the past 11/21: no clear pscyhosis noted.? concerned about TD the past two days, some dysarthria yesterday.? will continue present regimen for now. 11/22: pt stated her intention to skip HS risperidone due to TD concerns. reduced HS dosing to 2 mg in effort to compromise. norvasc increased to 10 mg per renal consult recs. 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 Reason for contiued inpatient stay Substantial Risk for: inability to function and rapid decompensation
[2021-11-22 21:12] VITALS: BP 155/70; PULSE 86; RESP 16; TEMP 36.5; O2SAT 97
[2021-11-22] MEDS: hydrOXYzine HCL 25 MG TABLET PO (22:21)
[2021-11-22] MEDS: traZODone HCL 50 MG TABLET PO (22:21)
[2021-11-23 06:00] VITALS: BP 145/67; PULSE 85; RESP 18; TEMP 36.7; O2SAT 98
[2021-11-23] MEDS: Levothyroxine Sodium 50 MCG TABLET PO (06:47)
[2021-11-23] MEDS: Tacrolimus 1 MG CAPSULE 5 MG PO ×2 (08:29→18:19)
[2021-11-23] MEDS: calcitrioL 0.25 MCG CAPSULE PO (08:31)
[2021-11-23] MEDS: amLODIPine Besylate 10 MG TABLET PO (08:31)
[2021-11-23] MEDS: risperiDONE 2 MG TABLET PO ×2 (08:31→20:19)
[2021-11-23] MEDS: Cinacalcet HCl 30 MG TABLET PO (08:31)
[2021-11-23] MEDS: predniSONE 5 MG TABLET PO (08:31)
[2021-11-23 20:27] VITALS: BP 117/54; PULSE 89; RESP 19; TEMP 37; O2SAT 97
--- NOTE | 2021-11-23 22:09 | P.PNPSI_ITS ---
Subjective Subjective Date of Service: 11/23/21 Reason For Visit: S/P RENAL TRANSPLANT, RIGHT POLYCYSTIC RENAL DZ Subjective Notes: Conditional Voluntary Healthcare Proxy: No Guardianship: No Medical Problems Affecting Mental Status: Yes Interim History: Pt lethargic today risp lowered to 2 bid recently superficially denying she has been thinking she is immortal replaced body denies special kimble eating breakfast lunch no TD movements noted Medication Compliance: Intermittent Side effects from medications: Yes Attending Groups: Intermittent Mental Status Exam Mental Status Exam Narrative: no pmr pma flat apathetic agrees she has psych illness denies current lopez or delusional material guarded Patient Appearance: Well Grooomed Patient Orientation: Person, Place, Time and Situation Level of Consciousness: Awake Patient Behavior: Appropriate and Passive Speech Pattern: Monotone and Soft-Spoken Depressive Symptoms: Increased Anxiety Judgement: Fair Judgement and Insight: labile re delusional material guarded Diagnostics Vital Signs (24Hr): Vital Signs - 24 hr 11/23/21 06:00 11/23/21 20:27 Temperature 98.1 F 98.6 F Pulse Rate 85 89 Respiratory Rate 18 19 Blood Pressure 145/67 H 117/54 L Pulse Oximetry 98 97 BMI result Body Mass Index 20.7 Labs Results: 11/24/21 06:37 11/24/21 06:37 Imaging Radiology Impressions: ITS Impressions Chest X-Ray 10/20/21 15:57 IMPRESSION: Unremarkable examination. Head CT 10/20/21 18:33 IMPRESSION: No acute intracranial process seen. A change from 09/29/[address] 10/26/21 21:21 IMPRESSION: No evidence of acute intracranial hemorrhage or edematous territorial infarction. Renal Ultrasound 10/27/21 15:51 IMPRESSION: Stable appearance of renal transplant kidney with 3.3 cm midpole simple appearing cyst. Renal Biopsy Ultrasound 11/16/21 11:17 IMPRESSION: Successful ultrasound-guided 18-gauge core biopsy performed from the right transplant kidney in right lower pelvis. Medications Medications Current Medications Acetaminophen (Acetaminophen 325 Mg Tablet) 650 mg PO Q6H PRN PRN Reason: Headache/Pain Mild Scale (1-3) Acetaminophen (Acetaminophen Supp 325 Mg Supp.Rect) 325 mg UT Q6H PRN PRN Reason: Fever Al Hydroxide/Mg Hydroxide (Magnesium Hydrox/Alum Hydrox 30 Ml Oral.Susp) 30 ml PO Q6H PRN PRN Reason: Heartburn/Nausea Amlodipine Besylate (Amlodipine Besylate 10 Mg Tablet) 10 mg PO DAILY FORMERLY [facility], [facility]; Protocol Last Admin: 11/23/21 08:31 Dose: 10 mg Documented by: Calcitriol (Calcitriol 0.25 Mcg Capsule) 0.25 mcg PO DAILY FOR[facility]LY [facility], [facility]1983 Last Admin: 11/23/21 08:31 Dose: 0.25 mcg Documented by: Cinacalcet (Cinacalcet Hcl 30 Mg Tablet) 30 mg PO DAILY FOR[facility]LY [facility], [facility]1983 Last Admin: 11/23/21 08:31 Dose: 30 mg Documented by: Hydroxyzine HCl (Hydroxyzine Hcl 25 Mg Tablet) 25 mg PO BEDTIME PRN PRN Reason: Anxiety Last Admin: 11/22/21 22:21 Dose: 25 mg Documented by: Levothyroxine Sodium (Levothyroxine Sodium 50 Mcg Tablet) 50 mcg PO DAILY@0600 FOR[facility], [facility]1983 Last Admin: 11/23/21 06:47 Dose: 50 mcg Documented by: Magnesium Hydroxide (Milk Of Magnesia 30 Ml Oral.Susp) 30 ml PO DAILY PRN PRN Reason: Constipation Prednisone (Prednisone 5 Mg Tablet) 5 mg PO DAILY FOR[facility]LY [facility], [facility]1983 Last Admin: 11/23/21 08:31 Dose: 5 mg Documented by: Risperidone (Risperidone 2 Mg Tablet) 2 mg PO DAILY [facility], [facility]1983 Last Admin: 11/23/21 08:31 Dose: 2 mg Documented by: Risperidone (Risperidone 2 Mg Tablet) 2 mg PO BEDTIME [facility] Last Admin: 11/23/21 20:19 Dose: 2 mg Documented by: Tacrolimus (Tacrolimus 1 Mg Capsule) 5 mg PO DAILY@0800 [facility] Last Admin: 11/23/21 08:29 Dose: 5 mg Documented by: Tacrolimus (Tacrolimus 1 Mg Capsule) 5 mg PO DAILY@1800 [facility] Last Admin: 11/23/21 18:19 Dose: 5 mg Documented by: Trazodone HCl (Trazodone Hcl 50 Mg Tablet) 50 mg PO BEDTIME PRN PRN Reason: Insomnia Last Admin: 11/22/21 22:21 Dose: 50 mg Documented by: Allergies Allergies Allergy/AdvReac Type Severity Reaction Status Date / Time gabapentin [From Neurontin] Allergy Unknown UNKNOWN Verified 11/16/21 08:58 Sulfa (Sulfonamide Allergy Unknown UNKNOWN Verified 11/16/21 08:58 Antibiotics) [SULFA (SULFONAMIDE ANTIBIOTICS)] trimethoprim [TRIMETHOPRIM] Allergy Unknown UNKNOWN Verified 11/16/21 08:58 lithium [LITHIUM] AdvReac Severe KIDNEY Verified 11/16/21 08:58 TRANSPLANT DUE TO LITHIUM TOXICITY Assessment & Plan Assessment & Plan (1) Schizoaffective disorder, bipolar type: Status: Acute Code(s): F25.0 - Schizoaffective disorder, bipolar type Assessment and Plan: cont risperadol ? improvemnt noted unclear if stable ? can hold on ect (2) LAURO (acute kidney injury): Status: Acute Code(s): N17.9 - Acute kidney failure, unspecified (3) HTN (hypertension): Status: Acute Code(s): I10 - Essential (primary) hypertension Assessment and Plan: amlodipine (4) Living-donor kidney transplant recipient: Status: Acute Code(s): Z94.0 - Kidney transplant status (5) CKD (chronic kidney disease) stage 3, GFR 30-59 ml/min: Status: Acute Code(s): N18.30 - Chronic kidney disease, stage 3 unspecified Assessment and Plan: ck labs prograff level Plan Elderly female with a long history of bipolar disorder admitted for exacerbation of psychosis, exacerbation of her kidney function due to noncompliance with medical and psychiatric medications.? On admission she was grossly psychotic but she was restarted on Risperdal titrated slowly up to 6 mg.? Plan 11/15/21 .? Continue Risperdal at 6 mg a day. some ability to separate delusional material eating some inc socialization mostly isolated ? 11/16/21 Renal biopsy done cont risperadol but remains delusional being immortal but depressed 11/17/2021 Patient remains withdrawn depressed and floridly psychotic.? I have started discussion regarding ECT which she responded well to in the past under similar circumstances.? Have also discussed with her the possibility of clozapine however patient is 71 years old she has failed trials of olanzapine in the past? 11/18/21 cont plan of care biopsy results pending 11/19/2021 Patient seen in psychiatric follow-up.? Renal biopsy results reviewed case reviewed with Nephrology appears to be more chronic rejection according to Dr. RIVERA shah.? Unfortunately patient intermittently refusing medication continues with bizarre delusional material interfering with her understanding of her condition at times.? Feels like she has been given body grandiose thoughts mixed with mood instability and periods where she feels like sister is Del.? Has failed 30 mg trial of olanzapine in the past will strongly urged patient to consider ECT clozapine will be another option but she has responded well to ECT in the past 11/21: no clear pscyhosis noted.? concerned about TD the past two days, some dysarthria yesterday.? will continue present regimen for now. 11/22: pt stated her intention to skip HS risperidone due to TD concerns. MD reduced HS dosing to 2 mg in effort to compromise. norvasc increased to 10 mg per renal consult recs. 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 Reason for contiued inpatient stay Substantial Risk for: rapid decompensation and med/psych decompensation
[2021-11-24] MEDS: Levothyroxine Sodium 50 MCG TABLET PO (06:25)
[2021-11-24 06:49] LABS: MANUAL DIFF FLAG NO
[2021-11-24 06:52] LABS: Basophils Percent Auto 0.5 % (0-2); Eosinophils Absolute Auto 0.5 X10*3/uL (0.0-0.4); Eosinophils Percent Auto 8.3 % (0-4); Hematocrit 30.6 % (37.0-47.0); Hemoglobin 9.5 g/dl (12.0-16.0); Imm Gran Abs Auto 0.02 X10*3/uL (0.00-0.03); Imm Gran Pct Auto 0.4 % (0.0-0.4); Lymphocytes Absolute Auto 1.5 X10*3/uL (1.2-4.9); Lymphocytes Percent Auto 26.6 % (20-40); Mean Corpuscular Hemoglobin 29.7 pg (27.0-33.0); Mean Corpuscular Volume 95.6 fL (80.0-98.0); Mean Platelet Volume 9.4 fL (9.4-12.3); Monocytes Absolute Auto 0.8 X10*3/uL (0.1-1.2); Monocytes Percent Auto 13.3 % (2-11); Neutrophils Absolute Auto 2.9 x10*3/uL (2.0-8.3); Neutrophils Percent Auto 50.9 % (45-73); Platelet Count 214 X10*3/uL (160-400); White Blood Count 5.6 X10*3/uL (4.8-10.8)
[2021-11-24 07:10] LABS: Alanine Aminotransferase 31 U/L (0-31); Albumin Level 3.4 g/dL (3.5-5.0); Alkaline Phosphatase 40 U/L (39-117); Anion Gap 13 (12-20); Aspartate Amino Transferase 20 U/L (5-31); Bilirubin Total 0.3 mg/dL (0.0-1.0); Blood Urea Nitrogen 40 mg/dL (9-16); Calcium 8.2 mg/dL (8.4-10.2); Carbon Dioxide 20 mmol/L (22-29); Chloride 109 mmol/L (96-108); Creatinine Clr Calc Pharmacy 23.2; Estimated Glomerular Filt Rate 25; Glucose Fasting 95 mg/dL (60-99); Potassium 4.3 mmol/L (3.3-5.1); Sodium 138 mmol/L (135-145); Total Protein 5.6 g/dL (6.5-8.0)
[2021-11-24 07:20] VITALS: BP 139/63; PULSE 83; RESP 18; TEMP 36.7; O2SAT 99
[2021-11-24] MEDS: predniSONE 5 MG TABLET PO (08:24)
[2021-11-24] MEDS: Tacrolimus 1 MG CAPSULE 5 MG PO ×2 (08:24→20:43)
[2021-11-24] MEDS: amLODIPine Besylate 10 MG TABLET PO (08:24)
[2021-11-24] MEDS: risperiDONE 2 MG TABLET PO ×2 (08:24→20:43)
[2021-11-24] MEDS: Cinacalcet HCl 30 MG TABLET PO (08:24)
[2021-11-24] MEDS: calcitrioL 0.25 MCG CAPSULE PO (08:24)
[2021-11-24 20:48] VITALS: BP 131/57; PULSE 84; RESP 16; TEMP 36.2; O2SAT 95
--- NOTE | 2021-11-24 22:04 | HO.PSYCHPN ---
Subjective Subjective Date of Service: 11/24/21 Reason For Visit: S/P RENAL TRANSPLANT, RIGHT POLYCYSTIC RENAL DZ Subjective Notes: Conditional Voluntary Healthcare Proxy: No Guardianship: No Interim History: Patient is more logical and organized does not seem to be preoccupied with delusional material denies hallucinations has been accepting treatment except that she has bipolar disorder. She is somewhat guarded Medication Compliance: Yes Side effects from medications: Yes Review of Systems Acute medical concerns: Yes Medical Review of Systems: unchanged Mental Status Exam Mental Status Exam Narrative: no pmr pma flat apathetic agrees she has psych illness denies current lopez or delusional material guarded Patient Appearance: Well Grooomed Patient Orientation: Person, Place, Time and Situation Level of Consciousness: Awake Patient Behavior: Appropriate and Passive Mood Description: Constricted and Apprehensive Speech Pattern: Monotone and Soft-Spoken Memory Description: Intact Depressive Symptoms: Increased Anxiety Judgement: Fair Judgement and Insight: labile re delusional material guarded patient verbalizes delusional preoccupations have remitted Diagnostics Vital Signs (24Hr): Vital Signs - 24 hr 11/24/21 07:20 11/24/21 20:48 Temperature 98.1 F 97.2 F Pulse Rate 83 84 Respiratory Rate 18 16 Blood Pressure 139/63 131/57 L Pulse Oximetry 99 95 BMI result Body Mass Index 20.7 Labs Results: 11/24/21 06:37 11/24/21 06:37 Labs: Laboratory Results - last 48 hr 11/24/21 11/24/21 06:37 06:37 WBC 5.6 RBC 3.20 L Hgb 9.5 L Hct 30.6 L MCV 95.6 MCH 29.7 MCHC 31.0 RDW 15.0 Plt Count 214 D MPV 9.4 Immature Gran % (Auto) 0.4 Neut % (Auto) 50.9 Lymph % (Auto) 26.6 [place] % (Auto) 13.3 H Eos % (Auto) 8.3 H Baso % (Auto) 0.5 Lymph # (Auto) 1.5 [place] # (Auto) 0.8 Eos # (Auto) 0.5 H Baso # (Auto) 0.0 Abs Immat Gran (auto) 0.02 Absolute Neuts (auto) 2.9 Absolute Nucleated RBC 0.000 Nucleated RBC % (auto) 0.0 Sodium 138 Potassium 4.3 Chloride 109 H Carbon Dioxide 20 L Anion Gap 13 BUN 40 H Creatinine 1.95 H Estim Creat Clear Calc 23.2 Estimated GFR 25 Fasting Glucose 95 Calcium 8.2 L Total Bilirubin 0.3 AST 20 ALT 31 Alkaline Phosphatase 40 D Total Protein 5.6 L Albumin 3.4 L Imaging Radiology Impressions: ITS Impressions Chest X-Ray 10/20/21 15:57 IMPRESSION: Unremarkable examination. Head CT 10/20/21 18:33 IMPRESSION: No acute intracranial process seen. A change from 09/29/[address] 10/26/21 21:21 IMPRESSION: No evidence of acute intracranial hemorrhage or edematous territorial infarction. Renal Ultrasound 10/27/21 15:51 IMPRESSION: Stable appearance of renal transplant kidney with 3.3 cm midpole simple appearing cyst. Renal Biopsy Ultrasound 11/16/21 11:17 IMPRESSION: Successful ultrasound-guided 18-gauge core biopsy performed from the right transplant kidney in right lower pelvis. Medications Medications Current Medications Acetaminophen (Acetaminophen 325 Mg Tablet) 650 mg PO Q6H PRN PRN Reason: Headache/Pain Mild Scale (1-3) Acetaminophen (Acetaminophen Supp 325 Mg Supp.Rect) 325 mg RI Q6H PRN PRN Reason: Fever Al Hydroxide/Mg Hydroxide (Magnesium Hydrox/Alum Hydrox 30 Ml Oral.Susp) 30 ml PO Q6H PRN PRN Reason: Heartburn/Nausea Amlodipine Besylate (Amlodipine Besylate 10 Mg Tablet) 10 mg PO DAILY COUNT INCLUDES THE [facility]; Protocol Last Admin: 11/24/21 08:24 Dose: 10 mg Documented by: Calcitriol (Calcitriol 0.25 Mcg Capsule) 0.25 mcg PO DAILY COUNT INCLUDES THE [facility] Last Admin: 11/24/21 08:24 Dose: 0.25 mcg Documented by: Cinacalcet (Cinacalcet Hcl 30 Mg Tablet) 30 mg PO DAILY COUNT INCLUDES THE [facility] Last Admin: 11/24/21 08:24 Dose: 30 mg Documented by: Hydroxyzine HCl (Hydroxyzine Hcl 25 Mg Tablet) 25 mg PO BEDTIME PRN PRN Reason: Anxiety Last Admin: 11/22/21 22:21 Dose: 25 mg Documented by: Levothyroxine Sodium (Levothyroxine Sodium 50 Mcg Tablet) 50 mcg PO DAILY@0600 COUNT INCLUDES THE [facility] Last Admin: 11/24/21 06:25 Dose: 50 mcg Documented by: Magnesium Hydroxide (Milk Of Magnesia 30 Ml Oral.Susp) 30 ml PO DAILY PRN PRN Reason: Constipation Prednisone (Prednisone 5 Mg Tablet) 5 mg PO DAILY COUNT INCLUDES THE [facility] Last Admin: 11/24/21 08:24 Dose: 5 mg Documented by: Risperidone (Risperidone 2 Mg Tablet) 2 mg PO DAILY COUNT INCLUDES THE [facility] Last Admin: 11/24/21 08:24 Dose: 2 mg Documented by: Risperidone (Risperidone 2 Mg Tablet) 2 mg PO BEDTIME COUNT INCLUDES THE [facility] Last Admin: 11/24/21 20:43 Dose: 2 mg Documented by: Tacrolimus (Tacrolimus 1 Mg Capsule) 5 mg PO DAILY@0800 COUNT INCLUDES THE [facility] Last Admin: 11/24/21 08:24 Dose: 5 mg Documented by: Tacrolimus (Tacrolimus 1 Mg Capsule) 5 mg PO DAILY@1800 COUNT INCLUDES THE [facility] Last Admin: 11/24/21 20:43 Dose: 5 mg Documented by: Trazodone HCl (Trazodone Hcl 50 Mg Tablet) 50 mg PO BEDTIME PRN PRN Reason: Insomnia Last Admin: 11/22/21 22:21 Dose: 50 mg Documented by: Allergies Allergies Allergy/AdvReac Type Severity Reaction Status Date / Time gabapentin [From Neurontin] Allergy Unknown UNKNOWN Verified 11/16/21 08:58 Sulfa (Sulfonamide Allergy Unknown UNKNOWN Verified 11/16/21 08:58 Antibiotics) [SULFA (SULFONAMIDE ANTIBIOTICS)] trimethoprim [TRIMETHOPRIM] Allergy Unknown UNKNOWN Verified 11/16/21 08:58 lithium [LITHIUM] AdvReac Severe KIDNEY Verified 11/16/21 08:58 TRANSPLANT DUE TO LITHIUM TOXICITY Assessment & Plan Assessment & Plan (1) Schizoaffective disorder, bipolar type: Status: Acute Code(s): F25.0 - Schizoaffective disorder, bipolar type Assessment and Plan: cont risperadol at lower dose. Patient finally seems to be responding well need eventual discussion regarding treatment options and tardive dyskinesia (2) LAURO (acute kidney injury): Status: Acute Code(s): N17.9 - Acute kidney failure, unspecified (3) HTN (hypertension): Status: Acute Code(s): I10 - Essential (primary) hypertension Assessment and Plan: amlodipine (4) Living-donor kidney transplant recipient: Status: Acute Code(s): Z94.0 - Kidney transplant status (5) CKD (chronic kidney disease) stage 3, GFR 30-59 ml/min: Status: Acute Code(s): N18.30 - Chronic kidney disease, stage 3 unspecified Assessment and Plan: ck labs prograff level Plan Elderly female with a long history of bipolar disorder admitted for exacerbation of psychosis, exacerbation of her kidney function due to noncompliance with medical and psychiatric medications.? On admission she was grossly psychotic but she was restarted on Risperdal titrated slowly up to 6 mg.? Plan 11/15/21 .? Continue Risperdal at 6 mg a day. some ability to separate delusional material eating some inc socialization mostly isolated ? 11/16/21 Renal biopsy done cont risperadol but remains delusional being immortal but depressed 11/17/2021 Patient remains withdrawn depressed and floridly psychotic.? I have started discussion regarding ECT which she responded well to in the past under similar circumstances.? Have also discussed with her the possibility of clozapine however patient is 71 years old she has failed trials of olanzapine in the past? 11/18/21 cont plan of care biopsy results pending 11/19/2021 Patient seen in psychiatric follow-up.? Renal biopsy results reviewed case reviewed with Nephrology appears to be more chronic rejection according to Dr. RIVERA bell acute.? Unfortunately patient intermittently refusing medication continues with bizarre delusional material interfering with her understanding of her condition at times.? Feels like she has been given body grandiose thoughts mixed with mood instability and periods where she feels like sister is Del.? Has failed 30 mg trial of olanzapine in the past will strongly urged patient to consider ECT clozapine will be another option but she has responded well to ECT in the past 11/21: no clear pscyhosis noted.? concerned about TD the past two days, some dysarthria yesterday.? will continue present regimen for now. 11/22: pt stated her intention to skip HS risperidone due to TD concerns. MD reduced HS dosing to 2 mg in effort to compromise. norvasc increased to 10 mg per renal consult recs. 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 Reason for contiued inpatient stay Substantial Risk for: rapid decompensation and med/psych decompensation
[2021-11-25 06:00] VITALS: BP 147/66; PULSE 81; RESP 16; TEMP 36.6; O2SAT 98
[2021-11-25] MEDS: Levothyroxine Sodium 50 MCG TABLET PO (06:19)
[2021-11-25] MEDS: Tacrolimus 1 MG CAPSULE 5 MG PO ×2 (08:23→20:16)
[2021-11-25] MEDS: predniSONE 5 MG TABLET PO (08:23)
[2021-11-25] MEDS: amLODIPine Besylate 10 MG TABLET PO (08:23)
[2021-11-25] MEDS: Cinacalcet HCl 30 MG TABLET PO (08:23)
[2021-11-25] MEDS: calcitrioL 0.25 MCG CAPSULE PO (08:23)
[2021-11-25] MEDS: risperiDONE 2 MG TABLET PO ×2 (08:23→20:16)
--- NOTE | 2021-11-25 09:36 | PM.PNNEP ---
Subjective Subjective Date of Service: 11/25/21 Principal diagnosis: LAURO, CKD, Kidney Xplant patient Interval history: seem and examined discussed with medical attending no complaints Physical Exam Vital Signs: Vital Signs: Last Vital Signs Temp 97.2 F 11/24/21 20:48 Pulse 84 11/24/21 20:48 Resp 16 11/24/21 20:48 BP 131/57 L 11/24/21 20:48 Pulse Ox 95 11/24/21 20:48 BMI result Body Mass Index 20.7 Const: General: no acute distress HENMT: Head: Yes normocephalic and Yes atraumatic Neck: Neck: Yes supple Resp: Auscultation: clear to auscultation bilaterally Cardio: Heart sounds: S1 normal heart sound present and S2 normal heart sound present GI: Palpation (GI): Soft to palpation and nontender Extrem: General: No edema Objective Data Labs CBC & Chem 7: 11/24/21 06:37 11/24/21 06:37 Procedures Date of Service Date of Service: 11/25/21 Assessment & Plan Assessment and plan (1) LAURO (acute kidney injury): Status: Acute (2) HTN (hypertension): Status: Acute (3) Living-donor kidney transplant recipient: Status: Acute (4) CKD (chronic kidney disease) stage 3, GFR 30-59 ml/min: Status: Acute Plan s/p IV pulse steroids earlier this month marginally above baseline but stable allograft biopsy 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
--- NOTE | 2021-11-25 10:57 | HO.PSYCHPN ---
Subjective Subjective Date of Service: 11/25/21 Reason For Visit: S/P RENAL TRANSPLANT, RIGHT POLYCYSTIC RENAL DZ Subjective Notes: Conditional Voluntary Healthcare Proxy: No Interim History: Patient has periods of depression related to a past relationship part of her thoughts regarding this include psychotic thoughts that she is processing about this gentleman some way be got like. Was able to reality has some with his thoughts later in the day and has been accepting treatment taking medication Medication Compliance: Intermittent Review of Systems Kidney disease Medical Review of Systems: unchanged Mental Status Exam Mental Status Exam Patient Appearance: Well Grooomed Patient Orientation: Person, Place, Time and Situation Level of Consciousness: Awake and Lethargic Patient Behavior: Appropriate and Passive Mood Description: Constricted, Depressed, Cheerful, Labile and Apprehensive Affect Description: Depressed and Apprehensive Speech Pattern: Monotone and Soft-Spoken Memory Description: Intact Delusions: Paranoid Ideation and Grandiose Depressive Symptoms: Increased Anxiety and Sleeping More Than Usual Abnormal Motor Activity Signs and Symptoms: Psychomotor Retardation Judgement: Fair Judgement and Insight: labile re delusional material guarded patient verbalizes delusional preoccupations have remitted Diagnostics Vital Signs (24Hr): Vital Signs - 24 hr 11/24/21 20:48 Temperature 97.2 F Pulse Rate 84 Respiratory Rate 16 Blood Pressure 131/57 L Pulse Oximetry 95 BMI result Body Mass Index 20.7 Labs Results: 11/24/21 06:37 11/24/21 06:37 Labs: Laboratory Results - last 48 hr 11/24/21 11/24/21 06:37 06:37 WBC 5.6 RBC 3.20 L Hgb 9.5 L Hct 30.6 L MCV 95.6 MCH 29.7 MCHC 31.0 RDW 15.0 Plt Count 214 D MPV 9.4 Immature Gran % (Auto) 0.4 Neut % (Auto) 50.9 Lymph % (Auto) 26.6 [place] % (Auto) 13.3 H Eos % (Auto) 8.3 H Baso % (Auto) 0.5 Lymph # (Auto) 1.5 [place] # (Auto) 0.8 Eos # (Auto) 0.5 H Baso # (Auto) 0.0 Abs Immat Gran (auto) 0.02 Absolute Neuts (auto) 2.9 Absolute Nucleated RBC 0.000 Nucleated RBC % (auto) 0.0 Sodium 138 Potassium 4.3 Chloride 109 H Carbon Dioxide 20 L Anion Gap 13 BUN 40 H Creatinine 1.95 H Estim Creat Clear Calc 23.2 Estimated GFR 25 Fasting Glucose 95 Calcium 8.2 L Total Bilirubin 0.3 AST 20 ALT 31 Alkaline Phosphatase 40 D Total Protein 5.6 L Albumin 3.4 L Imaging Radiology Impressions: ITS Impressions Chest X-Ray 10/20/21 15:57 IMPRESSION: Unremarkable examination. Head CT 10/20/21 18:33 IMPRESSION: No acute intracranial process seen. A change from 09/29/[address] 10/26/21 21:21 IMPRESSION: No evidence of acute intracranial hemorrhage or edematous territorial infarction. Renal Ultrasound 10/27/21 15:51 IMPRESSION: Stable appearance of renal transplant kidney with 3.3 cm midpole simple appearing cyst. Renal Biopsy Ultrasound 11/16/21 11:17 IMPRESSION: Successful ultrasound-guided 18-gauge core biopsy performed from the right transplant kidney in right lower pelvis. Medications Medications Current Medications Acetaminophen (Acetaminophen 325 Mg Tablet) 650 mg PO Q6H PRN PRN Reason: Headache/Pain Mild Scale (1-3) Acetaminophen (Acetaminophen Supp 325 Mg Supp.Rect) 325 mg [place] Q6H PRN PRN Reason: Fever Al Hydroxide/Mg Hydroxide (Magnesium Hydrox/Alum Hydrox 30 Ml Oral.Susp) 30 ml PO Q6H PRN PRN Reason: Heartburn/Nausea Amlodipine Besylate (Amlodipine Besylate 10 Mg Tablet) 10 mg PO DAILY [facility]; Protocol Last Admin: 11/25/21 08:23 Dose: 10 mg Documented by: Calcitriol (Calcitriol 0.25 Mcg Capsule) 0.25 mcg PO DAILY [facility] Last Admin: 11/25/21 08:23 Dose: 0.25 mcg Documented by: Cinacalcet (Cinacalcet Hcl 30 Mg Tablet) 30 mg PO DAILY [facility] Last Admin: 11/25/21 08:23 Dose: 30 mg Documented by: Hydroxyzine HCl (Hydroxyzine Hcl 25 Mg Tablet) 25 mg PO BEDTIME PRN PRN Reason: Anxiety Last Admin: 11/22/21 22:21 Dose: 25 mg Documented by: Levothyroxine Sodium (Levothyroxine Sodium 50 Mcg Tablet) 50 mcg PO DAILY@0600 [facility] Last Admin: 11/25/21 06:19 Dose: 50 mcg Documented by: Magnesium Hydroxide (Milk Of Magnesia 30 Ml Oral.Susp) 30 ml PO DAILY PRN PRN Reason: Constipation Prednisone (Prednisone 5 Mg Tablet) 5 mg PO DAILY [facility] Last Admin: 11/25/21 08:23 Dose: 5 mg Documented by: Risperidone (Risperidone 2 Mg Tablet) 2 mg PO DAILY [facility] Last Admin: 11/25/21 08:23 Dose: 2 mg Documented by: Risperidone (Risperidone 2 Mg Tablet) 2 mg PO BEDTIME [facility] Last Admin: 11/24/21 20:43 Dose: 2 mg Documented by: Tacrolimus (Tacrolimus 1 Mg Capsule) 5 mg PO DAILY@0800 [facility] Last Admin: 11/25/21 08:23 Dose: 5 mg Documented by: Tacrolimus (Tacrolimus 1 Mg Capsule) 5 mg PO DAILY@1800 [facility] Last Admin: 11/24/21 20:43 Dose: 5 mg Documented by: Trazodone HCl (Trazodone Hcl 50 Mg Tablet) 50 mg PO BEDTIME PRN PRN Reason: Insomnia Last Admin: 11/22/21 22:21 Dose: 50 mg Documented by: Allergies Allergies Allergy/AdvReac Type Severity Reaction Status Date / Time gabapentin [From Neurontin] Allergy Unknown UNKNOWN Verified 11/16/21 08:58 Sulfa (Sulfonamide Allergy Unknown UNKNOWN Verified 11/16/21 08:58 Antibiotics) [SULFA (SULFONAMIDE ANTIBIOTICS)] trimethoprim [TRIMETHOPRIM] Allergy Unknown UNKNOWN Verified 11/16/21 08:58 lithium [LITHIUM] AdvReac Severe KIDNEY Verified 11/16/21 08:58 TRANSPLANT DUE TO LITHIUM TOXICITY Assessment & Plan Assessment & Plan (1) Schizoaffective disorder, bipolar type: Status: Acute Code(s): F25.0 - Schizoaffective disorder, bipolar type Assessment and Plan: Continue Risperdal patient gradually improving still has psychotic experiences (2) LAURO (acute kidney injury): Status: Acute Code(s): N17.9 - Acute kidney failure, unspecified (3) HTN (hypertension): Status: Acute Code(s): I10 - Essential (primary) hypertension Assessment and Plan: Continue amlodipine (4) Living-donor kidney transplant recipient: Status: Acute Code(s): Z94.0 - Kidney transplant status (5) CKD (chronic kidney disease) stage 3, GFR 30-59 ml/min: Status: Acute Code(s): N18.30 - Chronic kidney disease, stage 3 unspecified Assessment and Plan: See nephrology note Prograf level Plan s I spent 30 minutes with the patient and/or on the patient floor today, greater than?50% of which was spent counseling/coordinating care. Reason for contiued inpatient stay Substantial Risk for: rapid decompensation and med/psych decompensation
[2021-11-25 11:52] VITALS: BMI 20.5
[2021-11-25 18:00] VITALS: BP 140/63; PULSE 83; RESP 16; TEMP 36.6; O2SAT 98
[2021-11-26] MEDS: Levothyroxine Sodium 50 MCG TABLET PO (05:45)
[2021-11-26 06:00] VITALS: BP 139/63; PULSE 75; RESP 16; TEMP 36.2; O2SAT 97
[2021-11-26] MEDS: Cinacalcet HCl 30 MG TABLET PO (08:32)
[2021-11-26] MEDS: predniSONE 5 MG TABLET PO (08:32)
[2021-11-26] MEDS: risperiDONE 2 MG TABLET PO ×2 (08:32→20:15)
[2021-11-26] MEDS: amLODIPine Besylate 10 MG TABLET PO (08:32)
[2021-11-26] MEDS: Tacrolimus 1 MG CAPSULE 5 MG PO (08:32)
[2021-11-26] MEDS: calcitrioL 0.25 MCG CAPSULE PO (08:32)
[2021-11-26 18:00] VITALS: BP 120/59; PULSE 88; RESP 18; TEMP 36.7; O2SAT 97
--- NOTE | 2021-11-26 21:55 | P.PNPSI_ITS ---
Subjective Subjective Date of Service: 11/26/21 Reason For Visit: Psychotic episode Subjective Notes: Conditional Voluntary Healthcare Proxy: No Guardianship: No Interim History: Patient with some periods of reality orientation other periods of psychosis with either grandiose delusional material or catastrophic thinking about being damned this appears to be gradually decreasing Medication Compliance: Intermittent Side effects from medications: Yes Attending Groups: Intermittent Review of Systems Acute medical concerns: Yes Kidney disease status post transplant Mental Status Exam Mental Status Exam Patient Appearance: Well Grooomed Patient Orientation: Person, Place, Time and Situation Level of Consciousness: Awake and Lethargic Patient Behavior: Appropriate and Passive Mood Description: Constricted, Depressed, Cheerful, Labile and Apprehensive Affect Description: Depressed and Apprehensive Speech Pattern: Monotone and Soft-Spoken Memory Description: Intact Delusions: Paranoid Ideation and Grandiose Depressive Symptoms: Increased Anxiety and Sleeping More Than Usual Abnormal Motor Activity Signs and Symptoms: Psychomotor Retardation Judgement: Fair Judgement and Insight: labile re delusional material guarded patient verbalizes delusional preoccupations have remitted Diagnostics Vital Signs (24Hr): Vital Signs - 24 hr 11/26/21 06:00 11/26/21 18:00 Temperature 97.1 F 98.1 F Pulse Rate 75 88 Respiratory Rate 16 18 Blood Pressure 139/63 120/59 L Pulse Oximetry 97 97 BMI result Body Mass Index 20.5 Labs Results: 11/24/21 06:37 11/24/21 06:37 Imaging Radiology Impressions: ITS Impressions Chest X-Ray 10/20/21 15:57 IMPRESSION: Unremarkable examination. Head CT 10/20/21 18:33 IMPRESSION: No acute intracranial process seen. A change from 09/29/[address] 10/26/21 21:21 IMPRESSION: No evidence of acute intracranial hemorrhage or edematous territorial infarction. Renal Ultrasound 10/27/21 15:51 IMPRESSION: Stable appearance of renal transplant kidney with 3.3 cm midpole simple appearing cyst. Renal Biopsy Ultrasound 11/16/21 11:17 IMPRESSION: Successful ultrasound-guided 18-gauge core biopsy performed from the right transplant kidney in right lower pelvis. Medications Medications Current Medications Acetaminophen (Acetaminophen 325 Mg Tablet) 650 mg PO Q6H PRN PRN Reason: Headache/Pain Mild Scale (1-3) Acetaminophen (Acetaminophen Supp 325 Mg Supp.Rect) 325 mg [place] Q6H PRN PRN Reason: Fever Al Hydroxide/Mg Hydroxide (Magnesium Hydrox/Alum Hydrox 30 Ml Oral.Susp) 30 ml PO Q6H PRN PRN Reason: Heartburn/Nausea Amlodipine Besylate (Amlodipine Besylate 10 Mg Tablet) 10 mg PO DAILY [facility]; Protocol Last Admin: 11/26/21 08:32 Dose: 10 mg Documented by: Calcitriol (Calcitriol 0.25 Mcg Capsule) 0.25 mcg PO DAILY [facility] Last Admin: 11/26/21 08:32 Dose: 0.25 mcg Documented by: Cinacalcet (Cinacalcet Hcl 30 Mg Tablet) 30 mg PO DAILY [facility] Last Admin: 11/26/21 08:32 Dose: 30 mg Documented by: Hydroxyzine HCl (Hydroxyzine Hcl 25 Mg Tablet) 25 mg PO BEDTIME PRN PRN Reason: Anxiety Last Admin: 11/22/21 22:21 Dose: 25 mg Documented by: Levothyroxine Sodium (Levothyroxine Sodium 50 Mcg Tablet) 50 mcg PO DAILY@0600 [facility] Last Admin: 11/26/21 05:45 Dose: 50 mcg Documented by: Magnesium Hydroxide (Milk Of Magnesia 30 Ml Oral.Susp) 30 ml PO DAILY PRN PRN Reason: Constipation Prednisone (Prednisone 5 Mg Tablet) 5 mg PO DAILY [facility] Last Admin: 11/26/21 08:32 Dose: 5 mg Documented by: Risperidone (Risperidone 2 Mg Tablet) 2 mg PO DAILY [facility] Last Admin: 11/26/21 08:32 Dose: 2 mg Documented by: Risperidone (Risperidone 2 Mg Tablet) 2 mg PO BEDTIME [facility] Last Admin: 11/26/21 20:15 Dose: 2 mg Documented by: Tacrolimus (Tacrolimus 1 Mg Capsule) 5 mg PO DAILY@0800 [facility] Last Admin: 11/26/21 08:32 Dose: 5 mg Documented by: Tacrolimus (Tacrolimus 1 Mg Capsule) 5 mg PO DAILY@1800 [facility] Last Admin: 11/25/21 20:16 Dose: 5 mg Documented by: Trazodone HCl (Trazodone Hcl 50 Mg Tablet) 50 mg PO BEDTIME PRN PRN Reason: Insomnia Last Admin: 11/22/21 22:21 Dose: 50 mg Documented by: Allergies Allergies Allergy/AdvReac Type Severity Reaction Status Date / Time gabapentin [From Neurontin] Allergy Unknown UNKNOWN Verified 11/16/21 08:58 Sulfa (Sulfonamide Allergy Unknown UNKNOWN Verified 11/16/21 08:58 Antibiotics) [SULFA (SULFONAMIDE ANTIBIOTICS)] trimethoprim [TRIMETHOPRIM] Allergy Unknown UNKNOWN Verified 11/16/21 08:58 lithium [LITHIUM] AdvReac Severe KIDNEY Verified 11/16/21 08:58 TRANSPLANT DUE TO LITHIUM TOXICITY Assessment & Plan Assessment & Plan (1) Schizoaffective disorder, bipolar type: Status: Acute Code(s): F25.0 - Schizoaffective disorder, bipolar type Assessment and Plan: Continue Risperdal patient gradually improving still has psychotic experiences this continues to be true (2) LAURO (acute kidney injury): Status: Acute Code(s): N17.9 - Acute kidney failure, unspecified (3) HTN (hypertension): Status: Acute Code(s): I10 - Essential (primary) hypertension Assessment and Plan: Continue amlodipine (4) Living-donor kidney transplant recipient: Status: Acute Code(s): Z94.0 - Kidney transplant status (5) CKD (chronic kidney disease) stage 3, GFR 30-59 ml/min: Status: Acute Code(s): N18.30 - Chronic kidney disease, stage 3 unspecified Assessment and Plan: See nephrology note Prograf level continue to monitor electrolytes creatinine Plan s I spent __30____ minutes with the patient and/or on the patient floor today, greater than?50% of which was spent counseling/coordinating care. Reason for contiued inpatient stay Substantial Risk for: rapid decompensation and med/psych decompensation
[2021-11-27] MEDS: Levothyroxine Sodium 50 MCG TABLET PO (05:51)
[2021-11-27 08:00] VITALS: BP 153/63; PULSE 75; RESP 16; TEMP 36.8; O2SAT 99
[2021-11-27] MEDS: Tacrolimus 1 MG CAPSULE 5 MG PO ×2 (09:51→17:46)
[2021-11-27] MEDS: Cinacalcet HCl 30 MG TABLET PO (09:52)
[2021-11-27] MEDS: predniSONE 5 MG TABLET PO (09:52)
[2021-11-27] MEDS: amLODIPine Besylate 10 MG TABLET PO (09:52)
[2021-11-27] MEDS: risperiDONE 2 MG TABLET PO ×2 (09:52→20:18)
[2021-11-27] MEDS: calcitrioL 0.25 MCG CAPSULE PO (09:52)
[2021-11-27 13:36] VITALS: BP 116/67; PULSE 76; RESP 16; O2SAT 97
[2021-11-27 18:00] VITALS: BP 144/65; PULSE 80; RESP 20; TEMP 37.2; O2SAT 96
--- NOTE | 2021-11-27 21:07 | P.PNPSI_ITS ---
Subjective Subjective Date of Service: 11/27/21 Reason For Visit: Psychotic episode Subjective Notes: Conditional Voluntary Healthcare Proxy: No Guardianship: No Interim History: With patient continues with periods of dysphoria trying to integrate psychotic preoccupations with gradual improvement in reality testing continues to question whether her body has been replaced at other times has perspective Mental Status Exam Mental Status Exam Patient Appearance: Well Grooomed Patient Orientation: Person, Place, Time and Situation Level of Consciousness: Awake and Lethargic Patient Behavior: Appropriate and Passive Mood Description: Constricted, Depressed, Cheerful, Labile and Apprehensive Affect Description: Depressed and Apprehensive Speech Pattern: Monotone and Soft-Spoken Memory Description: Intact Delusions: Paranoid Ideation and Grandiose Depressive Symptoms: Increased Anxiety and Sleeping More Than Usual Abnormal Motor Activity Signs and Symptoms: Psychomotor Retardation Judgement: Fair Judgement and Insight: labile re delusional material guarded patient verbalizes delusional preoccupations have remitted Diagnostics Vital Signs (24Hr): Vital Signs - 24 hr 11/27/21 08:00 11/27/21 13:36 11/27/21 18:00 Temperature 98.2 F 98.9 F Pulse Rate 75 76 80 Respiratory Rate 16 16 20 Blood Pressure 153/63 H 116/67 144/65 H Pulse Oximetry 99 97 96 BMI result Body Mass Index 20.5 Labs Results: 11/24/21 06:37 11/24/21 06:37 Imaging Radiology Impressions: ITS Impressions Chest X-Ray 10/20/21 15:57 IMPRESSION: Unremarkable examination. Head CT 10/20/21 18:33 IMPRESSION: No acute intracranial process seen. A change from 09/29/[address] 10/26/21 21:21 IMPRESSION: No evidence of acute intracranial hemorrhage or edematous territorial infarction. Renal Ultrasound 10/27/21 15:51 IMPRESSION: Stable appearance of renal transplant kidney with 3.3 cm midpole simple appearing cyst. Renal Biopsy Ultrasound 11/16/21 11:17 IMPRESSION: Successful ultrasound-guided 18-gauge core biopsy performed from the right transplant kidney in right lower pelvis. Medications Medications Current Medications Acetaminophen (Acetaminophen 325 Mg Tablet) 650 mg PO Q6H PRN PRN Reason: Headache/Pain Mild Scale (1-3) Acetaminophen (Acetaminophen Supp 325 Mg Supp.Rect) 325 mg [place] Q6H PRN PRN Reason: Fever Al Hydroxide/Mg Hydroxide (Magnesium Hydrox/Alum Hydrox 30 Ml Oral.Susp) 30 ml PO Q6H PRN PRN Reason: Heartburn/Nausea Amlodipine Besylate (Amlodipine Besylate 10 Mg Tablet) 10 mg PO DAILY REPLACED BY [facility]; Protocol Last Admin: 11/27/21 09:52 Dose: 10 mg Documented by: Calcitriol (Calcitriol 0.25 Mcg Capsule) 0.25 mcg PO DAILY REPLACED BY [facility] Last Admin: 11/27/21 09:52 Dose: 0.25 mcg Documented by: Cinacalcet (Cinacalcet Hcl 30 Mg Tablet) 30 mg PO DAILY REPLACED BY [facility] Last Admin: 11/27/21 09:52 Dose: 30 mg Documented by: Hydroxyzine HCl (Hydroxyzine Hcl 25 Mg Tablet) 25 mg PO BEDTIME PRN PRN Reason: Anxiety Last Admin: 11/22/21 22:21 Dose: 25 mg Documented by: Levothyroxine Sodium (Levothyroxine Sodium 50 Mcg Tablet) 50 mcg PO DAILY@0600 REPLACED BY [facility] Last Admin: 11/27/21 05:51 Dose: 50 mcg Documented by: Magnesium Hydroxide (Milk Of Magnesia 30 Ml Oral.Susp) 30 ml PO DAILY PRN PRN Reason: Constipation Prednisone (Prednisone 5 Mg Tablet) 5 mg PO DAILY REPLACED BY [facility] Last Admin: 11/27/21 09:52 Dose: 5 mg Documented by: Risperidone (Risperidone 2 Mg Tablet) 2 mg PO DAILY REPLACED BY [facility] Last Admin: 11/27/21 09:52 Dose: 2 mg Documented by: Risperidone (Risperidone 2 Mg Tablet) 2 mg PO BEDTIME REPLACED BY [facility] Last Admin: 11/27/21 20:18 Dose: 2 mg Documented by: Tacrolimus (Tacrolimus 1 Mg Capsule) 5 mg PO DAILY@0800 REPLACED BY [facility] Last Admin: 11/27/21 09:51 Dose: 5 mg Documented by: Tacrolimus (Tacrolimus 1 Mg Capsule) 5 mg PO DAILY@1800 REPLACED BY [facility] Last Admin: 11/27/21 17:46 Dose: 5 mg Documented by: Trazodone HCl (Trazodone Hcl 50 Mg Tablet) 50 mg PO BEDTIME PRN PRN Reason: Insomnia Last Admin: 11/22/21 22:21 Dose: 50 mg Documented by: Allergies Allergies Allergy/AdvReac Type Severity Reaction Status Date / Time gabapentin [From Neurontin] Allergy Unknown UNKNOWN Verified 11/16/21 08:58 Sulfa (Sulfonamide Allergy Unknown UNKNOWN Verified 11/16/21 08:58 Antibiotics) [SULFA (SULFONAMIDE ANTIBIOTICS)] trimethoprim [TRIMETHOPRIM] Allergy Unknown UNKNOWN Verified 11/16/21 08:58 lithium [LITHIUM] AdvReac Severe KIDNEY Verified 11/16/21 08:58 TRANSPLANT DUE TO LITHIUM TOXICITY Assessment & Plan Assessment & Plan (1) Schizoaffective disorder, bipolar type: Status: Acute Code(s): F25.0 - Schizoaffective disorder, bipolar type Assessment and Plan: Continue Risperdal patient gradually improving still has psychotic experiences seems less preoccupied (2) LAURO (acute kidney injury): Status: Acute Code(s): N17.9 - Acute kidney failure, unspecified (3) HTN (hypertension): Status: Acute Code(s): I10 - Essential (primary) hypertension Assessment and Plan: Continue amlodipine (4) Living-donor kidney transplant recipient: Status: Acute Code(s): Z94.0 - Kidney transplant status (5) CKD (chronic kidney disease) stage 3, GFR 30-59 ml/min: Status: Acute Code(s): N18.30 - Chronic kidney disease, stage 3 unspecified Assessment and Plan: See nephrology note Prograf level continue to monitor electrolytes creatinine creatinine generally appears stable . Patient educated on: diagnosis, medication risk/benefits and medical condition Informed Consent: further education needed Reason for contiued inpatient stay Substantial Risk for: harm to self, rapid decompensation and med/psych decompensation
[2021-11-28] MEDS: Levothyroxine Sodium 50 MCG TABLET PO (04:50)
[2021-11-28 06:00] VITALS: BP 141/64; PULSE 80; TEMP 36.7; O2SAT 96
[2021-11-28] MEDS: Cinacalcet HCl 30 MG TABLET PO (10:12)
[2021-11-28] MEDS: Tacrolimus 1 MG CAPSULE 5 MG PO ×2 (10:12→17:12)
[2021-11-28] MEDS: calcitrioL 0.25 MCG CAPSULE PO (10:13)
[2021-11-28] MEDS: predniSONE 5 MG TABLET PO (10:13)
[2021-11-28] MEDS: amLODIPine Besylate 10 MG TABLET PO (10:13)
[2021-11-28] MEDS: risperiDONE 2 MG TABLET PO ×2 (10:13→21:03)
--- NOTE | 2021-11-28 20:08 | P.PNPSI_ITS ---
Subjective Subjective Date of Service: 11/28/21 Reason For Visit: Psychotic episode Subjective Notes: Conditional Voluntary Healthcare Proxy: No Guardianship: No Medical Problems Affecting Mental Status: No Interim History: The patient is withdrawn preoccupied still has intrusive psychotic thoughts regarding an ex co-worker in [place] regarding her body being changed somewhat guarded regarding other psychotic thoughts. We are talking about attempts to try and reality check some of these concerns. She also has sadness regarding past events in her life Medication Compliance: Yes Side effects from medications: Yes (hx TD ) Attending Groups: Intermittent Review of Systems Acute medical concerns: Yes kidney Mental Status Exam Mental Status Exam Patient Appearance: Well Grooomed Patient Orientation: Person, Place, Time and Situation Level of Consciousness: Awake and Lethargic Patient Behavior: Appropriate and Passive Mood Description: Constricted, Depressed and Apprehensive Affect Description: Depressed and Apprehensive Speech Pattern: Monotone and Soft-Spoken Memory Description: Intact Delusions: Paranoid Ideation and Grandiose Depressive Symptoms: Increased Anxiety and Sleeping More Than Usual Abnormal Motor Activity Signs and Symptoms: Psychomotor Retardation Judgement: Fair Judgement and Insight: labile re delusional material guarded patient verbalizes delusional preoccupations have remitted Diagnostics Vital Signs (24Hr): Vital Signs - 24 hr 11/28/21 06:00 Temperature 98.0 F Pulse Rate 80 Blood Pressure 141/64 H Pulse Oximetry 96 BMI result Body Mass Index 20.5 Labs Results: 11/24/21 06:37 11/24/21 06:37 Imaging Radiology Impressions: ITS Impressions Chest X-Ray 10/20/21 15:57 IMPRESSION: Unremarkable examination. Head CT 10/20/21 18:33 IMPRESSION: No acute intracranial process seen. A change from 09/29/[address] 10/26/21 21:21 IMPRESSION: No evidence of acute intracranial hemorrhage or edematous territorial infarction. Renal Ultrasound 10/27/21 15:51 IMPRESSION: Stable appearance of renal transplant kidney with 3.3 cm midpole simple appearing cyst. Renal Biopsy Ultrasound 11/16/21 11:17 IMPRESSION: Successful ultrasound-guided 18-gauge core biopsy performed from the right transplant kidney in right lower pelvis. Medications Medications Current Medications Acetaminophen (Acetaminophen 325 Mg Tablet) 650 mg PO Q6H PRN PRN Reason: Headache/Pain Mild Scale (1-3) Acetaminophen (Acetaminophen Supp 325 Mg Supp.Rect) 325 mg [place] Q6H PRN PRN Reason: Fever Al Hydroxide/Mg Hydroxide (Magnesium Hydrox/Alum Hydrox 30 Ml Oral.Susp) 30 ml PO Q6H PRN PRN Reason: Heartburn/Nausea Amlodipine Besylate (Amlodipine Besylate 10 Mg Tablet) 10 mg PO DAILY [facility]; Protocol Last Admin: 11/28/21 10:13 Dose: 10 mg Documented by: Calcitriol (Calcitriol 0.25 Mcg Capsule) 0.25 mcg PO DAILY [facility] Last Admin: 11/28/21 10:13 Dose: 0.25 mcg Documented by: Cinacalcet (Cinacalcet Hcl 30 Mg Tablet) 30 mg PO DAILY [facility] Last Admin: 11/28/21 10:12 Dose: 30 mg Documented by: Hydroxyzine HCl (Hydroxyzine Hcl 25 Mg Tablet) 25 mg PO BEDTIME PRN PRN Reason: Anxiety Last Admin: 11/22/21 22:21 Dose: 25 mg Documented by: Levothyroxine Sodium (Levothyroxine Sodium 50 Mcg Tablet) 50 mcg PO DAILY@0600 [facility] Last Admin: 11/28/21 04:50 Dose: 50 mcg Documented by: Magnesium Hydroxide (Milk Of Magnesia 30 Ml Oral.Susp) 30 ml PO DAILY PRN PRN Reason: Constipation Prednisone (Prednisone 5 Mg Tablet) 5 mg PO DAILY [facility] Last Admin: 11/28/21 10:13 Dose: 5 mg Documented by: Risperidone (Risperidone 2 Mg Tablet) 2 mg PO DAILY [facility] Last Admin: 11/28/21 10:13 Dose: 2 mg Documented by: Risperidone (Risperidone 2 Mg Tablet) 2 mg PO BEDTIME [facility] Last Admin: 11/27/21 20:18 Dose: 2 mg Documented by: Tacrolimus (Tacrolimus 1 Mg Capsule) 5 mg PO DAILY@0800 [facility] Last Admin: 11/28/21 10:12 Dose: 5 mg Documented by: Tacrolimus (Tacrolimus 1 Mg Capsule) 5 mg PO DAILY@1800 [facility] Last Admin: 11/28/21 17:12 Dose: 5 mg Documented by: Trazodone HCl (Trazodone Hcl 50 Mg Tablet) 50 mg PO BEDTIME PRN PRN Reason: Insomnia Last Admin: 11/22/21 22:21 Dose: 50 mg Documented by: Allergies Allergies Allergy/AdvReac Type Severity Reaction Status Date / Time gabapentin [From Neurontin] Allergy Unknown UNKNOWN Verified 11/16/21 08:58 Sulfa (Sulfonamide Allergy Unknown UNKNOWN Verified 11/16/21 08:58 Antibiotics) [SULFA (SULFONAMIDE ANTIBIOTICS)] trimethoprim [TRIMETHOPRIM] Allergy Unknown UNKNOWN Verified 11/16/21 08:58 lithium [LITHIUM] AdvReac Severe KIDNEY Verified 11/16/21 08:58 TRANSPLANT DUE TO LITHIUM TOXICITY Assessment & Plan Assessment & Plan (1) Schizoaffective disorder, bipolar type: Status: Acute Code(s): F25.0 - Schizoaffective disorder, bipolar type Assessment and Plan: Continue Risperdal patient gradually improving still has psychotic experiences seems less preoccupied at times at other times depressed withdrawn perhaps post manic type depression cycling down discussed [place] Clozaril (2) LAURO (acute kidney injury): Status: Acute Code(s): N17.9 - Acute kidney failure, unspecified (3) HTN (hypertension): Status: Acute Code(s): I10 - Essential (primary) hypertension Assessment and Plan: Continue amlodipine (4) Living-donor kidney transplant recipient: Status: Acute Code(s): Z94.0 - Kidney transplant status (5) CKD (chronic kidney disease) stage 3, GFR 30-59 ml/min: Status: Acute Code(s): N18.30 - Chronic kidney disease, stage 3 unspecified Assessment and Plan: See nephrology note Prograf level continue to monitor electrolytes creatinine creatinine generally appears stable CBC creatinine reviewed I spent _25 minutes with the patient and/or on the patient floor today, greater than?50% of which was spent counseling/coordinating care. Reason for contiued inpatient stay Substantial Risk for: harm to self and med/psych decompensation
[2021-11-28 21:11] VITALS: BP 133/61; PULSE 80; RESP 18; TEMP 36.2; O2SAT 96
[2021-11-29] MEDS: Levothyroxine Sodium 50 MCG TABLET PO (04:19)
[2021-11-29 08:15] VITALS: BP 151/71; PULSE 82; RESP 17; TEMP 36.7; O2SAT 96
[2021-11-29] MEDS: calcitrioL 0.25 MCG CAPSULE PO (09:40)
[2021-11-29] MEDS: Tacrolimus 1 MG CAPSULE 5 MG PO ×2 (09:40→18:47)
[2021-11-29] MEDS: predniSONE 5 MG TABLET PO (09:40)
[2021-11-29] MEDS: Cinacalcet HCl 30 MG TABLET PO (09:40)
[2021-11-29] MEDS: amLODIPine Besylate 10 MG TABLET PO (09:41)
[2021-11-29] MEDS: risperiDONE 2 MG TABLET PO ×3 (09:41→20:14)
[2021-11-29 18:00] VITALS: BP 136/63; PULSE 85; TEMP 36.9; O2SAT 98
--- NOTE | 2021-11-29 21:41 | HO.PSYCHPN ---
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 No noted psychotic preoccupations. Sleep-wake cycle still quite out of whack. Patient concerned about tardive dyskinesia. No current movements noted on exam Medication Compliance: Yes Side effects from medications: Yes Attending Groups: Intermittent Review of Systems Medical Review of Systems: unchanged Mental Status Exam Mental Status Exam Patient Appearance: Well Grooomed Patient Orientation: Person, Place, Time and Situation Level of Consciousness: Awake and Lethargic Patient Behavior: Appropriate and Passive Mood Description: Constricted and Apprehensive Affect Description: Depressed and Apprehensive Ability to Follow Directions: Good Speech Pattern: Monotone and Soft-Spoken Memory Description: Intact Thought Process: Intact and Rumination Thought Content: positive for Intact and positive for Obsessional Thoughts Depressive Symptoms: Increased Anxiety and Sleeping More Than Usual Abnormal Motor Activity Signs and Symptoms: Psychomotor Retardation Judgement: Good Diagnostics Vital Signs (24Hr): Vital Signs - 24 hr 11/29/21 08:15 11/29/21 18:00 Temperature 98.0 F 98.5 F Pulse Rate 82 85 Respiratory Rate 17 Blood Pressure 151/71 H 136/63 Pulse Oximetry 96 98 BMI result Body Mass Index 20.5 Labs Results: 11/24/21 06:37 11/24/21 06:37 Imaging Radiology Impressions: ITS Impressions Chest X-Ray 10/20/21 15:57 IMPRESSION: Unremarkable examination. Head CT 10/20/21 18:33 IMPRESSION: No acute intracranial process seen. A change from 09/29/[address] 10/26/21 21:21 IMPRESSION: No evidence of acute intracranial hemorrhage or edematous territorial infarction. Renal Ultrasound 10/27/21 15:51 IMPRESSION: Stable appearance of renal transplant kidney with 3.3 cm midpole simple appearing cyst. Renal Biopsy Ultrasound 11/16/21 11:17 IMPRESSION: Successful ultrasound-guided 18-gauge core biopsy performed from the right transplant kidney in right lower pelvis. Medications Medications Current Medications Acetaminophen (Acetaminophen 325 Mg Tablet) 650 mg PO Q6H PRN PRN Reason: Headache/Pain Mild Scale (1-3) Acetaminophen (Acetaminophen Supp 325 Mg Supp.Rect) 325 mg [place] Q6H PRN PRN Reason: Fever Al Hydroxide/Mg Hydroxide (Magnesium Hydrox/Alum Hydrox 30 Ml Oral.Susp) 30 ml PO Q6H PRN PRN Reason: Heartburn/Nausea Amlodipine Besylate (Amlodipine Besylate 10 Mg Tablet) 10 mg PO DAILY [facility]; Protocol Last Admin: 11/29/21 09:41 Dose: 10 mg Documented by: Calcitriol (Calcitriol 0.25 Mcg Capsule) 0.25 mcg PO DAILY [facility] Last Admin: 11/29/21 09:40 Dose: 0.25 mcg Documented by: Cinacalcet (Cinacalcet Hcl 30 Mg Tablet) 30 mg PO DAILY [facility] Last Admin: 11/29/21 09:40 Dose: 30 mg Documented by: Hydroxyzine HCl (Hydroxyzine Hcl 25 Mg Tablet) 25 mg PO BEDTIME PRN PRN Reason: Anxiety Last Admin: 11/22/21 22:21 Dose: 25 mg Documented by: Levothyroxine Sodium (Levothyroxine Sodium 50 Mcg Tablet) 50 mcg PO DAILY@0600 [facility] Last Admin: 11/29/21 04:19 Dose: 50 mcg Documented by: Magnesium Hydroxide (Milk Of Magnesia 30 Ml Oral.Susp) 30 ml PO DAILY PRN PRN Reason: Constipation Prednisone (Prednisone 5 Mg Tablet) 5 mg PO DAILY [facility] Last Admin: 11/29/21 09:40 Dose: 5 mg Documented by: Risperidone (Risperidone 2 Mg Tablet) 2 mg PO DAILY [facility] Last Admin: 11/29/21 20:08 Dose: 2 mg Documented by: Risperidone (Risperidone 2 Mg Tablet) 2 mg PO BEDTIME [facility] Last Admin: 11/29/21 20:14 Dose: 2 mg Documented by: Tacrolimus (Tacrolimus 1 Mg Capsule) 5 mg PO DAILY@0800 [facility] Last Admin: 11/29/21 09:40 Dose: 5 mg Documented by: Tacrolimus (Tacrolimus 1 Mg Capsule) 5 mg PO DAILY@1800 [facility] Last Admin: 11/29/21 18:47 Dose: 5 mg Documented by: Trazodone HCl (Trazodone Hcl 50 Mg Tablet) 50 mg PO BEDTIME PRN PRN Reason: Insomnia Last Admin: 11/22/21 22:21 Dose: 50 mg Documented by: Allergies Allergies Allergy/AdvReac Type Severity Reaction Status Date / Time gabapentin [From Neurontin] Allergy Unknown UNKNOWN Verified 11/16/21 08:58 Sulfa (Sulfonamide Allergy Unknown UNKNOWN Verified 11/16/21 08:58 Antibiotics) [SULFA (SULFONAMIDE ANTIBIOTICS)] trimethoprim [TRIMETHOPRIM] Allergy Unknown UNKNOWN Verified 11/16/21 08:58 lithium [LITHIUM] AdvReac Severe KIDNEY Verified 11/16/21 08:58 TRANSPLANT DUE TO LITHIUM TOXICITY Assessment & Plan Assessment & Plan (1) Schizoaffective disorder, bipolar type: Status: Acute Code(s): F25.0 - Schizoaffective disorder, bipolar type Assessment and Plan: Continue Risperdal patient gradually improving still has psychotic experiences seems less preoccupied at times at other times depressed withdrawn perhaps post manic type depression cycling down discussed Radha Clozari 11/30/2021 Patient seems to be gradually recovering from her psychotic preoccupations over the past few months. She can have more reality oriented conversations. Worried about tardive dyskinesia sleep-wake cycle disrupted.l continue Risperdal extensive discussion regarding tardive dyskinesia which patient did show when dose was abruptly lowered a few months ago. Treatment options reviewed including Clozaril and medications for TD if needed (2) LAURO (acute kidney injury): Status: Acute Code(s): N17.9 - Acute kidney failure, unspecified (3) HTN (hypertension): Status: Acute Code(s): I10 - Essential (primary) hypertension Assessment and Plan: Continue amlodipine (4) Living-donor kidney transplant recipient: Status: Acute Code(s): Z94.0 - Kidney transplant status (5) CKD (chronic kidney disease) stage 3, GFR 30-59 ml/min: Status: Acute Code(s): N18.30 - Chronic kidney disease, stage 3 unspecified Assessment and Plan: See nephrology note Prograf level continue to monitor electrolytes creatinine creatinine generally appears stable CBC creatinine reviewed I spent __30____ minutes with the patient and/or on the patient floor today, greater than?50% of which was spent counseling/coordinating care. Patient educated on: medication risk/benefits, therapeutic strategies and medical condition Informed Consent: understands Reason for contiued inpatient stay Substantial Risk for: rapid decompensation and med/psych decompensation
[2021-11-30] MEDS: Levothyroxine Sodium 50 MCG TABLET PO (04:56)
[2021-11-30 08:00] VITALS: BP 146/66; PULSE 87; TEMP 36.8; O2SAT 97
[2021-11-30] MEDS: calcitrioL 0.25 MCG CAPSULE PO (08:50)
[2021-11-30] MEDS: predniSONE 5 MG TABLET PO (08:50)
[2021-11-30] MEDS: amLODIPine Besylate 10 MG TABLET PO (08:50)
[2021-11-30] MEDS: Tacrolimus 1 MG CAPSULE 5 MG PO ×2 (08:50→16:59)
[2021-11-30] MEDS: Cinacalcet HCl 30 MG TABLET PO (08:51)
[2021-11-30 18:00] VITALS: BP 137/64; PULSE 83; RESP 18; TEMP 36.8; O2SAT 97
[2021-11-30] MEDS: risperiDONE 2 MG TABLET PO (20:08)
[2021-12-01] MEDS: Levothyroxine Sodium 50 MCG TABLET PO (05:12)
[2021-12-01 08:23] LABS: Anion Gap 13 (12-20); Blood Urea Nitrogen 36 mg/dL (9-16); Calcium 8.4 mg/dL (8.4-10.2); Carbon Dioxide 21 mmol/L (22-29); Chloride 109 mmol/L (96-108); Creatinine Clr Calc Pharmacy 26.4; Estimated Glomerular Filt Rate 30; Glucose Random 89 mg/dL (60-115); Potassium 4.8 mmol/L (3.3-5.1); Sodium 138 mmol/L (135-145)
--- NOTE | 2021-12-01 08:56 | HO.PSYCHPN ---
Subjective Subjective Date of Service: 12/01/21 Reason For Visit: Psychotic episode Subjective Notes: Conditional Voluntary Healthcare Proxy: No Guardianship: No Interim History: pt anxious dysphoric processing psychotic experiences Medication Compliance: Yes Mental Status Exam Mental Status Exam Patient Appearance: Well Grooomed Patient Orientation: Person, Place, Time and Situation Level of Consciousness: Awake and Lethargic Patient Behavior: Appropriate and Passive Mood Description: Constricted and Apprehensive Affect Description: Depressed and Apprehensive Ability to Follow Directions: Good Speech Pattern: Monotone and Soft-Spoken Memory Description: Intact Thought Process: Intact and Rumination Thought Content: positive for Intact and positive for Obsessional Thoughts Depressive Symptoms: Increased Anxiety and Sleeping More Than Usual Abnormal Motor Activity Signs and Symptoms: Psychomotor Retardation Judgement: Good Diagnostics Vital Signs (24Hr): Vital Signs - 24 hr 11/30/21 18:00 Temperature 98.3 F Pulse Rate 83 Respiratory Rate 18 Blood Pressure 137/64 Pulse Oximetry 97 BMI result Body Mass Index 20.5 Labs Results: 11/24/21 06:37 12/01/21 07:44 Labs: Laboratory Results - last 48 hr 11/24/21 12/01/21 05:30 07:44 Sodium 138 Potassium 4.8 Chloride 109 H Carbon Dioxide 21 L Anion Gap 13 BUN 36 H Creatinine 1.70 H Estim Creat Clear Calc 26.4 Estimated GFR 30 Random Glucose 89 Calcium 8.4 Tacrolimus Cancelled Imaging Radiology Impressions: ITS Impressions Chest X-Ray 10/20/21 15:57 IMPRESSION: Unremarkable examination. Head CT 10/20/21 18:33 IMPRESSION: No acute intracranial process seen. A change from 09/29/[address] 10/26/21 21:21 IMPRESSION: No evidence of acute intracranial hemorrhage or edematous territorial infarction. Renal Ultrasound 10/27/21 15:51 IMPRESSION: Stable appearance of renal transplant kidney with 3.3 cm midpole simple appearing cyst. Renal Biopsy Ultrasound 11/16/21 11:17 IMPRESSION: Successful ultrasound-guided 18-gauge core biopsy performed from the right transplant kidney in right lower pelvis. Medications Medications Current Medications Acetaminophen (Acetaminophen 325 Mg Tablet) 650 mg PO Q6H PRN PRN Reason: Headache/Pain Mild Scale (1-3) Acetaminophen (Acetaminophen Supp 325 Mg Supp.Rect) 325 mg [place] Q6H PRN PRN Reason: Fever Al Hydroxide/Mg Hydroxide (Magnesium Hydrox/Alum Hydrox 30 Ml Oral.Susp) 30 ml PO Q6H PRN PRN Reason: Heartburn/Nausea Amlodipine Besylate (Amlodipine Besylate 10 Mg Tablet) 10 mg PO DAILY [facility]; Protocol Last Admin: 11/30/21 08:50 Dose: 10 mg Documented by: Calcitriol (Calcitriol 0.25 Mcg Capsule) 0.25 mcg PO DAILY [facility] Last Admin: 11/30/21 08:50 Dose: 0.25 mcg Documented by: Cinacalcet (Cinacalcet Hcl 30 Mg Tablet) 30 mg PO DAILY [facility] Last Admin: 11/30/21 08:51 Dose: 30 mg Documented by: Hydroxyzine HCl (Hydroxyzine Hcl 25 Mg Tablet) 25 mg PO BEDTIME PRN PRN Reason: Anxiety Last Admin: 11/22/21 22:21 Dose: 25 mg Documented by: Levothyroxine Sodium (Levothyroxine Sodium 50 Mcg Tablet) 50 mcg PO DAILY@0600 [facility] Last Admin: 12/01/21 05:12 Dose: 50 mcg Documented by: Magnesium Hydroxide (Milk Of Magnesia 30 Ml Oral.Susp) 30 ml PO DAILY PRN PRN Reason: Constipation Prednisone (Prednisone 5 Mg Tablet) 5 mg PO DAILY [facility] Last Admin: 11/30/21 08:50 Dose: 5 mg Documented by: Risperidone (Risperidone 2 Mg Tablet) 2 mg PO DAILY [facility] Last Admin: 11/29/21 20:08 Dose: 2 mg Documented by: Risperidone (Risperidone 2 Mg Tablet) 2 mg PO BEDTIME [facility] Last Admin: 11/30/21 20:08 Dose: 2 mg Documented by: Tacrolimus (Tacrolimus 1 Mg Capsule) 5 mg PO DAILY@0800 [facility] Last Admin: 11/30/21 08:50 Dose: 5 mg Documented by: Tacrolimus (Tacrolimus 1 Mg Capsule) 5 mg PO DAILY@1800 [facility] Last Admin: 11/30/21 16:59 Dose: 5 mg Documented by: Trazodone HCl (Trazodone Hcl 50 Mg Tablet) 50 mg PO BEDTIME PRN PRN Reason: Insomnia Last Admin: 11/22/21 22:21 Dose: 50 mg Documented by: Allergies Allergies Allergy/AdvReac Type Severity Reaction Status Date / Time gabapentin [From Neurontin] Allergy Unknown UNKNOWN Verified 11/16/21 08:58 Sulfa (Sulfonamide Allergy Unknown UNKNOWN Verified 11/16/21 08:58 Antibiotics) [SULFA (SULFONAMIDE ANTIBIOTICS)] trimethoprim [TRIMETHOPRIM] Allergy Unknown UNKNOWN Verified 11/16/21 08:58 lithium [LITHIUM] AdvReac Severe KIDNEY Verified 11/16/21 08:58 TRANSPLANT DUE TO LITHIUM TOXICITY Assessment & Plan Assessment & Plan (1) Schizoaffective disorder, bipolar type: Status: Acute Code(s): F25.0 - Schizoaffective disorder, bipolar type Assessment and Plan: Continue Risperdal patient gradually improving still has psychotic experiences seems less preoccupied at times at other times depressed withdrawn perhaps post manic type depression cycling down discussed Radha Drake 11/30/2021 Patient seems to be gradually recovering from her psychotic preoccupations over the past few months. She can have more reality oriented conversations. Worried about tardive dyskinesia sleep-wake cycle disrupted.l continue Risperdal extensive discussion regarding tardive dyskinesia which patient did show when dose was abruptly lowered a few months ago. change risperadol to more at hs (2) LAURO (acute kidney injury): Status: Acute Code(s): N17.9 - Acute kidney failure, unspecified (3) HTN (hypertension): Status: Acute Code(s): I10 - Essential (primary) hypertension Assessment and Plan: Continue amlodipine (4) Living-donor kidney transplant recipient: Status: Acute Code(s): Z94.0 - Kidney transplant status (5) CKD (chronic kidney disease) stage 3, GFR 30-59 ml/min: Status: Acute Code(s): N18.30 - Chronic kidney disease, stage 3 unspecified Assessment and Plan: See nephrology note Prograf level continue to monitor electrolytes creatinine creatinine generally appears stable CBC creatinine reviewed I spent __30____ minutes with the patient and/or on the patient floor today, greater than?50% of which was spent counseling/coordinating care. Patient educated on: medication risk/benefits and therapeutic strategies Informed Consent: understands Reason for contiued inpatient stay Substantial Risk for: rapid decompensation and med/psych decompensation
[2021-12-01 09:02] VITALS: BP 147/65; PULSE 79; RESP 16; TEMP 36.8; O2SAT 99
--- NOTE | 2021-12-01 10:09 | PM.PNNEP ---
Subjective Subjective Date of Service: 01/24/22 Principal diagnosis: LAURO, CKD, Kidney Xplant patient Interval history: Events noted Physical Exam Vital Signs: Vital Signs: Last Vital Signs Temp 98.3 F 12/01/21 09:02 Pulse 79 12/01/21 09:02 Resp 16 12/01/21 09:02 BP 147/65 H 12/01/21 09:02 Pulse Ox 99 12/01/21 09:02 BMI result Body Mass Index 20.5 Const: Other: General - no acute distress, appears comfortable Cardiovascular - regular rate and rhythm, S1-S2 Lungs - normal respiratory effort, clear to auscultation bilaterally, no wheezing Abdomen - soft, nontender, no rebound or guarding Extremities - no edema bilaterally Neuro - awake and alert, no focal deficits psych - poor insight Objective Data Labs CBC & Chem 7: 11/24/21 06:37 12/06/21 07:23 Labs: Laboratory Results - last 24 hr 12/01/21 07:44 Sodium 138 Potassium 4.8 Chloride 109 H Carbon Dioxide 21 L Anion Gap 13 BUN 36 H Creatinine 1.70 H Estim Creat Clear Calc 26.4 Estimated GFR 30 Random Glucose 89 Calcium 8.4 Procedures Date of Service Date of Service: 12/01/21 Assessment & Plan Assessment and plan (1) LAURO (acute kidney injury): Status: Resolved (2) HTN (hypertension): Status: Acute (3) Living-donor kidney transplant recipient: Status: Acute (4) CKD (chronic kidney disease) stage 3, GFR 30-59 ml/min: Status: Acute Plan s/p Living Related Renal transplant -2008 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
[2021-12-01] MEDS: Cinacalcet HCl 30 MG TABLET PO (10:45)
[2021-12-01] MEDS: Tacrolimus 1 MG CAPSULE 5 MG PO ×2 (10:45→18:00)
[2021-12-01] MEDS: amLODIPine Besylate 10 MG TABLET PO (10:45)
[2021-12-01] MEDS: risperiDONE 2 MG TABLET PO ×2 (10:45→21:00)
[2021-12-01] MEDS: calcitrioL 0.25 MCG CAPSULE PO (10:45)
[2021-12-01] MEDS: predniSONE 5 MG TABLET PO (10:46)
[2021-12-01 18:00] VITALS: BP 144/65; PULSE 85; RESP 18; TEMP 36.7; O2SAT 97
[2021-12-01] MEDS: LORazepam 1 MG TABLET PO (21:00)
--- NOTE | 2021-12-01 21:40 | HO.PSYCHPN ---
Subjective Subjective Date of Service: 12/01/21 Reason For Visit: Psychotic episode Subjective Notes: Conditional Voluntary Interim History: The patient is preoccupied worried about her future lot of financial concerns trying to make sense of what happened to her over the past few months Mental Status Exam Mental Status Exam Patient Appearance: Well Grooomed Patient Orientation: Person, Place, Time and Situation Level of Consciousness: Awake Patient Behavior: Appropriate and Passive Mood Description: Constricted and Apprehensive Affect Description: Depressed and Apprehensive Ability to Follow Directions: Good Speech Pattern: Monotone and Soft-Spoken Memory Description: Intact Thought Process: Intact and Rumination Thought Content: positive for Intact and positive for Obsessional Thoughts Depressive Symptoms: Increased Anxiety and Sleeping More Than Usual Abnormal Motor Activity Signs and Symptoms: Psychomotor Retardation Judgement: Good Diagnostics Vital Signs (24Hr): Vital Signs - 24 hr 12/01/21 09:02 Temperature 98.3 F Pulse Rate 79 Respiratory Rate 16 Blood Pressure 147/65 H Pulse Oximetry 99 BMI result Body Mass Index 20.5 Labs Results: 11/24/21 06:37 12/01/21 07:44 Labs: Laboratory Results - last 48 hr 11/24/21 12/01/21 05:30 07:44 Sodium 138 Potassium 4.8 Chloride 109 H Carbon Dioxide 21 L Anion Gap 13 BUN 36 H Creatinine 1.70 H Estim Creat Clear Calc 26.4 Estimated GFR 30 Random Glucose 89 Calcium 8.4 Tacrolimus Cancelled Imaging Radiology Impressions: ITS Impressions Chest X-Ray 10/20/21 15:57 IMPRESSION: Unremarkable examination. Head CT 10/20/21 18:33 IMPRESSION: No acute intracranial process seen. A change from 09/29/[address] 10/26/21 21:21 IMPRESSION: No evidence of acute intracranial hemorrhage or edematous territorial infarction. Renal Ultrasound 10/27/21 15:51 IMPRESSION: Stable appearance of renal transplant kidney with 3.3 cm midpole simple appearing cyst. Renal Biopsy Ultrasound 11/16/21 11:17 IMPRESSION: Successful ultrasound-guided 18-gauge core biopsy performed from the right transplant kidney in right lower pelvis. Medications Medications Current Medications Acetaminophen (Acetaminophen 325 Mg Tablet) 650 mg PO Q6H PRN PRN Reason: Headache/Pain Mild Scale (1-3) Acetaminophen (Acetaminophen Supp 325 Mg Supp.Rect) 325 mg [place] Q6H PRN PRN Reason: Fever Al Hydroxide/Mg Hydroxide (Magnesium Hydrox/Alum Hydrox 30 Ml Oral.Susp) 30 ml PO Q6H PRN PRN Reason: Heartburn/Nausea Amlodipine Besylate (Amlodipine Besylate 10 Mg Tablet) 10 mg PO DAILY [facility]; Protocol Last Admin: 12/01/21 10:45 Dose: 10 mg Documented by: Calcitriol (Calcitriol 0.25 Mcg Capsule) 0.25 mcg PO DAILY [facility] Last Admin: 12/01/21 10:45 Dose: 0.25 mcg Documented by: Cinacalcet (Cinacalcet Hcl 30 Mg Tablet) 30 mg PO DAILY [facility] Last Admin: 12/01/21 10:45 Dose: 30 mg Documented by: Hydroxyzine HCl (Hydroxyzine Hcl 25 Mg Tablet) 25 mg PO BEDTIME PRN PRN Reason: Anxiety Last Admin: 11/22/21 22:21 Dose: 25 mg Documented by: Levothyroxine Sodium (Levothyroxine Sodium 50 Mcg Tablet) 50 mcg PO DAILY@0600 [facility] Last Admin: 12/01/21 05:12 Dose: 50 mcg Documented by: Lorazepam (Lorazepam 1 Mg Tablet) 1 mg PO BEDTIME [facility] Last Admin: 12/01/21 21:00 Dose: 1 mg Documented by: Magnesium Hydroxide (Milk Of Magnesia 30 Ml Oral.Susp) 30 ml PO DAILY PRN PRN Reason: Constipation Prednisone (Prednisone 5 Mg Tablet) 5 mg PO DAILY [facility] Last Admin: 12/01/21 10:46 Dose: 5 mg Documented by: Risperidone (Risperidone 2 Mg Tablet) 2 mg PO DAILY [facility] Last Admin: 12/01/21 10:45 Dose: 2 mg Documented by: Risperidone (Risperidone 2 Mg Tablet) 2 mg PO BEDTIME [facility] Last Admin: 12/01/21 21:00 Dose: 2 mg Documented by: Tacrolimus (Tacrolimus 1 Mg Capsule) 5 mg PO DAILY@0800 [facility] Last Admin: 12/01/21 10:45 Dose: 5 mg Documented by: Tacrolimus (Tacrolimus 1 Mg Capsule) 5 mg PO DAILY@1800 [facility] Last Admin: 12/01/21 18:00 Dose: 5 mg Documented by: Trazodone HCl (Trazodone Hcl 50 Mg Tablet) 50 mg PO BEDTIME PRN PRN Reason: Insomnia Last Admin: 11/22/21 22:21 Dose: 50 mg Documented by: Allergies Allergies Allergy/AdvReac Type Severity Reaction Status Date / Time gabapentin [From Neurontin] Allergy Unknown UNKNOWN Verified 11/16/21 08:58 Sulfa (Sulfonamide Allergy Unknown UNKNOWN Verified 11/16/21 08:58 Antibiotics) [SULFA (SULFONAMIDE ANTIBIOTICS)] trimethoprim [TRIMETHOPRIM] Allergy Unknown UNKNOWN Verified 11/16/21 08:58 lithium [LITHIUM] AdvReac Severe KIDNEY Verified 11/16/21 08:58 TRANSPLANT DUE TO LITHIUM TOXICITY Assessment & Plan Assessment & Plan (1) Schizoaffective disorder, bipolar type: Status: Acute Code(s): F25.0 - Schizoaffective disorder, bipolar type Assessment and Plan: Continue Risperdal patient gradually improving still has psychotic experiences seems less preoccupied at times at other times depressed withdrawn perhaps post manic type depression cycling down discussed Radha Drake 11/30/2021 Patient seems to be gradually recovering from her psychotic preoccupations over the past few months. She can have more reality oriented conversations. Worried about tardive dyskinesia sleep-wake cycle disrupted.l continue Risperdal extensive discussion regarding tardive dyskinesia which patient did show when dose was abruptly lowered a few months ago. change risperadol to more at hs 12/01/2021 Patient continues to consolidate gains slowly anxious and preoccupied word financially and about the future. Needs much reassurance continue Risperdal (2) LAURO (acute kidney injury): Status: Acute Code(s): N17.9 - Acute kidney failure, unspecified (3) HTN (hypertension): Status: Acute Code(s): I10 - Essential (primary) hypertension Assessment and Plan: Continue amlodipine (4) Living-donor kidney transplant recipient: Status: Acute Code(s): Z94.0 - Kidney transplant status (5) CKD (chronic kidney disease) stage 3, GFR 30-59 ml/min: Status: Acute Code(s): N18.30 - Chronic kidney disease, stage 3 unspecified Assessment and Plan: See nephrology note Prograf level continue to monitor electrolytes creatinine creatinine generally appears stable CBC creatinine reviewed I spent minutes with the patient and/or on the patient floor today, greater than?50% of which was spent counseling/coordinating care. Reason for contiued inpatient stay Substantial Risk for: inability to function and rapid decompensation
[2021-12-02] MEDS: Levothyroxine Sodium 50 MCG TABLET PO (06:19)
[2021-12-02 08:46] VITALS: BP 120/68; PULSE 80; RESP 16; TEMP 36.7; O2SAT 98
[2021-12-02 08:51] LABS: Tacrolimus Prograf 6.6 mcg/L
[2021-12-02] MEDS: risperiDONE 2 MG TABLET PO ×2 (09:03→21:10)
[2021-12-02] MEDS: predniSONE 5 MG TABLET PO (09:03)
[2021-12-02] MEDS: Tacrolimus 1 MG CAPSULE 5 MG PO ×2 (09:03→17:51)
[2021-12-02] MEDS: Cinacalcet HCl 30 MG TABLET PO (09:03)
[2021-12-02] MEDS: amLODIPine Besylate 10 MG TABLET PO (09:03)
[2021-12-02] MEDS: calcitrioL 0.25 MCG CAPSULE PO (09:04)
--- NOTE | 2021-12-02 14:36 | HO.PSYCHPN ---
Subjective Subjective Date of Service: 12/02/21 Reason For Visit: Psychotic episode Subjective Notes: Conditional Voluntary Interim History: the nursing staff reported that the patient has been more visible in the unit, her mood is more stable no evidence of bizarre delusions. She is also fully compliant with treatment. On interview, the patient denies new symptoms she is compliant with treatment and she denies side effects. She had a very expansive affect at pm. Mental Status Exam Mental Status Exam Patient Appearance: Well Grooomed Patient Orientation: Person Level of Consciousness: Appropriate Patient Behavior: Guarded and Cooperative Mood Description: Elated Affect Description: Labile Patient Cognition Impaired: Yes Ability to Follow Directions: Good Speech Pattern: Clear Hallucinations: None Delusions: Paranoid Ideation Thought Process: Distracted Thought Content: positive for Circumstantial and positive for Poverty of Content Judgement: Fair Diagnostics Vital Signs (24Hr): Vital Signs - 24 hr 12/01/21 18:00 12/02/21 08:46 Temperature 98.1 F 98.1 F Pulse Rate 85 80 Respiratory Rate 18 16 Blood Pressure 144/65 H 120/68 Pulse Oximetry 97 98 BMI result Body Mass Index 20.5 Labs Results: 11/24/21 06:37 12/01/21 07:44 Labs: Laboratory Results - last 48 hr 12/01/21 12/01/21 07:44 07:44 Sodium 138 Potassium 4.8 Chloride 109 H Carbon Dioxide 21 L Anion Gap 13 BUN 36 H Creatinine 1.70 H Estim Creat Clear Calc 26.4 Estimated GFR 30 Random Glucose 89 Calcium 8.4 Tacrolimus 6.6 Imaging Radiology Impressions: ITS Impressions Chest X-Ray 10/20/21 15:57 IMPRESSION: Unremarkable examination. Head CT 10/20/21 18:33 IMPRESSION: No acute intracranial process seen. A change from 09/29/[address] 10/26/21 21:21 IMPRESSION: No evidence of acute intracranial hemorrhage or edematous territorial infarction. Renal Ultrasound 10/27/21 15:51 IMPRESSION: Stable appearance of renal transplant kidney with 3.3 cm midpole simple appearing cyst. Renal Biopsy Ultrasound 11/16/21 11:17 IMPRESSION: Successful ultrasound-guided 18-gauge core biopsy performed from the right transplant kidney in right lower pelvis. Medications Medications Current Medications Acetaminophen (Acetaminophen 325 Mg Tablet) 650 mg PO Q6H PRN PRN Reason: Headache/Pain Mild Scale (1-3) Acetaminophen (Acetaminophen Supp 325 Mg Supp.Rect) 325 mg [place] Q6H PRN PRN Reason: Fever Al Hydroxide/Mg Hydroxide (Magnesium Hydrox/Alum Hydrox 30 Ml Oral.Susp) 30 ml PO Q6H PRN PRN Reason: Heartburn/Nausea Amlodipine Besylate (Amlodipine Besylate 10 Mg Tablet) 10 mg PO DAILY [facility]; Protocol Last Admin: 12/02/21 09:03 Dose: 10 mg Documented by: Calcitriol (Calcitriol 0.25 Mcg Capsule) 0.25 mcg PO DAILY [facility] Last Admin: 12/02/21 09:04 Dose: 0.25 mcg Documented by: Cinacalcet (Cinacalcet Hcl 30 Mg Tablet) 30 mg PO DAILY [facility] Last Admin: 12/02/21 09:03 Dose: 30 mg Documented by: Hydroxyzine HCl (Hydroxyzine Hcl 25 Mg Tablet) 25 mg PO BEDTIME PRN PRN Reason: Anxiety Last Admin: 11/22/21 22:21 Dose: 25 mg Documented by: Levothyroxine Sodium (Levothyroxine Sodium 50 Mcg Tablet) 50 mcg PO DAILY@0600 [facility] Last Admin: 12/02/21 06:19 Dose: 50 mcg Documented by: Lorazepam (Lorazepam 1 Mg Tablet) 1 mg PO BEDTIME [facility] Last Admin: 12/01/21 21:00 Dose: 1 mg Documented by: Magnesium Hydroxide (Milk Of Magnesia 30 Ml Oral.Susp) 30 ml PO DAILY PRN PRN Reason: Constipation Prednisone (Prednisone 5 Mg Tablet) 5 mg PO DAILY [facility] Last Admin: 12/02/21 09:03 Dose: 5 mg Documented by: Risperidone (Risperidone 2 Mg Tablet) 2 mg PO DAILY [facility] Last Admin: 12/02/21 09:03 Dose: 2 mg Documented by: Risperidone (Risperidone 2 Mg Tablet) 2 mg PO BEDTIME [facility] Last Admin: 12/01/21 21:00 Dose: 2 mg Documented by: Tacrolimus (Tacrolimus 1 Mg Capsule) 5 mg PO DAILY@0800 [facility] Last Admin: 12/02/21 09:03 Dose: 5 mg Documented by: Tacrolimus (Tacrolimus 1 Mg Capsule) 5 mg PO DAILY@1800 [facility] Last Admin: 12/01/21 18:00 Dose: 5 mg Documented by: Trazodone HCl (Trazodone Hcl 50 Mg Tablet) 50 mg PO BEDTIME PRN PRN Reason: Insomnia Last Admin: 11/22/21 22:21 Dose: 50 mg Documented by: Allergies Allergies Allergy/AdvReac Type Severity Reaction Status Date / Time gabapentin [From Neurontin] Allergy Unknown UNKNOWN Verified 11/16/21 08:58 Sulfa (Sulfonamide Allergy Unknown UNKNOWN Verified 11/16/21 08:58 Antibiotics) [SULFA (SULFONAMIDE ANTIBIOTICS)] trimethoprim [TRIMETHOPRIM] Allergy Unknown UNKNOWN Verified 11/16/21 08:58 lithium [LITHIUM] AdvReac Severe KIDNEY Verified 11/16/21 08:58 TRANSPLANT DUE TO LITHIUM TOXICITY Assessment & Plan Assessment & Plan (1) Schizoaffective disorder, bipolar type: Status: Acute Code(s): F25.0 - Schizoaffective disorder, bipolar type Assessment and Plan: Continue Risperdal patient gradually improving still has psychotic experiences seems less preoccupied at times at other times depressed withdrawn perhaps post manic type depression cycling down discussed Radha Drake 11/30/2021 Patient seems to be gradually recovering from her psychotic preoccupations over the past few months. She can have more reality oriented conversations. Worried about tardive dyskinesia sleep-wake cycle disrupted.l continue Risperdal extensive discussion regarding tardive dyskinesia which patient did show when dose was abruptly lowered a few months ago. change risperadol to more at hs 12/01/2021 Patient continues to consolidate gains slowly anxious and preoccupied word financially and about the future. Needs much reassurance continue Risperdal 12/02 Looks better, less psychotic (2) LAURO (acute kidney injury): Status: Acute Code(s): N17.9 - Acute kidney failure, unspecified (3) HTN (hypertension): Status: Acute Code(s): I10 - Essential (primary) hypertension Assessment and Plan: Continue amlodipine (4) Living-donor kidney transplant recipient: Status: Acute Code(s): Z94.0 - Kidney transplant status (5) CKD (chronic kidney disease) stage 3, GFR 30-59 ml/min: Status: Acute Code(s): N18.30 - Chronic kidney disease, stage 3 unspecified Assessment and Plan: See nephrology note Prograf level continue to monitor electrolytes creatinine creatinine generally appears stable CBC creatinine reviewed I spent ___20___ minutes with the patient and/or on the patient floor today, greater than?50% of which was spent counseling/coordinating care. Patient educated on: therapeutic strategies Informed Consent: further education needed Reason for contiued inpatient stay Substantial Risk for: inability to function, rapid decompensation and med/psych decompensation
[2021-12-02 18:00] VITALS: BP 138/64; PULSE 76; RESP 18; TEMP 36.6; O2SAT 97
[2021-12-02] MEDS: LORazepam 1 MG TABLET PO (21:10)
[2021-12-03] MEDS: Levothyroxine Sodium 50 MCG TABLET PO (05:58)
[2021-12-03 07:30] VITALS: BP 167/74; PULSE 83; RESP 16; TEMP 36.4; O2SAT 95
[2021-12-03] MEDS: Cinacalcet HCl 30 MG TABLET PO (08:49)
[2021-12-03] MEDS: predniSONE 5 MG TABLET PO (08:50)
[2021-12-03] MEDS: calcitrioL 0.25 MCG CAPSULE PO (08:50)
[2021-12-03] MEDS: risperiDONE 2 MG TABLET PO ×2 (08:50→20:52)
[2021-12-03] MEDS: amLODIPine Besylate 10 MG TABLET PO (08:50)
[2021-12-03] MEDS: Tacrolimus 1 MG CAPSULE 5 MG PO ×2 (08:51→16:54)
--- NOTE | 2021-12-03 18:12 | HO.PSYCHPN ---
Subjective Subjective Date of Service: 12/03/21 Reason For Visit: Psychotic episode Subjective Notes: Conditional Voluntary Healthcare Proxy: No Guardianship: No Interim History: Patient appears to have cleared from psychotic process but has been having increased anxiety worried about medications and finances Medication Compliance: Yes Attending Groups: Yes Review of Systems Improving kidney function Mental Status Exam Mental Status Exam Patient Appearance: Well Grooomed Patient Orientation: Person Level of Consciousness: Appropriate Patient Behavior: Appropriate, Talkative, Cooperative and Anxious Mood Description: Apprehensive Affect Description: Appropriate, Nervous and Apprehensive Patient Cognition Impaired: Yes Ability to Follow Directions: Good Speech Pattern: Clear Hallucinations: None Delusions: Not Present Thought Process: Distracted Thought Content: positive for Intact Judgement: Good Judgement and Insight: Patient much improved just preoccupied with discharge planning had a get her medication and financial concerns of Diagnostics Vital Signs (24Hr): Vital Signs - 24 hr 12/03/21 07:30 Temperature 97.5 F Pulse Rate 83 Respiratory Rate 16 Blood Pressure 167/74 H Pulse Oximetry 95 BMI result Body Mass Index 20.5 Labs Results: 11/24/21 06:37 12/01/21 07:44 Labs: Laboratory Results - last 48 hr 12/01/21 07:44 Tacrolimus 6.6 Imaging Radiology Impressions: ITS Impressions Chest X-Ray 10/20/21 15:57 IMPRESSION: Unremarkable examination. Head CT 10/20/21 18:33 IMPRESSION: No acute intracranial process seen. A change from 09/29/[address] 10/26/21 21:21 IMPRESSION: No evidence of acute intracranial hemorrhage or edematous territorial infarction. Renal Ultrasound 10/27/21 15:51 IMPRESSION: Stable appearance of renal transplant kidney with 3.3 cm midpole simple appearing cyst. Renal Biopsy Ultrasound 11/16/21 11:17 IMPRESSION: Successful ultrasound-guided 18-gauge core biopsy performed from the right transplant kidney in right lower pelvis. Medications Medications Current Medications Acetaminophen (Acetaminophen 325 Mg Tablet) 650 mg PO Q6H PRN PRN Reason: Headache/Pain Mild Scale (1-3) Acetaminophen (Acetaminophen Supp 325 Mg Supp.Rect) 325 mg [place] Q6H PRN PRN Reason: Fever Al Hydroxide/Mg Hydroxide (Magnesium Hydrox/Alum Hydrox 30 Ml Oral.Susp) 30 ml PO Q6H PRN PRN Reason: Heartburn/Nausea Amlodipine Besylate (Amlodipine Besylate 10 Mg Tablet) 10 mg PO DAILY [facility]; Protocol Last Admin: 12/03/21 08:50 Dose: 10 mg Documented by: Calcitriol (Calcitriol 0.25 Mcg Capsule) 0.25 mcg PO DAILY [facility] Last Admin: 12/03/21 08:50 Dose: 0.25 mcg Documented by: Cinacalcet (Cinacalcet Hcl 30 Mg Tablet) 30 mg PO DAILY [facility] Last Admin: 12/03/21 08:49 Dose: 30 mg Documented by: Hydroxyzine HCl (Hydroxyzine Hcl 25 Mg Tablet) 25 mg PO BEDTIME PRN PRN Reason: Anxiety Last Admin: 11/22/21 22:21 Dose: 25 mg Documented by: Levothyroxine Sodium (Levothyroxine Sodium 50 Mcg Tablet) 50 mcg PO DAILY@0600 [facility] Last Admin: 12/03/21 05:58 Dose: 50 mcg Documented by: Lorazepam (Lorazepam 1 Mg Tablet) 1 mg PO BEDTIME [facility] Last Admin: 12/02/21 21:10 Dose: 1 mg Documented by: Magnesium Hydroxide (Milk Of Magnesia 30 Ml Oral.Susp) 30 ml PO DAILY PRN PRN Reason: Constipation Prednisone (Prednisone 5 Mg Tablet) 5 mg PO DAILY [facility] Last Admin: 12/03/21 08:50 Dose: 5 mg Documented by: Risperidone (Risperidone 2 Mg Tablet) 2 mg PO BID [facility] Tacrolimus (Tacrolimus 1 Mg Capsule) 5 mg PO DAILY@0800 [facility] Last Admin: 12/03/21 08:51 Dose: 5 mg Documented by: Tacrolimus (Tacrolimus 1 Mg Capsule) 5 mg PO DAILY@1800 [facility] Last Admin: 12/03/21 16:54 Dose: 5 mg Documented by: Trazodone HCl (Trazodone Hcl 50 Mg Tablet) 50 mg PO BEDTIME PRN PRN Reason: Insomnia Last Admin: 11/22/21 22:21 Dose: 50 mg Documented by: Allergies Allergies Allergy/AdvReac Type Severity Reaction Status Date / Time gabapentin [From Neurontin] Allergy Unknown UNKNOWN Verified 11/16/21 08:58 Sulfa (Sulfonamide Allergy Unknown UNKNOWN Verified 11/16/21 08:58 Antibiotics) [SULFA (SULFONAMIDE ANTIBIOTICS)] trimethoprim [TRIMETHOPRIM] Allergy Unknown UNKNOWN Verified 11/16/21 08:58 lithium [LITHIUM] AdvReac Severe KIDNEY Verified 11/16/21 08:58 TRANSPLANT DUE TO LITHIUM TOXICITY Assessment & Plan Assessment & Plan (1) Schizoaffective disorder, bipolar type: Status: Acute Code(s): F25.0 - Schizoaffective disorder, bipolar type Assessment and Plan: Continue Risperdal patient gradually improving still has psychotic experiences seems less preoccupied at times at other times depressed withdrawn perhaps post manic type depression cycling down discussed Radha Drake 11/30/2021 Patient seems to be gradually recovering from her psychotic preoccupations over the past few months. She can have more reality oriented conversations. Worried about tardive dyskinesia sleep-wake cycle disrupted.l continue Risperdal extensive discussion regarding tardive dyskinesia which patient did show when dose was abruptly lowered a few months ago. change risperadol to more at hs 12/01/2021 Patient continues to consolidate gains slowly anxious and preoccupied word financially and about the future. Needs much reassurance continue Risperdal 12/02 Looks better, less psychoti 12/03/2021 Patient has shown significant improvement will try and coordinate with Nephrology to be clear patient is on correct discharge medications ongoing if remains stable will aim for discharge 12 06 21 continue Risperdal 2 mg b.i.d. lorazepam 1 mg bedtime (2) LAURO (acute kidney injury): Status: Acute Code(s): N17.9 - Acute kidney failure, unspecified (3) HTN (hypertension): Status: Acute Code(s): I10 - Essential (primary) hypertension Assessment and Plan: Continue amlodipine (4) Living-donor kidney transplant recipient: Status: Acute Code(s): Z94.0 - Kidney transplant status (5) CKD (chronic kidney disease) stage 3, GFR 30-59 ml/min: Status: Acute Code(s): N18.30 - Chronic kidney disease, stage 3 unspecified Assessment and Plan: See nephrology note Prograf level continue to monitor electrolytes creatinine creatinine generally appears stable CBC creatinine reviewed I spent minutes with the patient and/or on the patient floor today, greater than?50% of which was spent counseling/coordinating care. Reason for contiued inpatient stay Substantial Risk for: rapid decompensation and med/psych decompensation
[2021-12-03 20:35] VITALS: BP 145/67; PULSE 82; RESP 17; TEMP 36.1; O2SAT 96
[2021-12-03] MEDS: LORazepam 1 MG TABLET PO (20:52)
[2021-12-04] MEDS: Levothyroxine Sodium 50 MCG TABLET PO (03:52)
[2021-12-04 06:00] VITALS: BP 145/66; PULSE 70; TEMP 37.2; O2SAT 98
--- NOTE | 2021-12-04 07:46 | HO.PSYCHPN ---
Subjective Subjective Date of Service: 12/04/21 Reason For Visit: Psychotic episode Subjective Notes: Conditional Voluntary Interim History: Pt with no overt delusional or psychosis but also superficially cooperative stating she is doing well, does not need to meet with this engineering technical writer as she is fine and scheduled for discharge Monday. She denies SI/HI. She reports sleeping eating well. She is taking medications as prescribed. Per nursing, no behavioral concerns VS stable. Medication Compliance: Yes Side effects from medications: No Review of Systems Review of Systems Yes Unobtainable due to mental status Mental Status Exam Mental Status Exam Patient Appearance: Well Grooomed Patient Orientation: Person Level of Consciousness: Appropriate Patient Behavior: Appropriate, Talkative, Cooperative and Anxious Mood Description: Apprehensive Affect Description: Appropriate, Nervous and Apprehensive Patient Cognition Impaired: Yes Ability to Follow Directions: Good Speech Pattern: Clear Memory Description: Intact Diagnostics Vital Signs (24Hr): Vital Signs - 24 hr 12/05/21 20:08 Temperature 97.8 F Pulse Rate 81 Respiratory Rate 18 Blood Pressure 150/67 H Pulse Oximetry 98 BMI result Body Mass Index 20.5 Labs Results: 11/24/21 06:37 12/01/21 07:44 Imaging Radiology Impressions: ITS Impressions Chest X-Ray 10/20/21 15:57 IMPRESSION: Unremarkable examination. Head CT 10/20/21 18:33 IMPRESSION: No acute intracranial process seen. A change from 09/29/[address] 10/26/21 21:21 IMPRESSION: No evidence of acute intracranial hemorrhage or edematous territorial infarction. Renal Ultrasound 10/27/21 15:51 IMPRESSION: Stable appearance of renal transplant kidney with 3.3 cm midpole simple appearing cyst. Renal Biopsy Ultrasound 11/16/21 11:17 IMPRESSION: Successful ultrasound-guided 18-gauge core biopsy performed from the right transplant kidney in right lower pelvis. Medications Medications Current Medications Acetaminophen (Acetaminophen 325 Mg Tablet) 650 mg PO Q6H PRN PRN Reason: Headache/Pain Mild Scale (1-3) Acetaminophen (Acetaminophen Supp 325 Mg Supp.Rect) 325 mg DE Q6H PRN PRN Reason: Fever Al Hydroxide/Mg Hydroxide (Magnesium Hydrox/Alum Hydrox 30 Ml Oral.Susp) 30 ml PO Q6H PRN PRN Reason: Heartburn/Nausea Amlodipine Besylate (Amlodipine Besylate 10 Mg Tablet) 10 mg PO DAILY [facility]; Protocol Last Admin: 12/05/21 09:13 Dose: 10 mg Documented by: Calcitriol (Calcitriol 0.25 Mcg Capsule) 0.25 mcg PO DAILY [facility] Last Admin: 12/05/21 09:12 Dose: 0.25 mcg Documented by: Cinacalcet (Cinacalcet Hcl 30 Mg Tablet) 30 mg PO DAILY [facility] Last Admin: 12/05/21 09:13 Dose: 30 mg Documented by: Hydroxyzine HCl (Hydroxyzine Hcl 25 Mg Tablet) 25 mg PO BEDTIME PRN PRN Reason: Anxiety Last Admin: 11/22/21 22:21 Dose: 25 mg Documented by: Levothyroxine Sodium (Levothyroxine Sodium 50 Mcg Tablet) 50 mcg PO DAILY@0600 [facility] Last Admin: 12/06/21 05:27 Dose: 50 mcg Documented by: Lorazepam (Lorazepam 1 Mg Tablet) 1 mg PO BEDTIME [facility] Last Admin: 12/05/21 20:00 Dose: 1 mg Documented by: Magnesium Hydroxide (Milk Of Magnesia 30 Ml Oral.Susp) 30 ml PO DAILY PRN PRN Reason: Constipation Prednisone (Prednisone 5 Mg Tablet) 5 mg PO DAILY [facility] Last Admin: 12/05/21 09:13 Dose: 5 mg Documented by: Risperidone (Risperidone 2 Mg Tablet) 2 mg PO BID [facility] Last Admin: 12/05/21 20:00 Dose: 2 mg Documented by: Tacrolimus (Tacrolimus 1 Mg Capsule) 5 mg PO DAILY@0800 [facility] Last Admin: 12/05/21 09:13 Dose: 5 mg Documented by: Tacrolimus (Tacrolimus 1 Mg Capsule) 5 mg PO DAILY@1800 [facility] Last Admin: 12/05/21 17:37 Dose: 5 mg Documented by: Trazodone HCl (Trazodone Hcl 50 Mg Tablet) 50 mg PO BEDTIME PRN PRN Reason: Insomnia Last Admin: 11/22/21 22:21 Dose: 50 mg Documented by: Allergies Allergies Allergy/AdvReac Type Severity Reaction Status Date / Time gabapentin [From Neurontin] Allergy Unknown UNKNOWN Verified 11/16/21 08:58 Sulfa (Sulfonamide Allergy Unknown UNKNOWN Verified 11/16/21 08:58 Antibiotics) [SULFA (SULFONAMIDE ANTIBIOTICS)] trimethoprim [TRIMETHOPRIM] Allergy Unknown UNKNOWN Verified 11/16/21 08:58 lithium [LITHIUM] AdvReac Severe KIDNEY Verified 02/15/22 08:58 TRANSPLANT DUE TO LITHIUM TOXICITY Assessment & Plan Assessment & Plan (1) Schizoaffective disorder, bipolar type: Status: Acute Code(s): F25.0 - Schizoaffective disorder, bipolar type (2) LAURO (acute kidney injury): Status: Acute Code(s): N17.9 - Acute kidney failure, unspecified (3) HTN (hypertension): Status: Acute Code(s): I10 - Essential (primary) hypertension (4) Living-donor kidney transplant recipient: Status: Acute Code(s): Z94.0 - Kidney transplant status (5) CKD (chronic kidney disease) stage 3, GFR 30-59 ml/min: Status: Acute Code(s): N18.30 - Chronic kidney disease, stage 3 unspecified Plan s/p Living Related Renal transplant -2008 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 I spent minutes with the patient and/or on the patient floor today, greater than?50% of which was spent counseling/coordinating care. Reason for contiued inpatient stay Substantial Risk for: inability to function
[2021-12-04] MEDS: predniSONE 5 MG TABLET PO (10:01)
[2021-12-04] MEDS: risperiDONE 2 MG TABLET PO ×2 (10:01→20:07)
[2021-12-04] MEDS: Cinacalcet HCl 30 MG TABLET PO (10:01)
[2021-12-04] MEDS: calcitrioL 0.25 MCG CAPSULE PO (10:02)
[2021-12-04] MEDS: amLODIPine Besylate 10 MG TABLET PO (10:02)
[2021-12-04] MEDS: Tacrolimus 1 MG CAPSULE 5 MG PO ×2 (11:06→20:08)
[2021-12-04] MEDS: LORazepam 1 MG TABLET PO (20:07)
[2021-12-04 21:00] VITALS: BP 143/65; PULSE 78; RESP 16; TEMP 36.3; O2SAT 98
[2021-12-05 06:00] VITALS: BP 131/62; PULSE 78; TEMP 36.9; O2SAT 97
[2021-12-05] MEDS: Levothyroxine Sodium 50 MCG TABLET PO (06:27)
--- NOTE | 2021-12-05 07:49 | HO.PSYCHPN ---
Subjective Subjective Date of Service: 12/05/21 Reason For Visit: Psychotic episode Subjective Notes: Conditional Voluntary Interim History: Pt continues to present with no overt delusional or psychosis but also superficially cooperative stating she is doing well, does not need to meet with this rewriter as she is fine and scheduled for discharge Monday. She denies SI/HI. She reports sleeping eating well. She is taking medications as prescribed. Per nursing, no behavioral concerns VS stable. Review of Systems Review of Systems Yes Unobtainable due to mental status Mental Status Exam Mental Status Exam Patient Appearance: Well Grooomed Patient Orientation: Person Level of Consciousness: Appropriate Patient Behavior: Appropriate, Talkative, Cooperative and Anxious Mood Description: Apprehensive Affect Description: Appropriate, Nervous and Apprehensive Patient Cognition Impaired: Yes Ability to Follow Directions: Good Speech Pattern: Clear Memory Description: Intact Diagnostics Vital Signs (24Hr): Vital Signs - 24 hr 12/05/21 20:08 Temperature 97.8 F Pulse Rate 81 Respiratory Rate 18 Blood Pressure 150/67 H Pulse Oximetry 98 BMI result Body Mass Index 20.5 Labs Results: 11/24/21 06:37 12/06/21 07:23 Labs: Laboratory Results - last 48 hr 12/06/21 07:23 Sodium 139 Potassium 4.3 Chloride 108 Carbon Dioxide 23 Anion Gap 12 BUN 47 H Creatinine 2.03 H Estim Creat Clear Calc 22.2 Estimated GFR 24 Fasting Glucose 106 H Calcium 9.0 D Magnesium 2.0 Total Bilirubin 0.4 AST 17 ALT 30 Alkaline Phosphatase 43 Total Protein 5.7 L Albumin 3.5 Imaging Radiology Impressions: ITS Impressions Chest X-Ray 10/20/21 15:57 IMPRESSION: Unremarkable examination. Head CT 10/20/21 18:33 IMPRESSION: No acute intracranial process seen. A change from 09/29/[address] 10/26/21 21:21 IMPRESSION: No evidence of acute intracranial hemorrhage or edematous territorial infarction. Renal Ultrasound 10/27/21 15:51 IMPRESSION: Stable appearance of renal transplant kidney with 3.3 cm midpole simple appearing cyst. Renal Biopsy Ultrasound 11/16/21 11:17 IMPRESSION: Successful ultrasound-guided 18-gauge core biopsy performed from the right transplant kidney in right lower pelvis. Medications Medications Current Medications Acetaminophen (Acetaminophen 325 Mg Tablet) 650 mg PO Q6H PRN PRN Reason: Headache/Pain Mild Scale (1-3) Acetaminophen (Acetaminophen Supp 325 Mg Supp.Rect) 325 mg [place] Q6H PRN PRN Reason: Fever Al Hydroxide/Mg Hydroxide (Magnesium Hydrox/Alum Hydrox 30 Ml Oral.Susp) 30 ml PO Q6H PRN PRN Reason: Heartburn/Nausea Amlodipine Besylate (Amlodipine Besylate 10 Mg Tablet) 10 mg PO DAILY [facility]; Protocol Last Admin: 12/05/21 09:13 Dose: 10 mg Documented by: Calcitriol (Calcitriol 0.25 Mcg Capsule) 0.25 mcg PO DAILY [facility] Last Admin: 12/05/21 09:12 Dose: 0.25 mcg Documented by: Cinacalcet (Cinacalcet Hcl 30 Mg Tablet) 30 mg PO DAILY [facility] Last Admin: 12/05/21 09:13 Dose: 30 mg Documented by: Hydroxyzine HCl (Hydroxyzine Hcl 25 Mg Tablet) 25 mg PO BEDTIME PRN PRN Reason: Anxiety Last Admin: 11/22/21 22:21 Dose: 25 mg Documented by: Levothyroxine Sodium (Levothyroxine Sodium 50 Mcg Tablet) 50 mcg PO DAILY@0600 [facility] Last Admin: 12/06/21 05:27 Dose: 50 mcg Documented by: Lorazepam (Lorazepam 1 Mg Tablet) 1 mg PO BEDTIME [facility] Last Admin: 12/05/21 20:00 Dose: 1 mg Documented by: Magnesium Hydroxide (Milk Of Magnesia 30 Ml Oral.Susp) 30 ml PO DAILY PRN PRN Reason: Constipation Prednisone (Prednisone 5 Mg Tablet) 5 mg PO DAILY [facility] Last Admin: 12/05/21 09:13 Dose: 5 mg Documented by: Risperidone (Risperidone 2 Mg Tablet) 2 mg PO BID [facility] Last Admin: 12/05/21 20:00 Dose: 2 mg Documented by: Tacrolimus (Tacrolimus 1 Mg Capsule) 5 mg PO DAILY@0800 [facility] Last Admin: 12/05/21 09:13 Dose: 5 mg Documented by: Tacrolimus (Tacrolimus 1 Mg Capsule) 5 mg PO DAILY@1800 [facility] Last Admin: 12/05/21 17:37 Dose: 5 mg Documented by: Trazodone HCl (Trazodone Hcl 50 Mg Tablet) 50 mg PO BEDTIME PRN PRN Reason: Insomnia Last Admin: 11/22/21 22:21 Dose: 50 mg Documented by: Allergies Allergies Allergy/AdvReac Type Severity Reaction Status Date / Time gabapentin [From Neurontin] Allergy Unknown UNKNOWN Verified 11/16/21 08:58 Sulfa (Sulfonamide Allergy Unknown UNKNOWN Verified 11/16/21 08:58 Antibiotics) [SULFA (SULFONAMIDE ANTIBIOTICS)] trimethoprim [TRIMETHOPRIM] Allergy Unknown UNKNOWN Verified 11/16/21 08:58 lithium [LITHIUM] AdvReac Severe KIDNEY Verified 11/16/21 08:58 TRANSPLANT DUE TO LITHIUM TOXICITY Assessment & Plan Assessment & Plan (1) Schizoaffective disorder, bipolar type: Status: Acute Code(s): F25.0 - Schizoaffective disorder, bipolar type (2) LAURO (acute kidney injury): Status: Acute Code(s): N17.9 - Acute kidney failure, unspecified (3) HTN (hypertension): Status: Acute Code(s): I10 - Essential (primary) hypertension (4) Living-donor kidney transplant recipient: Status: Acute Code(s): Z94.0 - Kidney transplant status (5) CKD (chronic kidney disease) stage 3, GFR 30-59 ml/min: Status: Acute Code(s): N18.30 - Chronic kidney disease, stage 3 unspecified Plan s/p Living Related Renal transplant -2008 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 I spent minutes with the patient and/or on the patient floor today, greater than?50% of which was spent counseling/coordinating care. Reason for contiued inpatient stay Substantial Risk for: inability to function
[2021-12-05] MEDS: calcitrioL 0.25 MCG CAPSULE PO (09:12)
[2021-12-05] MEDS: predniSONE 5 MG TABLET PO (09:13)
[2021-12-05] MEDS: Cinacalcet HCl 30 MG TABLET PO (09:13)
[2021-12-05] MEDS: amLODIPine Besylate 10 MG TABLET PO (09:13)
[2021-12-05] MEDS: Tacrolimus 1 MG CAPSULE 5 MG PO ×2 (09:13→17:37)
[2021-12-05] MEDS: risperiDONE 2 MG TABLET PO ×2 (09:13→20:00)
[2021-12-05] MEDS: LORazepam 1 MG TABLET PO (20:00)
[2021-12-05 20:08] VITALS: BP 150/67; PULSE 81; RESP 18; TEMP 36.6; O2SAT 98
[2021-12-06] MEDS: Levothyroxine Sodium 50 MCG TABLET PO (05:27)
[2021-12-06 07:48] LABS: Alanine Aminotransferase 30 U/L (0-31); Albumin Level 3.5 g/dL (3.5-5.0); Alkaline Phosphatase 43 U/L (39-117); Anion Gap 12 (12-20); Aspartate Amino Transferase 17 U/L (5-31); Bilirubin Total 0.4 mg/dL (0.0-1.0); Blood Urea Nitrogen 47 mg/dL (9-16); Carbon Dioxide 23 mmol/L (22-29); Chloride 108 mmol/L (96-108); Creatinine Clr Calc Pharmacy 22.2; Estimated Glomerular Filt Rate 24; Glucose Fasting 106 mg/dL (60-99); Potassium 4.3 mmol/L (3.3-5.1); Sodium 139 mmol/L (135-145); Total Protein 5.7 g/dL (6.5-8.0)
[2021-12-06] MEDS: Tacrolimus 1 MG CAPSULE 5 MG PO (08:51)
[2021-12-06] MEDS: Cinacalcet HCl 30 MG TABLET PO (08:52)
[2021-12-06] MEDS: risperiDONE 2 MG TABLET PO (08:52)
[2021-12-06] MEDS: calcitrioL 0.25 MCG CAPSULE PO (08:52)
[2021-12-06] MEDS: amLODIPine Besylate 10 MG TABLET PO (08:52)
[2021-12-06] MEDS: predniSONE 5 MG TABLET PO (08:52)
--- NOTE | 2021-12-06 10:58 | P.PNNP_ITS ---
Subjective Subjective Date of Service: 12/06/21 Principal diagnosis: LAURO, CKD, Kidney Xplant patient Interval history: Seen and examined, events noted getting d/c today Physical Exam Vital Signs: Vital Signs: Last Vital Signs Temp 97.8 F 12/05/21 20:08 Pulse 81 12/05/21 20:08 Resp 18 12/05/21 20:08 BP 150/67 H 12/05/21 20:08 Pulse Ox 98 12/05/21 20:08 BMI result Body Mass Index 20.5 Const: Other: General - no acute distress, appears comfortable Cardiovascular - regular rate and rhythm, S1-S2 Lungs - normal respiratory effort, clear to auscultation bilaterally, no wheezing Abdomen - soft, nontender, no rebound or guarding Extremities - no edema bilaterally Neuro - awake and alert, no focal deficits psych - poor insight Objective Data Labs CBC & Chem 7: 11/24/21 06:37 12/06/21 07:23 Labs: Laboratory Results - last 24 hr 12/06/21 07:23 Sodium 139 Potassium 4.3 Chloride 108 Carbon Dioxide 23 Anion Gap 12 BUN 47 H Creatinine 2.03 H Estim Creat Clear Calc 22.2 Estimated GFR 24 Fasting Glucose 106 H Calcium 9.0 D Magnesium 2.0 Total Bilirubin 0.4 AST 17 ALT 30 Alkaline Phosphatase 43 Total Protein 5.7 L Albumin 3.5 Procedures Date of Service Date of Service: 12/06/21 Assessment & Plan Assessment and plan (1) LAURO (acute kidney injury): Status: Acute Plan 1. LAURO: peak Scr 2.3 is up from her BSL1.5-1.8; s/p mini steroid pulse 125 x 3 days TRUGRAFT result cameback raising question of rejection Xplant kidney Bx reported to show chronic rejetion 2. CKD 3: BSL SCr 1.5-1.8 and now BSL 1.2.0 3. ESRD s/p LRT 2008 4. IS: was on prograft 5/4 and pred 5mg; and target prograft levels 4-6 last outpt xplant visit 08/2021 Scr 1.7 5. Anemia: 6. HTN: remain suboptimal but htis can e addressed as oupt 7. 2ry HPTism: PTH decr from 1200 to approx 500; repeat today pending REC: ok to d/c sensipar ( cinacalcet); cont calictriol; cont taro/pred as oredered and [facility]3 [facility] Time Spent With Patient Time: Total time spent is greater than 50% in coordination of care (as documented) at patient's floor/unit and/or counseling patient: Progress Note: Quality Stroke Does the patient have a stroke diagnosis?: No
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
--- NOTE | 2021-12-06 14:51 | PC.NURSE ---
Patient was pleasant, aware and ready for discharge. Paperwork reviewed with patient . Next dose medications and follow up appointment reviewed with patient . Patient verbalized understanding. Patient was accompanied with belongings to the front of the building per hospital policy.
[2021-12-07 17:56] LABS: Calcium (PTHI) 8.7 mg/dL (8.6-10.4); PTHI 113 pg/mL (14-64)
[2021-12-08 13:36] LABS: Calcium, Ionized 4.8 mg/dL (4.8-5.6)
== END 2021-12-06 13:10 | disposition home or self-care (01) | DRG 885 ==
LOC: HO.ED 18:51 → HO.PGERI 10-21 11:52
PROVIDERS: Family Medicine; Hospitalist; Internal Medicine; Internal Medicine Hypertension Specialist; Internal Medicine Nephrology; Physician Assistant; Psychiatry & Neurology Psychiatry; Admitting Provider Psychiatry & Neurology Psychiatry; Emergency Provider Emergency Medicine; Visit Provider Psychiatry & Neurology Psychiatry
DX: F25.0 Schizoaffective disorder, bipolar type (principal); T86.12 Kidney transplant failure; N17.9 Acute kidney failure, unspecified; I12.9 Hypertensive chronic kidney disease with stage 1 through stage 4 chronic kidney disease, or unspecified chronic kidney disease; D63.1 Anemia in chronic kidney disease; E03.9 Hypothyroidism, unspecified; N18.30 Chronic kidney disease, stage 3 unspecified; Z20.822 Contact with and (suspected) exposure to COVID-19; Z88.2 Allergy status to sulfonamides; Z79.899 Other long term (current) drug therapy
CPT/HCPCS: 36415; 50200; 70450; 71045; 76775; 76942; 80048; 80051; 80053; 80061; 80076; 80143; 80178; 80179; 80197; 80307; 81001; 82140; 82272; 82306; 82310; 82330; 82533; 82550; 82565; 82607; 82728; 82746; 82803; 82947; 83036; 83540; 83605; 83690; 83735; 83970; 84100; 84156; 84443; 84484; 84520; 85007; 85025; 85027; 85610; 85730; 87635; 88300; 88305; 88313; 88346; 88348; 88350; 93005; 93306; 95816; 96360; 99285; J0885; J2930

== ENCOUNTER → 2021-11-18 | Day surgery (SDC) | payer MEDICARE, SELFPAY ==
[2021-11-16 08:58] VITALS: BMI 20.7
[2021-11-16 09:37] LABS: MANUAL DIFF FLAG NO
[2021-11-16 09:39] LABS: Basophils Percent Auto 0.2 % (0-2); Eosinophils Absolute Auto 0.8 X10*3/uL (0.0-0.4); Eosinophils Percent Auto 17.8 % (0-4); Hematocrit 26.4 % (37.0-47.0); Hemoglobin 8.3 g/dl (12.0-16.0); Imm Gran Abs Auto 0.02 X10*3/uL (0.00-0.03); Imm Gran Pct Auto 0.4 % (0.0-0.4); Lymphocytes Absolute Auto 0.9 X10*3/uL (1.2-4.9); Lymphocytes Percent Auto 20.4 % (20-40); Mean Corpuscular HGB Conc 31.4 g/dl (31.0-35.0); Mean Corpuscular Hemoglobin 30.6 pg (27.0-33.0); Mean Corpuscular Volume 97.4 fL (80.0-98.0); Mean Platelet Volume 8.9 fL (9.4-12.3); Monocytes Absolute Auto 0.7 X10*3/uL (0.1-1.2); Monocytes Percent Auto 15.8 % (2-11); Neutrophils Absolute Auto 2.1 x10*3/uL (2.0-8.3); Neutrophils Percent Auto 45.4 % (45-73); Platelet Count 134 X10*3/uL (160-400); Red Blood Count 2.71 X10*6/uL (4.20-5.50); Red Cell Distribution Width 15.9 % (11.0-16.0); White Blood Count 4.6 X10*3/uL (4.8-10.8)
[2021-11-16 09:55] LABS: Anion Gap 10 (12-20); Carbon Dioxide 21 mmol/L (22-29); Chloride 113 mmol/L (96-108); Potassium 3.9 mmol/L (3.3-5.1); Sodium 140 mmol/L (135-145)
[2021-11-16 09:56] LABS: Prothrombin Time 10.8 SEC (9.9-13.0)
[2021-11-16 09:59] LABS: Partial Thromboplastin Time 31.8 SEC (24.1-38.0)
[2021-11-16 11:30] VITALS: BP 172/69; PULSE 81; RESP 18; TEMP 37.1; O2SAT 95
[2021-11-16 11:45] VITALS: BP 194/76; PULSE 95; RESP 18; TEMP 37.1; O2SAT 95
== END ==
PROVIDERS: Radiology Diagnostic Radiology; Visit Provider Internal Medicine Nephrology
DX: Q61.2 Polycystic kidney, adult type (principal); Z94.0 Kidney transplant status
CPT/HCPCS: 36415; 50200; 76942; 80051; 85025; 85610; 85730; 88300; 88313; 88346; 88348; 88350; J2250; J3010

== ENCOUNTER 2022-03-03 20:25 | Emergency (ER) | payer MEDICARE, SELFPAY ==
--- NOTE | ~2022-03-03 | NM_ITS ---
EXAMINATION: NUCLEAR MEDICINE BONE SCAN CLINICAL INFORMATION: Low back pain. CT lumbar spine revealed L2 compression fracture and irregularity of L4 vertebral superior endplate. COMPARISON: CT lumbar spine 03/04/2022 at 3:45 AM. TECHNIQUE: Following intravenous administration of 19 mCi of 99m technetium MDP, limited imaging of thoracic and lumbosacral spine was performed. FINDINGS: There is mild increase activity seen right T9 costovertebral junction and T5 vertebral body. Also visualized is transverse moderate activity in the L2 and L4 vertebral bodies and minimal activity L3 superior endplate suggestive of compression fracture deformities slightly acute at L2 and L4 vertebra. The SI joints are symmetrical. The sacrum and coccyx are normal. SI joints are normal. No other abnormality seen. NM/NM bone scan limited area IMPRESSION: Acute compression fracture L2 and L4 vertebral body and T5 vertebral body. Mild activity seen along the right T9 costovertebral junction likely arthritic changes.
--- NOTE | ~2022-03-03 | CT_ITS ---
EXAMINATION: CT LUMBAR SPINE WITHOUT CONTRAST CLINICAL INFORMATION: Fall, pain COMPARISON: 09/29/2019 TECHNIQUE: Multidetector helical imaging was performed through the lumbar spine. Coronal and sagittal reformatted images were created. This CT examination was performed using dose optimization techniques as appropriate, variously including the following: *Automated exposure control *Adjustment of mA and/or kV according to patient size (this includes techniques or standardized protocols for targeted exams where dose is matched to indication/reason for exam; i.e. extremities or head) *Use of iterative reconstruction technique DLP; 346 mGy-cm FINDINGS: There is mild superior endplate compression of L1 which demonstrates sclerosis, favoring a chronic finding. There is mild superior endplate compression deformity of L2 which has the appearance of acute fracture; there is approximately 20% loss of vertebral body height centrally. Superior endplate Schmorl's node at L3 with mild loss of vertebral body height is similar to 09/29/2019. There is subtle superior endplate irregularity of L4 suggestive of acute fracture without significant loss of height and with minimal retropulsion. L5 vertebral body height is maintained. Prominent anterior osteophyte at L5 is similar to prior. Intervertebral disc spaces are relatively well-preserved. There is mild facet arthropathy of the lower lumbar spine. Included portions of the sacroiliac joints appear intact. Extensive pancreatic calcifications are consistent with chronic pancreatitis. There is moderate atherosclerotic calcification along the aorta. Partially visualized transplant kidney in the right pelvis. CT/CT lumbar spine wo con IMPRESSION: 1. Acute mild superior endplate compression fracture of L2. 2. Subtle superior endplate irregularity of L4, also suggestive of acute fracture with minimal retropulsion. 3. Chronic-appearing and degenerative changes as noted above.
[2022-03-03 20:45] VITALS: BP 149/63; PULSE 72; RESP 14; TEMP 37.2; O2SAT 96
[2022-03-04] VITALS (10 sets, daily range): BP systolic 163–206; BP diastolic 68–109; PULSE 58–64; RESP 16–20; TEMP 36.7–37.1; O2SAT 94–98
--- NOTE | 2022-03-04 01:27 | ED.GENADULT ---
HPI - General Adult General Chief complaint: Extremity Injury, Lower Stated complaint: fall - everything hurts waist down Time Seen by Provider: 03/04/22 01:24 Source: patient Limitations: other (Senescent changes versus psychiatric disease) History of Present Illness HPI narrative: This is a 71-year-old female who lives at home by herself. She few weeks ago had been trying to lift a bath mat when she is stressed her body and has had pain since then. She is somewhat vague as to where the pain is but states it is primarily from the waist down. She states that she has been able to walk but she has to take small steps. She subsequently had a fall but states that her right arm injury from that is all better. A caregiver who is with the patient states that patient's psychiatrist Dr. Martines, was concerned that the patient may have a degree of wilmar since she has been having trouble sleeping and may be sleep deprived. He wanted the patient to be evaluated in the emergency department. Patient denies any headache, chest pain, shortness of breath. She denies pain upon taking a deep breath. She denies abdominal pain Related Data Home Medications Medication Instructions Recorded Confirmed denosumab 60 mg/mL subcutaneous 60 mg SUBCUT Q6M 10/25/21 11/01/21 syringe (Prolia) lorazepam 1 mg tablet 1 tab PO BEDTIME 10/25/21 10/25/21 Previous Rx's Medication Instructions Recorded amlodipine 10 mg tablet 10 mg PO DAILY #30 tab 12/05/21 calcitriol 0.25 mcg capsule 0.25 mcg PO DAILY #30 cap 12/05/21 levothyroxine 50 mcg tablet 50 mcg PO DAILY@0600 #30 tab 12/05/21 lorazepam 1 mg tablet 1 mg PO BEDTIME #30 tab 12/05/21 prednisone 5 mg tablet 1 tab PO DAILY #30 tab 12/05/21 prednisone 5 mg tablet 5 mg PO DAILY #30 tab 12/05/21 risperidone 2 mg tablet 2 mg PO BID #60 tab 12/05/21 tacrolimus 5 mg capsule, 5 mg PO Q12H #60 cap 12/05/21 immediate-release Allergies Allergy/AdvReac Type Severity Reaction Status Date / Time gabapentin [From Neurontin] Allergy Unknown UNKNOWN Verified 11/16/21 08:58 Sulfa (Sulfonamide Allergy Unknown UNKNOWN Verified 11/16/21 08:58 Antibiotics) [SULFA (SULFONAMIDE ANTIBIOTICS)] trimethoprim [TRIMETHOPRIM] Allergy Unknown UNKNOWN Verified 11/16/21 08:58 lithium [LITHIUM] AdvReac Severe KIDNEY Verified 11/16/21 08:58 TRANSPLANT DUE TO LITHIUM TOXICITY Review of Systems Review of Systems: Yes all other systems are reviewed and are negative Constitutional: Constitutional: Reports as per HPI and Denies fever(s) Eyes: Eyes: Reports as per HPI and Reports no additional eye complaints ENT: Reports system reviewed and no additional complaints, except as documented, Reports as per HPI, Denies nasal congestion, Denies nasal discharge and Denies sore throat Cardiovascular: Cardiovascular: Reports as per HPI, Denies chest pain and Denies dyspnea Respiratory: Respiratory: Reports as per HPI, Denies cough and Denies dyspnea Gastrointestinal: Gastrointestinal: Reports as per HPI, Denies abdominal pain, Denies diarrhea and Denies vomiting Genitourinary: Genitourinary: Reports as per HPI, Denies hematuria, Denies urinary frequency and Denies dysuria Musculoskeletal: Musculoskeletal: Reports no additional musculoskeletal complaints, Reports back pain and Denies numbness Integumentary/Breasts: Skin/Breast: Reports as per HPI and Denies rash Neurologic: Reports as per HPI, Denies focal weakness and Denies numbness Psychiatric: Psychiatric: Reports no additional psychiatric complaints and Reports as per HPI Endocrine: Endocrine: Reports no additional endocrine complaints and Reports as per HPI Hematologic/Lymphatic: Hematologic/Lymphatic: Reports no additional hematologic/lymphatic complaints, Reports as per HPI and Reports other (No peripheral edema) [facility] Past Medical History Medical History (Updated 03/04/22 @ 03:47 by Luis Edouard MD) No known health problems Social History Social History Household Members: None Housing: Apartment Do you presently have visiting nurse or other home services: No Patient Tobacco Use Status: Former Tobacco user Advance Directives: No service: No Sexual orientation: Straight/Heterosexual Physical Exam ED Vital Signs: Vital Signs - 24 hr 03/03/22 20:45 03/04/22 00:37 03/04/22 02:00 Temperature 99.0 F 98.2 F Pulse Rate 72 Respiratory Rate 14 16 18 Blood Pressure 149/63 H 163/68 H Pulse Oximetry 96 94 BMI result Body Mass Index 20.0 Const General: no acute distress Orientation/consciousness: patient oriented x3 HENMT Head: Yes normal to inspection General nose exam: Normal external nose present Mouth: moist mucous membranes Throat: Yes posterior oropharynx normal, Yes tonsils normal and Yes uvula midline Eyes Eyelids: Yes eyelids normal Conjunctivae: conjunctivae normal Pupils: Equal, round and reactive pupils present Neck Neck: Yes supple Chest Other: No chest wall tenderness Resp Effort & Inspection: normal respiratory effort Auscultation: clear to auscultation bilaterally Cardio Rate: regular rate Rhythm: regular rhythm Heart sounds: S1 normal heart sound present, S2 normal heart sound present, no gallops, no murmurs and no rubs GI Inspection: No distended Palpation (GI): Soft to palpation and nontender Auscultation: normal bowel sounds Back/Spine/Pelvis Other: Patient is able to sit up slowly on her own, pulling herself up using the hand rails. Tenderness to the lumbar spine and lumbar, no ecchymosis or step-off. Patient able to passively move both hips without tenderness. Neurovascular exam of feet is normal Skin General skin exam: other (Warm and dry) Neuro General: patient oriented x3 and CN's II-XI intact bilaterally Cranial nerves: Yes Equal, round and reactive pupils present Extrem General: Yes no pedal edema Psych Affect: normal affect Attitude: cooperative Medical Decision Making [facility] Narrative Medical decision making narrative: Patient with vague complaints of pain after an injury a few weeks ago, seems to have pain center lower back. CT scan of the lumbar spine ordered and is pending. Patient being signed out to Dr. Camacho at 03:45 Discharge Plan Discharge Clinical Impression: Low back pain Prescriptions: No Action lorazepam 1 mg tablet 1 tab PO BEDTIME 0RF Prolia 60 mg/mL syringe 60 mg subcut Q6M 0RF risperidone 2 mg Tablet 2 mg PO BID Qty: 60 2RF amlodipine 10 mg Tablet 10 mg PO DAILY Qty: 30 1RF Protocol: Hold for SBP< HOLD for SBP < : 90 lorazepam 1 mg Tablet 1 mg PO BEDTIME Qty: 30 1RF tacrolimus 5 mg capsule 5 mg PO Q12H Qty: 60 1RF levothyroxine 50 mcg Tablet 50 mcg PO DAILY@0600 Qty: 30 1RF calcitriol 0.25 mcg Capsule 0.25 mcg PO DAILY Qty: 30 2RF prednisone 5 mg tablet 1 tab PO DAILY Qty: 30 1RF prednisone 5 mg Tablet 5 mg PO DAILY Qty: 30 0RF
--- NOTE | 2022-03-04 07:09 | PC.NURSE ---
Report given RONA Csaey
[2022-03-04] MEDS: Acetaminophen 325 MG TABLET 975 MG PO (08:45)
[2022-03-04] MEDS: Lidocaine 4 % Patch ADH..PATCH 1 PATCH TRANSDERMA (08:46)
[2022-03-04] MEDS: Ketorolac Tromethamine 15 MG/ML VIAL IM (08:46)
--- NOTE | 2022-03-04 12:11 | PC.NURSE ---
call placed to dr. gutierrez's office
--- NOTE | 2022-03-04 12:42 | PC.NURSE ---
MD Conklin made aware of patients elevated BP.
--- NOTE | 2022-03-04 13:07 | PC.NURSE ---
Pharmacy completing med rec
--- NOTE | 2022-03-04 13:52 | PHA.MEDREC ---
Pharmacy Consult ? Medication Reconciliation Pharmacy has completed the medication reconciliation. Patient has a list of current medications that are all recently filled. Patient reports correct dose of risperidone in 2 mg BID. Melissa Fish, MineshD
[2022-03-04] MEDS: carvediloL 12.5 MG TABLET PO (16:12)
[2022-03-04] MEDS: lisinopriL 10 MG TABLET PO (16:12)
== END 2022-03-04 16:26 | disposition home or self-care (01) ==
PROVIDERS: Emergency Provider Emergency Medicine; PCP Hospitalist
DX: S32.029A Unspecified fracture of second lumbar vertebra, initial encounter for closed fracture (principal); S32.039A Unspecified fracture of third lumbar vertebra, initial encounter for closed fracture; S32.049A Unspecified fracture of fourth lumbar vertebra, initial encounter for closed fracture; X50.1XXA Overexertion from prolonged static or awkward postures, initial encounter; Y93.9 Activity, unspecified; Y92.002 Bathroom of unspecified non-institutional (private) residence as the place of occurrence of the external cause; Y99.9 Unspecified external cause status
CPT/HCPCS: 72131; 78300; 96372; 96374; 99284; A9503; J1885

== ENCOUNTER 2022-03-14 10:39 | Day surgery (SDC) | payer MEDICARE, SELFPAY ==
[2022-03-14] VITALS (12 sets, daily range): BP systolic 133–186; BP diastolic 64–78; PULSE 49–71; RESP 16–18; TEMP 36.1; O2SAT 97–100; BMI 19.9
--- NOTE | ~2022-03-14 | CT_ITS ---
EXAMINATION: CT LUMBAR SPINE WITHOUT CONTRAST CLINICAL INFORMATION: 71-year-old undergoing prekyphoplasty evaluation. COMPARISON: 03/04/2022 CT, 03/04/2022 bone scan. TECHNIQUE: Volumetric CT imaging of the lumbar spine was done with multiplanar reformatted reconstructions for the purposes of preprocedural planning for kyphoplasty. This CT examination was performed using dose optimization techniques as appropriate, variously including the following: *Automated exposure control *Adjustment of mA and/or kV according to patient size (this includes techniques or standardized protocols for targeted exams where dose is matched to indication/reason for exam; i.e. extremities or head) *Use of iterative reconstruction technique DLP; 275 mGy-cm FINDINGS: The lumbosacral spine is anatomically aligned. No spondylolisthesis or spondylolysis. There are mild superior endplate compression fracture deformities of the L1, L2, and L4 vertebral bodies, as noted on the previous exam, with prominent Schmorl's nodes along the superior endplates of L3 and L2 unchanged in appearance. There is multilevel anterior and paravertebral spondylosis similar to the previous CT. The intervertebral disc space heights are relatively well-maintained. Osteopenia is noted with CT number of 79 Hounsfield units at the L2 level consistent with osteoporosis. No paravertebral soft tissue masses or hematoma. Extensive pancreatic calcifications are again noted consistent with chronic pancreatitis with dilatation of the main pancreatic duct. Numerous probable cysts are seen in both kidneys. Spinal Levels: L5-S1: No significant disc bulge or herniation and no significant facet arthrosis, canal or neural foraminal stenosis. L4-L5: Mild diffuse disc bulging with mild ligamentum flavum thickening and minor facet arthrosis without significant canal stenosis. There is mild bilateral neural foraminal stenosis stable in appearance. L3-L4: Disc bulging is noted with right-sided foraminal/extraforaminal disc protrusion, with mild flattening of the dural sac and mild facet hypertrophic degenerative changes without significant spinal central canal stenosis. Mild foraminal narrowing noted on the right. Note that there is retropulsion of the superior endplate of the compressed L4 vertebral body asymmetric to the right, which narrows the right lateral recess and may be impinging on the traversing right L4 nerve root. L2-L3: Small left subarticular disc protrusion noted without significant central spinal canal stenosis. Minor facet arthrosis noted bilaterally without significant neural foraminal stenosis. L1-L2: Mild disc bulging noted. No significant canal or neural foraminal stenosis. T12-L1: Left paramedian disc herniation noted with mild flattening of the left side of the dural sac without significant central spinal canal stenosis. There is narrowing of the left subarticular zone without significant neural foraminal stenosis. CT/CT lumbar spine wo con IMPRESSION: 1. Mild superior endplate compression deformities of the L1, L2 and L4 vertebral bodies as described above with findings consistent with osteoporosis. There is mild retropulsion of the superior endplate of the L4 vertebral body which encroaches on the right lateral recess and may be impinging on the traversing right L4 nerve root. 2. Multilevel spondylosis and degenerative endplate changes as described above, with multilevel disc bulging and disc herniations without significant central spinal canal stenosis. Mild multilevel facet arthrosis with mild bilateral neural foraminal stenosis at L4-L5 and mild right-sided neural foraminal stenosis at L3-L4. 3. Abdominal findings as discussed above and as noted on previous CT.
--- NOTE | ~2022-03-14 | IR_ITS ---
EXAMINATION: IR LUMBAR VERTEBROPLASTY CLINICAL INFORMATION: Acute low back pain from L2 and L4 compression fractures. COMPARISON: None TECHNIQUE: Following explaining fluoroscopy-guided L2 and L4 kyphoplasty procedure, benefits and risks, a written consent was obtained. Repeat CT imaging was performed prior to kyphoplasty. Patient was placed prone on fluoroscopy table and markers were placed on the skin at the L2 and L4 vertebra. The low back area was cleaned and draped in usual sterile manner. Initially right L2 pedicle was localized on the skin and 1% Xylocaine was inserted. A 22-gauge spinal needle was then advanced from the skin to the level of periosteum of L2 vertebra. Through a small skin incision a 10-gauge Kyphon needle was advanced from the skin into the pedicle and through the pedicle into the L2 vertebra under fluoroscopy guidance. A second needle was advanced through the left pedicle of L2 vertebra. Similarly third and fourth needles were advanced through the right and left L4 pedicles under lateral fluoroscopy. The hand drill was advanced through all the needles. Subsequently high tensile balloons were inserted through the right and left needles at L2 and right and left needles and L4 vertebra inflated to 200 PSI for 5 minutes. The balloons were deflated and removed and freshly prepared polymethyl methacrylate was injected sequentially from the right L2, left L2, right L4 and left L4 needles. After achieving adequate amount of cement concentration and observing no cement leak needles were withdrawn and complete hemostasis achieved at puncture site. Patient tolerated procedure extremely well. Sterile dressing applied postprocedure. Sedation was provided by anesthesia department. FINDINGS: On several images obtained during kyphoplasty there is a superior endplate compression deformities of L2 and L4 vertebra and mild compression deformity L1 vertebra. There is adequate amount of cement occupying the L2 and L4 vertebra without any cement extravasation seen. FLUOROSCOPY TIME: 13.7 minutes DOSE AREA PRODUCT: 7156 uGy-m2 (microgray-meter squared) IR/IR kyphoplasty lumbar IMPRESSION: Successful fluoroscopy-guided bipedicle approach L2 and L4 kyphoplasty performed.
--- NOTE | ~2022-03-14 | IR_ITS ---
FINDINGS/ IR/IR kyphoplasty each add IMPRESSION: Combined report L2 and L4 kyphoplasty already dictated.
--- NOTE | ~2022-03-14 | CT_ITS ---
EXAMINATION: CT LUMBAR SPINE CLINICAL INFORMATION: Post kyphoplasty L2 and L4 vertebrae. COMPARISON: None. TECHNIQUE: Axial 2 mm thin and reformatted 2 mm thin sagittal coronal images of lumbar spine were obtained without contrast. This CT examination was performed using dose optimization techniques as appropriate, variously including the following: *Automated exposure control *Adjustment of mA and/or kV according to patient size (this includes techniques or standardized protocols for targeted exams where dose is matched to indication/reason for exam; i.e. extremities or head) *Use of iterative reconstruction technique DLP: 199 mGy-cm. FINDINGS: On sagittal reconstructed images, there is an adequate amount of cement occupying the entire L2 and L4 vertebrae without any cement extravasation. Mild superior endplate loss of L3 portable height is seen. L1-L2 disc level is unremarkable. At the L2-L3 disc level, there is mild bulge flattening the ventral thecal sac without spinal canal stenosis. The neural foramina are patent bilaterally. At L3-L4, there is mild flattening of thecal sac from diffuse bulge without spinal canal stenosis. There is posterior endplate spondylosis. The neural foramina are patent bilaterally. At the L4-L5 disc level, there is a broad-based diffuse bulge without spinal canal stenosis. The neural foramina are patent bilaterally. L5-S1 disc level appears unremarkable. There is no lytic or sclerotic process seen. The right pelvic kidneys noted. CT/CT lumbar spine post vert IMPRESSION: Adequate amount of cement occupying the L2 and L4 vertebral bodies without any extravasation. There is mild loss of superior endplate L3 vertebral height. Mild degenerative disc bulges at several disc levels without any spinal canal stenosis. The neural foramina are patent at all disc levels.
--- NOTE | 2022-03-14 10:56 | HO.ANESPROP2 ---
[facility] Active Problems Active Problems: All Active Problems (Updated 03/05/22 @ 00:01 by Background Daemon) Schizoaffective disorder, bipolar type (Acute) CKD (chronic kidney disease) stage 3, GFR 30-59 ml/min (Acute) Living-donor kidney transplant recipient (Acute) HTN (hypertension) (Acute) Past Medical History Medical History (Updated 03/05/22 @ 00:01 by Background Daemon) No known health problems Family History Family history of problems with anesthesia: No Surgical History History of Problems with Anesthesia: No Social History Social History Household Members: None Housing: Apartment Do you presently have visiting nurse or other home services: No Alcohol intake: never Patient Tobacco Use Status: Former Tobacco user Are you DNR?: No Advance Directives: No Advance Directives Information Provided: Yes service: No Sexual orientation: Straight/Heterosexual Meds Allergies Allergy/AdvReac Type Severity Reaction Status Date / Time gabapentin [From Neurontin] Allergy Unknown UNKNOWN Verified 11/16/21 08:58 Sulfa (Sulfonamide Allergy Unknown UNKNOWN Verified 11/16/21 08:58 Antibiotics) [SULFA (SULFONAMIDE ANTIBIOTICS)] trimethoprim [TRIMETHOPRIM] Allergy Unknown UNKNOWN Verified 11/16/21 08:58 lithium [LITHIUM] AdvReac Severe KIDNEY Verified 11/16/21 08:58 TRANSPLANT DUE TO LITHIUM TOXICITY Home Medications Medication Instructions Recorded Confirmed Last Taken Type denosumab 60 mg/mL subcutaneous 60 mg subcut Q6M 10/25/21 03/04/22 09/10/21 History syringe (Prolia) 60mg/ml lorazepam 1 mg tablet 1 tab PO BEDTIME 10/25/21 03/04/22 Unknown History carvedilol 12.5 mg tablet 1 tab PO BID 03/04/22 03/04/22 Unknown History ergocalciferol (vitamin D2) 50,000 50,000 unit PO TH 03/04/22 03/04/22 Unknown History unit tablet ferrous sulfate 325 mg (65 mg 325 mg PO BID 03/04/22 03/04/22 Unknown History iron) tablet lisinopril 10 mg tablet 1 tab PO DAILY 03/04/22 03/04/22 Unknown History tacrolimus 1 mg capsule, 2 mg PO DAILY@1730 03/04/22 03/04/22 Unknown History immediate-release tacrolimus 1 mg capsule, 3 cap PO DAILY@0730 03/04/22 03/04/22 Unknown History immediate-release tacrolimus 1 mg capsule, 2 mg PO Q12H 03/14/22 03/14/22 Unknown History immediate-release (Prograf) Exam Exam Date and Time: March 14, 2022 1056 Airway Mallampati Class: II (Cap permanent to tooth) TM Dist: >3cm Neck ROM: Full Heart: rrr Lungs: cta Assessment and Plan Assessment Anesthesia Assessment: Anesthesia Plan Discussed and Chart Reviewed Final Anesthetic Review Family History of Problems with Anesthesia: No History of Problems with Anesthesia: No NPO: Yes ASA Class: III Final Preanesthetic Review: No Changes in Pt Med Stat, Meds/Allgs Chart Reviewed and Consent Obtained/Reviewed Patient Risk: Intermediate Procedure Risk: Intermediate Anesthetic Plan Anesthetic Plan: MAC: Disposition: Standard PACU
[2022-03-14 11:41] LABS: MANUAL DIFF FLAG NO
[2022-03-14 11:45] LABS: Basophils Absolute Auto 0.1 X10*3/uL (0.0-0.2); Eosinophils Absolute Auto 0.7 X10*3/uL (0.0-0.4); Eosinophils Percent Auto 10.5 % (0-4); Hematocrit 30.4 % (37.0-47.0); Hemoglobin 10.1 g/dl (12.0-16.0); Imm Gran Abs Auto 0.03 X10*3/uL (0.00-0.03); Imm Gran Pct Auto 0.5 % (0.0-0.4); Lymphocytes Absolute Auto 0.9 X10*3/uL (1.2-4.9); Lymphocytes Percent Auto 14.5 % (20-40); Mean Corpuscular HGB Conc 33.2 g/dl (31.0-35.0); Mean Corpuscular Hemoglobin 29.4 pg (27.0-33.0); Mean Corpuscular Volume 88.4 fL (80.0-98.0); Mean Platelet Volume 10.8 fL (9.4-12.3); Monocytes Absolute Auto 0.8 X10*3/uL (0.1-1.2); Monocytes Percent Auto 12.1 % (2-11); Neutrophils Absolute Auto 3.9 x10*3/uL (2.0-8.3); Neutrophils Percent Auto 61.4 % (45-73); Platelet Count 166 X10*3/uL (160-400); Red Blood Count 3.44 X10*6/uL (4.20-5.50); Red Cell Distribution Width 13.7 % (11.0-16.0); White Blood Count 6.3 X10*3/uL (4.8-10.8)
[2022-03-14 11:58] LABS: Anion Gap 15 (12-20); Blood Urea Nitrogen 35 mg/dL (9-16); Carbon Dioxide 23 mmol/L (22-29); Chloride 104 mmol/L (96-108); Creatinine Clr Calc Pharmacy 17.5; Estimated Glomerular Filt Rate 19; Potassium 4.5 mmol/L (3.3-5.1); Sodium 137 mmol/L (135-145)
[2022-03-14 12:04] LABS: Prothrombin Time 11.3 SEC (9.9-13.0)
[2022-03-14 12:07] LABS: Partial Thromboplastin Time 38.7 SEC (24.1-38.0)
[2022-03-14] MEDS: Lidocaine HCl 1 % 20 ML VIAL 5 ML SUBCUT (14:21)
[2022-03-14] MEDS: Acetaminophen 325 MG TABLET 650 MG PO (14:35)
[2022-03-14] MEDS: fentaNYL citrate/PF 100 MCG/2 ML VIAL 50 MCG IVPUSH ×2 (14:38→14:50)
--- NOTE | 2022-03-14 17:12 | PC.NURSE ---
PATIENT ASSISTED TO DRESS AT BEDSIDE, AWAIT DISCHARGE TO HOME. IV REMOVED. PAIN TOLERABLE. PATIENT NEURO STATUS STABLE BORJA.
== END 2022-03-14 17:46 | disposition home or self-care (01) ==
PROVIDERS: Radiology Diagnostic Radiology; PCP Hospitalist; Visit Provider Radiology Diagnostic Radiology
DX: S32.020A Wedge compression fracture of second lumbar vertebra, initial encounter for closed fracture (principal); S32.040A Wedge compression fracture of fourth lumbar vertebra, initial encounter for closed fracture; M51.46 Schmorl's nodes, lumbar region; W19.XXXA Unspecified fall, initial encounter; Y93.9 Activity, unspecified; Y92.9 Unspecified place or not applicable; Y99.8 Other external cause status; F25.0 Schizoaffective disorder, bipolar type; E03.9 Hypothyroidism, unspecified; I12.9 Hypertensive chronic kidney disease with stage 1 through stage 4 chronic kidney disease, or unspecified chronic kidney disease; N18.30 Chronic kidney disease, stage 3 unspecified; Z94.0 Kidney transplant status; H91.93 Unspecified hearing loss, bilateral; Z87.891 Personal history of nicotine dependence; Z79.899 Other long term (current) drug therapy; Z88.2 Allergy status to sulfonamides; Z88.8 Allergy status to other drugs, medicaments and biological substances
CPT/HCPCS: 22514; 22515; 36415; 72131; 80051; 82565; 84520; 85025; 85610; 85730; J0690; J2250; J3010; Q9967

== ENCOUNTER 2022-04-09 12:01 | Inpatient (IN) | payer MEDICARE, SELFPAY ==
[2022-04-09] VITALS (7 sets, daily range): BP systolic 129–158; BP diastolic 54–68; PULSE 58–72; RESP 10–20; TEMP 37.1–37.2; O2SAT 97–98; BMI 21.8
--- NOTE | ~2022-04-09 | XR_ITS ---
EXAMINATION: XR FOOT, LEFT CLINICAL INFORMATION: Pain post fall COMPARISON: None TECHNIQUE: AP, lateral, and oblique views of the left foot. FINDINGS: Bone alignment is normal. No fracture or dislocation. There is arthritis at the MTT joints. Joint spaces are otherwise normal. There is a plantar calcaneal spur. There is soft tissue arterial calcification. XR/XR foot LT 2V IMPRESSION: No fracture or dislocation. Arthritis at the MTT joints
--- NOTE | ~2022-04-09 | CT_ITS ---
EXAMINATION: CT PELVIS WITHOUT CONTRAST CLINICAL INFORMATION: History of pain after fall. Abnormal finding on x-ray. Evaluate for fracture. COMPARISON: Radiographs of pelvis and right hip from 04/09/2022. CT imaging of lumbar spine from 03/14/2022. TECHNIQUE: Noncontrast multidetector CT imaging examination of the pelvis. Axial images are presented at 0.6 mm and 3 mm slice thickness. This CT examination was performed using dose optimization techniques as appropriate, variously including the following: *Automated exposure control *Adjustment of mA and/or kV according to patient size (this includes techniques or standardized protocols for targeted exams where dose is matched to indication/reason for exam; i.e. extremities or head) *Use of iterative reconstruction technique DLP: 258 mGy-cm FINDINGS: Bones are diffusely osteopenic. Prior injection of cement into the mildly compressed L4 vertebral body. There are chronic mild concave depressions of superior and inferior endplates of L5 vertebral body resulting in approximately one third central height loss of the vertebral body. Acute, subtle nondisplaced fracture of the high right pubic ramus and mildly displaced fracture of right inferior pubic ramus. Acute fracture of left pubic bone extends to the superior margin of the pubic symphysis is not significantly displaced. The proximal femurs are intact. Bones have normal alignment at each hip. Joint space of each hip is well-preserved. Transplant kidney is present in the right pelvis. No hydronephrosis. 2.5 cm simple cortical cyst of the transplant kidney. No imaging follow-up recommended. No pelvic mass, free fluid or lymphadenopathy. Urinary bladder is unremarkable. No dilated loops of bowel within the visualized lower abdomen and pelvis. Generalized prominence of fecal material in the colon suggest possibility constipation. CT/CT pelvis wo con IMPRESSION: * Acute fractures of pelvic bones. The fracture of the left pubic bone extending to the margin the pubic symphysis is not significantly displaced. The fracture of the right inferior pubic ramus is mildly displaced whereas the subtle fracture of the high right pubic ramus is nondisplaced. * No evidence of proximal femoral fracture.
--- NOTE | ~2022-04-09 | CT_ITS ---
EXAMINATION: CT BRAIN AND CT CERVICAL SPINE WITHOUT CONTRAST. CLINICAL INFORMATION: Fall, head strike. COMPARISON: CT brain 10/26/2021. TECHNIQUE: 5 mm thin axial and reformatted 2 mm thin sagittal coronal images of brain were obtained. Subsequently axial 3 mm thin and reformatted 2 mm thin sagittal and coronal images of cervical spine were obtained. DLP [id number]. FINDINGS: Brain: There is no acute intra-axial, extra-axial bleed, masses or midline shift. There is no acute infarction evolution. The lateral ventricles are symmetrical in size and configuration without enlargement. The [place] to white matter difference is maintained normal. Cervical spine: There is maintained cervical lordosis. The vertebral heights and alignment is normal. There is loss of C5-C6 and C6-C7 disc heights with ventral and posterior spondylosis. Rest the disc heights are normal. The craniovertebral junction and the C1-C2 alignment is normal. There is mild superior spurring at the C1-C2 disc level. The prevertebral and paravertebral soft tissues are normal. The airway is widely patent. The lung apices are clear. CT/CT cervical spine wo con IMPRESSION: No acute intracranial process seen. There is no acute fracture, dislocation or subluxation cervical spine. There are degenerative disc changes with ventral and posterior spondylosis C5-C6 and C6-C7 disc levels.
--- NOTE | ~2022-04-09 | XR_ITS ---
EXAMINATION: XR PELVIS WITH RIGHT HIP CLINICAL INFORMATION: Pain after fall. COMPARISON: CT pelvis from 09/29/2019 TECHNIQUE: Two views of the right hip. AP view of pelvis. FINDINGS: Prior cement augmentation of L4 vertebral body. Osseous pelvic ring is intact. Alignment is normal the pubic symphysis, sacroiliac joints and hips. Bones are diffusely osteopenic. There is a focus of linear sclerosis of the right inferior pubic ramus. It is uncertain whether this represents minimal impaction from acute fracture or healing of a prior injury. This is new compared to 09/29/2019. No evidence of displaced fracture. Also, no fracture or subluxation at either hip. XR/XR hip RT w PEL1V IMPRESSION: * No fracture or malalignment at the right hip. * The focal linear linear sclerosis of the right inferior pubic ramus is new compared to 09/29/2019. No displaced fracture is seen in this region. Nevertheless, pubic rami fractures can be subtle on radiographs. If there is significant acute onset pain in this region of the pelvis, and if needed for clinical management, a follow-up noncontrast CT of the pelvis could be performed.
--- NOTE | ~2022-04-09 | CT_ITS ---
EXAMINATION: CT BRAIN AND CT CERVICAL SPINE WITHOUT CONTRAST. CLINICAL INFORMATION: Fall, head strike. COMPARISON: CT brain 10/26/2021. TECHNIQUE: 5 mm thin axial and reformatted 2 mm thin sagittal coronal images of brain were obtained. Subsequently axial 3 mm thin and reformatted 2 mm thin sagittal and coronal images of cervical spine were obtained. DLP [id number]. FINDINGS: Brain: There is no acute intra-axial, extra-axial bleed, masses or midline shift. There is no acute infarction evolution. The lateral ventricles are symmetrical in size and configuration without enlargement. The [place] to white matter difference is maintained normal. Cervical spine: There is maintained cervical lordosis. The vertebral heights and alignment is normal. There is loss of C5-C6 and C6-C7 disc heights with ventral and posterior spondylosis. Rest the disc heights are normal. The craniovertebral junction and the C1-C2 alignment is normal. There is mild superior spurring at the C1-C2 disc level. The prevertebral and paravertebral soft tissues are normal. The airway is widely patent. The lung apices are clear. CT/CT head/brain wo con IMPRESSION: No acute intracranial process seen. There is no acute fracture, dislocation or subluxation cervical spine. There are degenerative disc changes with ventral and posterior spondylosis C5-C6 and C6-C7 disc levels.
--- NOTE | 2022-04-09 12:34 | ED_ITS ---
HPI - Fall General Chief Complaint: Fall Stated Complaint: Mechanical fall R hip pain Time Seen by Provider: 04/09/22 12:12 Source: patient and EMS Mode of arrival: EMS Limitations: no limitations History of Present Illness HPI Narrative: 71-year-old male with a history of chronic kidney disease status post renal t ransplant in 2008, schizoaffective disorder, hypertension presents with reports of fall which occurred 1 hour ago. Patient tells me she was taking her trash out when she lost her balance falling backwards landing on her right hip and striking her head. There was no loss of consciousness. She presents with right hip pain. Patient felt like after the fall her speech seemed slurred but this is now resolved. Patient says her speech is at baseline now. She tells me she had no reports of slurred speech, weakness, dizziness, numbness or tingling of the extremities prior to the fall. Patient also denies any pre fall symptoms of chest pain, palpitations or shortness of breath. Patient reports difficulty with ambulating since the fall. She is not on any anticoagulation She denies chest pain, abdominal pain, neck pain, back pain. Patient is status post kyphoplasty on 03/14 Related Data Home Medications Medication Instructions Recorded Confirmed denosumab 60 mg/mL subcutaneous 60 mg subcut Q6M 10/25/21 04/09/22 syringe (Prolia) lorazepam 1 mg tablet 1 tab PO BEDTIME 10/25/21 04/09/22 carvedilol 12.5 mg tablet 1 tab PO BID 03/04/22 04/09/22 ergocalciferol (vitamin D2) 50,000 50,000 unit PO TH 03/04/22 04/09/22 unit tablet ferrous sulfate 325 mg (65 mg 325 mg PO BID 03/04/22 04/09/22 iron) tablet lisinopril 10 mg tablet 1 tab PO DAILY 03/04/22 04/09/22 tacrolimus 1 mg capsule, 3 cap PO DAILY@0730 03/04/22 04/09/22 immediate-release tacrolimus 1 mg capsule, 2 cap PO DAILY@1700 04/09/22 04/09/22 immediate-release Previous Rx's Medication Instructions Recorded levothyroxine 50 mcg tablet 50 mcg PO DAILY@0600 #30 tabs 12/05/21 prednisone 5 mg tablet 1 tab PO DAILY #30 tabs 12/05/21 risperidone 2 mg tablet 2 mg PO BID #60 tabs 12/05/21 Allergies Allergy/AdvReac Type Severity Reaction Status Date / Time gabapentin [From Neurontin] Allergy Unknown UNKNOWN Verified 11/16/21 08:58 Sulfa (Sulfonamide Allergy Unknown UNKNOWN Verified 11/16/21 08:58 Antibiotics) [SULFA (SULFONAMIDE ANTIBIOTICS)] trimethoprim [TRIMETHOPRIM] Allergy Unknown UNKNOWN Verified 11/16/21 08:58 lithium [LITHIUM] AdvReac Severe KIDNEY Verified 11/16/21 08:58 TRANSPLANT DUE TO LITHIUM TOXICITY Review of Systems Review of Systems: Yes all other systems are reviewed and are negative Constitutional: Constitutional: Reports no additional constitutional complaints, Denies body ache(s), Denies chills, Denies fever(s), Denies headache(s) and Denies weakness Eyes: Eyes: Reports no additional eye complaints and Denies change in vision ENT: Reports system reviewed and no additional complaints, except as documented, Denies dizziness, Denies headache(s), Denies nasal congestion, Denies nasal discharge and Denies neck pain Cardiovascular: Cardiovascular: Reports no additional cardiovascular complaints, Denies chest pain, Denies leg edema and Denies dyspnea Respiratory: Respiratory: Reports no additional respiratory complaints, Denies cough and Denies dyspnea Gastrointestinal: Gastrointestinal: Reports no additional gastrointestinal complaints, Denies abdominal pain, Denies diarrhea, Denies nausea and Denies vomiting Genitourinary: Genitourinary: Reports no additional female genitourinary complaints and Denies urinary incontinence Musculoskeletal: Musculoskeletal: Reports no additional musculoskeletal complaints, Denies back pain, Reports arthralgias, Denies joint swelling, Reports limited range of motion, Denies neck pain, Denies numbness and Denies tingling Integumentary/Breasts: Skin/Breast: Reports system reviewed and no additional complaints, except as docu and Denies rash Neurologic: Reports system reviewed and no additional complaints, except as documented, Denies Abnormal speech present, Denies dizziness, Denies headache(s), Denies numbness, Denies tingling and Denies weakness PMFSH Past Medical History Attestation statement: The following information was validated with the patient. Source: old records reviewed and nursing notes reviewed Medical History No known health problems Social History Social History Household Members: None Housing: Apartment Do you presently have visiting nurse or other home services: No Alcohol intake: never Patient Tobacco Use Status: Former Tobacco user Advance Directives: No Advance Directives Information Provided: Yes service: No Sexual orientation: Straight/Heterosexual Physical Exam Vital Signs: Vital Signs: Last Vital Signs Temp 98.7 F 04/09/22 12:10 Pulse 63 04/09/22 12:10 Resp 18 04/09/22 12:10 BP 134/64 04/09/22 12:10 Pulse Ox 98 04/09/22 12:10 O2 Del Method 04/09/22 12:10 BMI result Body Mass Index 21.8 Const: General: cooperative, healthy appearing, comfortable and no acute distress Orientation/consciousness: patient oriented x3 Limitations: no limitations HEENT: Head: Yes normal to inspection, No Blevins's sign and No raccoon eyes Ears: hearing grossly normal bilaterally and TM's normal bilaterally General nose exam: Normal external nose present Face and sinus: Yes normal facial exam Mouth: Normal oral and palatal mucosa present Throat: Yes posterior oropharynx normal Eyes: General: appearance normal, both eyes and all related structures Pupils: Equal, round and reactive pupils present Neck: Neck: Yes normal visual inspection Chest: Chest palpation & inspection: normal inspection of the chest Resp: Effort & Inspection: normal respiratory effort Auscultation: clear to auscultation bilaterally Cardio: Rate: regular rate Rhythm: regular rhythm Peripheral pulses: Peripheral pulses 2+ throughout GI: Inspection: Yes normal to inspection Palpation (GI): Soft to palpation and nontender Auscultation: normal bowel sounds Back/Spine/Pelvis: Thoracic/Lumbar Spine: thoracic and lumbar spine normal to inspection Skin: General skin exam: no rashes or lesions noted Neuro: General: patient oriented x3, moves all extremities, no focal motor deficits, normal sensation to monofilament and Unable to assess gait Cranial nerves: Yes CN's II-XII intact bilaterally, Yes Equal, round and reactive pupils present, Yes Bilaterally intact EOM present, Yes Nystagmus not present, Yes Normal facial strength present and Yes Midline tongue present Cognition (Neuro): normal cognition Speech: No Abnormal speech present Gait exam (Neuro): Unable to assess gait Motor exam (neuro): 5/5 motor strength present throughout Sensory Exam: Normal double simultaneous stimulation for sensation Coordination: [id number] test normal Extrem: Other: Over the right lateral hip there is ecchymosis and tenderness. There is no shortening, rotation or deformity noted distal DP and PT pulses palpated. Pelvis is stable. General: Yes normal to inspection Course Course Course Narrative: 1300-sodium is 118. Add on urine studies. Nursing to obtain IV access. Anticipate admission once imaging is done. Reevaluation(s) Reevaluation #1: Serum osm is low. Likely hypotonic hyponatremia which may be multifactorial. Patient is on multiple medications that may cause hyponatremia including risperidone and lisinopril. Patient also has underlying psychiatric diagnosis is so she may be drinking too much water at home. Spoke to Medicine. Patient is having sodium less than 120 typically require ICU admission. Patient has had nothing to eat or drink since being here in the emergency room. Will recheck a sodium. If less than 120 will discuss with ICU and Nephrology. If greater than 120 will discuss with Nephrology and Medicine for admission. Delay in images. Will speak to Radiology Reevaluation #2: CT head and neck are normal. X-ray of the hip and pelvis show a questionable pelvic fracture. CT of the pelvis ordered Reevaluation #3: 1540-repeat sodium unchanged. I discussed the patient with the embossograph operator Dr. Villarreal who accepted admission Additional Reevaluation(s): 1700- CT pelvis shows Acute fractures of pelvic bones. The fracture of the left pubic bone extending to the margin the pubic symphysis is not significantly displaced. The fracture of the right inferior pubic ramus is mildly displaced whereas the subtle fracture of the high right pubic ramus is nondisplaced. Spoke to orthopedics Shant BARILLAS. No surgical intervention warranted. Recommend partial weight bear with walker. MDM - Fall MDM Narrative Medical decision making narrative: 71-year-old female here after mechanical fall with reports of right hip pain with difficulty ambulating since the fall. Patient also reports that she may have had some slurred speech after the fall which is now resolved. On arrival normal neurological exam. She has no focal findings. She does have some bruising and tenderness over the right lateral hip. She did have a head strike. Will check CT head and neck due to age. Will also check x-rays of the right hip, labs Medical Records Attestation: I reviewed the patient's medical records. Lab Data Attestation: I reviewed the patient's lab results. Result diagrams: 04/09/22 12:31 04/09/22 14:58 Labs: Lab Results 04/09/22 04/09/22 04/09/22 Range/Units 12:31 12:31 12:31 WBC 6.5 (4.8-10.8) X10*3/uL RBC 2.69 L D (4.20-5.50) X10*6/uL Hgb 8.0 L D (12.0-16.0) g/dl Hct 23.6 L D (37.0-47.0) % MCV 87.7 (80.0-98.0) fL MCH 29.7 (27.0-33.0) pg MCHC 33.9 (31.0-35.0) g/dl RDW 14.0 (11.0-16.0) % Plt Count 129 L (160-400) X10*3/uL MPV 10.5 (9.4-12.3) fL Immature Gran % (Auto) 1.3 H (0.0-0.4) % Neut % (Auto) 78.8 H (45-73) % Lymph % (Auto) 8.0 L (20-40) % [place] % (Auto) 9.8 (2-11) % Eos % (Auto) 1.9 (0-4) % Baso % (Auto) 0.2 (0-2) % Lymph # (Auto) 0.5 L (1.2-4.9) X10*3/uL [place] # (Auto) 0.6 (0.1-1.2) X10*3/uL Eos # (Auto) 0.1 (0.0-0.4) X10*3/uL Baso # (Auto) 0.0 (0.0-0.2) X10*3/uL Abs Immat Gran (auto) 0.08 H (0.00-0.03) X10*3/uL Absolute Neuts (auto) 5.1 (2.0-8.3) x10*3/uL Absolute Nucleated RBC 0.000 (0.0-0.012) X10*3/uL Nucleated RBC % (auto) 0.0 (0.0-0.2) /100WBC PT 10.9 (10.0-13.1) SEC INR 1.0 (0.9-1.1) Sodium 118 L* (135-145) mmol/L Potassium 5.4 H (3.3-5.1) mmol/L Chloride 93 L (96-108) mmol/L Carbon Dioxide 19 L (22-29) mmol/L Anion Gap 11 L (12-20) BUN 24 H (9-16) mg/dL Creatinine 1.58 H (0.5-1.4) mg/dL Estim Creat Clear Calc 28.9 Estimated GFR 32 Random Glucose 199 H (60-115) mg/dL Osmolality (281-305) mosm/kg Uric Acid 3.9 (2.4-5.7) mg/dL Calcium 6.6 L D (8.4-10.2) mg/dL Phosphorus 2.5 L (2.7-4.5) mg/dL Magnesium 2.1 (1.6-2.6) mg/dL Total Bilirubin 0.3 (0.0-1.0) mg/dL Direct Bilirubin < 0.2 (0.0-0.5) mg/dL AST 18 (5-31) U/L ALT 20 (0-31) U/L Alkaline Phosphatase 71 D (39-117) U/L Total Protein 5.2 L (6.5-8.0) g/dL Albumin 3.2 L (3.5-5.0) g/dL TSH 1.89 (0.32-4.0) uIU/mL Urine Color Urine Appearance Urine pH (5.0-8.0) Ur Specific Ranger (1.005-1.025) Urine Protein (NEG-TRACE) MG/DL Urine Glucose (UA) (NEG) MG/DL Urine Ketones (NEG) MG/DL Urine Blood (NEG) Urine Nitrite (NEG) Ur Leukocyte Esterase (NEG) Urine RBC (0) /HPF Urine WBC (0-4) /HPF Ur Squamous Epith Cells /LPF Urine Bacteria /LPF Urine Osmolality (373-1093) mosm/kg Ur Random Sodium mmol/L Ur Random Potassium mmol/L Ur Random Chloride mmol/L Ur Random Uric Acid mg/dL Urine Creatinine mg/dL COVID-19 (SALOMÓN) (Negative) COVID-19 Clin Com 04/09/22 04/09/22 04/09/22 Range/Units 12:31 13:40 14:12 WBC (4.8-10.8) X10*3/uL RBC (4.20-5.50) X10*6/uL Hgb (12.0-16.0) g/dl Hct (37.0-47.0) % MCV (80.0-98.0) fL MCH (27.0-33.0) pg MCHC (31.0-35.0) g/dl RDW (11.0-16.0) % Plt Count (160-400) X10*3/uL MPV (9.4-12.3) fL Immature Gran % (Auto) (0.0-0.4) % Neut % (Auto) (45-73) % Lymph % (Auto) (20-40) % [place] % (Auto) (2-11) % Eos % (Auto) (0-4) % Baso % (Auto) (0-2) % Lymph # (Auto) (1.2-4.9) X10*3/uL [place] # (Auto) (0.1-1.2) X10*3/uL Eos # (Auto) (0.0-0.4) X10*3/uL Baso # (Auto) (0.0-0.2) X10*3/uL Abs Immat Gran (auto) (0.00-0.03) X10*3/uL Absolute Neuts (auto) (2.0-8.3) x10*3/uL Absolute Nucleated RBC (0.0-0.012) X10*3/uL Nucleated RBC % (auto) (0.0-0.2) /100WBC PT (10.0-13.1) SEC INR (0.9-1.1) Sodium (135-145) mmol/L Potassium (3.3-5.1) mmol/L Chloride (96-108) mmol/L Carbon Dioxide (22-29) mmol/L Anion Gap (12-20) BUN (9-16) mg/dL Creatinine (0.5-1.4) mg/dL Estim Creat Clear Calc Estimated GFR Random Glucose (60-115) mg/dL Osmolality 258 L (281-305) mosm/kg Uric Acid (2.4-5.7) mg/dL Calcium (8.4-10.2) mg/dL Phosphorus (2.7-4.5) mg/dL Magnesium (1.6-2.6) mg/dL Total Bilirubin (0.0-1.0) mg/dL Direct Bilirubin (0.0-0.5) mg/dL AST (5-31) U/L ALT (0-31) U/L Alkaline Phosphatase (39-117) U/L Total Protein (6.5-8.0) g/dL Albumin (3.5-5.0) g/dL TSH (0.32-4.0) uIU/mL Urine Color STRAW Urine Appearance CLEAR Urine pH 7.0 (5.0-8.0) Ur Specific Ranger 1.010 (1.005-1.025) Urine Protein 2+ H (NEG-TRACE) MG/DL Urine Glucose (UA) 100 H (NEG) MG/DL Urine Ketones NEG (NEG) MG/DL Urine Blood 3+ H (NEG) Urine Nitrite NEG (NEG) Ur Leukocyte Esterase NEG (NEG) Urine RBC 10-14 H (0) /HPF Urine WBC 0 (0-4) /HPF Ur Squamous Epith Cells TRACE /LPF Urine Bacteria NONE /LPF Urine Osmolality (373-1093) mosm/kg Ur Random Sodium mmol/L Ur Random Potassium mmol/L Ur Random Chloride mmol/L Ur Random Uric Acid mg/dL Urine Creatinine mg/dL COVID-19 ([facility]ALOM[facility]N) Negative (Negative) COVID-19 Clin Com See Note 04/09/22 04/09/22 04/09/22 Range/Units 14:12 14:12 14:12 WBC (4.8-10.8) X10*3/uL RBC (4.20-5.50) X10*6/uL Hgb (12.0-16.0) g/dl Hct (37.0-47.0) % MCV (80.0-98.0) fL MCH (27.0-33.0) pg MCHC (31.0-35.0) g/dl RDW (11.0-16.0) % Plt Count (160-400) X10*3/uL MPV (9.4-12.3) fL Immature Gran % (Auto) (0.0-0.4) % Neut % (Auto) (45-73) % Lymph % (Auto) (20-40) % [place] % (Auto) (2-11) % Eos % (Auto) (0-4) % Baso % (Auto) (0-2) % Lymph # (Auto) (1.2-4.9) X10*3/uL [place] # (Auto) (0.1-1.2) X10*3/uL Eos # (Auto) (0.0-0.4) X10*3/uL Baso # (Auto) (0.0-0.2) X10*3/uL Abs Immat Gran (auto) (0.00-0.03) X10*3/uL Absolute Neuts (auto) (2.0-8.3) x10*3/uL Absolute Nucleated RBC (0.0-0.012) X10*3/uL Nucleated RBC % (auto) (0.0-0.2) /100WBC PT (10.0-13.1) SEC INR (0.9-1.1) Sodium (135-145) mmol/L Potassium (3.3-5.1) mmol/L Chloride (96-108) mmol/L Carbon Dioxide (22-29) mmol/L Anion Gap (12-20) BUN (9-16) mg/dL Creatinine (0.5-1.4) mg/dL Estim Creat Clear Calc Estimated GFR Random Glucose (60-115) mg/dL Osmolality (281-305) mosm/kg Uric Acid (2.4-5.7) mg/dL Calcium (8.4-10.2) mg/dL Phosphorus (2.7-4.5) mg/dL Magnesium (1.6-2.6) mg/dL Total Bilirubin (0.0-1.0) mg/dL Direct Bilirubin (0.0-0.5) mg/dL AST (5-31) U/L ALT (0-31) U/L Alkaline Phosphatase (39-117) U/L Total Protein (6.5-8.0) g/dL Albumin (3.5-5.0) g/dL TSH (0.32-4.0) uIU/mL Urine Color Urine Appearance Urine pH (5.0-8.0) Ur Specific [place] (1.005-1.025) Urine Protein (NEG-TRACE) MG/DL Urine Glucose (UA) (NEG) MG/DL Urine Ketones (NEG) MG/DL Urine Blood (NEG) Urine Nitrite (NEG) Ur Leukocyte Esterase (NEG) Urine RBC (0) /HPF Urine WBC (0-4) /HPF Ur Squamous Epith Cells /LPF Urine Bacteria /LPF Urine Osmolality 143 L (373-1093) mosm/kg Ur Random Sodium < 20.0 mmol/L Ur Random Potassium 24.8 mmol/L Ur Random Chloride 23.0 mmol/L Ur Random Uric Acid 6.9 mg/dL Urine Creatinine 16.05 mg/dL COVID-19 ([facility]ALOM[facility]N) (Negative) COVID-19 Clin Com 04/09/22 Range/Units 14:58 WBC (4.8-10.8) X10*3/uL RBC (4.20-5.50) X10*6/uL Hgb (12.0-16.0) g/dl Hct (37.0-47.0) % MCV (80.0-98.0) fL MCH (27.0-33.0) pg MCHC (31.0-35.0) g/dl RDW (11.0-16.0) % Plt Count (160-400) X10*3/uL MPV (9.4-12.3) fL Immature Gran % (Auto) (0.0-0.4) % Neut % (Auto) (45-73) % Lymph % (Auto) (20-40) % [place] % (Auto) (2-11) % Eos % (Auto) (0-4) % Baso % (Auto) (0-2) % Lymph # (Auto) (1.2-4.9) X10*3/uL [place] # (Auto) (0.1-1.2) X10*3/uL Eos # (Auto) (0.0-0.4) X10*3/uL Baso # (Auto) (0.0-0.2) X10*3/uL Abs Immat Gran (auto) (0.00-0.03) X10*3/uL Absolute Neuts (auto) (2.0-8.3) x10*3/uL Absolute Nucleated RBC (0.0-0.012) X10*3/uL Nucleated RBC % (auto) (0.0-0.2) /100WBC PT (10.0-13.1) SEC INR (0.9-1.1) Sodium 118 L* (135-145) mmol/L Potassium 5.1 (3.3-5.1) mmol/L Chloride 96 (96-108) mmol/L Carbon Dioxide 17 L (22-29) mmol/L Anion Gap 10 L (12-20) BUN 23 H (9-16) mg/dL Creatinine 1.45 H (0.5-1.4) mg/dL Estim Creat Clear Calc 31.5 Estimated GFR 35 Random Glucose 157 H (60-115) mg/dL Osmolality (281-305) mosm/kg Uric Acid (2.4-5.7) mg/dL Calcium 6.4 L (8.4-10.2) mg/dL Phosphorus (2.7-4.5) mg/dL Magnesium (1.6-2.6) mg/dL Total Bilirubin (0.0-1.0) mg/dL Direct Bilirubin (0.0-0.5) mg/dL AST (5-31) U/L ALT (0-31) U/L Alkaline Phosphatase (39-117) U/L Total Protein (6.5-8.0) g/dL Albumin (3.5-5.0) g/dL TSH (0.32-4.0) uIU/mL Urine Color Urine Appearance Urine pH (5.0-8.0) Ur Specific [place] (1.005-1.025) Urine Protein (NEG-TRACE) MG/DL Urine Glucose (UA) (NEG) MG/DL Urine Ketones (NEG) MG/DL Urine Blood (NEG) Urine Nitrite (NEG) Ur Leukocyte Esterase (NEG) Urine RBC (0) /HPF Urine WBC (0-4) /HPF Ur Squamous Epith Cells /LPF Urine Bacteria /LPF Urine Osmolality (373-1093) mosm/kg Ur Random Sodium mmol/L Ur Random Potassium mmol/L Ur Random Chloride mmol/L Ur Random Uric Acid mg/dL Urine Creatinine mg/dL COVID-19 (SALOM[facility]N) (Negative) COVID-19 Clin Com Imaging Data CT cervical spine/head: Attestation: I personally reviewed and interpreted this imaging study as follows: Radiologist's impression: FINDINGS: Brain: There is no acute intra-axial, extra-axial bleed, masses or midline shift. There is no acute infarction evolution. The lateral ventricles are symmetrical in size and configuration without enlargement. The l[place]o to white matter difference is maintained normal. Cervical spine: There is maintained cervical lordosis. The vertebral heights and alignment is normal. There is loss of C5-C6 and C6-C7 disc heights with ventral and posterior spondylosis. Rest the disc heights are normal. The craniovertebral junction and the C1-C2 alignment is normal. There is mild superior spurring at the C1-C2 disc level. The prevertebral and paravertebral soft tissues are normal. The airway is widely patent. The lung apices are clear. CT/CT cervical spine wo con IMPRESSION: No acute intracranial process seen. ? There is no acute fracture, dislocation or subluxation cervical spine. There are degenerative disc changes with ventral and posterior spondylosis C5-C6 and C6-C7 disc levels.? pelvis/hip xray: Attestation: I personally reviewed and interpreted this imaging study as follows: Radiologist's impression: FINDINGS: Prior cement augmentation of L4 vertebral body. Osseous pelvic ring is intact. Alignment is normal the pubic symphysis, sacroiliac joints and hips. Bones are diffusely osteopenic. There is a focus of linear sclerosis of the right inferior pubic ramus. It is uncertain whether this represents minimal impaction from acute fracture or healing of a prior injury. This is new compared to 09/29/2019. No evidence of displaced fracture. Also, no fracture or subluxation at either hip.? XR/XR hip RT w PEL1V IMPRESSION: *? No fracture or malalignment at the right hip. ? *? The focal linear linear sclerosis of the right inferior pubic ramus is new compared to 09/29/2019. No displaced fracture is seen in this region. Nevertheless, pubic rami fractures can be subtle on radiographs. If there is significant acute onset pain in this region of the pelvis, and if needed for clinical management, a follow-up noncontrast CT of the pelvis could be performed. Ct pelvis : Attestation: I personally reviewed and interpreted this imaging study as follows: Radiologist's impression: FINDINGS: Bones are diffusely osteopenic. Prior injection of cement into the mildly compressed L4 vertebral body. There are chronic mild concave depressions of superior and inferior endplates of L5 vertebral body resulting in approximately one third central height loss of the vertebral body. Acute, subtle nondisplaced fracture of the high right pubic ramus and mildly displaced fracture of right inferior pubic ramus. Acute fracture of left pubic bone extends to the superior margin of the pubic symphysis is not significantly displaced. The proximal femurs are intact. Bones have normal alignment at each hip. Joint space of each hip is well-preserved. Transplant kidney is present in the right pelvis. No hydronephrosis. 2.5 cm simple cortical cyst of the transplant kidney. No imaging follow-up recommended. No pelvic mass, free fluid or lymphadenopathy. Urinary bladder is unremarkable. No dilated loops of bowel within the visualized lower abdomen and pelvis. Generalized prominence of fecal material in the colon suggest possibility constipation. CT/CT pelvis wo con IMPRESSION: *? Acute fractures of pelvic bones. The fracture of the left pubic bone extending to the margin the pubic symphysis is not significantly displaced. The fracture of the right inferior pubic ramus is mildly displaced whereas the subtle fracture of the high right pubic ramus is nondisplaced. *? No evidence of proximal femoral fracture.? ECG Data Attestation: I personally reviewed and interpreted this ECG as follows: ECG interpretation date: 04/09/22 ECG interpretation time: 15:45 Interpretation: Normal sinus rhythm with a rate of 60, normal RI, normal QRS, normal QT Critical Care Time Critical Care Time Critical Care Time: Yes Total Critical Care Time: 60 Attestation: Admission to ICU, discussion with specialists Discharge Plan Discharge Clinical Impression: Acute hyponatremia, Chronic renal disease, Chronic anemia, Closed pelvic fracture Patient Disposition: Admitted As Inpatient
[2022-04-09 12:36] LABS: MANUAL DIFF FLAG NO
[2022-04-09 12:42] LABS: Prothrombin Time 10.9 SEC (10.0-13.1)
[2022-04-09 12:44] LABS: Basophils Percent Auto 0.2 % (0-2); PLT CLUMP 1; SCAN SMEAR FLAG 1
[2022-04-09 12:46] LABS: Eosinophils Absolute Auto 0.1 X10*3/uL (0.0-0.4); Eosinophils Percent Auto 1.9 % (0-4); Hematocrit 23.6 % (37.0-47.0); Imm Gran Abs Auto 0.08 X10*3/uL (0.00-0.03); Imm Gran Pct Auto 1.3 % (0.0-0.4); Lymphocytes Absolute Auto 0.5 X10*3/uL (1.2-4.9); Mean Corpuscular HGB Conc 33.9 g/dl (31.0-35.0); Mean Corpuscular Hemoglobin 29.7 pg (27.0-33.0); Mean Corpuscular Volume 87.7 fL (80.0-98.0); Mean Platelet Volume 10.5 fL (9.4-12.3); Monocytes Absolute Auto 0.6 X10*3/uL (0.1-1.2); Monocytes Percent Auto 9.8 % (2-11); Neutrophils Absolute Auto 5.1 x10*3/uL (2.0-8.3); Neutrophils Percent Auto 78.8 % (45-73); Red Blood Count 2.69 X10*6/uL (4.20-5.50)
[2022-04-09 12:49] LABS: Platelet Count 129 X10*3/uL (160-400); White Blood Count 6.5 X10*3/uL (4.8-10.8)
[2022-04-09 12:58] LABS: Alanine Aminotransferase 20 U/L (0-31); Albumin Level 3.2 g/dL (3.5-5.0); Alkaline Phosphatase 71 U/L (39-117); Anion Gap 11 (12-20); Aspartate Amino Transferase 18 U/L (5-31); Bilirubin Direct < 0.2 mg/dL (0.0-0.5); Bilirubin Total 0.3 mg/dL (0.0-1.0); Blood Urea Nitrogen 24 mg/dL (9-16); Calcium 6.6 mg/dL (8.4-10.2); Carbon Dioxide 19 mmol/L (22-29); Chloride 93 mmol/L (96-108); Creatinine Clr Calc Pharmacy 28.9; Estimated Glomerular Filt Rate 32; Glucose Random 199 mg/dL (60-115); Magnesium 2.1 mg/dL (1.6-2.6); Potassium 5.4 mmol/L (3.3-5.1); Sodium 118 mmol/L (135-145); Total Protein 5.2 g/dL (6.5-8.0)
--- NOTE | 2022-04-09 12:58 | PC.NURSE ---
Pts sodium level is 118. Provider made aware. Awaiting further orders.
[2022-04-09 13:21] LABS: Phosphorus 2.5 mg/dL (2.7-4.5); Uric Acid 3.9 mg/dL (2.4-5.7)
[2022-04-09 13:42] LABS: Thyroid Stimulating Hormone 1.89 uIU/mL (0.32-4.0)
[2022-04-09 13:57] LABS: Osmolality, Serum 258 mosm/kg (281-305)
[2022-04-09 14:09] LABS: COVID-19 Test Negative (Negative); IDNOW Serial# 55D5AD1C
[2022-04-09 14:20] LABS: Appearance Urine CLEAR; Color Urine STRAW; Glucose Urine UA 100 MG/DL (NEG); Leukocyte Esterase Urine NEG (NEG); Nitrite Urine NEG (NEG); UACC Culture Trigger NO; Urine Blood 3+ (NEG); Urine Ketones NEG (NEG); Urine Protein 2+ MG/DL (NEG-TRACE)
[2022-04-09 14:31] LABS: Osmolality Urine 143 mosm/kg (373-1093)
[2022-04-09 14:32] LABS: Squamous Epithelial Cell Urine TRACE /LPF; WBC Urine 0 /HPF (0-4)
[2022-04-09 14:34] LABS: Creatinine Urine 16.05 mg/dL; Potassium Urine Random 24.8 mmol/L; Sodium Urine Random < 20.0 mmol/L
[2022-04-09 14:41] LABS: Uric Acid Urine Random 6.9 mg/dL
[2022-04-09] MEDS: Morphine Sulfate 2 MG/ML CARTRIDGE IVPUSH (14:56)
--- NOTE | 2022-04-09 15:13 | ECG_ITS ---
Test Reason : FALL Blood Pressure : / mmHG Vent. Rate : 060 BPM Atrial Rate : 060 BPM P-R Int : 168 ms QRS Dur : 080 ms QT Int : 444 ms P-R-T Axes : 065 -49 053 degrees QTc Int : 444 ms Normal sinus rhythm Left axis deviation Abnormal ECG When compared with ECG of 26-OCT-2021 20:22, Vent. rate has decreased BY 30 BPM Referred By: Mary Ellen Bhatt Electronically Signed By:Fidencio Pearl
[2022-04-09 15:27] LABS: Anion Gap 10 (12-20); Blood Urea Nitrogen 23 mg/dL (9-16); Calcium 6.4 mg/dL (8.4-10.2); Carbon Dioxide 17 mmol/L (22-29); Chloride 96 mmol/L (96-108); Creatinine Clr Calc Pharmacy 31.5; Estimated Glomerular Filt Rate 35; Glucose Random 157 mg/dL (60-115); Potassium 5.1 mmol/L (3.3-5.1); Sodium 118 mmol/L (135-145)
[2022-04-09] MEDS: Sodium Chloride Tab 1 GM TABLET 2 GM PO ×2 (16:38→20:34)
[2022-04-09] MEDS: Heparin Sodium,Porcine 5,000 UNIT/ML VIAL 5000 UNIT SUBCUT (16:38)
--- NOTE | 2022-04-09 17:26 | PHA.MEDREC ---
Pharmacy Consult ? Medication Reconciliation Pharmacy has reviewed the medication reconciliation completed by nursing Hortencia. There are no remakbale issues for provider's attention. Melissa Fish, [facility]
[2022-04-09] MEDS: Tacrolimus 1 MG CAPSULE 2 MG PO (17:51)
[2022-04-09] MEDS: fentaNYL citrate/PF 100 MCG/2 ML VIAL 25 MCG IVPUSH ×2 (17:51→21:17)
--- NOTE | 2022-04-09 19:49 | P.HPCC_ITS ---
History of Present Illness Date of Service: 04/09/22 Attending physician on admission: Elmer Villarreal Chief Complaint: Fall The patient is a 71-year-old female with past medical history of chronic kidney disease status post renal transplant in 2008, schizoaffective disorder, hypertension,? and hypothyroidism,? who presented to the emergency room after sustaining a fall.? Patient reported losing her balance falling backwards and landing on her right hip and striking her head.? Denied loss of consciousness.? Head/ cervical spine CT negative for any acute? process. Pelvis CT did reveal? Acute fracture of the left pubic bone and? fracture of the right inferior pubic ramus. Ortho was consulted by ED, who advised No surgical intervention and recommended partial weight bearing with walker. Laboratory data? showed sodium of 118? this likely being the cause of the fall.? ?Patient will be admitted to the ICU for management of acute hyponatremia Review of Systems Review of Systems: Constitutional: No weight loss, fever, chills, weakness or fatigue. Eyes: No visual loss, blurred vision, double vision ENT: No hearing loss, sneezing, congestion, runny nose or sore throat. Respiratory: No Dyspnea, cough . No hemoptysis. Cardiovascular: No chest pain No palpitations. Gastrointestinal: No anorexia, nausea, vomiting or diarrhea. No abdominal pain or blood in stool. Genitourinary: No burning micturition. No urinary frequency or incontinence. Neurologic: + increase thirst, + fall. No headache, dizziness, syncope, unilateral weakness, ataxia, numbness or tingling in the extremities. Musculoskeletal: + pelvis pain.No joint pain or stiffness. Hematologic/Lymphatics: No bleeding or bruising. No painful lymph nodes. Skin: No rash or itching. Endocrine: No reports of sweating. No cold or heat intolerance. No polyuria or polydipsia. [facility] Past Medical History Medical History (Updated 04/09/22 @ 19:55 by Ana Saeed NP) CKD (chronic kidney disease) stage 3, GFR 30-59 ml/min HTN (hypertension) Schizoaffective disorder, bipolar type Surgical History Surgical History (Updated 04/09/22 @ 19:55 by Ana Saeed NP) Living-donor kidney transplant recipient Social History Social History Household Members: None Housing: Condominium Do you presently have visiting nurse or other home services: No Alcohol intake: never Patient Tobacco Use Status: Former Tobacco user Tobacco use type: Cigarette Smoked in Last 30 Days: No Patient Interested in Nicotine Replacement: No Patient Given Instructions on How to Stop Smoking: No Second Hand Smoke Exposure: No Use of substances other than those prescribed or required for medical reasons: No Currently Displaying Signs/Symptoms of Drug Intoxication Withdrawal: No Any prior treatment program specific to substance use: No Have you been hit, kicked, punched, or otherwise hurt by someone within the past year? If so, by whom?: No Do you feel safe in your current relationship?: No Current Relationship Is there a partner from a previous relationship who is making you feel unsafe now?: No Are you made to feel afraid or neglected: No Spiritual Healthcare Practices: none per patient Gnosticism Healthcare Practices: none per patient Cultural Healthcare Practices: none per patient Advance Directives: No Advance Directives Information Provided: Yes Do you have thoughts of harming others: None Do you have a plan to hurt others: No Plan Recently lost weight without trying: No How much weight loss: Not applicable Eating poorly because of decreased appetite: No Nutrition screen score: 0 Nutrition Risks: No Nutritional Risk Patient : No : No Poor oral hygiene: No service: No Sexual orientation: Straight/Heterosexual Meds Allergies Allergy/AdvReac Type Severity Reaction Status Date / Time gabapentin [From Neurontin] Allergy Unknown UNKNOWN Verified 11/16/21 08:58 Sulfa (Sulfonamide Allergy Unknown UNKNOWN Verified 11/16/21 08:58 Antibiotics) [SULFA (SULFONAMIDE ANTIBIOTICS)] trimethoprim [TRIMETHOPRIM] Allergy Unknown UNKNOWN Verified 11/16/21 08:58 lithium [LITHIUM] AdvReac Severe KIDNEY Verified 11/16/21 08:58 TRANSPLANT DUE TO LITHIUM TOXICITY Active Medications: Current Medications Fentanyl (Fentanyl Citrate/Pf 100 Mcg/2 Ml Vial) 25 mcg IVPUSH Q3H PRN; Protocol PRN Reason: Pain, Moderate (Pain Scale 4-6 Last Admin: 04/09/22 17:51 Dose: 25 mcg Heparin Sodium (Porcine) (Heparin Sodium,Porcine 5,000 Unit/Ml Vial) 5,000 unit SUBCUT Q8H MARCIA Last Admin: 04/09/22 16:38 Dose: 5,000 unit Levothyroxine Sodium (Levothyroxine Sodium 50 Mcg Tablet) 50 mcg PO DAILY [facility] Risperidone (Risperidone 2 Mg Tablet) 2 mg PO BID [facility] Sodium Chloride (Sodium Chloride Tab 1 Gm Tablet) 2 gm PO TID [facility] Last Admin: 04/09/22 16:38 Dose: 2 gm Tacrolimus (Tacrolimus 1 Mg Capsule) 2 mg PO DAILY@1730 [facility] Last Admin: 04/09/22 17:51 Dose: 2 mg Home Medications Medication Instructions Recorded Confirmed Last Taken Type denosumab 60 mg/mL subcutaneous 60 mg subcut Q6M 10/25/21 04/09/22 09/10/21 History syringe (Prolia) 60mg/ml lorazepam 1 mg tablet 1 tab PO BEDTIME 10/25/21 04/09/22 Unknown History carvedilol 12.5 mg tablet 1 tab PO BID 03/04/22 04/09/22 03/14/22 History ergocalciferol (vitamin D2) 50,000 50,000 unit PO TH 03/04/22 04/09/22 Unknown History unit tablet ferrous sulfate 325 mg (65 mg 325 mg PO BID 03/04/22 04/09/22 Unknown History iron) tablet lisinopril 10 mg tablet 1 tab PO DAILY 03/04/22 04/09/22 03/14/22 History tacrolimus 1 mg capsule, 3 cap PO DAILY@0730 03/04/22 04/09/22 Unknown History immediate-release tacrolimus 1 mg capsule, 2 cap PO DAILY@1700 04/09/22 04/09/22 Unknown History immediate-release Physical Exam Vital Signs: Vital Signs: Last Vital Signs Temp 98.7 F 04/09/22 12:10 Pulse 58 04/09/22 19:00 Resp 12 04/09/22 19:00 BP 149/60 H 04/09/22 19:00 Pulse Ox 98 04/09/22 19:00 O2 Del Method 04/09/22 19:00 BMI result Body Mass Index 21.8 ?General:? Alert oriented x3 no acute distress.? Speaking full sentences.? Speech is well articulated, thought process is coherent.? Following all commands. ?Skin:? Intact, no lesions, edema, erythema, clubbing or cyanosis.? No ulcers. ?HEENT:? Head is normocephalic, atraumatic, pupils equal round reactive to light accommodation bilaterally.? Extraocular movements appear intact.? Buccal mucosa is dry, Neck is supple without lymphadenopathy. ?Cardiac:SNR,? Clear S1-S2, no murmurs rubs or gallops. ?Pulmonary:? Clear to auscultation, no wheezes, rales or rhonchi. ?Abdomen:?positive bowel sounds in all 4 quadrants.? Soft, nontender, no rebound or guarding.?? ?Musculoskeletal:? Severe pain on right hip to touch. Moving all 4 extremities upon request a major joints, there is no crepitus or tenderness.? The strength is 5/5 bilaterally and throughout all 4 extremities.? Gait not assessed at this point as ptin non weight bearing ?Neurologic:? cranial nerves 2-12 are grossly intact.? No focal deficits noted.Motor strength as above.?? Vascular:? 2+ pulses upper and lower extremities distally.? Results Labs CBC and Chem 7: 04/09/22 12:31 04/09/22 14:58 Labs: Laboratory Results - last 24 hr 04/09/22 04/09/22 04/09/22 12:31 12:31 12:31 MCV 87.7 MCH 29.7 MCHC 33.9 RDW 14.0 Plt Count 129 L MPV 10.5 Immature Gran % (Auto) 1.3 H Neut % (Auto) 78.8 H Lymph % (Auto) 8.0 L [place] % (Auto) 9.8 Eos % (Auto) 1.9 Baso % (Auto) 0.2 Lymph # (Auto) 0.5 L [place] # (Auto) 0.6 Eos # (Auto) 0.1 Baso # (Auto) 0.0 Abs Immat Gran (auto) 0.08 H Absolute Neuts (auto) 5.1 Absolute Nucleated RBC 0.000 Nucleated RBC % (auto) 0.0 PT 10.9 INR 1.0 Anion Gap 11 L Estim Creat Clear Calc 28.9 Estimated GFR 32 Random Glucose 199 H Osmolality Uric Acid 3.9 Calcium 6.6 L D Phosphorus 2.5 L Magnesium 2.1 Total Bilirubin 0.3 Direct Bilirubin < 0.2 AST 18 ALT 20 Alkaline Phosphatase 71 D Total Protein 5.2 L Albumin 3.2 L TSH 1.89 Urine Color Urine Appearance Urine pH Ur Specific [place] Urine Protein Urine Glucose (UA) Urine Ketones Urine Blood Urine Nitrite Ur Leukocyte Esterase Urine RBC Urine WBC Ur Squamous Epith Cells Urine Bacteria Urine Osmolality Ur Random Sodium Ur Random Potassium Ur Random Chloride Ur Random Uric Acid Urine Creatinine COVID-19 ([facility]) COVID-19 Clin Com 04/09/22 04/09/22 04/09/22 12:31 13:40 14:12 MCV MCH MCHC RDW Plt Count MPV Immature Gran % (Auto) Neut % (Auto) Lymph % (Auto) [place] % (Auto) Eos % (Auto) Baso % (Auto) Lymph # (Auto) [place] # (Auto) Eos # (Auto) Baso # (Auto) Abs Immat Gran (auto) Absolute Neuts (auto) Absolute Nucleated RBC Nucleated RBC % (auto) PT INR Anion Gap Estim Creat Clear Calc Estimated GFR Random Glucose Osmolality 258 L Uric Acid Calcium Phosphorus Magnesium Total Bilirubin Direct Bilirubin AST ALT Alkaline Phosphatase Total Protein Albumin TSH Urine Color STRAW Urine Appearance CLEAR Urine pH 7.0 Ur Specific [place] 1.010 Urine Protein 2+ H Urine Glucose (UA) 100 H Urine Ketones NEG Urine Blood 3+ H Urine Nitrite NEG Ur Leukocyte Esterase NEG Urine RBC 10-14 H Urine WBC 0 Ur Squamous Epith Cells TRACE Urine Bacteria NONE Urine Osmolality Ur Random Sodium Ur Random Potassium Ur Random Chloride Ur Random Uric Acid Urine Creatinine COVID-19 ([facility]) Negative COVID-19 [employer] Com See Note 04/09/22 04/09/22 04/09/22 14:12 14:12 14:12 MCV MCH MCHC RDW Plt Count MPV Immature Gran % (Auto) Neut % (Auto) Lymph % (Auto) [place] % (Auto) Eos % (Auto) Baso % (Auto) Lymph # (Auto) [place] # (Auto) Eos # (Auto) Baso # (Auto) Abs Immat Gran (auto) Absolute Neuts (auto) Absolute Nucleated RBC Nucleated RBC % (auto) PT INR Anion Gap Estim Creat Clear Calc Estimated GFR Random Glucose Osmolality Uric Acid Calcium Phosphorus Magnesium Total Bilirubin Direct Bilirubin AST ALT Alkaline Phosphatase Total Protein Albumin TSH Urine Color Urine Appearance Urine pH Ur Specific [place] Urine Protein Urine Glucose (UA) Urine Ketones Urine Blood Urine Nitrite Ur Leukocyte Esterase Urine RBC Urine WBC Ur Squamous Epith Cells Urine Bacteria Urine Osmolality 143 L Ur Random Sodium < 20.0 Ur Random Potassium 24.8 Ur Random Chloride 23.0 Ur Random Uric Acid 6.9 Urine Creatinine 16.05 COVID-19 ([facility]) COVID-19 [employer] Com 04/09/22 14:58 MCV MCH MCHC RDW Plt Count MPV Immature Gran % (Auto) Neut % (Auto) Lymph % (Auto) [place] % (Auto) Eos % (Auto) Baso % (Auto) Lymph # (Auto) [place] # (Auto) Eos # (Auto) Baso # (Auto) Abs Immat Gran (auto) Absolute Neuts (auto) Absolute Nucleated RBC Nucleated RBC % (auto) PT INR Anion Gap 10 L Estim Creat Clear Calc 31.5 Estimated GFR 35 Random Glucose 157 H Osmolality Uric Acid Calcium 6.4 L Phosphorus Magnesium Total Bilirubin Direct Bilirubin AST ALT Alkaline Phosphatase Total Protein Albumin TSH Urine Color Urine Appearance Urine pH Ur Specific [place] Urine Protein Urine Glucose (UA) Urine Ketones Urine Blood Urine Nitrite Ur Leukocyte Esterase Urine RBC Urine WBC Ur Squamous Epith Cells Urine Bacteria Urine Osmolality Ur Random Sodium Ur Random Potassium Ur Random Chloride Ur Random Uric Acid Urine Creatinine COVID-19 ([facility]) COVID-19 Clin Com Imaging Radiologist's Impressions: Impressions Hip/Pelvis X-Ray 04/09/22 13:17 IMPRESSION: * No fracture or malalignment at the right hip. * The focal linear linear sclerosis of the right inferior pubic ramus is new compared to 09/29/2019. No displaced fracture is seen in this region. Nevertheless, pubic rami fractures can be subtle on radiographs. If there is significant acute onset pain in this region of the pelvis, and if needed for clinical management, a follow-up noncontrast CT of the pelvis could be performed. Cervical Spine CT 04/09/22 13:33 IMPRESSION: No acute intracranial process seen. There is no acute fracture, dislocation or subluxation cervical spine. There are degenerative disc changes with ventral and posterior spondylosis C5-C6 and C6-C7 disc levels. Head CT 04/09/22 13:33 IMPRESSION: No acute intracranial process seen. There is no acute fracture, dislocation or subluxation cervical spine. There are degenerative disc changes with ventral and posterior spondylosis C5-C6 and C6-C7 disc levels. Pelvis CT 04/09/22 15:35 IMPRESSION: * Acute fractures of pelvic bones. The fracture of the left pubic bone extending to the margin the pubic symphysis is not significantly displaced. The fracture of the right inferior pubic ramus is mildly displaced whereas the subtle fracture of the high right pubic ramus is nondisplaced. * No evidence of proximal femoral fracture. Assessment and Plan (1) Acute hyponatremia: Status: Acute (2) Closed pelvic fracture: Status: Acute (3) Chronic renal disease: Status: Acute (4) Chronic anemia: Status: Acute (5) Schizoaffective disorder, bipolar type: Status: Acute (6) CKD (chronic kidney disease) stage 3, GFR 30-59 ml/min: Status: Acute (7) Living-donor kidney transplant recipient: Status: Acute (8) HTN (hypertension): Status: Acute Plan ?Plan:? Neuro:? Fall- ? with multiple pelvic fractures. likely from? dehydration/hyponatremia.? According to Ortho no surgical intervention at this time,? non weight bearing.? Continue? with frequent neuro assessments Cardiac: ? no acute issues Pulmonary:? No acute issues Renal:? ?Acute hyponatremia? -? patient has extensive psych history,? admits to not drinking of water in the past few days. ? No? neurological deficit. Will add sodium tablets.? Regular diet with p.o. Water restriction.? Frequent neuro checks.? ?Chronic kidney disease . ? is post renal transplant 2008,? baseline creatinine 1.4-1.9.? Today is 1.45..? Will continue to closely monitor renal indices Endo:? No acute issues.?? GI: no acute issues ID: no acute issues. Heme/Onc:? No acute issues. Psych:? No acute issues. Miscellaneous: ? no acute issues Diet: regular diet with p.o. Water restriction prophylaxis: Heparin, No GI prophylaxis at this time ?Critical care time:? X 45 minutes of critical care time ? Code? status:? FULL CODE? Critical Care Time 45
[2022-04-09] MEDS: risperiDONE 2 MG TABLET PO (20:34)
[2022-04-09 20:54] LABS: Anion Gap 11 (12-20); Blood Urea Nitrogen 23 mg/dL (9-16); Calcium 6.7 mg/dL (8.4-10.2); Carbon Dioxide 19 mmol/L (22-29); Chloride 97 mmol/L (96-108); Creatinine Clr Calc Pharmacy 30.7; Estimated Glomerular Filt Rate 34; Glucose Random 137 mg/dL (60-115); Potassium 5.1 mmol/L (3.3-5.1); Sodium 122 mmol/L (135-145)
[2022-04-09] MEDS: Calcium Gluconate/NaCl,Iso-Osm 1 GM/50 ML PLAST..BAG IV (21:58)
[2022-04-10] VITALS (19 sets, daily range): BP systolic 111–154; BP diastolic 53–68; PULSE 64–83; RESP 12–20; TEMP 36.1–37.6; O2SAT 97–99
[2022-04-10] MEDS: fentaNYL citrate/PF 100 MCG/2 ML VIAL 25 MCG IVPUSH ×3 (00:21→08:42)
[2022-04-10] MEDS: Heparin Sodium,Porcine 5,000 UNIT/ML VIAL 5000 UNIT SUBCUT ×4 (00:21→23:47)
[2022-04-10 05:36] LABS: MANUAL DIFF FLAG NO
[2022-04-10 05:40] LABS: Basophils Percent Auto 0.2 % (0-2); Eosinophils Absolute Auto 0.1 X10*3/uL (0.0-0.4); Eosinophils Percent Auto 2.4 % (0-4); Hematocrit 24.4 % (37.0-47.0); Hemoglobin 8.2 g/dl (12.0-16.0); Imm Gran Abs Auto 0.03 X10*3/uL (0.00-0.03); Imm Gran Pct Auto 0.6 % (0.0-0.4); Lymphocytes Absolute Auto 0.5 X10*3/uL (1.2-4.9); Lymphocytes Percent Auto 9.9 % (20-40); Mean Corpuscular HGB Conc 33.6 g/dl (31.0-35.0); Mean Corpuscular Hemoglobin 29.6 pg (27.0-33.0); Mean Corpuscular Volume 88.1 fL (80.0-98.0); Mean Platelet Volume 10.2 fL (9.4-12.3); Monocytes Absolute Auto 0.8 X10*3/uL (0.1-1.2); Monocytes Percent Auto 14.2 % (2-11); Neutrophils Absolute Auto 3.9 x10*3/uL (2.0-8.3); Neutrophils Percent Auto 72.7 % (45-73); Platelet Count 128 X10*3/uL (160-400); Red Blood Count 2.77 X10*6/uL (4.20-5.50); Red Cell Distribution Width 14.4 % (11.0-16.0); White Blood Count 5.4 X10*3/uL (4.8-10.8)
[2022-04-10 05:58] LABS: Albumin Level 2.8 g/dL (3.5-5.0); Anion Gap 10 (12-20); Blood Urea Nitrogen 23 mg/dL (9-16); Calcium 6.8 mg/dL (8.4-10.2); Carbon Dioxide 19 mmol/L (22-29); Chloride 103 mmol/L (96-108); Estimated Glomerular Filt Rate 31; Glucose Random 189 mg/dL (60-115); Magnesium 2.1 mg/dL (1.6-2.6); Phosphorus 2.8 mg/dL (2.7-4.5); Potassium 4.5 mmol/L (3.3-5.1); Sodium 127 mmol/L (135-145)
[2022-04-10] MEDS: risperiDONE 2 MG TABLET PO ×2 (08:39→19:50)
[2022-04-10] MEDS: Levothyroxine Sodium 50 MCG TABLET PO (08:39)
[2022-04-10] MEDS: Tacrolimus 1 MG CAPSULE 2 MG PO ×2 (08:58→19:50)
[2022-04-10] MEDS: Tacrolimus 1 MG CAPSULE PO (08:58)
--- NOTE | 2022-04-10 10:45 | P.PNCC_ITS ---
Subjective Subjective Date of Service: 04/10/22 Interval History: 71-year-old lady with underlying schizoaffective disorder, kidney disease status post renal transplant in 2008, hypertension, hypothyroidism admitted on 04/10/2022 after mechanical fall with resultant pelvic fractures ( ER provider discussed with orthopedics and no intervention is advised) noted to have asymptomatic acute to subacute hyponatremia with initial sodium of 118. Patient has been admitted to intensive care unit for close monitoring and started on regular diet. Her sodium improved 11/02/2026. She has no neurologic symptoms. No events overnight. Critical Care Time (minutes): 0 Physical Exam Vital Signs: Vital Signs: Last Vital Signs Temp 99.7 F 04/10/22 09:00 Pulse 82 04/10/22 10:00 Resp 17 04/10/22 10:00 BP 154/61 H 04/10/22 10:00 Pulse Ox 97 04/10/22 10:00 O2 Del Method 04/10/22 10:00 BMI result Body Mass Index 20.0 Const: General: no acute distress, alert and awake Eyes: Sclerae: sclerae normal EOM: EOMs intact bilaterally Neck: Neck: Yes no lymphadenopathy, Yes trachea midline and Yes supple Resp: Effort & Inspection: normal respiratory effort and no respiratory distress Auscultation: clear to auscultation bilaterally Cardio: Rate: regular rate Rhythm: regular rhythm Heart sounds: no gallops, no murmurs and no rubs GI: Palpation (GI): Soft to palpation and Other GI palpation findings present ( Nontender) Auscultation: normal bowel sounds Extrem: General: Yes no pedal edema, No clubbing and No cyanosis Objective Data Labs CBC & Chem 7: 04/10/22 05:23 04/10/22 05:23 Labs: Laboratory Results - last 24 hr 04/09/22 04/09/22 04/09/22 12:31 12:31 12:31 WBC 6.5 RBC 2.69 L D Hgb 8.0 L D Hct 23.6 L D MCV 87.7 MCH 29.7 MCHC 33.9 RDW 14.0 Plt Count 129 L MPV 10.5 Immature Gran % (Auto) 1.3 H Neut % (Auto) 78.8 H Lymph % (Auto) 8.0 L Mineral % (Auto) 9.8 Eos % (Auto) 1.9 Baso % (Auto) 0.2 Lymph # (Auto) 0.5 L Mineral # (Auto) 0.6 Eos # (Auto) 0.1 Baso # (Auto) 0.0 Abs Immat Gran (auto) 0.08 H Absolute Neuts (auto) 5.1 Absolute Nucleated RBC 0.000 Nucleated RBC % (auto) 0.0 PT 10.9 INR 1.0 Sodium 118 L* Potassium 5.4 H Chloride 93 L Carbon Dioxide 19 L Anion Gap 11 L BUN 24 H Creatinine 1.58 H Estim Creat Clear Calc 28.9 Estimated GFR 32 Random Glucose 199 H Osmolality Uric Acid 3.9 Calcium 6.6 L D Phosphorus 2.5 L Magnesium 2.1 Total Bilirubin 0.3 Direct Bilirubin < 0.2 AST 18 ALT 20 Alkaline Phosphatase 71 D Total Protein 5.2 L Albumin 3.2 L TSH 1.89 Urine Color Urine Appearance Urine pH Ur Specific [place] Urine Protein Urine Glucose (UA) Urine Ketones Urine Blood Urine Nitrite Ur Leukocyte Esterase Urine RBC Urine WBC Ur Squamous Epith Cells Urine Bacteria Urine Osmolality Ur Random Sodium Ur Random Potassium Ur Random Chloride Ur Random Uric Acid Urine Creatinine COVID-19 (SALOMÓN) COVID-[employer] 04/09/22 04/09/22 04/09/22 12:31 13:40 14:12 WBC RBC Hgb Hct MCV MCH MCHC RDW Plt Count MPV Immature Gran % (Auto) Neut % (Auto) Lymph % (Auto) Mineral % (Auto) Eos % (Auto) Baso % (Auto) Lymph # (Auto) Mineral # (Auto) Eos # (Auto) Baso # (Auto) Abs Immat Gran (auto) Absolute Neuts (auto) Absolute Nucleated RBC Nucleated RBC % (auto) PT INR Sodium Potassium Chloride Carbon Dioxide Anion Gap BUN Creatinine Estim Creat Clear Calc Estimated GFR Random Glucose Osmolality 258 L Uric Acid Calcium Phosphorus Magnesium Total Bilirubin Direct Bilirubin AST ALT Alkaline Phosphatase Total Protein Albumin TSH Urine Color STRAW Urine Appearance CLEAR Urine pH 7.0 Ur Specific [place] 1.010 Urine Protein 2+ H Urine Glucose (UA) 100 H Urine Ketones NEG Urine Blood 3+ H Urine Nitrite NEG Ur Leukocyte Esterase NEG Urine RBC 10-14 H Urine WBC 0 Ur Squamous Epith Cells TRACE Urine Bacteria NONE Urine Osmolality Ur Random Sodium Ur Random Potassium Ur Random Chloride Ur Random Uric Acid Urine Creatinine COVID-19 (SALOMÓN) Negative COVID-19 [email or web address] Com See Note 04/09/22 04/09/22 04/09/22 14:12 14:12 14:12 WBC RBC Hgb Hct MCV MCH MCHC RDW Plt Count MPV Immature Gran % (Auto) Neut % (Auto) Lymph % (Auto) Mineral % (Auto) Eos % (Auto) Baso % (Auto) Lymph # (Auto) Mineral # (Auto) Eos # (Auto) Baso # (Auto) Abs Immat Gran (auto) Absolute Neuts (auto) Absolute Nucleated RBC Nucleated RBC % (auto) PT INR Sodium Potassium Chloride Carbon Dioxide Anion Gap BUN Creatinine Estim Creat Clear Calc Estimated GFR Random Glucose Osmolality Uric Acid Calcium Phosphorus Magnesium Total Bilirubin Direct Bilirubin AST ALT Alkaline Phosphatase Total Protein Albumin TSH Urine Color Urine Appearance Urine pH Ur Specific [place] Urine Protein Urine Glucose (UA) Urine Ketones Urine Blood Urine Nitrite Ur Leukocyte Esterase Urine RBC Urine WBC Ur Squamous Epith Cells Urine Bacteria Urine Osmolality 143 L Ur Random Sodium < 20.0 Ur Random Potassium 24.8 Ur Random Chloride 23.0 Ur Random Uric Acid 6.9 Urine Creatinine 16.05 COVID-19 ([facility]ALOM[facility]N) COVID-19 Clin Com 04/09/22 04/09/22 04/10/22 14:58 20:07 05:23 WBC 5.4 RBC 2.77 L Hgb 8.2 L Hct 24.4 L MCV 88.1 MCH 29.6 MCHC 33.6 RDW 14.4 Plt Count 128 L MPV 10.2 Immature Gran % (Auto) 0.6 H Neut % (Auto) 72.7 Lymph % (Auto) 9.9 L Mineral % (Auto) 14.2 H Eos % (Auto) 2.4 Baso % (Auto) 0.2 Lymph # (Auto) 0.5 L Mineral # (Auto) 0.8 Eos # (Auto) 0.1 Baso # (Auto) 0.0 Abs Immat Gran (auto) 0.03 Absolute Neuts (auto) 3.9 Absolute Nucleated RBC 0.000 Nucleated RBC % (auto) 0.0 PT INR Sodium 118 L* 122 L Potassium 5.1 5.1 Chloride 96 97 Carbon Dioxide 17 L 19 L Anion Gap 10 L 11 L BUN 23 H 23 H Creatinine 1.45 H 1.49 H Estim Creat Clear Calc 31.5 30.7 Estimated GFR 35 34 Random Glucose 157 H 137 H Osmolality Uric Acid Calcium 6.4 L 6.7 L Phosphorus Magnesium Total Bilirubin Direct Bilirubin AST ALT Alkaline Phosphatase Total Protein Albumin TSH Urine Color Urine Appearance Urine pH Ur Specific [place] Urine Protein Urine Glucose (UA) Urine Ketones Urine Blood Urine Nitrite Ur Leukocyte Esterase Urine RBC Urine WBC Ur Squamous Epith Cells Urine Bacteria Urine Osmolality Ur Random Sodium Ur Random Potassium Ur Random Chloride Ur Random Uric Acid Urine Creatinine COVID-19 ([facility]ALOM[facility]N) COVID-19 Clin Com 04/10/22 05:23 WBC RBC Hgb Hct MCV MCH MCHC RDW Plt Count MPV Immature Gran % (Auto) Neut % (Auto) Lymph % (Auto) Mineral % (Auto) Eos % (Auto) Baso % (Auto) Lymph # (Auto) Mineral # (Auto) Eos # (Auto) Baso # (Auto) Abs Immat Gran (auto) Absolute Neuts (auto) Absolute Nucleated RBC Nucleated RBC % (auto) PT INR Sodium 127 L Potassium 4.5 Chloride 103 Carbon Dioxide 19 L Anion Gap 10 L BUN 23 H Creatinine 1.62 H Estim Creat Clear Calc 27.0 Estimated GFR 31 Random Glucose 189 H Osmolality Uric Acid Calcium 6.8 L Phosphorus 2.8 Magnesium 2.1 Total Bilirubin Direct Bilirubin AST ALT Alkaline Phosphatase Total Protein Albumin 2.8 L TSH Urine Color Urine Appearance Urine pH Ur Specific [place] Urine Protein Urine Glucose (UA) Urine Ketones Urine Blood Urine Nitrite Ur Leukocyte Esterase Urine RBC Urine WBC Ur Squamous Epith Cells Urine Bacteria Urine Osmolality Ur Random Sodium Ur Random Potassium Ur Random Chloride Ur Random Uric Acid Urine Creatinine COVID-19 ([facility]ALOM[facility]N) COVID-19 Clin Com Progress Note: A&P Assessment and plan (1) Schizoaffective disorder, bipolar type: Status: Acute (2) CKD (chronic kidney disease) stage 3, GFR 30-59 ml/min: Status: Acute (3) HTN (hypertension): Status: Acute (4) Acute hyponatremia: Status: Acute (5) Closed pelvic fracture: Status: Acute Plan Assessment: 71-year-old lady with underlying schizoaffective disease, remote renal transplant, hypothyroidism admitted with a mechanical fall and incidentally noted to have asymptomatic acute hyponatremia. Plan: Neuro: No acute issues. Cardiac: No acute issues. Pulmonary: No acute issues. Renal: Acute to subacute asymptomatic hypernatremia, improving. Continue to monitor sodium level. Underlying chronic renal disease status post renal transplant, continues on immunosuppression. Endo: No acute issues. GI: No acute issues. ID: No acute issues Heme/Onc: No acute issues. Psych: No acute issues. Miscellaneous: close pelvic fractures discussed by ER provider with Orthopedics, and no acute intervention is advised. Prophylaxis: Heparin Diet: regular Quality Stroke Does the patient have a stroke diagnosis?: No VTE Prior VTE?: No VTE Risk Level:: Medical - moderate - high VTE Device Contraindication: Treatment Not Indicated VTE Drug Contraindication: N/A - Med Ordered
[2022-04-10 11:34] LABS: Anion Gap 11 (12-20); Blood Urea Nitrogen 24 mg/dL (9-16); Calcium 6.8 mg/dL (8.4-10.2); Carbon Dioxide 19 mmol/L (22-29); Chloride 104 mmol/L (96-108); Creatinine Clr Calc Pharmacy 27.2; Estimated Glomerular Filt Rate 31; Glucose Random 191 mg/dL (60-115); Potassium 4.2 mmol/L (3.3-5.1); Sodium 130 mmol/L (135-145)
--- NOTE | 2022-04-10 11:35 | PM.EVENT ---
Event Note Date of Service: 04/10/22 Event Note: assuming care of patient, plan per icu note from today
[2022-04-10] MEDS: Dextrose 5 % 1,000 ML 80 ML IVCONT ×2 (11:45→23:48)
[2022-04-10] MEDS: Morphine Sulfate 2 MG/ML CARTRIDGE IVPUSH ×2 (14:14→19:51)
[2022-04-10 15:26] LABS: Sodium 130 mmol/L (135-145)
[2022-04-11] VITALS (8 sets, daily range): BP systolic 96–153; BP diastolic 47–67; PULSE 75–109; RESP 17–20; TEMP 36.4–37.6; O2SAT 97–100
[2022-04-11] MEDS: Morphine Sulfate 2 MG/ML CARTRIDGE IVPUSH (00:53)
[2022-04-11 06:32] LABS: MANUAL DIFF FLAG NO
[2022-04-11 06:40] LABS: Basophils Percent Auto 0.3 % (0-2); Eosinophils Absolute Auto 0.1 X10*3/uL (0.0-0.4); Eosinophils Percent Auto 1.8 % (0-4); Hematocrit 24.6 % (37.0-47.0); Hemoglobin 7.9 g/dl (12.0-16.0); Imm Gran Abs Auto 0.02 X10*3/uL (0.00-0.03); Imm Gran Pct Auto 0.3 % (0.0-0.4); Lymphocytes Absolute Auto 0.4 X10*3/uL (1.2-4.9); Lymphocytes Percent Auto 7.1 % (20-40); Mean Corpuscular HGB Conc 32.1 g/dl (31.0-35.0); Mean Corpuscular Hemoglobin 29.4 pg (27.0-33.0); Mean Corpuscular Volume 91.4 fL (80.0-98.0); Mean Platelet Volume 10.7 fL (9.4-12.3); Neutrophils Absolute Auto 4.4 x10*3/uL (2.0-8.3); Neutrophils Percent Auto 73.5 % (45-73); Platelet Count 123 X10*3/uL (160-400); Red Blood Count 2.69 X10*6/uL (4.20-5.50); Red Cell Distribution Width 14.6 % (11.0-16.0); White Blood Count 6.1 X10*3/uL (4.8-10.8)
[2022-04-11 07:21] LABS: Anion Gap 10 (12-20); Blood Urea Nitrogen 28 mg/dL (9-16); Calcium 6.8 mg/dL (8.4-10.2); Carbon Dioxide 19 mmol/L (22-29); Chloride 105 mmol/L (96-108); Creatinine Clr Calc Pharmacy 26.1; Estimated Glomerular Filt Rate 30; Glucose Fasting 130 mg/dL (60-99); Magnesium 1.9 mg/dL (1.6-2.6); Phosphorus 2.8 mg/dL (2.7-4.5); Potassium 4.6 mmol/L (3.3-5.1); Sodium 129 mmol/L (135-145)
[2022-04-11] MEDS: Tacrolimus 1 MG CAPSULE 2 MG PO ×2 (08:16→20:15)
[2022-04-11] MEDS: Levothyroxine Sodium 50 MCG TABLET PO (08:17)
[2022-04-11] MEDS: Heparin Sodium,Porcine 5,000 UNIT/ML VIAL 5000 UNIT SUBCUT ×3 (08:17→23:15)
[2022-04-11] MEDS: risperiDONE 2 MG TABLET PO ×2 (08:17→20:16)
[2022-04-11] MEDS: Tacrolimus 1 MG CAPSULE PO (08:17)
--- NOTE | 2022-04-11 11:47 | P.PNIM_ITS ---
Subjective Subjective Date of Service: 04/11/22 Interval History: Seen and examined this morning Follow-up for pelvic fracture, hyponatremia No overnight events Patient reporting leg pain, no other complaints Review of Systems Review of Systems: Yes all other systems are reviewed and are negative Constitutional Constitutional: Denies chills and Denies fever(s) Cardiovascular Cardiovascular: Denies chest pain and Denies dyspnea Respiratory Respiratory: Denies dyspnea Gastrointestinal Gastrointestinal: Denies nausea and Denies vomiting Physical Exam Vital Signs: Vital Signs: Last Vital Signs Temp 98.6 F 04/11/22 11:30 Pulse 86 04/11/22 11:30 Resp 20 04/11/22 11:30 BP 149/54 H 04/11/22 11:30 Pulse Ox 100 04/11/22 11:30 O2 Del Method 04/11/22 11:30 BMI result Body Mass Index 20.0 Const: General: cooperative, comfortable, alert and awake Nutritional Appearance: thin Orientation/consciousness: patient oriented x3 Resp: Effort & Inspection: normal respiratory effort and able to speak in complete sentences Auscultation: clear to auscultation bilaterally Cardio: Rate: regular rate Heart sounds: S1 normal heart sound present and S2 normal heart sound present GI: Palpation (GI): not soft and nontender Neuro: General: patient oriented x3 Extrem: Other: No leg edema, no bruising, erythema or swelling to left foot Objective Data Active Medications Heparin Sodium (Porcine) (Heparin Sodium,Porcine 5,000 Unit/Ml Vial) 5,000 unit SUBCUT Q8H [facility] Last Admin: 04/11/22 08:17 Dose: 5,000 unit Documented By: LENNIE Levothyroxine Sodium (Levothyroxine Sodium 50 Mcg Tablet) 50 mcg PO DAILY [facility] Last Admin: 04/11/22 08:17 Dose: 50 mcg Documented By: LENNIE Morphine Sulfate (Morphine Sulfate 2 Mg/Ml Cartridge) 2 mg IVPUSH Q4H PRN; Protocol PRN Reason: moderate pain Last Admin: 04/11/22 00:53 Dose: 2 mg Documented By: SILVANA Risperidone (Risperidone 2 Mg Tablet) 2 mg PO BID [facility] Last Admin: 04/11/22 08:17 Dose: 2 mg Documented By: LENNIE Tacrolimus (Tacrolimus 1 Mg Capsule) 2 mg PO BID [facility] Last Admin: 04/11/22 08:16 Dose: 2 mg Documented By: LENNIE Tacrolimus (Tacrolimus 1 Mg Capsule) 1 mg PO DAILY [facility] Last Admin: 04/11/22 08:17 Dose: 1 mg Documented By: LENNIE Labs CBC & Chem 7: 04/11/22 05:36 04/11/22 05:36 Labs: Laboratory Results - last 24 hr 04/11/22 04/11/22 05:36 05:36 MCV 91.4 MCH 29.4 MCHC 32.1 RDW 14.6 Plt Count 123 L MPV 10.7 Immature Gran % (Auto) 0.3 Neut % (Auto) 73.5 H Lymph % (Auto) 7.1 L Holmes % (Auto) 17.0 H Eos % (Auto) 1.8 Baso % (Auto) 0.3 Lymph # (Auto) 0.4 L Holmes # (Auto) 1.0 Eos # (Auto) 0.1 Baso # (Auto) 0.0 Abs Immat Gran (auto) 0.02 Absolute Neuts (auto) 4.4 Absolute Nucleated RBC 0.000 Nucleated RBC % (auto) 0.0 Anion Gap 10 L Estim Creat Clear Calc 26.1 Estimated GFR 30 Random Glucose TNP Fasting Glucose 130 H Calcium 6.8 L Phosphorus 2.8 Magnesium 1.9 Assessment and Plan (1) Living-donor kidney transplant recipient: Status: Acute (2) CKD (chronic kidney disease) stage 3, GFR 30-59 ml/min: Status: Acute (3) Hyponatremia: Status: Acute Plan This is a 71-year-old female with history of schizoaffective disorder, CKD status post renal transplant 2008, hypertension, hypothyroidism, admitted on April 09 after mechanical fall with resultant pelvic fractures found to have severe hyponatremia initially admitted to the ICU, downgraded to the medical floor on April 10 Hyponatremia TSH wnl Sodium improved to 129 DC IV fluids Continue fluid restriction Follow BMP Nephrology consult pending Multiple pelvic fractures No intervention required per Orthopedics Weightbearing as tolerated with walker Chronic normocytic anemia Probably secondary to anemia of chronic disease No evidence of acute blood loss Will check iron studies Continue home oral iron supplementation, stool occult Thrombocytopenia Platelets stable Follow CBC Hypothyroidism Continue Synthroid History of renal transplant Continue Prograf Resume prednisone Nephrology consult pending mood Continue Risperdal HTN Will resume Coreg Lisinopril on hold dvt ppx-heparin Attending-Dr. Adam Dispo-PT evaluation, probable SNF Requires ongoing inpatient hospitalization for further management of hypo natremia Quality Stroke Does the patient have a stroke diagnosis?: No VTE Prior VTE?: No VTE Risk Level:: Medical - moderate - high VTE Device Contraindication: Treatment Not Indicated VTE Drug Contraindication: N/A - Med Ordered
[2022-04-11] MEDS: oxyCODONE HCl Immed Release 5 MG TABLET PO (12:04)
[2022-04-11 12:21] LABS: Iron 17 mcg/dL (30-160); Percent Iron Saturation 9 % (15-50); Total Iron Binding Capacity 185 mcg/dL (228-428); Unsaturated Iron Binding 168 ug/dL
[2022-04-11 12:41] LABS: Ferritin 1202 ng/mL (10-250)
[2022-04-11 13:22] LABS: Folate 7.2 ng/mL (> or = 4.0); Vitamin B12 454 pg/mL (200-900)
--- NOTE | 2022-04-11 16:02 | MHC.CM.PN ---
PT REPORTS SHE LIVES ALONE AND IS INDEPENDENT WITH CARE AT BASELINE SHE REPORTS SHE USES A CANE TO AMBULATE AND HAS NO HOME SERVICES PT REPORTS SHE IS COVID-19 VACCINATED X 4 PCP: PERRY NAIK PT IS AWARE SHE WILL NEED STR SHE REQUESTS REFERRALS BE MADE TO [facility] THAT ARE 4-5 STARS REFERRAL SENT SHE IS ALSO AWARE SHE WILL NEED TO COMPLETE A HCP PRIOR TO DC REQUIRED BY SNFS SHE WOULD LIKE TO NAME HER SISTER, DA CHANG [phone] CM WILL ASSIST AT A LATER POINT IN THIS ADMISSION IMM DELIVERED CURRENT DC PLAN IS STR FACILITY TBD TRANSPORT VIA BLS VS CHAIR VAN
[2022-04-11 16:47] LABS: Urea, Random Urine 139 mg/dL
[2022-04-11] MEDS: Ferrous Sulfate 324 MG TABLET.DR PO (20:16)
[2022-04-11] MEDS: carvediloL 12.5 MG TABLET PO (20:16)
--- NOTE | 2022-04-11 20:28 | P.PNNP_ITS ---
Subjective Subjective Date of Service: 04/11/22 Interval history: Seen and examined this morning s Physical Exam Vital Signs: Vital Signs: Last Vital Signs Temp 99.1 F 04/11/22 15:36 Pulse 76 04/11/22 15:36 Resp 17 04/11/22 15:36 BP 116/49 L 04/11/22 15:36 Pulse Ox 97 04/11/22 15:36 O2 Del Method 04/11/22 15:36 BMI result Body Mass Index 20.0 Const: General: cooperative, healthy appearing, comfortable, no acute distress, alert and awake Nutritional Appearance: thin Orientation/consci ousness: patient oriented x3 Limitations: no limitations HEENT: Head: Yes normal to inspection, No Blevins's sign and No raccoon eyes Ears: hearing grossly normal bilaterally and TM's normal bilaterally General nose exam: Normal external nose present Face and sinus: Yes normal facial exam Mouth: Normal oral and palatal mucosa present Throat: Yes posterior oropharynx normal Eyes: General: appearance normal, both eyes and all related structures Sclerae: sclerae normal Pupils: Equal, round and reactive pupils present EOM: EOMs intact bilaterally Neck: Neck: Yes normal visual inspection, Yes no lymphadenopathy, Yes trachea midline and Yes supple Chest: Chest palpation & inspection: normal inspection of the chest Resp: Effort & Inspection: normal respiratory effort, able to speak in complete sentences and no respiratory distress Auscultation: clear to auscultation bilaterally Cardio: Rate: regular rate Rhythm: regular rhythm Heart sounds: S1 normal heart sound present, S2 normal heart sound present, no gallops, no murmurs and no rubs Peripheral pulses: Peripheral pulses 2+ throughout GI: Inspection: Yes normal to inspection Palpation (GI): not soft, nontender and Other GI palpation findings present ( Nontender) Auscultation: normal bowel sounds Back/Spine/Pelvis: Thoracic/Lumbar Spine: thoracic and lumbar spine normal to inspection Skin: General skin exam: no rashes or lesions noted Neuro: General: patient oriented x3, moves all extremities, no focal motor deficits, normal sensation to monofilament and Unable to assess gait Cranial nerves: Yes CN's II-XII intact bilaterally, Yes Equal, round and reactive pupils present, Yes Bilaterally intact EOM present, Yes Nystagmus not present, Yes Normal facial strength present and Yes Midline tongue present Cognition (Neuro): normal cognition Speech: No Abnormal speech present Gait exam (Neuro): Unable to assess gait Motor exam (neuro): 5/5 motor strength present throughout Sensory Exam: Normal double simultaneous stimulation for sensation Coordination: [id number] test normal Extrem: Other: No leg edema, no bruising, erythema or swelling to left foot General: Yes normal to inspection, Yes no pedal edema, No clubbing and No cyanosis Objective Data Labs CBC & Chem 7: 04/11/22 05:36 04/11/22 05:36 Labs: Laboratory Results - last 24 hr 04/09/22 04/11/22 04/11/22 14:12 05:36 05:36 WBC 6.1 RBC 2.69 L Hgb 7.9 L Hct 24.6 L MCV 91.4 MCH 29.4 MCHC 32.1 RDW 14.6 Plt Count 123 L MPV 10.7 Immature Gran % (Auto) 0.3 Neut % (Auto) 73.5 H Lymph % (Auto) 7.1 L Powell % (Auto) 17.0 H Eos % (Auto) 1.8 Baso % (Auto) 0.3 Lymph # (Auto) 0.4 L Powell # (Auto) 1.0 Eos # (Auto) 0.1 Baso # (Auto) 0.0 Abs Immat Gran (auto) 0.02 Absolute Neuts (auto) 4.4 Absolute Nucleated RBC 0.000 Nucleated RBC % (auto) 0.0 Sodium 129 L Potassium 4.6 Chloride 105 Carbon Dioxide 19 L Anion Gap 10 L BUN 28 H Creatinine 1.68 H Estim Creat Clear Calc 26.1 Estimated GFR 30 Random Glucose TNP Fasting Glucose 130 H Calcium 6.8 L Phosphorus 2.8 Magnesium 1.9 Iron 17 L TIBC 185 L % Saturation 9 L Unsat Iron Binding 168 Ferritin 1202 H Vitamin B12 Folate Ur Random Urea 139 04/11/22 05:36 WBC RBC Hgb Hct MCV MCH MCHC RDW Plt Count MPV Immature Gran % (Auto) Neut % (Auto) Lymph % (Auto) [place] % (Auto) Eos % (Auto) Baso % (Auto) Lymph # (Auto) [place] # (Auto) Eos # (Auto) Baso # (Auto) Abs Immat Gran (auto) Absolute Neuts (auto) Absolute Nucleated RBC Nucleated RBC % (auto) Sodium Potassium Chloride Carbon Dioxide Anion Gap BUN Creatinine Estim Creat Clear Calc Estimated GFR Random Glucose Fasting Glucose Calcium Phosphorus Magnesium Iron TIBC % Saturation Unsat Iron Binding Ferritin Vitamin B12 454 Folate 7.2 Ur Random Urea Assessment & Plan Assessment and plan (1) Living-donor kidney transplant recipient: Status: Acute (2) CKD (chronic kidney disease) stage 3, GFR 30-59 ml/min: Status: Acute (3) Hyponatremia: Status: Acute Plan This is a 71-year-old female with history of schizoaffective disorder, CKD status post renal transplant 2008, hypertension, hypothyroidism, admitted on April 09 after mechanical fall with resultant pelvic fractures found to have severe hyponatremia initially admitted to the ICU, downgraded to the medical floor on April 10 Hyponatremia TSH wnl Sodium improved to 129 DC IV fluids Continue fluid restriction Follow BMP Nephrology consult pending Multiple pelvic fractures No intervention required per Orthopedics Weightbearing as tolerated with walker Chronic normocytic anemia Probably secondary to anemia of chronic disease No evidence of acute blood loss Will check iron studies Continue home oral iron supplementation, stool occult Thrombocytopenia Platelets stable Follow CBC Hypothyroidism Continue Synthroid History of renal transplant Continue Prograf Resume prednisone Nephrology consult pending mood Continue Risperdal HTN Will resume Coreg Lisinopril on hold dvt ppx-heparin Attending-Dr. Adam Dispo-PT evaluation, probable SNF Requires ongoing inpatient hospitalization for further management of hyponatremia Time Spent With Patient Time: Total time spent is greater than 50% in coordination of care (as documented) at patient's floor/unit and/or counseling patient: Progress Note: Quality Stroke Does the patient have a stroke diagnosis?: No
[2022-04-12] VITALS (9 sets, daily range): BP systolic 106–124; BP diastolic 50–58; PULSE 73–84; RESP 16–18; TEMP 36.3–37.2; O2SAT 97–99
[2022-04-12 07:04] LABS: Hematocrit 23.1 % (37.0-47.0); Hemoglobin 7.5 g/dl (12.0-16.0); Mean Corpuscular HGB Conc 32.5 g/dl (31.0-35.0); Mean Corpuscular Hemoglobin 29.9 pg (27.0-33.0); Mean Platelet Volume 10.9 fL (9.4-12.3); Platelet Count 129 X10*3/uL (160-400); Red Blood Count 2.51 X10*6/uL (4.20-5.50); Red Cell Distribution Width 14.8 % (11.0-16.0); White Blood Count 6.9 X10*3/uL (4.8-10.8)
[2022-04-12 07:07] LABS: Anion Gap 12 (12-20); Blood Urea Nitrogen 36 mg/dL (9-16); Calcium 6.8 mg/dL (8.4-10.2); Carbon Dioxide 18 mmol/L (22-29); Chloride 104 mmol/L (96-108); Estimated Glomerular Filt Rate 27; Glucose Random 106 mg/dL (60-115); Potassium 5.4 mmol/L (3.3-5.1); Sodium 129 mmol/L (135-145)
[2022-04-12] MEDS: Levothyroxine Sodium 50 MCG TABLET PO (08:20)
[2022-04-12] MEDS: carvediloL 12.5 MG TABLET PO ×2 (08:20→20:15)
[2022-04-12] MEDS: Heparin Sodium,Porcine 5,000 UNIT/ML VIAL 5000 UNIT SUBCUT ×3 (08:20→23:57)
[2022-04-12] MEDS: oxyCODONE HCl Immed Release 5 MG TABLET PO ×2 (08:20→22:40)
[2022-04-12] MEDS: Ferrous Sulfate 324 MG TABLET.DR PO ×2 (08:21→20:16)
[2022-04-12] MEDS: risperiDONE 2 MG TABLET PO ×2 (08:21→20:15)
[2022-04-12] MEDS: predniSONE 5 MG TABLET PO (08:21)
[2022-04-12] MEDS: Tacrolimus 1 MG CAPSULE 2 MG PO ×2 (08:22→20:16)
[2022-04-12] MEDS: Tacrolimus 1 MG CAPSULE PO (08:22)
[2022-04-12] MEDS: Sodium Polystyrene Sulfon/Sorb 15 GM/60 ML ORAL.SUSP 30 GM PO (08:54)
--- NOTE | 2022-04-12 09:28 | CONS_ITS ---
DATE OF SERVICE: 04/11/2022 HISTORY OF PRESENT ILLNESS: I was asked to see patient to assist in evaluation and management of patient's renal function and immunosuppressive regimen in the setting of being a kidney transplant patient, who was admitted to the hospital on April 09 after a falling episode. She apparently had some instability of her balance that she attributes to have developed after she had kyphoplasty, done for her osteoporosis. She did not lose consciousness. Imaging studies showed she had an acute fracture of the left pubis bone and fracture of the right inferior pubis ramus. She was seen by Orthopedics, who recommended a conservative approach. She was also noted on admission to have hyponatremia with a serum sodium of 118. Her hospital course included some IV fluids and monitoring her serum sodium and continue her medications and now she is being evaluated for discharge to rehab. PAST MEDICAL HISTORY: Notable for a kidney transplant that was done back in 2008, followed by Dr. Orozco; history of hypertension; hypothyroidism; and schizoaffective disorder. She has stage 3 chronic kidney disease, baseline creatinine ranges in the 1.5 to 2.0 range. Her sodium level as mentioned was 118 on admission on April 09, and it slowly increased to today of 129. She says she continues to have pain, although it is under reasonable control. SOCIAL HISTORY: She is a nonsmoker, nondrinker. No illicit drug use. MEDICATIONS: Her medications on admission are listed as including denosumab, Ativan, carvedilol, vitamin D25, iron, lisinopril, and tacrolimus 3 mg in the morning and 2 mg in the evening. Her current medications continue to include tacrolimus 3 mg in the morning and 2 mg at bedtime, along with carvedilol and prednisone 5 mg once a day. ALLERGIES: NOTED IN THE EHR. REVIEW OF SYSTEMS: As noted. PHYSICAL EXAMINATION: VITAL SIGNS: Blood pressure of 120/50 with a heart rate in the 70s. HEENT: Head is atraumatic and normocephalic. Mucous membranes are moist. NECK: Supple. LUNGS: Breath sounds bilaterally. CARDIAC: Regular rate. ABDOMEN: Soft. EXTREMITIES: Shows no edema. LABORATORY DATA: Sodium 129, potassium 4.6, chloride 105, bicarbonate 19, BUN 28, and creatinine 1.68. Hemoglobin 7.9, hematocrit 24.6, and white blood cell count 6.1. IMPRESSION: A 71-YEAR-OLD END-STAGE RENAL DISEASE PATIENT STATUS POST KIDNEY TRANSPLANT IN 2008, MAINTAINED ON TACROLIMUS AND PREDNISONE, ADMITTED AFTER FALLING EPISODE AND A PUBIC RAMUS FRACTURE WELL HYPONATREMIA. 1. Hyponatremia. Serum sodium is 118 on admission, has gradually increased to 129. Suspect this is multifactorial including pain, increased ADH, and increased p.o. fluid intake. Her serum sodium has increased gradually. 2. Immunosuppressive regimen. She is maintained on a combination of tacrolimus and prednisone, which she has been on long standing. 3. Anemia. We will check iron studies. She may need iron supplementation. 4. Falling episode. She will be monitored to see if her gait has an issue. She describes it as being unsteady after kyphoplasty. 5. Pelvic ramus fracture. She is getting standard of care, conservative treatment to see if over time this should get better. 6. Antony catheter. She is having difficulty with voiding because of the pain from pelvic ramus fracture and so we will continue with Antony for now, but she looked to have it taken out. SUGGESTIONS: At this time include, continue her tacrolimus and prednisone. Follow urine output and renal function. Check iron studies. Discussed with team about possibly removing the Atnony tomorrow. We will monitor serum sodium as she may need salt tablets to raise her serum sodium and/or urea. We will track serum sodium and place her on fluid restriction. MD ОЛЕГ Trimble/CARLENE / [phone]
--- NOTE | 2022-04-12 10:25 | MHC.CM.PN ---
HCP COMPLETED AND UPLOADED TO [facility], WHO IS ACCEPTING. PATIENT AGREES TO BED OFFER. HCP COPY PLACED IN CHART AND PATIENT HAS ORIGINAL WITH TWO COPIES
[2022-04-12 12:13] LABS: COVID-19 Test Negative (Negative); IDNOW Serial# 08D9AD1C
--- NOTE | 2022-04-12 12:32 | P.PNIM_ITS ---
Subjective Subjective Date of Service: 04/12/22 Interval History: the patient was seen and evaluated this morning Sodium is improved to 130 Laying in bed, feels comfortable Denies any fever, chills or shortness of breath No reported other overnight events. Review of Systems Systemic review: No fever, chills or weakness No chest pain, palpitation No shortness of breath or coughing No abdominal pain, nausea or vomiting No urinary symptoms No any rash or wounds Physical Exam Vital Signs: Vital Signs: Last Vital Signs Temp 99 F 04/12/22 11:04 Pulse 78 04/12/22 11:04 Resp 16 04/12/22 11:04 BP 108/50 L 04/12/22 11:04 Pulse Ox 98 04/12/22 11:04 O2 Del Method 04/12/22 11:04 BMI result Body Mass Index 20.0 Const: Other: Constitutional : Alert, oriented, not in distress Neck : Normal inspection, Supple Cardiovascular : RRR, no JVP, trace bilateral lower extremity edema Respiratory : fair bilateral air entry, no crackles, wheezes or rhonchi Gastrointestinal: soft, lax, Normal bowel sounds, Non tender Skin : Warm, Dry Neurological : Alert & oriented x3, No focal deficit Objective Data Active Medications Carvedilol (Carvedilol 12.5 Mg Tablet) 12.5 mg PO BID [facility]; Protocol Last Admin: 04/12/22 08:20 Dose: 12.5 mg Documented By: SHAHBAZ Ferrous Sulfate (Ferrous Sulfate 324 Mg Tablet.) 324 mg PO BID [facility] Last Admin: 04/12/22 08:21 Dose: 324 mg Documented By: SHAHBAZ Heparin Sodium (Porcine) (Heparin Sodium,Porcine 5,000 Unit/Ml Vial) 5,000 unit SUBCUT Q8H [facility] Last Admin: 04/12/22 08:20 Dose: 5,000 unit Documented By: SHAHBAZ Levothyroxine Sodium (Levothyroxine Sodium 50 Mcg Tablet) 50 mcg PO DAILY [facility] Last Admin: 04/12/22 08:20 Dose: 50 mcg Documented By: SHAHBAZ Morphine Sulfate (Morphine Sulfate 2 Mg/Ml Cartridge) 2 mg IVPUSH Q4H PRN; Protocol PRN Reason: moderate pain Last Admin: 04/11/22 00:53 Dose: 2 mg Documented By: CASTILM Oxycodone HCl (Oxycodone Hcl Immed Release 5 Mg Tablet) 5 mg PO Q6H PRN PRN Reason: Pain, Moderate (Pain Scale 4-6 Last Admin: 04/12/22 08:20 Dose: 5 mg Documented By: SHAHBAZ Prednisone (Prednisone 5 Mg Tablet) 5 mg PO DAILY [facility] Last Admin: 04/12/22 08:21 Dose: 5 mg Documented By: SHAHBAZ Risperidone (Risperidone 2 Mg Tablet) 2 mg PO BID [facility] Last Admin: 04/12/22 08:21 Dose: 2 mg Documented By: SHAHBAZ Tacrolimus (Tacrolimus 1 Mg Capsule) 2 mg PO BID [facility] Last Admin: 04/12/22 08:22 Dose: 2 mg Documented By: SHAHBAZ Tacrolimus (Tacrolimus 1 Mg Capsule) 1 mg PO DAILY [facility] Last Admin: 04/12/22 08:22 Dose: 1 mg Documented By: SHAHBAZ Labs CBC & Chem 7: 04/12/22 05:14 04/12/22 05:14 Labs: Laboratory Results - last 24 hr 04/09/22 04/11/22 04/11/22 14:12 05:36 05:36 MCV MCH MCHC RDW Plt Count MPV Absolute Nucleated RBC Nucleated RBC % (auto) Anion Gap Estim Creat Clear Calc Estimated GFR Random Glucose Calcium Ferritin 1202 H Vitamin B12 454 Folate 7.2 Ur Random Urea 139 COVID-19 (SALOMÓN) COVID-19 [employer] 04/12/22 04/12/22 04/12/22 05:14 05:14 11:10 MCV 92.0 MCH 29.9 MCHC 32.5 RDW 14.8 Plt Count 129 L MPV 10.9 Absolute Nucleated RBC 0.000 Nucleated RBC % (auto) 0.0 Anion Gap 12 Estim Creat Clear Calc 24.0 Estimated GFR 27 Random Glucose 106 Calcium 6.8 L Ferritin Vitamin B12 Folate Ur Random Urea COVID-19 ([facility]ALOM[facility]N) Negative COVID-19 Clin Com See Note Assessment and Plan (1) CKD (chronic kidney disease) stage 3, GFR 30-59 ml/min: Status: Acute (2) Acute hyponatremia: Status: Acute (3) Closed pelvic fracture: Status: Acute Plan This is a 71-year-old female with history of schizoaffective disorder, CKD status post renal transplant 2008, hypertension, hypothyroidism, admitted on April 09 after mechanical fall with resultant pelvic fractures found to have severe hyponatremia initially admitted to the ICU, downgraded to the medical floor on April 10 Hyponatremia TSH wnl Sodium improved to 130 Continue fluid restriction Follow BMP Nephrology input appreciated Multiple pelvic fractures No intervention required per Orthopedics Weightbearing as tolerated with walker Chronic normocytic anemia secondary to anemia of chronic disease No evidence of acute blood loss Low iron studies but high ferritin To give IV iron To give erythropoietin Continue home oral iron supplementation, stool occult Thrombocytopenia Platelets stable Follow CBC Hypothyroidism Continue Synthroid History of renal transplant Continue Prograf Resume prednisone Nephrology consult pending mood Continue Risperdal HTN Will resume Coreg Lisinopril on hold dvt ppx-heparin Dispo-PT evaluation, probable SNF Requires ongoing inpatient hospitalization for further management of hyponatremia and anemia pending safe discharge plan. Quality Stroke Does the patient have a stroke diagnosis?: No VTE Prior VTE?: No VTE Risk Level:: Medical - moderate - high VTE Device Contraindication: Treatment Not Indicated VTE Drug Contraindication: N/A - Med Ordered
[2022-04-12 13:31] LABS: OBS Int Ctl Valid YES; OBS1 NEGATIVE (NEGATIVE)
--- NOTE | 2022-04-12 14:04 | MHC.CM.PN ---
PLAN IS DC TO [facility] [address] FOR 04/13/22 PATIENT AGREEABLE TO PLAN NEEDS A LESS THAN 30 DAY ANTICIPATED STAY ORDER
[2022-04-12] MEDS: Sodium Ferric Gluconat/Sucrose 125 MG in 0.9 % Sodium Chloride 100 ML 100 MG IV (14:32)
[2022-04-12 15:02] LABS: Anion Gap 14 (12-20); Blood Urea Nitrogen 39 mg/dL (9-16); Calcium 6.9 mg/dL (8.4-10.2); Carbon Dioxide 15 mmol/L (22-29); Chloride 106 mmol/L (96-108); Estimated Glomerular Filt Rate 25; Glucose Random 208 mg/dL (60-115); Potassium 4.8 mmol/L (3.3-5.1); Sodium 130 mmol/L (135-145)
--- NOTE | 2022-04-12 22:05 | PM.PNNEP ---
Subjective Subjective Date of Service: 04/12/22 Interval history: Seen and examined Events noted Physical Exam Vital Signs: Vital Signs: Last Vital Signs Temp 97.4 F 04/12/22 20:00 Pulse 84 04/12/22 20:00 Resp 18 04/12/22 20:00 BP 121/58 L 04/12/22 20:00 Pulse Ox 97 04/12/22 20:00 O2 Del Method 04/12/22 20:00 BMI result Body Mass Index 20.0 Const: Other: Constitutional : Alert, oriented, not in distress Neck : Normal inspection, Supple Cardiovascular : RRR, no JVP, trace bilateral lower extremity edema Respiratory : fair bilateral air entry, no crackles, wheezes or rhonchi Gastrointestinal: soft, lax, Normal bowel sounds, Non tender Skin : Warm, Dry Neurological : Alert & oriented x3, No focal deficit General: cooperative, healthy appearing, comfortable, no acute distress, alert and awake Nutritional Appearance: thin Orientation/consciousness: patient oriented x3 Limitations: no limitations HEENT: Head: Yes normal to inspection, No Blevins's sign and No raccoon eyes Ears: hearing grossly normal bilaterally and TM's normal bilaterally General nose exam: Normal external nose present Face and sinus: Yes normal facial exam Mouth: Normal oral and palatal mucosa present Throat: Yes posterior oropharynx normal Eyes: General: appearance normal, both eyes and all related structures Sclerae: sclerae normal Pupils: Equal, round and reactive pupils present EOM: EOMs intact bilaterally Neck: Neck: Yes normal visual inspection, Yes no lymphadenopathy, Yes trachea midline and Yes supple Chest: Chest palpation & inspection: normal inspection of the chest Resp: Effort & Inspection: normal respiratory effort, able to speak in complete sentences and no respiratory distress Auscultation: clear to auscultation bilaterally Cardio: Rate: regular rate Rhythm: regular rhythm Heart sounds: S1 normal heart sound present, S2 normal heart sound present, no gallops, no murmurs and no rubs Peripheral pulses: Peripheral pulses 2+ throughout GI: Inspection: Yes normal to inspection Palpation (GI): not soft, nontender and Other GI palpation findings present ( Nontender) Auscultation: normal bowel sounds Back/Spine/Pelvis: Thoracic/Lumbar Spine: thoracic and lumbar spine normal to inspection Skin: General skin exam: no rashes or lesions noted Neuro: General: patient oriented x3, moves all extremities, no focal motor deficits, normal sensation to monofilament and Unable to assess gait Cranial nerves: Yes CN's II-XII intact bilaterally, Yes Equal, round and reactive pupils present, Yes Bilaterally intact EOM present, Yes Nystagmus not present, Yes Normal facial strength present and Yes Midline tongue present Cognition (Neuro): normal cognition Speech: No Abnormal speech present Gait exam (Neuro): Unable to assess gait Motor exam (neuro): 5/5 motor strength present throughout Sensory Exam: Normal double simultaneous stimulation for sensation Coordination: [id number] test normal Extrem: General: Yes normal to inspection, Yes no pedal edema, No clubbing and No cyanosis Objective Data Labs CBC & Chem 7: 04/12/22 05:14 04/12/22 14:16 Labs: Laboratory Results - last 24 hr 04/12/22 04/12/22 04/12/22 05:14 05:14 11:10 WBC 6.9 RBC 2.51 L Hgb 7.5 L Hct 23.1 L MCV 92.0 MCH 29.9 MCHC 32.5 RDW 14.8 Plt Count 129 L MPV 10.9 Absolute Nucleated RBC 0.000 Nucleated RBC % (auto) 0.0 Sodium 129 L Potassium 5.4 H Chloride 104 Carbon Dioxide 18 L Anion Gap 12 BUN 36 H Creatinine 1.83 H Estim Creat Clear Calc 24.0 Estimated GFR 27 Random Glucose 106 Calcium 6.8 L Stool Occult Blood COVID-19 ([facility]) Negative COVID-19 [employer] Com See Note 04/12/22 04/12/22 14:16 Unknown WBC RBC Hgb Hct MCV MCH MCHC RDW Plt Count MPV Absolute Nucleated RBC Nucleated RBC % (auto) Sodium 130 L Potassium 4.8 Chloride 106 Carbon Dioxide 15 L Anion Gap 14 BUN 39 H Creatinine 1.99 H Estim Creat Clear Calc 22.0 Estimated GFR 25 Random Glucose 208 H Calcium 6.9 L Stool Occult Blood NEGATIVE COVID-19 ([facility]) COVID-19 Clin Com Procedures Date of Service Date of Service: 04/12/22 Assessment & Plan Assessment and plan (1) CKD (chronic kidney disease) stage 3, GFR 30-59 ml/min: Status: Acute (2) Acute hyponatremia: Status: Acute (3) Closed pelvic fracture: Status: Acute Plan 1. HypoNa: Sna grad incr and stable at 130 2. ESRD s/p Xplant 2008 and maintained on Tacro/pred 3. Anemia: Epo/Fe def 4. Pelvic Fx 5.HTN 6.NAGMA 7. CKD 3: Scr 1.5-.20 REC: cont IS as noted, IV Fe and EPO; PO fluid restriction . Time Spent With Patient Time: Total time spent is greater than 50% in coordination of care (as documented) at patient's floor/unit and/or counseling patient: Progress Note: Quality Stroke Does the patient have a stroke diagnosis?: No
[2022-04-12] MEDS: Sodium Bicarbonate 650 MG TABLET PO (22:25)
[2022-04-13] VITALS (9 sets, daily range): BP systolic 97–129; BP diastolic 40–55; PULSE 71–80; RESP 16–20; TEMP 36.2–37.8; O2SAT 96–99; BMI 22.4
[2022-04-13 06:36] LABS: Anion Gap 13 (12-20); Blood Urea Nitrogen 45 mg/dL (9-16); Calcium 6.5 mg/dL (8.4-10.2); Carbon Dioxide 19 mmol/L (22-29); Chloride 104 mmol/L (96-108); Creatinine Clr Calc Pharmacy 21.7; Estimated Glomerular Filt Rate 23; Glucose Random 128 mg/dL (60-115); Potassium 4.9 mmol/L (3.3-5.1); Sodium 131 mmol/L (135-145)
[2022-04-13 07:43] LABS: Albumin Level 2.6 g/dL (3.5-5.0)
[2022-04-13] MEDS: Tacrolimus 1 MG CAPSULE 2 MG PO ×2 (08:31→20:48)
[2022-04-13] MEDS: Tacrolimus 1 MG CAPSULE PO (08:31)
[2022-04-13] MEDS: Sodium Bicarbonate 650 MG TABLET PO ×3 (08:32→20:48)
[2022-04-13] MEDS: Ferrous Sulfate 324 MG TABLET.DR PO ×2 (08:32→20:48)
[2022-04-13] MEDS: carvediloL 12.5 MG TABLET PO ×2 (08:32→20:47)
[2022-04-13] MEDS: risperiDONE 2 MG TABLET PO ×2 (08:32→20:47)
[2022-04-13] MEDS: predniSONE 5 MG TABLET PO (08:32)
[2022-04-13] MEDS: Levothyroxine Sodium 50 MCG TABLET PO (08:32)
[2022-04-13] MEDS: Heparin Sodium,Porcine 5,000 UNIT/ML VIAL 5000 UNIT SUBCUT ×2 (08:33→20:48)
[2022-04-13] MEDS: oxyCODONE HCl Immed Release 5 MG TABLET PO ×3 (08:51→21:42)
[2022-04-13] MEDS: Sodium Ferric Gluconat/Sucrose 125 MG in 0.9 % Sodium Chloride 100 ML 100 MG IV (10:14)
--- NOTE | 2022-04-13 13:31 | P.PNIM_ITS ---
Subjective Subjective Date of Service: 04/13/22 Interval History: the patient was seen and evaluated this morning Sodium is improved to 131 Creatinine worsening to 2.1, BUN up to 46 Laying in bed, feels comfortable Denies any fever, chills or shortness of breath No reported other overnight events. Review of Systems Systemic review: No fever, chills or weakness No chest pain, palpitation No shortness of breath or coughing No abdominal pain, nausea or vomiting No urinary symptoms No any rash or wounds Physical Exam Vital Signs: Vital Signs: Last Vital Signs Temp 97.6 F 04/13/22 11:41 Pulse 73 04/13/22 11:41 Resp 16 04/13/22 11:41 BP 98/47 L 04/13/22 11:41 Pulse Ox 98 04/13/22 11:41 O2 Del Method 04/13/22 11:41 BMI result Body Mass Index 22.4 Const: Other: Constitutional : Alert, oriented, not in distress Neck : Normal inspection, Supple Cardiovascular : RRR, no JVP, trace bilateral lower extremity edema Respiratory : fair bilateral air entry, no crackles, wheezes or rhonchi Gastrointestinal: soft, lax, Normal bowel sounds, Non tender Skin : Warm, Dry Neurological : Alert & oriented x3, No focal deficit Objective Data Active Medications Carvedilol (Carvedilol 12.5 Mg Tablet) 12.5 mg PO BID [facility]; Protocol Last Admin: 04/13/22 08:32 Dose: 12.5 mg Documented By: SIRIA Ferrous Sulfate (Ferrous Sulfate 324 Mg Tablet.) 324 mg PO BID [facility] Last Admin: 04/13/22 08:32 Dose: 324 mg Documented By: SIRIA Heparin Sodium (Porcine) (Heparin Sodium,Porcine 5,000 Unit/Ml Vial) 5,000 unit SUBCUT Q12H [facility] Last Admin: 04/13/22 08:33 Dose: 5,000 unit Documented By: SIRIA Ferric Sodium Gluconate Complex 125 mg/ Sodium Chloride 110 mls @ 100 mls/hr IV DAILY [facility] Stop: 04/14/22 10:05 Last Infusion: 04/13/22 11:25 Dose: 0 mls/hr Documented By: SIRIA Levothyroxine Sodium (Levothyroxine Sodium 50 Mcg Tablet) 50 mcg PO DAILY [facility] Last Admin: 04/13/22 08:32 Dose: 50 mcg Documented By: SIRIA Morphine Sulfate (Morphine Sulfate 2 Mg/Ml Cartridge) 2 mg IVPUSH Q4H PRN; Protocol PRN Reason: moderate pain Last Admin: 04/11/22 00:53 Dose: 2 mg Documented By: SILVANA Oxycodone HCl (Oxycodone Hcl Immed Release 5 Mg Tablet) 5 mg PO Q6H PRN PRN Reason: Pain, Moderate (Pain Scale 4-6 Last Admin: 04/13/22 08:51 Dose: 5 mg Documented By: SIRIA Prednisone (Prednisone 5 Mg Tablet) 5 mg PO DAILY [facility] Last Admin: 04/13/22 08:32 Dose: 5 mg Documented By: SIRIA Risperidone (Risperidone 2 Mg Tablet) 2 mg PO BID [facility] Last Admin: 04/13/22 08:32 Dose: 2 mg Documented By: SIRIA Sodium Bicarbonate (Sodium Bicarbonate 650 Mg Tablet) 650 mg PO TID [facility] Last Admin: 04/13/22 08:32 Dose: 650 mg Documented By: SIRIA Tacrolimus (Tacrolimus 1 Mg Capsule) 2 mg PO BID [facility] Last Admin: 04/13/22 08:31 Dose: 2 mg Documented By: SIRIA Tacrolimus (Tacrolimus 1 Mg Capsule) 1 mg PO DAILY [facility] Last Admin: 04/13/22 08:31 Dose: 1 mg Documented By: SIRIA Labs CBC & Chem 7: 04/12/22 05:14 04/13/22 05:18 Labs: Laboratory Results - last 24 hr 04/12/22 04/12/22 04/13/22 14:16 Unknown 05:18 Anion Gap 14 13 Estim Creat Clear Calc 22.0 21.7 Estimated GFR 25 23 Random Glucose 208 H 128 H Calcium 6.9 L 6.5 L Albumin 2.6 L Stool Occult Blood NEGATIVE Blood Type Antibody Screen Crossmatch 04/13/22 11:20 Anion Gap Estim Creat Clear Calc Estimated GFR Random Glucose Calcium Albumin Stool Occult Blood Blood Type A Positive Antibody Screen NEGATIVE Crossmatch See Detail Assessment and Plan (1) Hyponatremia: Status: Acute (2) Chronic renal disease: Status: Acute (3) Closed pelvic fracture: Status: Acute Plan This is a 71-year-old female with history of schizoaffective disorder, CKD status post renal transplant 2008, hypertension, hypothyroidism, admitted on April 09 after mechanical fall with resultant pelvic fractures found to have severe hyponatremia initially admitted to the ICU, downgraded to the medical floor on April 10 Hyponatremia TSH wnl Sodium improved to 131 Change fluid restriction to 1800 Follow BMP Nephrology input appreciated Worsening kidney function Creatinine 2.1 with BUN of 46 Check urinalysis and electrolytes Bladder scan Multiple pelvic fractures No intervention required per Orthopedics Weightbearing as tolerated with walker acute on Chronic normocytic anemia secondary to anemia of chronic disease Hb 7.5 No evidence of acute blood loss Low iron studies but high ferritin continue IV iron received erythropoietin To give a unit of blood Continue home oral iron supplementation Thrombocytopenia Platelets stable Follow CBC Hypothyroidism Continue Synthroid History of renal transplant Continue Prograf Resume prednisone Nephrology consult pending mood Continue Risperdal HTN Will resume Coreg Lisinopril on hold dvt ppx-heparin Dispo-PT evaluation, probable SNF Requires ongoing inpatient hospitalization for further management of hyponatremia and anemia pending safe discharge plan. Quality Stroke Does the patient have a stroke diagnosis?: No VTE Prior VTE?: No VTE Risk Level:: Medical - moderate - high VTE Device Contraindication: Treatment Not Indicated VTE Drug Contraindication: N/A - Med Ordered
[2022-04-13 14:12] LABS: Appearance Urine CLOUDY; Color Urine YELLOW; Glucose Urine UA NEG (NEG); Leukocyte Esterase Urine 3+ (NEG); Nitrite Urine NEG (NEG); PH 5.5 (5.0-8.0); Specific Gravity - Urine 1.025 (1.005-1.025); Urine Blood 1+ (NEG); Urine Ketones NEG (NEG); Urine Protein 2+ MG/DL (NEG-TRACE)
[2022-04-13 14:25] LABS: Bacteria Urine 4+ /LPF
[2022-04-13 14:26] LABS: WBC Clumps Urine NOTED
[2022-04-13 14:27] LABS: RBC Urine 0 /HPF (0)
[2022-04-13 14:33] LABS: Creatinine Urine 71.66 mg/dL
[2022-04-13] MEDS: 0.9 % Sodium Chloride 1,000 ML 999 ML IV (14:43)
[2022-04-14] VITALS (7 sets, daily range): BP systolic 92–158; BP diastolic 43–72; PULSE 66–78; RESP 14–18; TEMP 36.1–37.4; O2SAT 96–98
--- NOTE | 2022-04-14 01:14 | PM.PNNEP ---
Subjective Subjective Date of Service: 04/13/22 Interval history: Seen and examined, events noted Physical Exam Vital Signs: Vital Signs: Last Vital Signs Temp 97.2 F 04/13/22 23:26 Pulse 71 04/13/22 23:26 Resp 17 04/13/22 23:26 BP 107/47 L 04/13/22 23:26 Pulse Ox 99 04/13/22 23:26 O2 Del Method 04/13/22 23:26 BMI result Body Mass Index 22.4 Const: Other: Constitutional : Alert, oriented, not in distress Neck : Normal inspection, Supple Cardiovascular : RRR, no JVP, trace bilateral lower extremity edema Respiratory : fair bilateral air entry, no crackles, wheezes or rhonchi Gastrointestinal: soft, lax, Normal bowel sounds, Non tender Skin : Warm, Dry Neurological : Alert & oriented x3, No focal deficit General: cooperative, healthy appearing, comfortable, no acute distress, alert and awake Nutritional Appearance: thin Orientation/consciousness: patient oriented x3 Limitations: no limitations HEENT: Head: Yes normal to inspection, No Blevins's sign and No raccoon eyes Ears: hearing grossly normal bilaterally and TM's normal bilaterally General nose exam: Normal external nose present Face and sinus: Yes normal facial exam Mouth: Normal oral and palatal mucosa present Throat: Yes posterior oropharynx normal Eyes: General: appearance normal, both eyes and all related structures Sclerae: sclerae normal Pupils: Equal, round and reactive pupils present EOM: EOMs intact bilaterally Neck: Neck: Yes normal visual inspection, Yes no lymphadenopathy, Yes trachea midline and Yes supple Chest: Chest palpation & inspection: normal inspection of the chest Resp: Effort & Inspection: normal respiratory effort, able to speak in complete sentences and no respiratory distress Auscultation: clear to auscultation bilaterally Cardio: Rate: regular rate Rhythm: regular rhythm Heart sounds: S1 normal heart sound present, S2 normal heart sound present, no gallops, no murmurs and no rubs Peripheral pulses: Peripheral pulses 2+ throughout GI: Inspection: Yes normal to inspection Palpation (GI): not soft, nontender and Other GI palpation findings present ( Nontender) Auscultation: normal bowel sounds Back/Spine/Pelvis: Thoracic/Lumbar Spine: thoracic and lumbar spine normal to inspection Skin: General skin exam: no rashes or lesions noted Neuro: General: patient oriented x3, moves all extremities, no focal motor deficits, normal sensation to monofilament and Unable to assess gait Cranial nerves: Yes CN's II-XII intact bilaterally, Yes Equal, round and reactive pupils present, Yes Bilaterally intact EOM present, Yes Nystagmus not present, Yes Normal facial strength present and Yes Midline tongue present Cognition (Neuro): normal cognition Speech: No Abnormal speech present Gait exam (Neuro): Unable to assess gait Motor exam (neuro): 5/5 motor strength present throughout Sensory Exam: Normal double simultaneous stimulation for sensation Coordination: [id number] test normal Extrem: General: Yes normal to inspection, Yes no pedal edema, No clubbing and No cyanosis Objective Data Labs CBC & Chem 7: 04/12/22 05:14 04/13/22 05:18 Labs: Laboratory Results - last 24 hr 04/13/22 04/13/22 04/13/22 05:18 11:20 13:15 Sodium 131 L Potassium 4.9 Chloride 104 Carbon Dioxide 19 L Anion Gap 13 BUN 45 H Creatinine 2.11 H Estim Creat Clear Calc 21.7 Estimated GFR 23 Random Glucose 128 H Calcium 6.5 L Albumin 2.6 L Urine Color Urine Appearance Urine pH Ur Specific [place] Urine Protein Urine Glucose (UA) Urine Ketones Urine Blood Urine Nitrite Ur Leukocyte Esterase Urine RBC Urine WBC Urine WBC Clumps Ur Squamous Epith Cells Urine Bacteria Ur Random Sodium Urine Creatinine 71.66 Blood Type A Positive Antibody Screen NEGATIVE Crossmatch See Detail 04/13/22 04/13/22 13:15 13:15 Sodium Potassium Chloride Carbon Dioxide Anion Gap BUN Creatinine Estim Creat Clear Calc Estimated GFR Random Glucose Calcium Albumin Urine Color YELLOW Urine Appearance CLOUDY Urine pH 5.5 Ur Specific [place] 1.025 Urine Protein 2+ H Urine Glucose (UA) NEG Urine Ketones NEG Urine Blood 1+ H Urine Nitrite NEG Ur Leukocyte Esterase 3+ H Urine RBC 0 Urine WBC 76-150 H Urine WBC Clumps NOTED Ur Squamous Epith Cells NONE Urine Bacteria 4+ Ur Random Sodium 31.0 Urine Creatinine Blood Type Antibody Screen Crossmatch Procedures Date of Service Date of Service: 04/13/22 Assessment & Plan Assessment and plan (1) CKD (chronic kidney disease) stage 3, GFR 30-59 ml/min: Status: Acute (2) Acute hyponatremia: Status: Acute (3) Closed pelvic fracture: Status: Acute Plan 1. HypoNa: Sna grad incr and stable at 131 2. ESRD s/p Xplant 2008 and maintained on [place]ro/pred 3. Anemia: Epo/Fe def 4. Pelvic Fx 5.HTN 6.NAGMA 7. CKD 3: Scr 1.5-.2.0; SCr trending up 1.9--> 2.1 8. Anemia 9. Pyuria: ques UTI REC: cont IS as noted, bladder scan and ? xfuse; check prograft level will follow with team . Time Spent With Patient Time: Total time spent is greater than 50% in coordination of care (as documented) at patient's floor/unit and/or counseling patient: Progress Note: Quality Stroke Does the patient have a stroke diagnosis?: No
[2022-04-14 05:59] LABS: Hematocrit 26.3 % (37.0-47.0); Hemoglobin 8.5 g/dl (12.0-16.0); Mean Corpuscular HGB Conc 32.3 g/dl (31.0-35.0); Mean Corpuscular Hemoglobin 29.7 pg (27.0-33.0); Mean Platelet Volume 10.3 fL (9.4-12.3); Platelet Count 147 X10*3/uL (160-400); Red Blood Count 2.86 X10*6/uL (4.20-5.50); Red Cell Distribution Width 14.6 % (11.0-16.0); White Blood Count 8.4 X10*3/uL (4.8-10.8)
[2022-04-14 06:32] LABS: Anion Gap 15 (12-20); Blood Urea Nitrogen 55 mg/dL (9-16); Calcium 6.2 mg/dL (8.4-10.2); Carbon Dioxide 18 mmol/L (22-29); Chloride 103 mmol/L (96-108); Creatinine Clr Calc Pharmacy 18.1; Estimated Glomerular Filt Rate 19; Glucose Random 109 mg/dL (60-115); Potassium 4.9 mmol/L (3.3-5.1); Sodium 131 mmol/L (135-145)
[2022-04-14] MEDS: cefTRIAXone sodium 1 GM in 0.9 % Sodium Chloride 50 ML IV (09:27)
[2022-04-14] MEDS: carvediloL 12.5 MG TABLET PO (09:28)
[2022-04-14] MEDS: predniSONE 5 MG TABLET PO (09:28)
[2022-04-14] MEDS: Ferrous Sulfate 324 MG TABLET.DR PO ×2 (09:28→20:06)
[2022-04-14] MEDS: Levothyroxine Sodium 50 MCG TABLET PO (09:28)
[2022-04-14] MEDS: Heparin Sodium,Porcine 5,000 UNIT/ML VIAL 5000 UNIT SUBCUT ×2 (09:28→18:44)
[2022-04-14] MEDS: risperiDONE 2 MG TABLET PO ×2 (09:28→20:05)
[2022-04-14] MEDS: Tacrolimus 1 MG CAPSULE PO (09:29)
[2022-04-14] MEDS: Tacrolimus 1 MG CAPSULE 2 MG PO ×2 (09:29→20:06)
[2022-04-14] MEDS: Sodium Bicarbonate 650 MG TABLET PO ×3 (09:29→20:06)
[2022-04-14] MEDS: oxyCODONE HCl Immed Release 5 MG TABLET PO (09:48)
[2022-04-14] MEDS: Sodium Ferric Gluconat/Sucrose 125 MG in 0.9 % Sodium Chloride 100 ML 100 MG IV (10:58)
--- NOTE | 2022-04-14 14:34 | P.DS_ITS ---
DS: Providers Provider Date of Service: 04/16/22 Date of admission: 04/09/22 15:34 Primary care physician: Alexandru Laguna MD Consults: 04/10/22 17:24 Consult to Nephrology Routine Consulting Provider: Albert Orozco Reason for consultation: transplant, hyponatremia overcorrected DS: Diagnosis Discharge Diagnosis (1) CKD (chronic kidney disease) stage 3, GFR 30-59 ml/min: Status: Acute (2) Acute hyponatremia: Status: Acute (3) Closed pelvic fracture: Status: Acute (4) Chronic anemia: Status: Acute (5) Hypocalcemia: Status: Acute (6) Hyperkalemia: Status: Acute DS: Summary Hospital Course Hospital Course: Admission note HPI The patient is a 71-year-old female with past medical history of chronic kidney disease status post renal transplant in 2008, schizoaffective disorder, hypertension,? and hypothyroidism,? who presented to the emergency room after sustaining a fall.? Patient reported losing her balance falling backwards and landing on her right hip and striking her head.? Denied loss of consciousness.? Head/ cervical spine CT negative for any acute? process. Pelvis CT did reveal? Acute fracture of the left pubic bone and? fracture of the right inferior pubic ramus. Ortho was consulted by ED, who advised No surgical intervention and recommended partial weight bearing with walker. Laboratory data? showed sodium of 118? this likely being the cause of the fall.? ?Patient will be admitted to the ICU for management of acute hyponatremia Hospital course This is a 71-year-old female with history of schizoaffective disorder, CKD status post renal transplant 2008, hypertension, hypothyroidism, admitted on April 09 after mechanical fall with resultant pelvic fractures found to have severe hyponatremia initially admitted to the ICU, downgraded to the medical floor on April 10 Admitted to ICU primarily for sodium level of 118. Improved gradually as the patient was downgraded to regular medical floors. Followed by Nephrology team during that process with water restriction was done with good response as her sodium improved to 131 given her TSH being normal. To continue fluid restriction of 1500 cc daily. She was noted to have Worsening kidney function with elevation of serum creatinine and BUN after removal of the Antony catheter. Bladder scan was done showing and evidence of retention after voiding. Antony catheter was placed again with improvement in the kidney function. The catheter will need to be in for the next couple of weeks and removed with a follow-up bladder scan and voiding trials. Developed UTI. Treated with IV ceftriaxone. Urine culture grew mixed bacteria. To be discharged on Ceftin. On presentation with full she was found to have Multiple pelvic fractures by x- rays. Evaluated by Orthopedic team who recommended no intervention needed at this stage and asked for weight-bearing as tolerated with walker usage. She was also noted to have acute on Chronic normocytic anemia secondary to anemia of chronic disease with Hb 7.5 and No evidence of acute blood loss. Low iron studies but high ferritin. Started on IV iron and erythropoietin. Received 1 unit of blood transfusion with improvement of hemoglobin to 8.5. Continue home oral iron supplementation. Discontinue lisinopril hold carvedilol and restart at facility if blood pressure start to increase Use oxycodone as needed for pain Start sodium bicarbonate twice Daily To repeat blood test next week To follow up with Nephrology as outpatient Time Spent with Patient Time attestation: Total time spent providing and/or coordinating discharge services: Discharge coordination time: Greater than 30 minutes Quality: Safe Use of Opioids Does Pt have an Active Cancer Diagnosis on the Problem List?: No Quality: Stroke Does the patient have a stroke diagnosis?: No Physical Exam Vital Signs: Vital Signs: Last Vital Signs Temp 97.1 F 04/14/22 11:08 Pulse 66 04/14/22 11:08 Resp 14 04/14/22 11:08 BP 92/43 L 04/14/22 11:08 Pulse Ox 96 04/14/22 11:08 O2 Del Method 04/14/22 11:08 BMI result Body Mass Index 22.4 Const: Other: Constitutional : Alert, oriented, not in distress Neck : Normal inspection, Supple Cardiovascular : RRR, no JVP, trace bilateral lower extremity edema Respiratory : fair bilateral air entry, no crackles, wheezes or rhonchi Gastrointestinal: soft, lax, Normal bowel sounds, Non tender Skin : Warm, Dry Neurological : Alert & oriented x3, No focal deficit DS: Data Data Completed and Pending Completed studies during hospitalization [Text1]: Procedures Excision of Right Kidney Pelvis, Percutaneous Approach, Diagnostic (10/21/21) Labs on day of discharge: Laboratory Results - last 24 hr 04/13/22 04/14/22 04/14/22 11:20 05:05 05:05 WBC 8.4 RBC 2.86 L Hgb 8.5 L Hct 26.3 L MCV 92.0 MCH 29.7 MCHC 32.3 RDW 14.6 Plt Count 147 L MPV 10.3 Absolute Nucleated RBC 0.000 Nucleated RBC % (auto) 0.0 Sodium 131 L Potassium 4.9 Chloride 103 Carbon Dioxide 18 L Anion Gap 15 BUN 55 H Creatinine 2.52 H Estim Creat Clear Calc 18.1 Estimated GFR 19 Random Glucose 109 Calcium 6.2 L Blood Type A Positive Antibody Screen NEGATIVE Crossmatch See Detail Discharge Plan Discharge Patient Disposition: Xfer SNF Discharge Diagnosis: Hyponatremia Pelvic fracture Referrals: Alexandru Laguna MD [Primary Care Provider] - 1 Week Discharge Medications: New oxycodone 5 mg Tablet 5 mg PO Q6H PRN (Reason: Pain, Moderate (Pain Scale 4-6) Qty: 20 0RF Rx Instructions: Partial Fill upon patient request. calcium carbonate [Oyster Shell Calcium 500] 500 mg calcium (1,250 mg) Tablet 500 mg PO DAILY 30 Days Qty: 30 0RF sodium bicarbonate 650 mg Tablet 1,300 mg PO BID 30 Days Qty: 120 0RF Continued ergocalciferol (vitamin D2) 50,000 unit Tablet 50,000 unit PO Rx Instructions: taken on ferrous sulfate 325 mg (65 mg iron) Tablet 325 mg PO BID tacrolimus 1 mg capsule 3 cap PO DAILY@0730 tacrolimus 1 mg capsule 2 cap PO DAILY@1700 Label Comments: 3mg in AM, 2mg in PM lorazepam 1 mg tablet 1 tab PO BEDTIME Prolia 60 mg/mL syringe 60 mg subcut Q6M risperidone 2 mg Tablet 2 mg PO BID Qty: 60 2RF levothyroxine 50 mcg Tablet 50 mcg PO DAILY@0600 Qty: 30 1RF prednisone 5 mg tablet 1 tab PO DAILY Qty: 30 1RF Held carvedilol 12.5 mg tablet 1 tab PO BID Hold Instructions: Monitor blood pressure for the next 3 days before restarting it. Discontinued lisinopril 10 mg tablet 1 tab PO DAILY Discharge Orders: Discharge Order (Routine); Ordered 04/16/22 Ordered By: Paulie Bateman Diet: Advance to usual diet Activity on Discharge: As tolerated Stand Alone Forms: Patient Portal Discharge page Other Ambulatory Orders: Basic Metabolic Panel (Routine) Timeframe: 3 Days Facility: [facility] - Location: Laboratory Ordered By: Paulie Bateman Care Plan Goals: Read below Health Concerns: Read below Plan of Treatment: Read below Assessment: You were admitted to the hospital for evaluation of mechanical fall with resulted pelvic fractures. Found to have hyponatremia requiring ICU admission. Her sodium level improved to 131 gradually during the hospital stay. Continue with fluid restriction to 1500 cc a day. Your kidney function was noted to be worsening likely a result of urine retention. Antony catheter was placed with improvement in the kidney function. You were evaluated by fitness and wellness director who will continue to Antony was outpatient. Orthopedic team evaluated you for the pelvic fracture recommended no intervention but weight-bearing as tolerated with a walker. Noted to have worsening anemia requiring blood transfusion, IV iron and erythropoietin to stimulate blood production. To be followed by Nephrology as well. Discontinue lisinopril hold carvedilol and restart at facility if blood pressure start to increase Use oxycodone as needed for pain Start sodium bicarbonate twice Daily To repeat blood test next week To follow up with Nephrology as outpatient
[2022-04-14 15:39] LABS: Anion Gap 17 (12-20); Blood Urea Nitrogen 60 mg/dL (9-16); Calcium 6.3 mg/dL (8.4-10.2); Carbon Dioxide 16 mmol/L (22-29); Chloride 101 mmol/L (96-108); Creatinine Clr Calc Pharmacy 17.3; Estimated Glomerular Filt Rate 18; Glucose Random 198 mg/dL (60-115); Potassium 5.4 mmol/L (3.3-5.1); Sodium 129 mmol/L (135-145)
--- NOTE | 2022-04-14 15:42 | HO.PM.IMPN ---
Subjective Subjective Date of Service: 04/14/22 Interval History: the patient was seen and evaluated this morning Sodium is dropped to 129 Creatinine worsening to 2.6 with BUN elevated to almost 60 Laying in bed, feels comfortable Denies any fever, chills or shortness of breath No reported other overnight events. Review of Systems Systemic review: No fever, chills or weakness No chest pain, palpitation No shortness of breath or coughing No abdominal pain, nausea or vomiting No urinary symptoms No any rash or wounds Physical Exam Vital Signs: Vital Signs: Last Vital Signs Temp 98.0 F 04/14/22 15:15 Pulse 70 04/14/22 15:15 Resp 16 04/14/22 15:15 BP 97/47 L 04/14/22 15:15 Pulse Ox 97 04/14/22 15:15 O2 Del Method 04/14/22 15:15 BMI result Body Mass Index 22.4 Const: Other: Constitutional : Alert, oriented, not in distress Neck : Normal inspection, Supple Cardiovascular : RRR, no JVP, trace bilateral lower extremity edema Respiratory : fair bilateral air entry, no crackles, wheezes or rhonchi Gastrointestinal: soft, lax, Normal bowel sounds, Non tender Skin : Warm, Dry Neurological : Alert & oriented x3, No focal deficit Objective Data Active Medications Ferrous Sulfate (Ferrous Sulfate 324 Mg Tablet.) 324 mg PO BID [facility] Last Admin: 04/14/22 09:28 Dose: 324 mg Documented By: YUMIKO Heparin Sodium (Porcine) (Heparin Sodium,Porcine 5,000 Unit/Ml Vial) 5,000 unit SUBCUT Q12H [facility] Last Admin: 04/14/22 09:28 Dose: 5,000 unit Documented By: YUMIKO Ceftriaxone Sodium 1 gm/ (Sodium Chloride) 50 mls @ 100 mls/hr IV Q24H [facility] Last Infusion: 04/14/22 10:01 Dose: 0 mls/hr Documented By: YUMIKO Levothyroxine Sodium (Levothyroxine Sodium 50 Mcg Tablet) 50 mcg PO DAILY [facility] Last Admin: 04/14/22 09:28 Dose: 50 mcg Documented By: YUMIKO Morphine Sulfate (Morphine Sulfate 2 Mg/Ml Cartridge) 2 mg IVPUSH Q4H PRN; Protocol PRN Reason: moderate pain Last Admin: 04/11/22 00:53 Dose: 2 mg Documented By: SILVANA Oxycodone HCl (Oxycodone Hcl Immed Release 5 Mg Tablet) 5 mg PO Q6H PRN PRN Reason: Pain, Moderate (Pain Scale 4-6 Last Admin: 04/14/22 09:48 Dose: 5 mg Documented By: YUMIKO Prednisone (Prednisone 5 Mg Tablet) 5 mg PO DAILY [facility] Last Admin: 04/14/22 09:28 Dose: 5 mg Documented By: YUMIKO Risperidone (Risperidone 2 Mg Tablet) 2 mg PO BID [facility] Last Admin: 04/14/22 09:28 Dose: 2 mg Documented By: YUMIKO Sodium Bicarbonate (Sodium Bicarbonate 650 Mg Tablet) 650 mg PO TID [facility] Last Admin: 04/14/22 09:29 Dose: 650 mg Documented By: YUMIKO Tacrolimus (Tacrolimus 1 Mg Capsule) 2 mg PO BID [facility] Last Admin: 04/14/22 09:29 Dose: 2 mg Documented By: YUMIKO Tacrolimus (Tacrolimus 1 Mg Capsule) 1 mg PO DAILY [facility] Last Admin: 04/14/22 09:29 Dose: 1 mg Documented By: YUMIKO Labs CBC & Chem 7: 04/14/22 05:05 04/14/22 14:39 Labs: Laboratory Results - last 24 hr 04/13/22 04/14/22 04/14/22 11:20 05:05 05:05 MCV 92.0 MCH 29.7 MCHC 32.3 RDW 14.6 Plt Count 147 L MPV 10.3 Absolute Nucleated RBC 0.000 Nucleated RBC % (auto) 0.0 Anion Gap 15 Estim Creat Clear Calc 18.1 Estimated GFR 19 Random Glucose 109 Calcium 6.2 L Blood Type A Positive Antibody Screen NEGATIVE Crossmatch See Detail 04/14/22 14:39 MCV MCH MCHC RDW Plt Count MPV Absolute Nucleated RBC Nucleated RBC % (auto) Anion Gap 17 Estim Creat Clear Calc 17.3 Estimated GFR 18 Random Glucose 198 H Calcium 6.3 L Blood Type Antibody Screen Crossmatch Assessment and Plan (1) Hyponatremia: Status: Acute (2) CKD (chronic kidney disease) stage 3, GFR 30-59 ml/min: Status: Acute (3) Hyperkalemia: Status: Acute (4) Hypocalcemia: Status: Acute Plan This is a 71-year-old female with history of schizoaffective disorder, CKD status post renal transplant 2008, hypertension, hypothyroidism, admitted on April 09 after mechanical fall with resultant pelvic fractures found to have severe hyponatremia initially admitted to the ICU, downgraded to the medical floor on April 10 Hyponatremia TSH wnl Sodium improved to 131 Change fluid restriction to 1800 Follow BMP Nephrology input appreciated Hyperkalemia Potassium up to 5.8 Give Kayexalate Start IV fluids Monitor BMP Hypocalcemia corrected calcium of 7.6 To give IV and p.o. replacement Monitor BMP Worsening kidney function Creatinine 2.7 with BUN of 60 Check urinalysis and electrolytes Bladder scan showed 200 cc retention, Antony catheter placed Nephrology following Multiple pelvic fractures No intervention required per Orthopedics Weightbearing as tolerated with walker acute on Chronic normocytic anemia secondary to anemia of chronic disease Hb improved to 8.5 after 1 unit transfusion No evidence of acute blood loss Low iron studies but high ferritin continue IV iron Continue erythropoietin Continue home oral iron supplementation Thrombocytopenia Platelets stable Follow CBC Hypothyroidism Continue Synthroid History of renal transplant Continue Prograf Resume prednisone Nephrology consult pending mood Continue Risperdal HTN Will resume Coreg Lisinopril on hold dvt ppx-heparin Dispo-PT evaluation, probable SNF Requires ongoing inpatient hospitalization for further management of hyponatremia, worsening CKD and electrolyte imbalance pending safe discharge plan. Quality Stroke Does the patient have a stroke diagnosis?: No VTE Prior VTE?: No VTE Risk Level:: Medical - moderate - high VTE Device Contraindication: Treatment Not Indicated VTE Drug Contraindication: N/A - Med Ordered
--- NOTE | 2022-04-14 15:43 | MHC.CM.PN ---
PT NOT CLEARED TO DC FOLLOWING REPEAT LABS PER [facility], THEY ARE UNABLE TO CONTINUE HOLDING BED, BUT WILL FOLLOW FOR NEXT AVAILABLE.
[2022-04-14] MEDS: Sodium Polystyrene Sulfon/Sorb 15 GM/60 ML ORAL.SUSP 30 GM PO (16:43)
[2022-04-14] MEDS: 0.9 % Sodium Chloride 1,000 ML 999 ML IV (16:43)
[2022-04-14] MEDS: 0.9 % Sodium Chloride 1,000 ML 100 ML IVCONT (17:52)
[2022-04-14] MEDS: Calcium Gluconate/NaCl,Iso-Osm 2 GM/100 ML PLAST..BAG IV (18:44)
[2022-04-14 21:53] LABS: Tacrolimus Prograf 2.7 mcg/L
--- NOTE | 2022-04-14 22:36 | P.PNNP_ITS ---
Subjective Subjective Date of Service: 04/14/22 Interval history: Seen and examined, events noted. Physical Exam Vital Signs: Vital Signs: Last Vital Signs Temp 98.6 F 04/14/22 20:00 Pulse 77 04/14/22 20:00 Resp 18 04/14/22 20:00 BP 145/53 H 04/14/22 20:00 Pulse Ox 98 04/14/22 20:00 O2 Del Method 04/14/22 20:00 BMI result Body Mass Index 22.4 Const: Other: Constitutional : Alert, oriented, not in distress Neck : Normal inspection, Supple Cardiovascular : RRR, no JVP, trace bilateral lower extremity edema Respiratory : fair bilateral air entry, no crackles, wheezes or rhonchi Gastrointestinal: soft, lax, Normal bowel sounds, Non tender Skin : Warm, Dry Neurological : Alert & oriented x3, No focal deficit General: cooperative, healthy appearing, comfortable, no acute distress, alert and awake Nutritional Appearance: thin Orientation/consciousness: patient oriented x3 Limitations: no limitations HEENT: Head: Yes normal to inspection, No Blevins's sign and No raccoon eyes Ears: hearing grossly normal bilaterally and TM's normal bilaterally General nose exam: Normal external nose present Face and sinus: Yes normal facial exam Mouth: Normal oral and palatal mucosa present Throat: Yes posterior oropharynx normal Eyes: General: appearance normal, both eyes and all related structures Sclerae: sclerae normal Pupils: Equal, round and reactive pupils present EOM: EOMs intact bilaterally Neck: Neck: Yes normal visual inspection, Yes no lymphadenopathy, Yes trachea midline and Yes supple Chest: Chest palpation & inspection: normal inspection of the chest Resp: Effort & Inspection: normal respiratory effort, able to speak in complete sentences and no respiratory distress Auscultation: clear to auscultation bilaterally Cardio: Rate: regular rate Rhythm: regular rhythm Heart sounds: S1 normal heart sound present, S2 normal heart sound present, no gallops, no murmurs and no rubs Peripheral pulses: Peripheral pulses 2+ throughout GI: Inspection: Yes normal to inspection Palpation (GI): not soft, nontender and Other GI palpation findings present ( Nontender) Auscultation: normal bowel sounds Back/Spine/Pelvis: Thoracic/Lumbar Spine: thoracic and lumbar spine normal to inspection Skin: General skin exam: no rashes or lesions noted Neuro: General: patient oriented x3, moves all extremities, no focal motor deficits, normal sensation to monofilament and Unable to assess gait Cranial nerves: Yes CN's II-XII intact bilaterally, Yes Equal, round and reactive pupils present, Yes Bilaterally intact EOM present, Yes Nystagmus not present, Yes Normal facial strength present and Yes Midline tongue present Cognition (Ne uro): normal cognition Speech: No Abnormal speech present Gait exam (Neuro): Unable to assess gait Motor exam (neuro): 5/5 motor strength present throughout Sensory Exam: Normal double simultaneous stimulation for sensation Coordination: [id number] test normal Extrem: General: Yes normal to inspection, Yes no pedal edema, No clubbing and No cyanosis Objective Data Labs CBC & Chem 7: 04/14/22 05:05 04/14/22 14:39 Labs: Laboratory Results - last 24 hr 04/13/22 04/14/22 04/14/22 08:58 05:05 05:05 WBC 8.4 RBC 2.86 L Hgb 8.5 L Hct 26.3 L MCV 92.0 MCH 29.7 MCHC 32.3 RDW 14.6 Plt Count 147 L MPV 10.3 Absolute Nucleated RBC 0.000 Nucleated RBC % (auto) 0.0 Sodium 131 L Potassium 4.9 Chloride 103 Carbon Dioxide 18 L Anion Gap 15 BUN 55 H Creatinine 2.52 H Estim Creat Clear Calc 18.1 Estimated GFR 19 Random Glucose 109 Calcium 6.2 L Tacrolimus 2.7 L 04/14/22 14:39 WBC RBC Hgb Hct MCV MCH MCHC RDW Plt Count MPV Absolute Nucleated RBC Nucleated RBC % (auto) Sodium 129 L Potassium 5.4 H Chloride 101 Carbon Dioxide 16 L Anion Gap 17 BUN 60 H Creatinine 2.65 H Estim Creat Clear Calc 17.3 Estimated GFR 18 Random Glucose 198 H Calcium 6.3 L Tacrolimus Procedures Date of Service Date of Service: 04/14/22 Assessment & Plan Assessment and plan (1) CKD (chronic kidney disease) stage 3, GFR 30-59 ml/min: Status: Acute (2) Acute hyponatremia: Status: Acute (3) Closed pelvic fracture: Status: Acute Plan 1. LAURO: contincrScr: suspect d/t renalhypoperfusion and qies of Obs uropathy 2. ESRD s/p Xplant 2008 and maintained on Tacro/pred 3. Anemia: Epo/Fe def 4. Pelvic Fx 5.HTN 6.NAGMA 7. CKD 3: Scr 1.5-.2.0; SCr trending up 1.9--> 2.1 8. Anemia 9. Pyuria: ques UTI REC: cont IVF and track renal func; cont IS as noted, bladder scan and ? xfuse; check prograft level will follow with team . Time Spent With Patient Time: Total time spent is greater than 50% in coordination of care (as documented) at patient's floor/unit and/or counseling patient: Progress Note: Quality Stroke Does the patient have a stroke diagnosis?: No
[2022-04-15] MEDS: 0.9 % Sodium Chloride 1,000 ML 100 ML IVCONT ×2 (03:02→13:42)
[2022-04-15 03:32] VITALS: BP 162/69; PULSE 75; RESP 18; TEMP 36.8; O2SAT 98
[2022-04-15 06:00] VITALS: BMI 24.7
[2022-04-15 07:29] VITALS: BP 144/57; PULSE 71; RESP 20; TEMP 36.6; O2SAT 98
[2022-04-15 08:21] LABS: Anion Gap 14 (12-20); Blood Urea Nitrogen 61 mg/dL (9-16); Calcium 6.4 mg/dL (8.4-10.2); Carbon Dioxide 16 mmol/L (22-29); Chloride 107 mmol/L (96-108); Creatinine Clr Calc Pharmacy 18.4; Estimated Glomerular Filt Rate 19; Glucose Random 106 mg/dL (60-115); Potassium 4.3 mmol/L (3.3-5.1); Sodium 133 mmol/L (135-145)
[2022-04-15] MEDS: cefTRIAXone sodium 1 GM in 0.9 % Sodium Chloride 50 ML IV (09:44)
[2022-04-15] MEDS: Sodium Bicarbonate 650 MG TABLET 1300 MG PO ×2 (09:44→20:40)
[2022-04-15] MEDS: Levothyroxine Sodium 50 MCG TABLET PO (09:44)
[2022-04-15] MEDS: Heparin Sodium,Porcine 5,000 UNIT/ML VIAL 5000 UNIT SUBCUT ×2 (09:44→20:41)
[2022-04-15] MEDS: risperiDONE 2 MG TABLET PO ×2 (09:45→20:40)
[2022-04-15] MEDS: Tacrolimus 1 MG CAPSULE 2 MG PO ×2 (09:45→20:42)
[2022-04-15] MEDS: Tacrolimus 1 MG CAPSULE PO (09:45)
[2022-04-15] MEDS: predniSONE 5 MG TABLET PO (09:45)
[2022-04-15] MEDS: Ferrous Sulfate 324 MG TABLET.DR PO ×2 (09:45→20:41)
[2022-04-15 11:05] VITALS: BP 144/57; PULSE 71; O2SAT 98
[2022-04-15 11:17] VITALS: BP 129/54; PULSE 78; RESP 20; TEMP 36.6; O2SAT 99
--- NOTE | 2022-04-15 12:20 | HO.PM.IMPN ---
Subjective Subjective Date of Service: 04/15/22 Interval History: the patient was seen and evaluated this morning Sodium is improved to 133 Creatinine stabilized at 2.6 with BUN around 61 Laying in bed, feels comfortable Denies any fever, chills or shortness of breath No reported other overnight events. Review of Systems Systemic review: No fever, chills or weakness No chest pain, palpitation No shortness of breath or coughing No abdominal pain, nausea or vomiting No urinary symptoms No any rash or wounds Physical Exam Vital Signs: Vital Signs: Last Vital Signs Temp 97.8 F 04/15/22 11:17 Pulse 78 04/15/22 11:17 Resp 20 04/15/22 11:17 BP 129/54 L 04/15/22 11:17 Pulse Ox 99 04/15/22 11:17 O2 Del Method 04/15/22 11:17 BMI result Body Mass Index 24.7 Const: Other: Constitutional : Alert, oriented, not in distress Neck : Normal inspection, Supple Cardiovascular : RRR, no JVP, trace bilateral lower extremity edema Respiratory : fair bilateral air entry, no crackles, wheezes or rhonchi Gastrointestinal: soft, lax, Normal bowel sounds, Non tender Skin : Warm, Dry Neurological : Alert & oriented x3, No focal deficit Objective Data Active Medications Calcium Carbonate (Calcium Carbonate 500 Mg Tablet) 500 mg PO BID COUNTS INCLUDE 234 BEDS AT THE [facility] Last Admin: 04/15/22 09:45 Dose: 500 mg Documented By: YUMIKO Ferrous Sulfate (Ferrous Sulfate 324 Mg Tablet.) 324 mg PO BID COUNTS INCLUDE 234 BEDS AT THE [facility] Last Admin: 04/15/22 09:45 Dose: 324 mg Documented By: YUMIKO Heparin Sodium (Porcine) (Heparin Sodium,Porcine 5,000 Unit/Ml Vial) 5,000 unit SUBCUT Q12H COUNTS INCLUDE 234 BEDS AT THE [facility] Last Admin: 04/15/22 09:44 Dose: 5,000 unit Documented By: YUMIKO Ceftriaxone Sodium 1 gm/ (Sodium Chloride) 50 mls @ 100 mls/hr IV Q24H COUNTS INCLUDE 234 BEDS AT THE [facility] Last Infusion: 04/15/22 10:52 Dose: 0 mls/hr Documented By: YUMIKO Sodium Chloride (Ns) 1,000 mls @ 100 mls/hr IVCONT .Q10H COUNTS INCLUDE 234 BEDS AT THE [facility] Last Admin: 04/15/22 03:02 Dose: 100 mls/hr Documented By: DAVISRINL Levothyroxine Sodium (Levothyroxine Sodium 50 Mcg Tablet) 50 mcg PO DAILY COUNTS INCLUDE 234 BEDS AT THE [facility] Last Admin: 04/15/22 09:44 Dose: 50 mcg Documented By: YUMIKO Morphine Sulfate (Morphine Sulfate 2 Mg/Ml Cartridge) 2 mg IVPUSH Q4H PRN; Protocol PRN Reason: moderate pain Last Admin: 04/11/22 00:53 Dose: 2 mg Documented By: CASTILM Oxycodone HCl (Oxycodone Hcl Immed Release 5 Mg Tablet) 5 mg PO Q6H PRN PRN Reason: Pain, Moderate (Pain Scale 4-6 Last Admin: 04/14/22 09:48 Dose: 5 mg Documented By: YUMIKO Prednisone (Prednisone 5 Mg Tablet) 5 mg PO DAILY COUNTS INCLUDE 234 BEDS AT THE [facility] Last Admin: 04/15/22 09:45 Dose: 5 mg Documented By: YUMIKO Risperidone (Risperidone 2 Mg Tablet) 2 mg PO BID COUNTS INCLUDE 234 BEDS AT THE [facility] Last Admin: 04/15/22 09:45 Dose: 2 mg Documented By: YUMIKO Sodium Bicarbonate (Sodium Bicarbonate 650 Mg Tablet) 1,300 mg PO BID COUNTS INCLUDE 234 BEDS AT THE [facility] Last Admin: 04/15/22 09:44 Dose: 1,300 mg Documented By: YUMIKO Tacrolimus (Tacrolimus 1 Mg Capsule) 2 mg PO BID COUNTS INCLUDE 234 BEDS AT THE [facility] Last Admin: 04/15/22 09:45 Dose: 2 mg Documented By: YUMIKO Tacrolimus (Tacrolimus 1 Mg Capsule) 1 mg PO DAILY COUNTS INCLUDE 234 BEDS AT THE [facility] Last Admin: 04/15/22 09:45 Dose: 1 mg Documented By: YUMIKO Labs CBC & Chem 7: 04/14/22 05:05 04/15/22 07:58 Labs: Laboratory Results - last 24 hr 04/13/22 04/14/22 04/15/22 08:58 14:39 07:58 Anion Gap 17 14 Estim Creat Clear Calc 17.3 18.4 Estimated GFR 18 19 Random Glucose 198 H 106 Calcium 6.3 L 6.4 L Tacrolimus 2.7 L Microbiology Microbiology Results: Microbiology 04/13/22 13:15 Urine Culture - Preliminary Urine clean catch - Urine londono top Culture in progress. Assessment and Plan (1) Hypocalcemia: Status: Acute (2) Hyperkalemia: Status: Acute (3) Hyponatremia: Status: Acute (4) CKD (chronic kidney disease) stage 3, GFR 30-59 ml/min: Status: Acute (5) Living-donor kidney transplant recipient: Status: Acute Plan This is a 71-year-old female with history of schizoaffective disorder, CKD status post renal transplant 2008, hypertension, hypothyroidism, admitted on April 09 after mechanical fall with resultant pelvic fractures found to have severe hyponatremia initially admitted to the ICU, downgraded to the medical floor on April 10 LAURO on ESRD post transplant Creatinine 2.6 with BUN of 60 Antony catheter placed On IVF supplement for now Sodium bicarb for NAGOR Nephrology following Hyponatremia TSH wnl Sodium improved to 133 Change fluid restriction to 1800 Follow BMP Nephrology input appreciated Hyperkalemia Resolved Monitor BMP Hypocalcemia corrected calcium of 7.6 To give IV and p.o. replacement Monitor BMP Multiple pelvic fractures No intervention required per Orthopedics Weightbearing as tolerated with walker acute on Chronic normocytic anemia secondary to anemia of chronic disease Hb improved to 8.5 after 1 unit transfusion No evidence of acute blood loss Continue erythropoietin Continue home oral iron supplementation Thrombocytopenia Platelets stable Follow CBC Hypothyroidism Continue Synthroid History of renal transplant Continue Prograf Resume prednisone Nephrology consult pending mood Continue Risperdal HTN Will resume Coreg Lisinopril on hold dvt ppx-heparin Dispo-PT evaluation, probable SNF Requires ongoing inpatient hospitalization for further management of hyponatremia, worsening CKD and electrolyte imbalance pending safe discharge plan. Quality Stroke Does the patient have a stroke diagnosis?: No VTE Prior VTE?: No VTE Risk Level:: Medical - moderate - high VTE Device Contraindication: Treatment Not Indicated VTE Drug Contraindication: N/A - Med Ordered
--- NOTE | 2022-04-15 13:20 | PM.PNNEP ---
Subjective Subjective Date of Service: 04/15/22 Interval history: tolerating dumont Cr stabilized Physical Exam Vital Signs: Vital Signs: Last Vital Signs Temp 97.8 F 04/15/22 11:17 Pulse 78 04/15/22 11:17 Resp 20 04/15/22 11:17 BP 129/54 L 04/15/22 11:17 Pulse Ox 99 04/15/22 11:17 O2 Del Method 04/15/22 11:17 BMI result Body Mass Index 24.7 Const: Other: Constitutional : Alert, oriented, not in distress Neck : Normal inspection, Supple Cardiovascular : RRR, no JVP, trace bilateral lower extremity edema Respiratory : fair bilateral air entry, no crackles, wheezes or rhonchi Gastrointestinal: soft, lax, Normal bowel sounds, Non tender Skin : Warm, Dry Neurological : Alert & oriented x3, No focal deficit Objective Data Labs CBC & Chem 7: 04/14/22 05:05 04/15/22 07:58 Labs: Laboratory Results - last 24 hr 04/13/22 04/14/22 04/15/22 08:58 14:39 07:58 Sodium 129 L 133 L Potassium 5.4 H 4.3 D Chloride 101 107 Carbon Dioxide 16 L 16 L Anion Gap 17 14 BUN 60 H 61 H Creatinine 2.65 H 2.45 H Estim Creat Clear Calc 17.3 18.4 Estimated GFR 18 19 Random Glucose 198 H 106 Calcium 6.3 L 6.4 L Tacrolimus 2.7 L Microbiology Microbiology Results: Microbiology 04/13/22 13:15 Urine clean catch - Urine londono top Urine Culture - Preliminary Culture in progress. Procedures Date of Service Date of Service: 04/15/22 Assessment & Plan Assessment and plan (1) CKD (chronic kidney disease) stage 3, GFR 30-59 ml/min: Status: Acute (2) Acute hyponatremia: Status: Acute (3) Closed pelvic fracture: Status: Acute Plan 1. LAURO on advanced CKD of graft. 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 The serum Cr is a poor marker of this! She is susceptible to dramatic Cr swings due to poor renal reserve. 2. ESRD s/p Xplant 2008 at [facility] from Sister. Remains on Tacro 3&2 / Pred 5 3. Anemia: Epo/Fe def 4. Pelvic Fx 5.HTN 6.NAGMA 2/2 advanced renal failure and 0.9% saline use 7. Pyuria: ques UTI REC: - c/w dumont for now - switch 0.9% saline to LR - inc NaBicarb 1300mg BID - no need for transplant biopsy, she does not have rejection - c/w Tac 3/2 and aim for TROUGH 4-6 (lower due to advanced CKD) - c/w pred - outpt i will try and coordinate Belatacept conversion given the renal fibrosis on CNIs. Time Spent With Patient Time: Total time spent is greater than 50% in coordination of care (as documented) at patient's floor/unit and/or counseling patient: Progress Note: Quality Stroke Does the patient have a stroke diagnosis?: No
[2022-04-15 14:58] VITALS: BP 131/58; PULSE 80; RESP 16; TEMP 36.6; O2SAT 99
[2022-04-15] MEDS: Lactated Ringers 1,000 ML 80 ML IVCONT (15:58)
[2022-04-15 19:27] VITALS: BP 159/69; PULSE 86; RESP 18; TEMP 36.9; O2SAT 98
[2022-04-16] VITALS: BP 149/65; PULSE 93; RESP 18; TEMP 36.6; O2SAT 98
[2022-04-16] MEDS: Lactated Ringers 1,000 ML 80 ML IVCONT (02:49)
[2022-04-16 03:41] VITALS: BP 147/68; PULSE 84; RESP 18; TEMP 36.9; O2SAT 98
[2022-04-16 06:00] VITALS: BMI 25.7
[2022-04-16 06:30] LABS: Anion Gap 14 (12-20); Blood Urea Nitrogen 61 mg/dL (9-16); Calcium 6.7 mg/dL (8.4-10.2); Carbon Dioxide 18 mmol/L (22-29); Chloride 105 mmol/L (96-108); Creatinine Clr Calc Pharmacy 21.4; Estimated Glomerular Filt Rate 23; Glucose Random 132 mg/dL (60-115); Potassium 4.5 mmol/L (3.3-5.1); Sodium 132 mmol/L (135-145)
[2022-04-16 07:18] VITALS: BP 169/81; PULSE 80; RESP 18; TEMP 36.3; O2SAT 97
[2022-04-16] MEDS: Heparin Sodium,Porcine 5,000 UNIT/ML VIAL 5000 UNIT SUBCUT (09:33)
[2022-04-16] MEDS: cefTRIAXone sodium 1 GM in 0.9 % Sodium Chloride 50 ML IV (09:33)
[2022-04-16] MEDS: Ferrous Sulfate 324 MG TABLET.DR PO (09:33)
[2022-04-16] MEDS: Sodium Bicarbonate 650 MG TABLET 1300 MG PO (09:33)
[2022-04-16] MEDS: Levothyroxine Sodium 50 MCG TABLET PO (09:33)
[2022-04-16] MEDS: risperiDONE 2 MG TABLET PO (09:34)
[2022-04-16] MEDS: oxyCODONE HCl Immed Release 5 MG TABLET PO (09:34)
[2022-04-16] MEDS: Tacrolimus 1 MG CAPSULE 2 MG PO (09:34)
[2022-04-16] MEDS: Tacrolimus 1 MG CAPSULE PO (09:34)
[2022-04-16] MEDS: predniSONE 5 MG TABLET PO (09:34)
[2022-04-16 11:12] VITALS: BP 155/72; PULSE 82; RESP 18; TEMP 36.3; O2SAT 97
[2022-04-16 12:49] LABS: COVID-19 Test Negative (Negative)
--- NOTE | 2022-04-16 13:46 | MHC.CM.PN ---
Addendum entered by Liss Eid 04/16/22 14:51: CM MET [facility] PT WHO IS HAPPY SHE IS DISCHARGING TODAY AND LOOKING FORWARD TO STARTING REHAB PER [facility], PT WILL BE TRANSPORTED AT 1700 HOURS Original Note: PT WILL DC TO [facility] FOR STR TODAY AT 1530 VIA [facility]
--- NOTE | 2022-04-16 14:13 | P.PNNP_ITS ---
Subjective Subjective Date of Service: 04/16/22 Interval history: Cr better daily Physical Exam Vital Signs: Vital Signs: Last Vital Signs Temp 97.3 F 04/16/22 11:12 Pulse 82 04/16/22 11:12 Resp 18 04/16/22 11:12 BP 155/72 H 04/16/22 11:12 Pulse Ox 97 04/16/22 11:12 O2 Del Method 04/16/22 11:12 BMI result Body Mass Index 25.7 Const: Other: Constitutional : Alert, oriented, not in distress Neck : Normal inspection, Supple Cardiovascular : RRR, no JVP, trace bilateral lower extremity edema Respiratory : fair bilateral air entry, no crackles, wheezes or rhonchi Gastrointestinal: soft, lax, Normal bowel sounds, Non tender Skin : Warm, Dry Neurological : Alert & oriented x3, No focal deficit Objective Data Labs CBC & Chem 7: 04/14/22 05:05 04/16/22 05:39 Labs: Laboratory Results - last 24 hr 04/16/22 04/16/22 05:39 12:25 Sodium 132 L Potassium 4.5 Chloride 105 Carbon Dioxide 18 L Anion Gap 14 BUN 61 H Creatinine 2.10 H Estim Creat Clear Calc 21.4 Estimated GFR 23 Random Glucose 132 H Calcium 6.7 L COVID-19 (SALOMÓN) Negative COVID-19 Clin Com See Note Microbiology Microbiology Results: Microbiology 04/13/22 13:15 Urine clean catch - Urine londono top Urine Culture - Final Procedures Date of Service Date of Service: 04/16/22 Assessment & Plan Assessment and plan (1) CKD (chronic kidney disease) stage 3, GFR 30-59 ml/min: Status: Acute (2) Acute hyponatremia: Status: Acute (3) Closed pelvic fracture: Status: Acute Plan 1. LAURO on advanced CKD of graft. 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 The serum Cr is a poor marker of this! She is susceptible to dramatic Cr swings due to poor renal reserve. 2. ESRD s/p Xplant 2008 at [facility] from Sister. Remains on Tacro 3&2 / Pred 5 3. Anemia: Epo/Fe def 4. Pelvic Fx 5.HTN 6.NAGMA 2/2 advanced renal failure and 0.9% saline use 7. Pyuria: ques UTI REC: - c/w tim for now - c/w NaBicarb 1300mg BID - no need for transplant biopsy, she does not have rejection - Reduce Tac to 2/2 aim for TROUGH 4-6 (lower due to advanced CKD) - c/w pred - I have spoken to patients Transplant team and will transition to Belatacept outpatient. Time Spent With Patient Time: Total time spent is greater than 50% in coordination of care (as documented) at patient's floor/unit and/or counseling patient: Progress Note: Quality Stroke Does the patient have a stroke diagnosis?: No
--- NOTE | 2022-04-18 13:04 | PC.NURSE ---
Late entry for Maru Haq RN 04/13/22 1845: 1 unit PRBCs initiated as per protocol at 1648. 350 mls infused, infusion completed at 1835 without adverse reaction.
== END 2022-04-16 17:12 | disposition skilled nursing facility (03) | DRG 641 ==
LOC: HO.ED 14:17 → HO.EDOVER 15:40 → HO.ICU 16:18 → HO.S3 04-10 12:09
PROVIDERS: Internal Medicine; Nurse Practitioner Family; Physician Assistant Medical; Admitting Provider Internal Medicine Pulmonary Disease; Emergency Provider Emergency Medicine; PCP Hospitalist; Visit Provider Student in an Organized Health Care Education/Training Program
DX: E87.1 Hypo-osmolality and hyponatremia (principal); S32.502A Unspecified fracture of left pubis, initial encounter for closed fracture; S32.501A Unspecified fracture of right pubis, initial encounter for closed fracture; Z94.0 Kidney transplant status; D84.821 Immunodeficiency due to drugs; N39.0 Urinary tract infection, site not specified; E03.9 Hypothyroidism, unspecified; N18.30 Chronic kidney disease, stage 3 unspecified; F25.0 Schizoaffective disorder, bipolar type; I12.9 Hypertensive chronic kidney disease with stage 1 through stage 4 chronic kidney disease, or unspecified chronic kidney disease; D69.6 Thrombocytopenia, unspecified; E86.0 Dehydration; W01.198A Fall on same level from slipping, tripping and stumbling with subsequent striking against other object, initial encounter; E87.2 Acidosis; E83.51 Hypocalcemia; E87.5 Hyperkalemia; R33.9 Retention of urine, unspecified; D63.1 Anemia in chronic kidney disease; Z20.822 Contact with and (suspected) exposure to COVID-19; Z87.891 Personal history of nicotine dependence; Z88.2 Allergy status to sulfonamides; Z88.8 Allergy status to other drugs, medicaments and biological substances; Z79.890 Hormone replacement therapy; Z79.899 Other long term (current) drug therapy
CPT/HCPCS: 36415; 70450; 72125; 72192; 73502; 73620; 80048; 80076; 80197; 81001; 82040; 82272; 82436; 82607; 82728; 82746; 83540; 83735; 83930; 83935; 84100; 84133; 84295; 84300; 84443; 84540; 84550; 84560; 85025; 85027; 85610; 86850; 86900; 86901; 86923; 87086; 87635; 93005; 96374; 97110; 97116; 97162; 97530; 99285; C1758; J0610; J0696; J0885; J2270; J2916; J3010; P9016

== ENCOUNTER 2022-04-17 16:47 | Emergency (ER) | payer MEDICARE, SELFPAY ==
[2022-04-17 16:54] VITALS: BP 141/72; BP 148/69; PULSE 89; PULSE 90; RESP 16; TEMP 36.9; O2SAT 95; O2SAT 96; BMI 19.8
--- NOTE | 2022-04-17 16:56 | ED_ITS ---
HPI - Skin/Abscess/Foreign Bdy General Chief complaint: General Medical Stated complaint: Rt arm abscess Time Seen by Provider: 04/17/22 16:56 Source: patient and EMS Mode of arrival: EMS Limitations: no limitations History of Present Illness HPI narrative: 71-year-old male with a history of chronic kidney disease status post renal transplant in 2008, schizoaffective disorder, hypertension presents with reports of swelling to the right forearm X2 days. Patient was recently in the hospital and was discharged on 04/15/2022, she had an IV inplace at the site and then developed redness, swelling and pain to the right forearm site of IV. Patient denies chest pain, shortness of breath, nausea, vomiting, headache, vision changes, dizziness, numbness, tingling. Related Data Home Medications Medication Instructions Recorded Confirmed denosumab 60 mg/mL subcutaneous 60 mg subcut Q6M 10/25/21 04/09/22 syringe (Prolia) lorazepam 1 mg tablet 1 tab PO BEDTIME 10/25/21 04/09/22 carvedilol 12.5 mg tablet 1 tab PO BID 03/04/22 04/09/22 ergocalciferol (vitamin D2) 50,000 50,000 unit PO TH 03/04/22 04/09/22 unit tablet ferrous sulfate 325 mg (65 mg 325 mg PO BID 03/04/22 04/09/22 iron) tablet tacrolimus 1 mg capsule, 2 cap PO DAILY@1700 04/09/22 04/09/22 immediate-release Previous Rx's Medication Instructions Recorded levothyroxine 50 mcg tablet 50 mcg PO DAILY@0600 #30 tabs 12/05/21 prednisone 5 mg tablet 1 tab PO DAILY #30 tabs 12/05/21 risperidone 2 mg tablet 2 mg PO BID #60 tabs 12/05/21 oxycodone 5 mg tablet 5 mg PO Q6H PRN Pain, Moderate 04/14/22 (Pain Scale 4-6 #20 tabs calcium carbonate 500 mg calcium 500 mg PO DAILY 30 days #30 tabs 04/16/22 (1,250 mg) tablet (Oyster Shell Calcium 500) cefuroxime axetil 250 mg tablet 250 mg PO BID #5 tabs 04/16/22 sodium bicarbonate 650 mg tablet 1,300 mg PO BID 30 days #120 tabs 07/16/22 tacrolimus 1 mg capsule, 2 mg PO DAILY@0730 #60 caps 04/16/22 immediate-release cephalexin 500 mg capsule 500 mg PO Q6H 10 days #40 caps 04/17/22 doxycycline hyclate 100 mg capsule 100 mg PO BID 10 days #20 caps 04/17/22 Allergies Allergy/AdvReac Type Severity Reaction Status Date / Time gabapentin [From Neurontin] Allergy Unknown UNKNOWN Verified 04/17/22 16:54 Sulfa (Sulfonamide Allergy Unknown UNKNOWN Verified 04/17/22 16:54 Antibiotics) [SULFA (SULFONAMIDE ANTIBIOTICS)] trimethoprim [TRIMETHOPRIM] Allergy Unknown UNKNOWN Verified 04/17/22 16:54 lithium [LITHIUM] AdvReac Severe KIDNEY Verified 04/17/22 16:54 TRANSPLANT DUE TO LITHIUM TOXICITY Review of Systems Review of Systems: Constitutional : No Weight loss, No Fever, No Chills, No Fatigue, No Malaise ENT/Mouth : No sore throat, No Rhinorrhea Eyes: No Eye Pain, No Swelling, No Redness Cardiovascular : No Chest Pain, No SOB, No Dyspnea on Exertion, No Orthopnea, No Edema, No Palpitations Respiratory : No Cough, No Sputum, No Wheezing Gastrointestinal : No Nausea, No Vomiting, No Diarrhea, No Constipation, No abdominal Pain, No Hematochezia, No Melena Genitourinary : No Dysuria, No Urinary Frequency, No Hematuria, Musculoskeletal : No joint pain, No Myalgias, No Joint Swelling Skin : No Skin Lesions, No rash, + redness to right forarm Neuro : No Weakness, No Numbness, No Dizziness, No Headache Psych : No Anxiety/Panic, No Depression All other systems reviewed and are negative Yes all other systems are reviewed and are negative [facility] Past Medical History Attestation statement: The following information was validated with the patient. Source: old records reviewed and nursing notes reviewed Medical History (Updated 04/17/22 @ 17:15 by NARGIS Morris) CKD (chronic kidney disease) stage 3, GFR 30-59 ml/min HTN (hypertension) Schizoaffective disorder, bipolar type Surgical History Living-donor kidney transplant recipient Social History Social History Household Members: None Housing: Condominium Do you presently have visiting nurse or other home services: No Alcohol intake: never Patient Tobacco Use Status: Former Tobacco user Tobacco use type: Cigarette Second Hand Smoke Exposure: No Use of substances other than those prescribed or required for medical reasons: No Advance Directives: No Advance Directives Information Provided: No service: No Current occupational status: retired Sexual orientation: Straight/Heterosexual Physical Exam Vital Signs: Vital Signs: Last Vital Signs Temp 98.4 F 04/17/22 16:54 Pulse 89 04/17/22 16:54 Resp 16 04/17/22 16:54 BP 141/72 H 04/17/22 16:54 Pulse Ox 95 04/17/22 16:54 O2 Del Method 04/17/22 16:54 BMI result Body Mass Index 19.8 VSS Appearance: Alert.? Oriented X3.? No acute distress.? Head: Normocephalic, atraumatic, no step-offs or deformities Eyes: Pupils equal, round and reactive to light.? ENT: Pharynx normal.? Neck: Normal inspection.? Neck supple.? CVS: Normal heart rate and rhythm.? Pulses normal.? Respiratory: No respiratory distress.? Breath sounds normal.? Abdomen: Soft and nontender.? Skin: Skin warm and dry.? Normal skin color.? Normal skin turgor.?Inudration, swelling and redness to the right forearm (image in chart), normal pulses, isolated to this area rest of RUE not affected. 2+ radial pulses equal and b/l. Sensory and motor intact. Extremities: No lower extremity edema.? No calf ttp. 5/5 strength to bilateral upper and lower extremities Neuro: Oriented X 3.? No motor deficit.? No sensory deficit. CN 2-12 intact Course Reevaluation(s) Reevaluation #1: A bedside ultrasound was done, no signs of DVT, it appears as though there is an indurated area, no abscess formation. Advised patient to apply warm compresses to the area. Will discharge her home with doxycycline and Keflex for cellulitis of the right upper extremity. Worrisome signs and symptoms outlined on patient's discharge, she verbalizes understanding. Time: 17:14 MDM - Skin/Abscess/Foreign Bdy MDM Narrative Medical decision making narrative: 153 72 year old female presents with induration, swelling and redness to the right forearm X2 days. Coming from SNF. DC from hospital here on 04/15/2022 and the affected area is where the patient had an IV. PE significant for inudration, swelling and redness to the right forearm (image in chart), normal pulses, isolated to this area rest of RUE not affected. Plan- bedside US. Robin thrombophlebitis unlikely DVT of the upper extremity. Medical Records Attestation: I reviewed the patient's medical records. Lab Data Attestation: I reviewed the patient's lab results. Critical Care Time Critical Care Time Critical Care Time: No Discharge Plan Discharge Clinical Impression: Cellulitis, Thrombophlebitis Patient Disposition: Home, Self-Care Instructions: Cellulitis (ED), Warm Compress or Soak (ED) Additional Instructions: Take your medications as prescribed. If you were prescribed antibiotics today, it is important that you take your medication to their entirety, do not skip any doses, do not finish them early. Follow-up with your primary care provider this week. Return to the emergency department with new or worsening symptoms. Such as fevers, chills, chest pain, shortness of breath, nausea, vomiting, dizziness, headache, vision changes, lethargy In case of emergency call 911 Apply warm compresses to the area throughout the day. Antibiotics have been ordered for cellulitis overlying the affected area. Prescriptions: New doxycycline hyclate 100 mg capsule 100 mg PO BID 10 Days Qty: 20 0RF cephalexin 500 mg capsule 500 mg PO Q6H 10 Days Qty: 40 0RF No Action ergocalciferol (vitamin D2) 50,000 unit Tablet 50,000 unit PO Rx Instructions: taken on ferrous sulfate 325 mg (65 mg iron) Tablet 325 mg PO BID carvedilol 12.5 mg tablet 1 tab PO BID Hold Instructions: Monitor blood pressure for the next 3 days before restarting it. tacrolimus 1 mg capsule 2 cap PO DAILY@1700 Label Comments: 3mg in AM, 2mg in PM oxycodone 5 mg Tablet 5 mg PO Q6H PRN (Reason: Pain, Moderate (Pain Scale 4-6) Qty: 20 0RF Rx Instructions: Partial Fill upon patient request. calcium carbonate [Oyster Shell Calcium 500] 500 mg calcium (1,250 mg) Tablet 500 mg PO DAILY 30 Days Qty: 30 0RF sodium bicarbonate 650 mg Tablet 1,300 mg PO BID 30 Days Qty: 120 0RF cefuroxime axetil 250 mg tablet 250 mg PO BID Qty: 5 0RF tacrolimus 1 mg capsule 2 mg PO DAILY@0730 Qty: 60 0RF lorazepam 1 mg tablet 1 tab PO BEDTIME Prolia 60 mg/mL syringe 60 mg subcut Q6M risperidone 2 mg Tablet 2 mg PO BID Qty: 60 2RF levothyroxine 50 mcg Tablet 50 mcg PO DAILY@0600 Qty: 30 1RF prednisone 5 mg tablet 1 tab PO DAILY Qty: 30 1RF Referrals: Alexandru Laguna MD [Primary Care Provider] - 2 days Stand Alone Forms: Work/School Release
--- NOTE | 2022-04-17 17:29 | PC.NURSE ---
This [place] called [facility] at 1730 to book an transfer back to [facility] stated they are going to try to pass it if not they will come when next is available.unknown when that will be. RN and charge nurse aware.
--- NOTE | 2022-04-17 18:23 | PC.NURSE ---
patient a&ox3, awaiting ride back to nursing facility
== END 2022-04-17 19:21 | disposition home or self-care (01) ==
PROVIDERS: Emergency Provider Emergency Medicine; PCP Hospitalist
DX: L03.113 Cellulitis of right upper limb (principal); I80.8 Phlebitis and thrombophlebitis of other sites; Z87.891 Personal history of nicotine dependence
CPT/HCPCS: 99283

== ENCOUNTER 2022-05-13 11:12 | Emergency (ER) | payer MEDICARE, SELFPAY ==
[2022-05-13 11:31] VITALS: BP 100/64; BP 146/76; PULSE 71; PULSE 74; RESP 18; TEMP 36.6; O2SAT 97; BMI 20.7
--- NOTE | 2022-05-13 11:46 | ED.GENADULT ---
HPI - General Adult General Chief complaint: General Medical Stated complaint: Failure to thrive Time Seen by Provider: 05/13/22 14:00 Source: patient Mode of arrival: ambulatory Limitations: no limitations History of Present Illness HPI narrative: 72 yold female presents with pmh HTN, thryoid problem, anxiety, presents to the ED for re-placement into short term rehab. Patient states she was recently discharged from rehab center 2 days ago and came home found it diffuclt to walk and get around her home due to pain. Patient last walked this morning. Patient denies any coughing, chest pain, abdominal pain, nausea, vomitting, slurred speech, fever, paralysis of extremities, facial droop, or dizziness. patient was visited by [facility] today who recommends patient be sent to the hospital for placement. Related Data Home Medications Medication Instructions Recorded Confirmed denosumab 60 mg/mL subcutaneous 60 mg subcut Q6M 10/25/21 04/09/22 syringe (Prolia) lorazepam 1 mg tablet 1 tab PO BEDTIME 10/25/21 04/09/22 carvedilol 12.5 mg tablet 1 tab PO BID 03/04/22 04/09/22 ergocalciferol (vitamin D2) 50,000 50,000 unit PO TH 03/04/22 04/09/22 unit tablet ferrous sulfate 325 mg (65 mg 325 mg PO BID 03/04/22 04/09/22 iron) tablet tacrolimus 1 mg capsule, 2 cap PO DAILY@1700 04/09/22 04/09/22 immediate-release Previous Rx's Medication Instructions Recorded levothyroxine 50 mcg tablet 50 mcg PO DAILY@0600 #30 tabs 12/05/21 prednisone 5 mg tablet 1 tab PO DAILY #30 tabs 12/05/21 risperidone 2 mg tablet 2 mg PO BID #60 tabs 12/05/21 oxycodone 5 mg tablet 5 mg PO Q6H PRN Pain, Moderate 04/14/22 (Pain Scale 4-6 #20 tabs calcium carbonate 500 mg calcium 500 mg PO DAILY 30 days #30 tabs 04/16/22 (1,250 mg) tablet (Oyster Shell Calcium 500) cefuroxime axetil 250 mg tablet 250 mg PO BID #5 tabs 04/16/22 sodium bicarbonate 650 mg tablet 1,300 mg PO BID 30 days #120 tabs 04/16/22 tacrolimus 1 mg capsule, 2 mg PO DAILY@0730 #60 caps 04/16/22 immediate-release cephalexin 500 mg capsule 500 mg PO Q6H 10 days #40 caps 04/17/22 doxycycline hyclate 100 mg capsule 100 mg PO BID 10 days #20 caps 04/17/22 Allergies Allergy/AdvReac Type Severity Reaction Status Date / Time gabapentin [From Neurontin] Allergy Unknown UNKNOWN Verified 04/17/22 16:54 Sulfa (Sulfonamide Allergy Unknown UNKNOWN Verified 04/17/22 16:54 Antibiotics) [SULFA (SULFONAMIDE ANTIBIOTICS)] trimethoprim [TRIMETHOPRIM] Allergy Unknown UNKNOWN Verified 04/17/22 16:54 lithium [LITHIUM] AdvReac Severe KIDNEY Verified 04/17/22 16:54 TRANSPLANT DUE TO LITHIUM TOXICITY Review of Systems Review of Systems: Failure to thrive Yes all other systems are reviewed and are negative [facility] Past Medical History Medical History (Updated 05/13/22 @ 18:35 by NARGIS Bautista) Chronic anemia Chronic renal disease CKD (chronic kidney disease) stage 3, GFR 30-59 ml/min Closed pelvic fracture HTN (hypertension) Hypocalcemia Hyponatremia Schizoaffective disorder, bipolar type Surgical History (Updated 04/24/22 @ 00:03 by Sunil Hopson) Living-donor kidney transplant recipient Social History Social History Household Members: None Housing: Condominium Do you presently have visiting nurse or other home services: No Alcohol intake: never Patient Tobacco Use Status: Former Tobacco user Tobacco use type: Cigarette Second Hand Smoke Exposure: No Advance Directives: Yes Advance Directives Information Provided: Yes Advance Directives on File: No service: No Current occupational status: retired Sexual orientation: Straight/Heterosexual Physical Exam ED Vital Signs: Vital Signs - 24 hr 05/13/22 11:31 05/13/22 15:34 Temperature 97.9 F Pulse Rate 71 71 Respiratory Rate 18 Blood Pressure 100/64 100/64 Pulse Oximetry 97 97 Oxygen Delivery Method Room Air BMI result Body Mass Index 20.7 Const General: cooperative, healthy appearing, comfortable, no acute distress, well developed, alert, awake and Physically active Orientation/consciousness: oriented to person, oriented to place, oriented to time and patient oriented x3 HENMT Head: Yes normal to inspection, Yes No palpable skull fracture present, Yes normocephalic, Yes atraumatic and No abrasion Eyes General: appearance normal, both eyes and all related structures Neck Neck: Yes normal visual inspection, Yes full ROM, Yes no lymphadenopathy, Yes no meningeal signs, Yes trachea midline, Yes supple, No anterior neck swelling and No tender Chest Chest palpation & inspection: normal inspection of the chest and normal palpation of entire chest wall Resp Effort & Inspection: normal respiratory effort and able to speak in complete sentences Auscultation: clear to auscultation bilaterally Cardio Jugular venous distension: no JVD Heart sounds: S1 normal heart sound present and S2 normal heart sound present GI Inspection: Yes normal to inspection and No abdominal wall ecchymosis Palpation (GI): Soft to palpation, not firm, nontender, no guarding and not rigid General: No CVA tenderness and Yes no CVA tenderness Back/Spine/Pelvis Back: no CVA tenderness, No CVA tenderness and No back tenderness Skin General skin exam: no rashes or lesions noted and elasticity normal Neuro General: oriented to person, oriented to place, oriented to time, patient oriented x3, tone normal, moves all extremities, Normal light touch and pain sensation, no meningeal signs, no focal motor deficits and CN's II-XI intact bilaterally Extrem Other: LOWER EXTREMITIES ABLE TO MOVE BUT WITH PAIN. NO DEFORMITIES. LOWER EXTREMITIES MOTOR/NOSE/BACK EXAM INTACT. UPPER EXTREMITIES NORMAL General: Yes normal to inspection and Yes full ROM Psych Appearance: grossly normal, well kempt and not disheveled Course Course Course Narrative: PATIENT WILL HAVE LABS. INTERLOCKER EDENILSON MADE AWARE OF CASE. Reevaluation(s) Reevaluation #1: Labs at baseline. Pending 2nd EKG and UA. Physical therapy recommends short-term rehab. EKG negative STEMI. Patient comfortably in bed. Patient alert oriented x3. Negative for any neuro deficits. No need for any repeat imaging. Patient denies any new trauma. No indication for head CT scan. Sign out to NARGIS araya Time: 18:35 Medical Decision Making [facility] Narrative Medical decision making narrative: Normal sinus rhythm. Ventricular rate 70. PA interval 150. QRS 72. QTC 432- STEMI. Lab Data Result diagrams: 05/13/22 12:26 05/13/22 12:58 Labs: Lab Results 05/13/22 05/13/22 05/13/22 Range/Units 12:26 12:26 12:58 WBC 5.4 (4.8-10.8) X10*3/uL RBC 2.99 L (4.20-5.50) X10*6/uL Hgb 8.8 L (12.0-16.0) g/dl Hct 27.7 L (37.0-47.0) % MCV 92.6 (80.0-98.0) fL MCH 29.4 (27.0-33.0) pg MCHC 31.8 (31.0-35.0) g/dl RDW 15.4 (11.0-16.0) % Plt Count 120 L (160-400) X10*3/uL MPV 9.9 (9.4-12.3) fL Immature Gran % (Auto) 0.4 (0.0-0.4) % Neut % (Auto) 83.9 H (45-73) % Lymph % (Auto) 7.1 L (20-40) % Appling % (Auto) 5.0 (2-11) % Eos % (Auto) 3.0 (0-4) % Baso % (Auto) 0.6 (0-2) % Lymph # (Auto) 0.4 L (1.2-4.9) X10*3/uL [place] # (Auto) 0.3 (0.1-1.2) X10*3/uL Eos # (Auto) 0.2 (0.0-0.4) X10*3/uL Baso # (Auto) 0.0 (0.0-0.2) X10*3/uL Abs Immat Gran (auto) 0.02 (0.00-0.03) X10*3/uL Absolute Neuts (auto) 4.5 (2.0-8.3) x10*3/uL Absolute Nucleated RBC 0.000 (0.0-0.012) X10*3/uL Nucleated RBC % (auto) 0.0 (0.0-0.2) /100WBC PT (10.0-13.1) SEC INR (0.9-1.1) APTT (26.0-36.4) SEC Sodium 142 (135-145) mmol/L Potassium 4.8 (3.3-5.1) mmol/L Chloride 111 H (96-108) mmol/L Carbon Dioxide 20 L (22-29) mmol/L Anion Gap 16 (12-20) BUN 35 H (9-16) mg/dL Creatinine 2.43 H (0.5-1.4) mg/dL Estim Creat Clear Calc 18.4 Estimated GFR 20 Random Glucose 150 H (60-115) mg/dL Calcium 7.8 L D (8.4-10.2) mg/dL Magnesium 1.8 (1.6-2.6) mg/dL Total Bilirubin 0.4 (0.0-1.0) mg/dL AST 14 (5-31) U/L ALT 17 (0-31) U/L Alkaline Phosphatase 71 (39-117) U/L Total Creatine Kinase 46 (26-140) U/L Troponin I High Sens (<3.5-17.0) ng/L Total Protein 5.6 L (6.5-8.0) g/dL Albumin 3.3 L D (3.5-5.0) g/dL Urine Color Urine Appearance Urine pH (5.0-8.0) Ur Specific [place] (1.005-1.025) Urine Protein (NEG-TRACE) MG/DL Urine Glucose (UA) (NEG) MG/DL Urine Ketones (NEG) MG/DL Urine Blood (NEG) Urine Nitrite (NEG) Ur Leukocyte Esterase (NEG) Urine RBC (0) /HPF Urine WBC (0-4) /HPF Ur Squamous Epith Cells /LPF Urine Bacteria /LPF COVID-19 (SALOMÓN) Negative (Negative) COVID-19 Clin Com See Note 05/13/22 05/13/22 05/13/22 Range/Units 12:58 12:58 16:19 WBC (4.8-10.8) X10*3/uL RBC (4.20-5.50) X10*6/uL Hgb (12.0-16.0) g/dl Hct (37.0-47.0) % MCV (80.0-98.0) fL MCH (27.0-33.0) pg MCHC (31.0-35.0) g/dl RDW (11.0-16.0) % Plt Count (160-400) X10*3/uL MPV (9.4-12.3) fL Immature Gran % (Auto) (0.0-0.4) % Neut % (Auto) (45-73) % Lymph % (Auto) (20-40) % Appling % (Auto) (2-11) % Eos % (Auto) (0-4) % Baso % (Auto) (0-2) % Lymph # (Auto) (1.2-4.9) X10*3/uL [place] # (Auto) (0.1-1.2) X10*3/uL Eos # (Auto) (0.0-0.4) X10*3/uL Baso # (Auto) (0.0-0.2) X10*3/uL Abs Immat Gran (auto) (0.00-0.03) X10*3/uL Absolute Neuts (auto) (2.0-8.3) x10*3/uL Absolute Nucleated RBC (0.0-0.012) X10*3/uL Nucleated RBC % (auto) (0.0-0.2) /100WBC PT 10.5 (10.0-13.1) SEC INR 0.9 (0.9-1.1) APTT 33.4 (26.0-36.4) SEC Sodium (135-145) mmol/L Potassium (3.3-5.1) mmol/L Chloride (96-108) mmol/L Carbon Dioxide (22-29) mmol/L Anion Gap (12-20) BUN (9-16) mg/dL Creatinine (0.5-1.4) mg/dL Estim Creat Clear Calc Estimated GFR Random Glucose (60-115) mg/dL Calcium (8.4-10.2) mg/dL Magnesium (1.6-2.6) mg/dL Total Bilirubin (0.0-1.0) mg/dL AST (5-31) U/L ALT (0-31) U/L Alkaline Phosphatase (39-117) U/L Total Creatine Kinase (26-140) U/L Troponin I High Sens 10.0 (<3.5-17.0) ng/L Total Protein (6.5-8.0) g/dL Albumin (3.5-5.0) g/dL Urine Color YELLOW Urine Appearance CLEAR Urine pH 7.0 (5.0-8.0) Ur Specific [place] 1.020 (1.005-1.025) Urine Protein 3+ H (NEG-TRACE) MG/DL Urine Glucose (UA) 100 H (NEG) MG/DL Urine Ketones NEG (NEG) MG/DL Urine Blood 1+ H (NEG) Urine Nitrite NEG (NEG) Ur Leukocyte Esterase NEG (NEG) Urine RBC 5-9 H (0) /HPF Urine WBC 0-2 (0-4) /HPF Ur Squamous Epith Cells 1+ /LPF Urine Bacteria NONE /LPF COVID-19 (SALOMÓN) (Negative) COVID-19 Clin Com Discharge Plan Discharge Clinical Impression: Adult failure to thrive Patient Disposition: Still a Patient Instructions: Failure to Thrive in Older Adults (ED) Prescriptions: No Action ergocalciferol (vitamin D2) 50,000 unit Tablet 50,000 unit PO Rx Instructions: taken on ferrous sulfate 325 mg (65 mg iron) Tablet 325 mg PO BID carvedilol 12.5 mg tablet 1 tab PO BID Hold Instructions: Monitor blood pressure for the next 3 days before restarting it. tacrolimus 1 mg capsule 2 cap PO DAILY@1700 Label Comments: 3mg in AM, 2mg in PM oxycodone 5 mg Tablet 5 mg PO Q6H PRN (Reason: Pain, Moderate (Pain Scale 4-6) Qty: 20 0RF Rx Instructions: Partial Fill upon patient request. calcium carbonate [Oyster Shell Calcium 500] 500 mg calcium (1,250 mg) Tablet 500 mg PO DAILY 30 Days Qty: 30 0RF sodium bicarbonate 650 mg Tablet 1,300 mg PO BID 30 Days Qty: 120 0RF cefuroxime axetil 250 mg tablet 250 mg PO BID Qty: 5 0RF tacrolimus 1 mg capsule 2 mg PO DAILY@0730 Qty: 60 0RF doxycycline hyclate 100 mg capsule 100 mg PO BID 10 Days Qty: 20 0RF cephalexin 500 mg capsule 500 mg PO Q6H 10 Days Qty: 40 0RF lorazepam 1 mg tablet 1 tab PO BEDTIME Prolia 60 mg/mL syringe 60 mg subcut Q6M risperidone 2 mg Tablet 2 mg PO BID Qty: 60 2RF levothyroxine 50 mcg Tablet 50 mcg PO DAILY@0600 Qty: 30 1RF prednisone 5 mg tablet 1 tab PO DAILY Qty: 30 1RF
--- NOTE | 2022-05-13 11:47 | ECG_ITS ---
Test Reason : weakness Blood Pressure : / mmHG Vent. Rate : 070 BPM Atrial Rate : 070 BPM P-R Int : 150 ms QRS Dur : 072 ms QT Int : 400 ms P-R-T Axes : 040 -47 048 degrees QTc Int : 432 ms Normal sinus rhythm Left axis deviation Borderline ECG When compared with ECG of 09-APR-2022 15:45, No significant change was found Referred By: Buck Martinez Electronically Signed By:ROWAN NORWOOD
[2022-05-13 12:31] LABS: MANUAL DIFF FLAG NO
[2022-05-13 12:33] LABS: Basophils Percent Auto 0.6 % (0-2); Eosinophils Absolute Auto 0.2 X10*3/uL (0.0-0.4); Hematocrit 27.7 % (37.0-47.0); Hemoglobin 8.8 g/dl (12.0-16.0); Imm Gran Abs Auto 0.02 X10*3/uL (0.00-0.03); Imm Gran Pct Auto 0.4 % (0.0-0.4); Lymphocytes Absolute Auto 0.4 X10*3/uL (1.2-4.9); Lymphocytes Percent Auto 7.1 % (20-40); Mean Corpuscular HGB Conc 31.8 g/dl (31.0-35.0); Mean Corpuscular Hemoglobin 29.4 pg (27.0-33.0); Mean Corpuscular Volume 92.6 fL (80.0-98.0); Mean Platelet Volume 9.9 fL (9.4-12.3); Monocytes Absolute Auto 0.3 X10*3/uL (0.1-1.2); Neutrophils Absolute Auto 4.5 x10*3/uL (2.0-8.3); Neutrophils Percent Auto 83.9 % (45-73); Platelet Count 120 X10*3/uL (160-400); Red Blood Count 2.99 X10*6/uL (4.20-5.50); Red Cell Distribution Width 15.4 % (11.0-16.0); White Blood Count 5.4 X10*3/uL (4.8-10.8)
[2022-05-13] MEDS: 0.9 % Sodium Chloride 1,000 ML 999 ML IV (13:00)
[2022-05-13 13:09] LABS: INTERNATIONAL NORM RATIO 0.9 (0.9-1.1); Prothrombin Time 10.5 SEC (10.0-13.1)
[2022-05-13 13:10] LABS: COVID-19 Test Negative (Negative); IDNOW Serial# 9DD0AD1C
[2022-05-13 13:11] LABS: Partial Thromboplastin Time 33.4 SEC (26.0-36.4)
[2022-05-13 13:21] LABS: Alanine Aminotransferase 17 U/L (0-31); Albumin Level 3.3 g/dL (3.5-5.0); Alkaline Phosphatase 71 U/L (39-117); Anion Gap 16 (12-20); Aspartate Amino Transferase 14 U/L (5-31); Bilirubin Total 0.4 mg/dL (0.0-1.0); Blood Urea Nitrogen 35 mg/dL (9-16); Calcium 7.8 mg/dL (8.4-10.2); Carbon Dioxide 20 mmol/L (22-29); Chloride 111 mmol/L (96-108); Creatinine Clr Calc Pharmacy 18.4; Estimated Glomerular Filt Rate 20; Glucose Random 150 mg/dL (60-115); Magnesium 1.8 mg/dL (1.6-2.6); Potassium 4.8 mmol/L (3.3-5.1); Sodium 142 mmol/L (135-145); Total Protein 5.6 g/dL (6.5-8.0)
[2022-05-13 15:34] VITALS: BP 100/64; PULSE 71; O2SAT 97
[2022-05-13 16:28] LABS: Appearance Urine CLEAR; Color Urine YELLOW; Glucose Urine UA 100 MG/DL (NEG); Leukocyte Esterase Urine NEG (NEG); Nitrite Urine NEG (NEG); UACC Culture Trigger NO; Urine Blood 1+ (NEG); Urine Ketones NEG (NEG); Urine Protein 3+ MG/DL (NEG-TRACE)
[2022-05-13 16:39] LABS: Squamous Epithelial Cell Urine 1+ /LPF; WBC Urine 0-2 /HPF (0-4)
--- NOTE | 2022-05-13 18:48 | MHC.CM.ED ---
CM met with patient discharged from [facility] 2 days ago for hip fx and cannot manage at home. Feels she needs more rehab. Pt was hospitalized at [facility] from 04/09-04/16. PT is recommending STR to increase strength, balance work and pain management. HCP on file. HCP/sister Adriana Cruz ([phone]) and HCP#2 Emeka Cruz ( brother in law, some number). Vax x 3 /Pfizer and x1 Moderna. Lives alone. Has cane/walker, 2 hearing aides. VNA services were just set up by [facility] and nurse came today and suggested she return to [facility] for STR. Pt cannot remember name of service. Pt was very independent prior to the hip fx, had no services and drove. Pt is a recipient of a living donor kidney transplant. Referrals placed locally, with [facility] as first choice. CM to follow for d/c needs.
--- NOTE | 2022-05-13 19:29 | PC.NURSE ---
Pt requested to have pillow placed under left side to prevent pressure wounds. Skin is intact, pink, warm and dry. This RN will reposition pillow in two hours.
[2022-05-13 21:06] LABS: Troponin-I High Sensitivity 9.2 ng/L (<3.5-17.0)
--- NOTE | 2022-05-13 21:20 | PC.NURSE ---
Med rec completed with pt's list from home.
[2022-05-14 00:18] VITALS: BP 153/66; PULSE 71; RESP 18; TEMP 36.8; O2SAT 97
[2022-05-14] MEDS: Levothyroxine Sodium 50 MCG TABLET PO (07:45)
[2022-05-14 09:07] VITALS: BP 167/67; PULSE 73; RESP 18; TEMP 36.7; O2SAT 99
[2022-05-14] MEDS: predniSONE 5 MG TABLET PO (09:08)
[2022-05-14] MEDS: carvediloL 12.5 MG TABLET PO (09:08)
[2022-05-14] MEDS: risperiDONE 2 MG TABLET PO (09:08)
[2022-05-14] MEDS: amLODIPine Besylate 2.5 MG TABLET PO (09:08)
[2022-05-14] MEDS: Sodium Bicarbonate 650 MG TABLET 1300 MG PO (09:08)
[2022-05-14] MEDS: Ferrous Sulfate 324 MG TABLET.DR PO (09:08)
[2022-05-14] MEDS: Acetaminophen 325 MG TABLET 650 MG PO (09:09)
[2022-05-14] MEDS: oxyCODONE HCl Immed Release 5 MG TABLET PO (09:12)
--- NOTE | 2022-05-14 12:51 | PC.NURSE ---
report given to mary ann frye at [facility]
== END 2022-05-14 13:31 | disposition still patient (30) ==
PROVIDERS: Physician Assistant; Emergency Provider Student in an Organized Health Care Education/Training Program; PCP Hospitalist
DX: R62.7 Adult failure to thrive (principal); Z68.20 Body mass index [BMI] 20.0-20.9, adult; Z20.822 Contact with and (suspected) exposure to COVID-19; I12.9 Hypertensive chronic kidney disease with stage 1 through stage 4 chronic kidney disease, or unspecified chronic kidney disease; N18.30 Chronic kidney disease, stage 3 unspecified; Z87.891 Personal history of nicotine dependence
CPT/HCPCS: 36415; 80053; 81001; 82550; 83735; 84484; 85025; 85610; 85730; 87635; 93005; 96360; 96361; 97161; 97162; 99284; 99285

== ENCOUNTER 2022-06-03 17:30 | Emergency (ER) | payer MEDICARE, SELFPAY ==
--- NOTE | ~2022-06-03 | CT_ITS ---
EXAMINATION: CT HEAD WITHOUT CONTRAST CLINICAL INFORMATION: Pain status post fall COMPARISON: 04/09/2022 TECHNIQUE: Contiguous axial imaging was performed from the skull base to vertex without intravenous administration of contrast. This CT examination was performed using dose optimization techniques as appropriate, variously including the following: *Automated exposure control *Adjustment of mA and/or kV according to patient size (this includes techniques or standardized protocols for targeted exams where dose is matched to indication/reason for exam; i.e. extremities or head) *Use of iterative reconstruction technique DLP: 653 mGy-cm FINDINGS: No fracture. Minor chronic changes of sinus disease right maxillary sinus. No hemorrhage or acute infarct or minor chronic white matter changes. Brainstem and cerebellum normal. No extra-axial collections. CT/CT head/brain wo IV con IMPRESSION: No acute intracranial pathology.
[2022-06-03 17:49] VITALS: BP 170/94; PULSE 85; RESP 18; TEMP 37.2; O2SAT 98
--- NOTE | 2022-06-03 17:56 | ED_ITS ---
HPI - General Adult General Chief complaint: Fall Stated complaint: fall Time Seen by Provider: 06/03/22 17:37 History of Present Illness HPI narrative: Patient is a 72-year-old female with chronic kidney disease status post renal transplant in 2008, schizoaffective disorder, hypertension, and closed pelvic fracture on 04/09/22 presenting via EMS after falling at home. Patient was discharged from rehab facility today and fell upon arriving home. Fall was witnessed by a neighbor who was helping patient into home. Patient reports she was standing at her table, when she became startled by the phone ringing and lost her balance. Patient then fell striking the right side of her forehead on the table and then falling to the ground. Patient states she was able to stand and make her way to the couch with the assistance of her friend. Patient reports no loss of consciousness, no nausea vomiting, no incontinence of bowel bladder. Denies any dizziness or lightheadedness before falling. Denies vision changes, headache, numbness or tingling in extremities, confusion. Patient also reports waking up with red left eye this morning, denies visual disturbance. Patient initially did not want to call EMS however realized she did not feel comfortable staying home, and called 911. Patient is very concerned about being in the hospital again and the possibility of having to go to rehab again, stating that she is not sure insurance is going to cover it. Patient is also concerned about medication management, stating that the rehab facility did not tell her what time to take her medication. Denies recent fevers, nausea, vomiting, chest pain, shortness of breath, cough, abdominal pain, diarrhea. Onset (ago): hour(s) Location: head Severity: moderate Pain Consistency: constant Related Data Home Medications Medication Instructions Recorded Confirmed denosumab 60 mg/mL subcutaneous 60 mg subcut Q6M 10/25/21 04/09/22 syringe (Prolia) lorazepam 1 mg tablet 1 mg PO BEDTIME 10/25/21 06/04/22 carvedilol 12.5 mg tablet 1 tab PO BID 03/04/22 06/04/22 tacrolimus 1 mg capsule, 2 cap PO DAILY@1700 04/09/22 06/04/22 immediate-release acetaminophen 325 mg tablet 650 mg PO BID 05/13/22 06/04/22 (Tylenol) ergocalciferol (vitamin D2) 1,250 1,250 mcg PO TH@0900 06/04/22 06/04/22 mcg (50,000 unit) capsule (Vitamin D2) tacrolimus 1 mg capsule, 3 mg PO DAILY@0730 06/04/22 06/04/22 immediate-release Previous Rx's Medication Instructions Recorded levothyroxine 50 mcg tablet 50 mcg PO DAILY@0600 #30 tabs 12/05/21 prednisone 5 mg tablet 1 tab PO DAILY #30 tabs 12/05/21 risperidone 2 mg tablet 2 mg PO BID #60 tabs 12/05/21 oxycodone 5 mg tablet 5 mg PO Q6H PRN severe pain (scale 05/14/22 score 7-10) #10 tabs Allergies Allergy/AdvReac Type Severity Reaction Status Date / Time gabapentin [From Neurontin] Allergy Unknown UNKNOWN Verified 04/17/22 16:54 Sulfa (Sulfonamide Allergy Unknown UNKNOWN Verified 04/17/22 16:54 Antibiotics) [SULFA (SULFONAMIDE ANTIBIOTICS)] trimethoprim [TRIMETHOPRIM] Allergy Unknown UNKNOWN Verified 04/17/22 16:54 lithium [LITHIUM] AdvReac Severe KIDNEY Verified 04/17/22 16:54 TRANSPLANT DUE TO LITHIUM TOXICITY Review of Systems Review of Systems: Constitutional: No Fever, No Chills ENT/Mouth: No sore throat, No Rhinorrhea, No Swallowing Difficulty Eyes: Red nd swollen left eye since waking this morning Cardiovascular: No Chest Pain, No SOB, No Orthopnea, No Edema Respiratory: No Cough, No Sputum, No Wheezing, No dyspnea Gastrointestinal: No Nausea, No Vomiting, No Diarrhea, No abdominal Pain, No Hematochezia, No Melena Genitourinary: No Dysuria, No Urinary Frequency, No Hematuria Musculoskeletal: No joint pain, No Myalgias Skin: No Skin Lesions, No rash Neuro: No Weakness, No Numbness, No Dizziness, No Headache Psych: reports schizoaffective diagnosis. reports anxiety about current health management, No Depression Heme/Lymph: No Bruising, No Lymphadenopathy Endocrine: No Polyuria, No Polydipsia PMFSH Past Medical History Medical History (Updated 06/03/22 @ 21:05 by NARGIS Morales) Chronic anemia Chronic renal disease CKD (chronic kidney disease) stage 3, GFR 30-59 ml/min Closed pelvic fracture HTN (hypertension) Hypocalcemia Hyponatremia Schizoaffective disorder, bipolar type Surgical History Living-donor kidney transplant recipient Social History Social History Household Members: None Housing: Condominium Do you presently have visiting nurse or other home services: No Alcohol intake: never Patient Tobacco Use Status: Former Tobacco user Tobacco use type: Cigarette Second Hand Smoke Exposure: No Use of substances other than those prescribed or required for medical reasons: No Advance Directives: No Advance Directives Information Provided: No service: No Current occupational status: retired Sexual orientation: Straight/Heterosexual Physical Exam ED Vital Signs: Vital Signs - 24 hr 06/04/22 15:19 06/04/22 23:52 06/05/22 05:56 Temperature 98.2 F Pulse Rate 89 77 86 Respiratory Rate 18 14 22 H Blood Pressure 169/79 H 160/73 H 191/84 H Pulse Oximetry 97 99 Oxygen Delivery Method Room Air Room Air BMI result Body Mass Index 21.3 Const Other: Appearance: Alert. Oriented X3. No acute distress. Eyes: + redness and swelling to left eyelid, +mucoid discharge, Pupils equal, round and reactive to light and accommodation Head: atraumatic, no ecchymosis, no abrasions or lacerations, ENT: Pharynx normal. Neck: Normal inspection. Neck supple. CVS: Normal heart rate and rhythm. Pulses normal. Respiratory: No respiratory distress. Breath sounds normal. Abdomen: Soft and nontender. +BS x4 Skin: Skin warm and dry. Normal skin color. Normal skin turgor. No rashes. Extremities: No lower extremity edema. Neuro: Oriented X 3. No motor deficit. No sensory deficit. Course Course Course Narrative: Patient is a 72-year-old female with chronic kidney disease status post renal transplant in 2008, schizoaffective disorder, hypertension, and closed pelvic fracture on 04/09/22 presenting via EMS after falling at home. Patient was discharged from acute rehabilitation this morning. On arrival patient VSS, in no acute distress, alert and oriented x3. Head atraumatic, no abrasions or lacerations, is pupils equal round and reactive to light and accommodation. CT head and brain without contrast ordered to rule out any intercranial pathology. Concern for concussion verses contusion. Low suspicion for epidural hematoma, subdural hematoma, intracranial hemorrhage. Labs remarkable for H/H of 7.7/ 24.2 Chemistry remarkable for BUN/Cr 39/2.94, Ca 7.8, CO 19 UA remarkable for 4+ urine protein, urine glucose of 100 CT head/brain wo IV con IMPRESSION: No acute intracranial pathology Plan: physician observation status ordered at 20:30 , physical therapy evaluation tomorrow. No cranial pathology found on CT Renal function at baseline due to CKD, anemia suspected secondary to CKD, no suspicion for occult bleed, stool heme negative. Urine protein also patients baseline due to CKD. [facility] ordered Medical Decision Making Lab Data Result diagrams: 06/03/22 18:25 06/03/22 18:25 Labs: Lab Results 06/03/22 06/03/22 06/03/22 Range/Units 18:25 18:25 18:25 WBC 5.2 (4.8-10.8) X10*3/uL RBC 2.61 L (4.20-5.50) X10*6/uL Hgb 7.7 L (12.0-16.0) g/dl Hct 24.2 L (37.0-47.0) % MCV 92.7 (80.0-98.0) fL MCH 29.5 (27.0-33.0) pg MCHC 31.8 (31.0-35.0) g/dl RDW 16.4 H (11.0-16.0) % Plt Count 127 L (160-400) X10*3/uL MPV 9.7 (9.4-12.3) fL Immature Gran % (Auto) 0.4 (0.0-0.4) % Neut % (Auto) 77.7 H (45-73) % Lymph % (Auto) 9.3 L (20-40) % [place] % (Auto) 11.0 (2-11) % Eos % (Auto) 1.2 (0-4) % Baso % (Auto) 0.4 (0-2) % Lymph # (Auto) 0.5 L (1.2-4.9) X10*3/uL [place] # (Auto) 0.6 (0.1-1.2) X10*3/uL Eos # (Auto) 0.1 (0.0-0.4) X10*3/uL Baso # (Auto) 0.0 (0.0-0.2) X10*3/uL Abs Immat Gran (auto) 0.02 (0.00-0.03) X10*3/uL Absolute Neuts (auto) 4.0 (2.0-8.3) x10*3/uL Absolute Nucleated RBC 0.000 (0.0-0.012) X10*3/uL Nucleated RBC % (auto) 0.0 (0.0-0.2) /100WBC PT 10.6 (10.0-13.1) SEC INR 0.9 (0.9-1.1) APTT 33.5 (26.0-36.4) SEC Sodium 139 (135-145) mmol/L Potassium 4.9 (3.3-5.1) mmol/L Chloride 109 H (96-108) mmol/L Carbon Dioxide 19 L (22-29) mmol/L Anion Gap 16 (12-20) BUN 39 H (9-16) mg/dL Creatinine 2.94 H (0.5-1.4) mg/dL Estim Creat Clear Calc 15.3 Estimated GFR 16 Random Glucose 139 H (60-115) mg/dL Calcium 7.8 L (8.4-10.2) mg/dL Magnesium 1.5 L (1.6-2.6) mg/dL Iron 73 (30-160) mcg/dL TIBC 171 L (228-428) mcg/dL % Saturation 43 (15-50) % Unsat Iron Binding 98 ug/dL Total Bilirubin 0.3 (0.0-1.0) mg/dL Direct Bilirubin < 0.2 (0.0-0.5) mg/dL AST 12 (5-31) U/L ALT 17 (0-31) U/L Alkaline Phosphatase 83 (39-117) U/L Total Protein 5.0 L (6.5-8.0) g/dL Albumin 2.9 L (3.5-5.0) g/dL Urine Color Urine Appearance Urine pH (5.0-9.0) Ur Specific [place] (1.005-1.025) Urine Protein (Neg-Trace) mg/dL Urine Glucose (UA) (Negative) mg/dL Urine Ketones (Negative) mg/dL Urine Blood (Negative) Urine Nitrite (Negative) Ur Leukocyte Esterase (Negative) Urine RBC (0-2) /HPF Urine WBC (0-5) /HPF Ur Squamous Epith Cells (0-2) /HPF Urine Bacteria (None Seen) Hyaline Casts (0-2) /LPF COVID-19 (SALOMÓN) (Negative) COVID-19 Clin Com 06/03/22 06/03/22 Range/Units 18:25 18:25 WBC (4.8-10.8) X10*3/uL RBC (4.20-5.50) X10*6/uL Hgb (12.0-16.0) g/dl Hct (37.0-47.0) % MCV (80.0-98.0) fL MCH (27.0-33.0) pg MCHC (31.0-35.0) g/dl RDW (11.0-16.0) % Plt Count (160-400) X10*3/uL MPV (9.4-12.3) fL Immature Gran % (Auto) (0.0-0.4) % Neut % (Auto) (45-73) % Lymph % (Auto) (20-40) % [place] % (Auto) (2-11) % Eos % (Auto) (0-4) % Baso % (Auto) (0-2) % Lymph # (Auto) (1.2-4.9) X10*3/uL [place] # (Auto) (0.1-1.2) X10*3/uL Eos # (Auto) (0.0-0.4) X10*3/uL Baso # (Auto) (0.0-0.2) X10*3/uL Abs Immat Gran (auto) (0.00-0.03) X10*3/uL Absolute Neuts (auto) (2.0-8.3) x10*3/uL Absolute Nucleated RBC (0.0-0.012) X10*3/uL Nucleated RBC % (auto) (0.0-0.2) /100WBC PT (10.0-13.1) SEC INR (0.9-1.1) APTT (26.0-36.4) SEC Sodium (135-145) mmol/L Potassium (3.3-5.1) mmol/L Chloride (96-108) mmol/L Carbon Dioxide (22-29) mmol/L Anion Gap (12-20) BUN (9-16) mg/dL Creatinine (0.5-1.4) mg/dL Estim Creat Clear Calc Estimated GFR Random Glucose (60-115) mg/dL Calcium (8.4-10.2) mg/dL Magnesium (1.6-2.6) mg/dL Iron (30-160) mcg/dL TIBC (228-428) mcg/dL % Saturation (15-50) % Unsat Iron Binding ug/dL Total Bilirubin (0.0-1.0) mg/dL Direct Bilirubin (0.0-0.5) mg/dL AST (5-31) U/L ALT (0-31) U/L Alkaline Phosphatase (39-117) U/L Total Protein (6.5-8.0) g/dL Albumin (3.5-5.0) g/dL Urine Color Yellow Urine Appearance Clear Urine pH 6.5 (5.0-9.0) Ur Specific [place] 1.015 (1.005-1.025) Urine Protein >=1000 (4+) H (Neg-Trace) mg/dL Urine Glucose (UA) 100 H (Negative) mg/dL Urine Ketones Negative (Negative) mg/dL Urine Blood Negative (Negative) Urine Nitrite Negative (Negative) Ur Leukocyte Esterase Negative (Negative) Urine RBC 0-2 (0-2) /HPF Urine WBC 0-5 (0-5) /HPF Ur Squamous Epith Cells 0-2 (0-2) /HPF Urine Bacteria None Seen (None Seen) Hyaline Casts 0-2 (0-2) /LPF COVID-19 (SALOMÓN) Negative (Negative) COVID-19 Clin Com See Note Critical Care Time Critical Care Time Critical Care Time: No Discharge Plan Discharge Clinical Impression: Fall, Unsteady gait Patient Disposition: Still a Patient Prescriptions: No Action carvedilol 12.5 mg tablet 1 tab PO BID Hold Instructions: Monitor blood pressure for the next 3 days before res tarting it. tacrolimus 1 mg capsule 2 cap PO DAILY@1700 Label Comments: 3mg in AM, 2mg in PM ergocalciferol (vitamin D2) [Vitamin D2] 1,250 mcg (50,000 unit) Capsule 1,250 mcg PO TH@0900 tacrolimus 1 mg capsule 3 mg PO DAILY@0730 lorazepam 1 mg tablet 1 mg PO BEDTIME Prolia 60 mg/mL syringe 60 mg subcut Q6M risperidone 2 mg Tablet 2 mg PO BID Qty: 60 2RF levothyroxine 50 mcg Tablet 50 mcg PO DAILY@0600 Qty: 30 1RF prednisone 5 mg tablet 1 tab PO DAILY Qty: 30 1RF acetaminophen [Tylenol] 325 mg Tablet 650 mg PO BID oxycodone 5 mg tablet 5 mg PO Q6H PRN (Reason: severe pain (scale score 7-10)) Qty: 10 0RF Rx Instructions: Partial Fill upon patient request.
--- NOTE | 2022-06-03 18:00 | ECG_ITS ---
Test Reason : FALL Blood Pressure : / mmHG Vent. Rate : 075 BPM Atrial Rate : 075 BPM P-R Int : 146 ms QRS Dur : 072 ms QT Int : 380 ms P-R-T Axes : 036 -50 057 degrees QTc Int : 424 ms Normal sinus rhythm Left axis deviation Abnormal ECG When compared with ECG of 13-MAY-2022 12:12, No significant change was found Referred By: Laurel Kay Electronically Signed By:SALEEM NIETO
[2022-06-03 18:13] VITALS: TEMP 37.2; BMI 21.3
[2022-06-03 18:30] LABS: MANUAL DIFF FLAG NO
[2022-06-03 18:32] LABS: Basophils Percent Auto 0.4 % (0-2); Eosinophils Absolute Auto 0.1 X10*3/uL (0.0-0.4); Eosinophils Percent Auto 1.2 % (0-4); Hematocrit 24.2 % (37.0-47.0); Hemoglobin 7.7 g/dl (12.0-16.0); Imm Gran Abs Auto 0.02 X10*3/uL (0.00-0.03); Imm Gran Pct Auto 0.4 % (0.0-0.4); Lymphocytes Absolute Auto 0.5 X10*3/uL (1.2-4.9); Lymphocytes Percent Auto 9.3 % (20-40); Mean Corpuscular HGB Conc 31.8 g/dl (31.0-35.0); Mean Corpuscular Hemoglobin 29.5 pg (27.0-33.0); Mean Corpuscular Volume 92.7 fL (80.0-98.0); Mean Platelet Volume 9.7 fL (9.4-12.3); Monocytes Absolute Auto 0.6 X10*3/uL (0.1-1.2); Neutrophils Percent Auto 77.7 % (45-73); Platelet Count 127 X10*3/uL (160-400); Red Blood Count 2.61 X10*6/uL (4.20-5.50); Red Cell Distribution Width 16.4 % (11.0-16.0); White Blood Count 5.2 X10*3/uL (4.8-10.8)
--- NOTE | 2022-06-03 18:32 | PC.NURSE ---
Patient arrived by [facility], no report obtain by the nurse. Patient is hypertensive, and placed on the quality assurance monitor final T waves are elevated on the monitor. Patient labs were drawn and urine culture was obtain. Patient is a/o x 4, lungs sound are clear. Patient has red left eye with discharge and crusted on her eyes.
[2022-06-03 18:34] LABS: Appearance Urine Clear; Color Urine Yellow; Glucose Urine UA 100 mg/dL (Negative); Leukocyte Esterase Urine Negative (Negative); Nitrite Urine Negative (Negative); PH 6.5 (5.0-9.0); Specific Gravity - Urine 1.015 (1.005-1.025); Urine Blood Negative (Negative); Urine Ketones Negative (Negative); Urine Protein >=1000 (4+) mg/dL (Neg-Trace)
[2022-06-03 18:39] LABS: Bacteria Urine None Seen (None Seen); Hyaline Casts Urine 0-2 /LPF (0-2); RBC Urine 0-2 /HPF (0-2); Squamous Epithelial Cell Urine 0-2 /HPF (0-2); WBC Urine 0-5 /HPF (0-5)
[2022-06-03 18:40] LABS: INTERNATIONAL NORM RATIO 0.9 (0.9-1.1); Prothrombin Time 10.6 SEC (10.0-13.1)
[2022-06-03 18:42] LABS: Partial Thromboplastin Time 33.5 SEC (26.0-36.4)
[2022-06-03 18:56] LABS: Alanine Aminotransferase 17 U/L (0-31); Albumin Level 2.9 g/dL (3.5-5.0); Alkaline Phosphatase 83 U/L (39-117); Anion Gap 16 (12-20); Aspartate Amino Transferase 12 U/L (5-31); Bilirubin Direct < 0.2 mg/dL (0.0-0.5); Bilirubin Total 0.3 mg/dL (0.0-1.0); Blood Urea Nitrogen 39 mg/dL (9-16); Calcium 7.8 mg/dL (8.4-10.2); Carbon Dioxide 19 mmol/L (22-29); Chloride 109 mmol/L (96-108); Creatinine Clr Calc Pharmacy 15.3; Estimated Glomerular Filt Rate 16; Glucose Random 139 mg/dL (60-115); Magnesium 1.5 mg/dL (1.6-2.6); Potassium 4.9 mmol/L (3.3-5.1); Sodium 139 mmol/L (135-145)
[2022-06-03 19:04] LABS: COVID-19 Test Negative (Negative)
[2022-06-03 20:04] VITALS: BP 204/89; PULSE 79; RESP 15; TEMP 37.3; O2SAT 99
[2022-06-03 20:44] LABS: Iron 73 mcg/dL (30-160); Percent Iron Saturation 43 % (15-50); Total Iron Binding Capacity 171 mcg/dL (228-428); Unsaturated Iron Binding 98 ug/dL
--- NOTE | 2022-06-03 20:58 | MHC.CM.ED ---
CM met with patient at the request of Laurel BARILLAS. Pt sustained a hip fx and was hospitalized on 04/09-04/16. Pt was d/c to STR at [facility]. Pt then came to ED stating she needed more rehab. Pt discharged to [facility]. Pt was discharged today. States she was told her Medicare was done and that she had to go home. Pt was at home, walking with walker and was startled by the telephone and lost her balance and fell. She hit her head. Pt came to ED. Pt feels she needs more rehab and is not safe to go home. Pt is concerned about payment if Medicare does not cover additional rehab. Pt lives alone in her own Condo. Pt states she does not have private funds to pay for rehab. Pt is agreeable to PT evaluation. Pt is agreeable to additional STR if insurance pays. Requests not to return to [facility] or to go to [facility]. Pt would like to return to [facility]. Is agreeable to other local facilities. PCP is Norah Laguna. Vax x3/Pfizer & x1 Moderna. Pt lives alone. Has cane, walker and 2 hearing aides. HCP on file. HCP#1/sister Adriana Cruz ([phone]) and HCP#2/brother in law Emeka Cruz (same number). Referrals placed. Unsure if Medicare hours are depleted or if approved hours at [facility] were completed. CM will address in the morning. CM to follow for d/c planning.
--- NOTE | 2022-06-03 21:09 | PC.NURSE ---
called pharmacy for missing med
[2022-06-03 21:49] VITALS: BP 214/112; PULSE 81; RESP 16; TEMP 37.1; O2SAT 99
--- NOTE | 2022-06-03 21:54 | PC.NURSE ---
Patient was re-position and changed. Patient is hypertensive, BP was taken both arms and provider was notified.
--- NOTE | 2022-06-03 22:07 | PC.NURSE ---
pharmacy pharmacy called and stated that the patients med req is very outdated, pt unable to remember meds, recently [facility] and pharmacy will follow up with them in the morning
[2022-06-03 22:19] VITALS: BP 200/91; PULSE 87; RESP 18; O2SAT 97
[2022-06-03] MEDS: Metoprolol Tartrate 50 MG TABLET PO (22:25)
[2022-06-03] MEDS: Erythromycin Base 0.5% Oph Oin 1 GM TUBE 1 CM EYE-BOTH (22:25)
[2022-06-03] MEDS: oxyCODONE HCl Immed Release 5 MG TABLET PO (22:25)
--- NOTE | 2022-06-03 22:26 | PC.NURSE ---
patient awake/alert, telemetry monitor intact- nsr 80s, pt hypertensive- medicated with po meds for htn, pt also medicated for pain per order, call guevara within reach, will continue to monitor.
--- NOTE | 2022-06-03 22:28 | PC.NURSE ---
Patient meds were administer as order.
[2022-06-04] VITALS (9 sets, daily range): BP systolic 147–216; BP diastolic 68–82; PULSE 67–89; RESP 11–18; TEMP 36.7–36.8; O2SAT 97–100
[2022-06-04] MEDS: Erythromycin Base 0.5% Oph Oin 1 GM TUBE 1 CM EYE-BOTH ×6 (00:25→22:05)
[2022-06-04] MEDS: carvediloL 12.5 MG TABLET PO ×2 (03:45→21:51)
[2022-06-04] MEDS: amLODIPine Besylate 5 MG TABLET PO (03:46)
[2022-06-04] MEDS: Acetaminophen 325 MG TABLET 975 MG PO (05:21)
[2022-06-04] MEDS: oxyCODONE HCl Immed Release 5 MG TABLET 10 MG PO (05:22)
--- NOTE | 2022-06-04 10:14 | PHA.MEDREC ---
Pharmacy Consult ? Medication Reconciliation Pharmacy has completed the medication reconciliation. Patient spoke to overnight [facility] left note stating phone to [facility] was called, but never picked up by long-term staff. [facility] also stated in note that pt unaware of all meds and that long-term would have most updated list. Called [facility] in AM 06/04/22, but still no response. Went to talk to patient and patient had new [facility] med list with them from [facility]. Used list and cross-referenced with claim history to verify. Tacrolimus dose regimen based off list + prior visit.
[2022-06-04] MEDS: predniSONE 5 MG TABLET PO (12:10)
[2022-06-04] MEDS: risperiDONE 2 MG TABLET PO ×2 (12:10→21:51)
[2022-06-04] MEDS: Tacrolimus 1 MG CAPSULE 3 MG PO (12:50)
--- NOTE | 2022-06-04 15:10 | MHC.CM.PN ---
PRIOR BED OFFERS NO LONGER AVAILABLE. CASE MANAGEMENT ATTEMPTING TO SECURE BED. [facility] AND [facility] HAVE FILLED THEIR BEDS FOR THE WEEKEND.
--- NOTE | 2022-06-04 16:08 | PC.NURSE ---
Pt on the telephone with sister, Jadyn Chung, who lives in [place]. Jadyn can be reached at [phone]. Jadyn reports, via telephone, that she will be taking pt to live with her in [place] and will be traveling via car on Monday and should arrive to the hospital on Monday. Pt agrees with this plan. CM notified of new plan of care.
[2022-06-04] MEDS: Tacrolimus 1 MG CAPSULE 2 MG PO (21:50)
[2022-06-04] MEDS: Acetaminophen 325 MG TABLET 650 MG PO (21:51)
[2022-06-04] MEDS: LORazepam 1 MG TABLET PO (21:51)
[2022-06-04] MEDS: oxyCODONE HCl Immed Release 5 MG TABLET PO (21:51)
[2022-06-05 05:56] VITALS: BP 191/84; PULSE 86; RESP 22; O2SAT 99
[2022-06-05] MEDS: carvediloL 12.5 MG TABLET PO ×2 (06:30→19:58)
--- NOTE | 2022-06-05 06:41 | PC.NURSE ---
Carvedilol was given at 6:30 instead of scheduled 9:[address] Honeycutt for Pt BP of 192/82.
[2022-06-05] MEDS: Acetaminophen 325 MG TABLET 650 MG PO ×2 (08:11→21:00)
[2022-06-05] MEDS: Erythromycin Base 0.5% Oph Oin 1 GM TUBE 1 CM EYE-BOTH (08:11)
[2022-06-05] MEDS: risperiDONE 2 MG TABLET PO ×2 (08:12→21:00)
[2022-06-05] MEDS: Tacrolimus 1 MG CAPSULE 3 MG PO (08:12)
[2022-06-05] MEDS: predniSONE 5 MG TABLET PO (08:12)
[2022-06-05 16:05] VITALS: BP 180/75; PULSE 78; RESP 16; TEMP 36.6; O2SAT 99
[2022-06-05] MEDS: Tacrolimus 1 MG CAPSULE 2 MG PO (17:53)
[2022-06-05] MEDS: oxyCODONE HCl Immed Release 5 MG TABLET PO (18:02)
[2022-06-05 19:05] VITALS: BP 164/86; PULSE 94; RESP 20; TEMP 36.8; O2SAT 98
[2022-06-05] MEDS: LORazepam 1 MG TABLET PO (21:00)
--- NOTE | 2022-06-06 00:01 | PC.NURSE ---
Patient refused eye ointment multiple times states she can't see when we put in eye ointment.
[2022-06-06 01:08] VITALS: BP 165/83; PULSE 85; RESP 14; TEMP 37.6; O2SAT 99
--- NOTE | 2022-06-06 01:09 | PC.NURSE ---
Moved pt to a hospital bed. Got her comfortable and checked her temperature rectally, she felt warm to touch.
[2022-06-06] MEDS: Erythromycin Base 0.5% Oph Oin 1 GM TUBE 1 CM EYE-BOTH ×2 (05:49→08:02)
[2022-06-06] MEDS: Levothyroxine Sodium 50 MCG TABLET PO (06:37)
[2022-06-06 07:39] VITALS: BP 188/77; PULSE 85; RESP 21; O2SAT 98
[2022-06-06] MEDS: predniSONE 5 MG TABLET PO (08:03)
[2022-06-06] MEDS: carvediloL 12.5 MG TABLET PO (08:03)
[2022-06-06] MEDS: risperiDONE 2 MG TABLET PO (08:03)
[2022-06-06] MEDS: Acetaminophen 325 MG TABLET 650 MG PO (08:03)
--- NOTE | 2022-06-06 08:44 | PC.NURSE ---
Prograf given late due to not being in Pyxis. Pharmacy notified.
[2022-06-06] MEDS: Tacrolimus 1 MG CAPSULE 3 MG PO (08:54)
--- NOTE | 2022-06-06 09:20 | MHC.CM.ED ---
Addendum entered by Ifeoma Joyner 06/06/22 10:55: [facility] is able to offer a bed. Patient accepts. [facility] booked for 1pm. Patient, David RN and Nancy BARILLAS aware. Original Note: Tatiana remains in ER. Clinical updates sent to facilities still following patient: [facility], and [facility]. Continue to [facility] for d/c needs.
[2022-06-06 12:45] VITALS: BP 183/82; PULSE 88; RESP 20; O2SAT 99
== END 2022-06-06 13:08 | disposition skilled nursing facility (03) ==
PROVIDERS: Physician Assistant; Emergency Provider Student in an Organized Health Care Education/Training Program; PCP Hospitalist
DX: S09.90XA Unspecified injury of head, initial encounter (principal); R51.9 Headache, unspecified; R26.81 Unsteadiness on feet; W01.0XXA Fall on same level from slipping, tripping and stumbling without subsequent striking against object, initial encounter; Y93.9 Activity, unspecified; Y92.9 Unspecified place or not applicable; Y99.9 Unspecified external cause status; Z20.822 Contact with and (suspected) exposure to COVID-19; Z79.899 Other long term (current) drug therapy; Z87.891 Personal history of nicotine dependence
CPT/HCPCS: 36415; 70450; 80048; 80076; 81001; 83540; 83735; 85025; 85610; 85730; 87635; 93005; 97161; 99285